=== PATIENT | female | born 1955 | race Caucasian/White ===

== ENCOUNTER → 2019-09-18 11:27 | Outpatient (BNVA) | payer OTHER, SELFPAY | PROVIDERS: Visit Provider Nurse Practitioner | DX: S66.911A Strain of unspecified muscle, fascia and tendon at wrist and hand level, right hand, initial encounter (principal); X58.XXXA Exposure to other specified factors, initial encounter | CPT/HCPCS: 73110 ==

== ENCOUNTER 2019-09-23 19:44 | Emergency (ER) | payer OTHER, SELFPAY ==
--- NOTE | 2019-09-23 19:47 | XRR_ITS ---
PROCEDURE INFORMATION: Exam: XR Right Elbow Exam date and time: 09/23/2019 8:17 PM Age: 64 years old Clinical indication: Injury or trauma; Fall; Initial encounter; Swelling (edema); Elbow; Right TECHNIQUE: Imaging protocol: XR Right elbow. Views: 3 or more views. COMPARISON: No relevant prior studies available. FINDINGS: Bones/joints: Normal. Soft tissues: Normal. XR/XR elbow RT min 3V* [id number] IMPRESSION: No acute findings.
[2019-09-23 20:19] VITALS: BP 159/84; PULSE 91; RESP 18; TEMP 36.4; O2SAT 95; BMI 39.5
--- NOTE | 2019-09-23 21:52 | ED_ITS ---
HPI - Extremity Problem General: Chief complaint: Extremity Injury, Upper Stated complaint: right elbow injury Time Seen by Provider: 09/23/19 21:46 Source: patient Mode of arrival: ambulatory Limitations: no limitations History of Present Illness: HPI Narrative: Old female who struck her right elbow 2 weeks ago. She states she has a continuous hematoma to the right proximal forearm right by her elbow. She states that it is is half a golf ball size. She has had slight pain. She denies any fever or pus coming from it. Denies any worsening or improving factors. Associated symptoms: Deny chest pain, fever(s) or rash Review of Systems Const: Denies: fever(s), chills, body aches or change in appetite Eyes: Denies: blurry vision or eye discomfort ENMT: Denies: throat pain or dental pain Card: Denies: chest pain Resp: Denies: dyspnea GI: Denies: abdominal pain, nausea, vomiting or diarrhea : Denies: dysuria Musc: Denies: neck pain or back pain Skin/Breast: Denies: rash Neuro: Denies: headache(s) Psych: Denies: depression Chaitanya/Lymph: Denies: easy bruising All/Imm: Denies: urticaria Physical Exam Const: COMMON NORMALS: no acute distress, patient oriented x3 and healthy appearing HENMT: COMMON NORMALS: normocephalic and atraumatic HEAD & SCALP: normocephalic and atraumatic Eye: COMMON NORMALS: Equal, round and reactive pupils present and EOMs intact bilaterally PUPIL: Yes Equal, round and reactive pupils present Neck/C-Spine: COMMON NORMALS: full ROM and supple Chest: COMMONS NORMALS: normal inspection of the chest and normal palpation of entire chest wall Resp: COMMON NORMALS: normal respiratory effort, No retractions, No use of accessory muscles and clear to auscultation bilaterally AUSCULTATION: clear to auscultation bilaterally Cardio: COMMON NORMALS: regular rate, regular rhythm and No murmurs present (Cardio) RATE: regular rate RHYTHM: regular rhythm GI: COMMON NORMALS: Normal to inspection, nondistended, normoactive bowel sounds present, Soft to palpation, non-tender and no masses PALPATION: Yes Soft to palpation Extremity: COMMON NORMALS: normal to inspection and full ROM Neuro: COMMON NORMALS: patient oriented x3, moves all extremities and no focal motor deficits Psych: COMMON NORMALS: mental status grossly normal, Normal thought process present and cooperative THOUGHT PROCESS: Normal thought process present Skin: COMMON NORMALS: no wounds NARRATIVE SKIN EXAM: Half a golf ball size mass to right proximal forearm Course ED course: Patient had a half golf ball size hematoma to her forearm. I did apply alcohol swab to clean her skin and inserted an 18-gauge needle and withdrew 4 cc of blood from it and it did flattened the area. No pus noted. Vital Signs: Vital signs: Vital Signs Temperature 97.5 F L 09/23/19 20:19 Pulse Rate 91 09/23/19 20:19 Respiratory Rate 18 09/23/19 20:19 Blood Pressure 159/84 09/23/19 20:19 Pulse Oximetry 95 09/23/19 20:19 MDM - Extremity (Nontraumatic) MDM Narrative: Medical decision making narrative: Patient presents with a hematoma drained with a needle. Patient has no signs of infection x-ray is normal. She is stable for discharge and is to follow-up with primary care doctor in 2 to 4 days. Imaging Data^: X-ray right elbow: Attestation: I personally reviewed and interpreted this imaging study as follows: Discharge Plan Discharge Patient Disposition: Home, Self-Care Clinical Impression: Hematoma Condition: Stable Prescriptions: No Action tramadol 50 mg tablet 50 mg PO BID PRNRF: 0 Januvia 25 mg tablet 25 mg PO DAILY RF: 0 lisinopril 5 mg tablet 5 mg PO DAILY RF: 0 simvastatin 20 mg tablet 20 mg PO DAILY RF: 0 montelukast [Singulair] 10 mg tablet 10 mg PO DAILY RF: 0 Discharge Orders: Discharge Order (Routine); Ordered 09/23/19 Ordered By: Bhupendra oMrrow Discharge Diet: Advance as tolerated Discharge Activity: Resume usual activity Patient Instructions: Contusion in Adults (ED) Coding Level of Care Code ED Multifold Operator for Sj Cantu
[2019-09-23 21:57] VITALS: BP 142/78; PULSE 76; RESP 14; O2SAT 98
== END 2019-09-23 22:00 | disposition home or self-care (01) ==
LOC: ER 21:59
PROVIDERS: Emergency Provider Emergency Medicine
DX: S50.01XA Contusion of right elbow, initial encounter (principal); X58.XXXA Exposure to other specified factors, initial encounter
CPT/HCPCS: 10160; 12345; 73080; 99281; 99283

== ENCOUNTER 2020-08-29 09:11 | Outpatient (CLI) | payer MEDICARE, SELFPAY ==
--- NOTE | 2020-08-29 09:22 | MM_ITS ---
WS: [id number] SCREENING DIGITAL MAMMOGRAM WITH CAD HISTORY: SCREENING COMPARISON: None available. Unable to retrieve prior imaging studies from [place]. Bilateral CC and MLO views submitted. Computer aided detection analyzed. Breast composition: There are scattered areas of fibroglandular density. There are numerous asymmetri es within each breast. There are also 2 biopsy clips in the anterior lateral RIGHT breast. Asymmetry measuring 12 mm in the medial RIGHT breast is probably just posterior to the nipple on the lateral pr ojection. There are additional asymmetries in the lateral RIGHT breast near the biopsy clips. Asymmet ry measuring 13 mm in the central breast seen on the LEFT MLO projection. Without prior examinations for comparison these areas need to be further evaluated. Benign calcifications are also noted in eac h breast. MM/[place] [id number] IMPRESSION: BI-RADS: 0-Incomplete: Need additional imaging evaluation FOLLOW UP: Need Additional Imaging RIGHT breast: Spot compression views (CC and MLO). True ML. Ultrasound to follo w if abnormality persists. LEFT breast: Spot compression views (MLO). True ML. Ultrasound to follow if abn ormality persists.
--- NOTE | 2020-08-29 09:54 | USCV_ITS ---
PandoraRosie santamaria Age: 65 Gender: F : 1955 Exam Date: 08/29/2020 10:14 Ordering Phys: Ginger Sarabia MD ([email or web address]) Technologist: Anastasia Thorne Exam Location: [facility] [place] Indication: Presence of prosthetic heart valve BP: 135 / 70 HR: 68 Rhythm: Sinus Technical Quality: Fair MEASUREMENTS (Male / Female) Normal Values 2D ECHO LV Diastolic Diameter PLAX 4.0 cm 4.2 - 5.9 / 3.9 - 5.3 cm LV Systolic Diameter PLAX 2.1 cm LV Chamber Size 3.5 cm IVS Diastolic Thickness 2.1 cm 0.6 - 1.0 / 0.6 - 0.9 cm IVS Systolic Thickness 2.4 cm LVPW Diastolic Thickness 1.5 cm 0.6 - 1.0 / 0.6 - 0.9 cm LVPW Systolic Thickness 2.2 cm RV Chamber Size 2.3 cm LVOT Diameter 2.0 cm LV Ejection Fraction 2D Teich 77.5 % LV Ejection Fraction MOD 2C 70.2 % LV Ejection Fraction 2C AL 70.6 % LA Diameter 3.4 cm LA Width 2.4 cm LA Height 4.7 cm RA Width 2.4 cm RA Height 4.0 cm Aorta at Sinotubular Diameter 2.4 cm M-MODE LV Diastolic Diameter MM 5.6 cm 4.2 - 5.9 / 3.9 - 5.3 cm LV Systolic Diameter MM 3.4 cm LV Ejection Fraction MM Teich 68.5 % IVS Diastolic Thickness MM 1.4 cm 0.6 - 1.0 / 0.6 - 0.9 cm IVS Systolic Thickness MM 2.0 cm LVPW Diastolic Thickness MM 1.3 cm 0.6 - 1.0 / 0.6 - 0.9 cm LVPW Systolic Thickness MM 1.6 cm RV Diastolic Diameter MM 0.2 cm Aortic Annulus Diameter 3.3 cm LA Ao Ratio MM 1.1 MV E Point Septal Separation 0.3 cm DOPPLER AV Peak Velocity 351.0 cm/s LVOT Peak Velocity 81.0 cm/s AV Area Cont Eq vti 0.8 cm squared AV Area Cont Eq pk 0.8 cm squared MV Area PHT 3.5 cm squared Mitral E to A Ratio 0.8 MV E' Velocity 37.0 cm/s Mitral E to MV E' Ratio 9.0 Mitral E to LV E' Lateral Ratio 8.9 Mitral E to LV E' Septal Ratio 9.2 TV Peak E Velocity 37.0 cm/s Right Atrial Pressure 3.0 mmHg PV Peak Velocity 56.0 cm/s RV Acceleration Time 0.1 s RV Ejection Time 0.3 s RV AcT/ET 0.2 FINDINGS Left Ventricle Normal left ventricular size, systolic function and increased wall thickness, with no diagnostic regional wall motion abnormalities. Left ventricular ejection fraction is estimated at 60 -65 %. Normal diastolic function. Right Ventricle Normal right ventricular size and systolic function. Right Atrium Normal right atrial size. Right atrial pressure estimated at 3 mm Hg. Left Atrium Normal left atrial size. Mitral Valve Structurally normal mitral valve. No mitral valve stenosis. No mitral valve regurgitation. Aortic Valve Bioprosthetic aortic valve in situ. Moderate prosthetic aortic valve stenosis, peak velocity 3.5 m/s, peak gradient 48 mm Hg, mean gradient 30.6 mmHg, ESTEPHANIA 0.81 cm squared. Dimensionless valve index of 0.23. Acceleration time of 102 ms. Mild to moderate perivalvular aortic valve regurgitation. Tricuspid Valve Structurally normal tricuspid valve. Trace tricuspid valve regurgitation. Pulmonic Valve Pulmonic valve not well visualized. No pulmonary valve stenosis. Trace pulmonary valve regurgitation. Pericardium No pericardial effusion. Aorta Normal sized aortic root. Normal sized inferior vena cava with normal respiratory variations. CONCLUSIONS 1. Normal left ventricular size, systolic function and increased wall thickness, with no diagnostic regional wall motion abnormalities. Left ventricular ejection fraction is estimated at 60 -65 %. Normal diastolic function. 2. Bioprosthetic aortic valve in situ. Moderate prosthetic aortic valve stenosis, peak velocity 3.5 m/s, peak gradient 48 mm Hg, mean gradient 30.6 mmHg, ESTEPHANIA 0.81 cm squared. Dimensionless valve index of 0.23. Acceleration time of 102 ms. Mild to moderate perivalvular aortic valve regurgitation. 3. No prior similar studies to compare. Ginger Sarabia MD (Electronically Signed) Final Date: 05 September 2020 09:35 S
[2020-08-29] MEDS: perflutren protein-a microsphr 0.22 mg/mL SDV 3 mL IV (11:31)
== END 2020-08-29 09:12 | disposition home or self-care (01) ==
LOC: RADSHAW 09:17
PROVIDERS: PCP Family Medicine; Visit Provider Family Medicine
DX: Z95.2 Presence of prosthetic heart valve (principal); Z12.31 Encounter for screening mammogram for malignant neoplasm of breast
CPT/HCPCS: 77067; C8929; Q9956

== ENCOUNTER 2020-09-30 10:46 | Outpatient (CLI) | payer MEDICARE, SELFPAY ==
--- NOTE | 2020-09-30 10:56 | US_ITS ---
WS: [id number] ADDITIONAL VIEWS BILATERAL MAMMOGRAM AND RIGHT BREAST ULTRASOUND ADDITIONAL VIEWS BILATERAL MAMMOGRAM HISTORY: BREAST ASYMMETRY COMPARISON: 08/29/2020 Right breast: Numerous asymmetries in the anterior breast. Biopsy clips are also present. The asymmet ry just medial to the nipple persists measuring 8 mm. This is adjacent to a biopsy clip and may have been previously biopsied. This biopsy was not performed at this institution. Unfortunately there are no prior studies for comparison. Left breast: Asymmetry noted in the central LEFT breast seen best on the MLO projection resolves with additional imaging. Benign calcifications are noted throughout the LEFT breast. BREAST ULTRASOUND RIGHT breast ultrasound, limited. Ultrasound directed to the medial breast. At 6:00, 2 cm from the nipple is a hypoechoic mass without shadowing measuring 0.9 x 1.0 x 0.5 cm. This corresponds in size and shape to the mammographic abnorm ality. Suspect this has been previously biopsy as there is an adjacent biopsy clip. US/US breast RT limited* [id number] IMPRESSION: BI-RADS: 3-Probably Benign FOLLOW UP: 6 Month Follow-up Ovoid hypoechoic mass measures maximum 1.0 cm in the RIGHT breast at 6:00. Ther e is an adjacent biopsy clip therefore I favor this has probably been biopsied in the past although we do not have that information or prior studies available . Recommend 6 month follow-up RIGHT mammogram and ultrasound. If prior studies become available for comparison an addendum can be submitted.
--- NOTE | 2020-10-09 11:05 | PC.NURSE ---
This nurse called Rosibel Esqueda's office @ [facility] today. I spoke with nurse Barrera about needing a diag mammo order from mammography screening, as well as PET order needed from LDCT screening on 10/08/20. Nurse said the provider will be OOO this week, but will be back next week to put in orders. Sugey VALENTINE
== END 2020-09-30 10:47 | disposition home or self-care (01) ==
LOC: RADSHAW 10:52
PROVIDERS: PCP Family Medicine; Visit Provider Family Medicine
DX: N64.89 Other specified disorders of breast (principal); N63.15 Unspecified lump in the right breast, overlapping quadrants
CPT/HCPCS: 76642; 77066

== ENCOUNTER 2021-02-05 11:33 | Outpatient (CLI) | payer MEDICARE, SELFPAY ==
[2021-02-05 12:01] VITALS: BP 116/70; PULSE 62; RESP 18; TEMP 36.7; O2SAT 98; BMI 39.5
[2021-02-05 12:14] VITALS: BP 130/93; PULSE 63; RESP 18; TEMP 36.6; O2SAT 95
[2021-02-05 13:12] VITALS: BP 119/70; PULSE 62; RESP 18; TEMP 36.6; O2SAT 97
== END 2021-02-05 11:34 | disposition home or self-care (01) ==
LOC: OPS 11:35
PROVIDERS: PCP Family Medicine; Visit Provider Nurse Practitioner
DX: U07.1 COVID-19 (principal)
CPT/HCPCS: 96365

== ENCOUNTER 2021-03-26 10:28 | Outpatient (CLI) | payer MEDICARE, SELFPAY ==
--- NOTE | 2021-03-26 10:44 | US_ITS ---
WS: [id number] ADDITIONAL VIEWS RIGHT MAMMOGRAM RIGHT BREAST ULTRASOUND HISTORY: BREAST ASYMMETRY COMPARISON: 09/30/2020, 08/29/2020 RIGHT MAMMOGRAM: Spot compression views and true ML. The irregular asymmetry near the 6:00 axis of the RIGHT breast is unchanged. There is an additional a symmetry just lateral to the nipple near 8:00 at a middle depth with an adjacent biopsy clip. Asymmet ele are all stable. There are several biopsy clips and benign calcifications within the RIGHT breast . RIGHT BREAST ULTRASOUND 2-D and color Doppler imaging submitted. Ultrasound at 6:00 demonstrates a hypoechoic mass measuring 9 x 4 x 9 mm with no change. Lobulated hy poechoic mass posterior to the RIGHT nipple at 6:00 may be a dilated duct. No interval changes. This prominent duct was present on the mammogram with an adjacent biopsy clip. No increased vascularity. US/US breast RT limited* [id number] IMPRESSION: BI-RADS: 3-Probably Benign FOLLOW UP: 6 Month Follow-up Recommend continued 6 month follow-up of these nodules and possible duct dilata tion posterior to the RIGHT nipple. 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 With no remote mammograms follow-up is r ecommended. Diagnostic RIGHT mammogram and a RIGHT breast ultrasound with atten tion to the asymmetries and subareolar region.
== END 2021-03-26 10:29 | disposition home or self-care (01) ==
LOC: RADSHAW 10:41
PROVIDERS: PCP Family Medicine; Visit Provider Family Medicine
DX: N64.89 Other specified disorders of breast (principal); N63.15 Unspecified lump in the right breast, overlapping quadrants
CPT/HCPCS: 76642; 77065

== ENCOUNTER → 2021-04-28 14:33 | Outpatient (BNVA) | payer MEDICARE, SELFPAY | PROVIDERS: PCP Family Medicine; Visit Provider Specialist | DX: G31.84 Mild cognitive impairment of uncertain or unknown etiology (principal) | CPT/HCPCS: 99204 ==

== ENCOUNTER 2021-05-01 08:34 | Outpatient (CLI) | payer MEDICARE, SELFPAY ==
--- NOTE | 2021-05-01 08:00 | USCV_ITS ---
Rosie Delgado Age: 65 Gender: F : 1955 Exam Date: 05/01/2021 09:14 Ordering Phys: Ginger Sarabia MD ([email or web address]) Technologist: Exam Location[place] [facility] [place] Indication: BOVINE AO PROS BP: 130 / 73 HR: 74 Rhythm: Sinus Technical Quality: Good MEASUREMENTS (Male / Female) Normal Values 2D ECHO LV Diastolic Diameter PLAX 4.0 cm 4.2 - 5.9 / 3.9 - 5.3 cm LV Systolic Diameter PLAX 2.3 cm IVS Diastolic Thickness 0.9 cm 0.6 - 1.0 / 0.6 - 0.9 cm IVS Systolic Thickness 1.7 cm LVPW Diastolic Thickness 1.0 cm 0.6 - 1.0 / 0.6 - 0.9 cm LVPW Systolic Thickness 1.4 cm LVOT Diameter 2.1 cm LV Ejection Fraction 2D Teich 75.0 % LV Ejection Fraction MOD 2C 63.2 % LV Ejection Fraction 2C AL 62.7 % LA Diameter 3.9 cm Aorta at Sinotubular Diameter 2.6 cm M-MODE MV E Point Septal Separation 1.3 cm DOPPLER AV Peak Velocity 406.0 cm/s LVOT Peak Velocity 85.0 cm/s AV Area Cont Eq vti 0.8 cm squared AV Area Cont Eq pk 0.7 cm squared MV Area PHT 3.1 cm squared Mitral E to A Ratio 0.7 MV E' Velocity 35.5 cm/s Mitral E to MV E' Ratio 9.1 Mitral E to LV E' Lateral Ratio 8.0 Mitral E to LV E' Septal Ratio 10.4 TR Peak Velocity 255.0 cm/s TR Peak Gradient 26.0 mmHg TV Peak E Velocity 118.0 cm/s Right Atrial Pressure 3.0 mmHg Pulmonary Artery Systolic Pressu 29.0 mmHg PV Peak Velocity 92.0 cm/s RV Acceleration Time 0.1 s FINDINGS Left Ventricle Normal left ventricular size, systolic function and increased wall thickness, with no regional wall motion abnormalities. Left ventricular ejection fraction is estimated at 70 %. Grade I diastolic dysfunction (abnormal relaxation filling pattern), normal to mildly elevated filling pressures. Right Ventricle Normal right ventricular size and systolic function. Right ventricular systolic pressure 29 mmHg. Right Atrium Normal right atrial size. Left Atrium Mildly increased left atrial size. Mitral Valve Mild mitral annular calcification. Mildly thickened mitral valve. No mitral valve stenosis. No significant mitral valve regurgitation. Aortic Valve Bioprosthetic aortic valve in situ. Severe bioprosthetic aortic valve stenosis, peak velocity 4.2 m/s, peak gradient 72 mm Hg, mean gradient 43 mmHg, ESTEPHANIA 0.7 cm squared (LVOT=20 mm). Dimensionless valve index 0.20. Acceleration time 120 msec. Mild aortic valve regurgitation. Tricuspid Valve Structurally normal tricuspid valve. Trace to mild tricuspid valve regurgitation. Pulmonic Valve Pulmonic valve not well visualized. No pulmonary valve stenosis. Trace pulmonary valve regurgitation. Pericardium No pericardial effusion. Aorta Normal sized aortic root. CONCLUSIONS 1. This is a technically difficult study. Ultrasound enhancing agent was used per protocol. 2. Normal left ventricular size, systolic function and increased wall thickness, with no regional wall motion abnormalities. Left ventricular ejection fraction is estimated at 70 %. Grade I diastolic dysfunction (abnormal relaxation filling pattern), normal to mildly elevated filling pressures. 3. Severe bioprosthetic aortic valve stenosis, peak velocity 4.2 m/s, peak gradient 72 mm Hg, mean gradient 43 mmHg, ESTEPHANIA 0.7 cm squared (LVOT=20 mm). Dimensionless valve index 0.20. Acceleration time 120 msec. Mild aortic valve regurgitation. 4. When compared to previous study dated 08/29/2020, aortic stenosis seems to have worsened. Ginger Sarabia MD (Electronically Signed) Final Date: 06 May 2021 08:53 S
[2021-05-01] MEDS: perflutren protein-a microsphr 0.22 mg/mL SDV 3 mL IV (09:49)
== END 2021-05-01 08:35 | disposition home or self-care (01) ==
LOC: RAD 08:37
PROVIDERS: PCP Family Medicine; Visit Provider Internal Medicine Cardiovascular Disease
DX: T82.857A Stenosis of other cardiac prosthetic devices, implants and grafts, initial encounter (principal); Z95.2 Presence of prosthetic heart valve
CPT/HCPCS: C8929

== ENCOUNTER → 2021-05-13 11:36 | Outpatient (BNVA) | payer MEDICARE, SELFPAY | PROVIDERS: PCP Family Medicine; Visit Provider Internal Medicine Cardiovascular Disease | DX: T82.857A Stenosis of other cardiac prosthetic devices, implants and grafts, initial encounter (principal); Z95.2 Presence of prosthetic heart valve; R06.02 Shortness of breath | CPT/HCPCS: 99215 ==

== ENCOUNTER → 2021-05-23 10:00 | Outpatient (BNVA) | payer MEDICARE, SELFPAY | PROVIDERS: PCP Family Medicine; Referring Provider Internal Medicine Cardiovascular Disease | DX: Z20.822 Contact with and (suspected) exposure to COVID-19 (principal) ==

== ENCOUNTER 2021-05-27 06:05 | Outpatient (CLI) | payer MEDICARE, SELFPAY ==
[2021-05-23 10:02] LABS: INR 0.89 (0.83-1.21); Prothrombin Time (Patient) 12.3 Seconds (12.0-15.1)
[2021-05-23 10:07] LABS: Basophils # 0.1 10^3/uL (0.0-0.1); Eosinophils # 0.2 10^3/uL (0.0-0.8); Eosinophils % 3.4 %; Hematocrit 42.6 % (37.0-47.0); Hemoglobin 13.7 g/dL (11.5-15.3); Lymphocytes # 2.8 10^3/uL (0.8-4.8); Lymphocytes % 44.8 %; Mean Corpuscular HGB Conc 32.2 g/dL (30.0-36.0); Mean Corpuscular Volume 99.5 fl (81-99); Mean Platelet Volume 11.4 fL (7.4-10.4); Monocytes # 0.4 10^3/uL (0.2-0.9); Monocytes % 6.7 %; Neutrophils # 2.74 10^3/uL (1.8-7.7); Neutrophils % 43.9 %; Nucleated Red Blood Cells % 0 %; Platelet Count 249 10^3/cmm (130-400); Red Blood Count 4.28 10^6/uL (4.1-5.3); Red Cell Distribution Width 13.2 % (12.1-15.1); White Blood Count 6.2 10^3/uL (4.0-10.0)
[2021-05-23 10:13] LABS: Blood Urea Nitrogen 19 mg/dL (8-23); Calcium 9.7 mg/dL (8.5-10.5); Carbon Dioxide 26 mmol/L (22-29); Chloride 103 mmol/L (98-107); Glucose 185 mg/dL (65-115); Osmolality Calculated 295 mOsm/kg (285-295); Sodium 139 mmol/L (136-145)
[2021-05-23 10:17] LABS: Anion Gap 15.2 (5-19); Potassium 5.2 mmol/L (3.5-5.1)
[2021-05-23 13:04] LABS: Adenovirus Not Detected (NOT DETECT); Chlamydia Pneumoniae Not Detected (NOT DETECT); Coronavirus 229E,HKU1,NL63,OC4 Not Detected (NOT DETECT); Human Metapneumovirus Not Detected (NOT DETECT); Human Rhinovirus/Enterovirus Not Detected (NOT DETECT); Influenza A Not Detected (NOT DETECT); Influenza A H1 Not Detected (NOT DETECT); Influenza A H1-2009 Not Detected (NOT DETECT); Influenza A H3 Not Detected (NOT DETECT); Influenza B Not Detected (NOT DETECT); Mycoplasma Pneumoniae Not Detected (NOT DETECT); Parainfluenza Virus Type 1 Not Detected (NOT DETECT); Parainfluenza Virus Type 2 Not Detected (NOT DETECT); Parainfluenza Virus Type 3 Not Detected (NOT DETECT); Parainfluenza Virus Type 4 Not Detected (NOT DETECT); Respiratory Syncytial Virus A Not Detected (NOT DETECT); Respiratory Syncytial Virus B Not Detected (NOT DETECT); SARS-COV-2 Not Detected (NOT DETECT)
[2021-05-27] VITALS (13 sets, daily range): BP systolic 104–153; BP diastolic 69–95; PULSE 60–73; RESP 15–20; TEMP 36.4; O2SAT 91–98; BMI 38.4
--- NOTE | 2021-05-27 06:00 | XACV_ITS ---
Exam Room: 2 Ht: 175 cm Wt: 118 kg BSA: 2.45 m2 Gender: Female : 1955 Exam Priority: Routine Procedure(s): Procedure Description: Diagnostic procedure Procedure Description: Right Heart Catheterization Procedure Description: O2 saturation Procedure Description: Coronary Angiography Diagnostic Cath Status: Elective Diagnostic Findings * 65-year-old woman with past medical history of bioprosthetic aortic valve replacement for aortic stenosis in 2008, hypertension, dyslipidemia and diabetes mellitus. She presented initially for evaluation of chest tightness and exertional shortness of breath. Transthoracic echocardiogram showed severe bioprosthetic aortic valve stenosis. She is here for left and right heart catheterization prior to her valve surgery. * Angiography shows a right coronary dominant system. * The left main, left anterior descending left circumflex and right coronary arteries are free of any significant disease. Conclusions 1. Cardiac Catheterization study revealed normal left main, left anterior descending, left circumflex and right coronary arteries with minor luminal irregularities. 2. Right atrial pressure increased at 17 mmHg. Mild pulmonary hypertension with mean pulmonary artery pressure of 31 mmHg. 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 Pressures Phase:Rest AO : 104 / 76 ( 90 ) @ 9:09:00 AM RV : 49 / 11 / 17 @ 8:47:00 AM PA : 43 / 20 ( 31 ) @ 8:48:00 AM RA : a wave = 20 v wave = 20 mean = 17 @ 8:45:00 AM PCW : a wave = 18 v wave = 18 mean = 16 @ 8:50:00 AM Hemodynamic Findings Right atrial pressure is elevated at 17 mmHg. Right ventricular pressures are elevated at 49/11 (17) mm Hg. Pulmonary artery pressure mildly elevated with mean pressure of 31 mmHg. Pulmonary artery wedge pressures mildly increased at 16 mmHg. Cardiac output by Alonzo method is normal. Elevated pulmonary vascular resistance of 4 Wood Units. Oxygen saturation data reveals no evidence of intra-cardiac or intra-pulmonary shunting. O2 Content Phase:Rest PA : O2 Content O2: 65.0 @ 9:09:00 AM Saturations Phase:Rest AO : 96 @ 8:45:00 AM RA : 68 @ 8:50:00 AM RV : 69 @ 8:48:00 AM PA : 65 @ 9:09:00 AM Cardiac Output Phase:Rest Alonzo : 4 @ 8:30:34 AM Alonzo Cardiac Index: 2 @ 8:30:34 AM Flow Phase:Rest Qp : 4 @ 8:30:34 AM Qs : 4 @ 8:30:34 AM Clinical Evaluation EBL: 5mL-10mL Procedural Details Procedure Consent Obtained. Admit Source: Out Patient. Pre-Procedure Time Out. Identified patient by full name and date of as verbalized by the patient/guarantor. Does the consent match the physician's order: Yes. Accurate & Complete Informed Consent: Yes. Inpatient/Outpatient History & Physical on Chart: Yes. If H&P is completed, is and addenduem needed: N/A; If yes, is the addendum complete: N/A. Visualize and Verify Site with Patient/Guarantor: N/A. Relevant Radiology Images available: N/A. The risks, benefits, and alternatives of sedation and/or procedure were discussed by physician. The patient agrees to continue. Procedure started. [facility] Clinical Fraility Score: 3: Managing Well. Office Associate Indications: Worsening Angina. Chest Pain Symptom Assessment: Atypical Angina. Correct patient, site and procedure confirmed by cath team. Current diagnosis: Chest Pain. PERRLA. Strong, equal hand stage hand bilaterally. Lungs clear x 5 lobes. IV Site on Arrival: 22 gauge in the left anticubital. IV Fluids: 0.9% NaCl at KVO. 0 mL infused prior to general labor. Pre Procedural Pulses: bilateral dorsalis pedis was 2+. Pre Procedural Pulses: bilateral radial was 2+. right groin was prepped with chloroprep then draped in the usual sterile fashion. right radial was prepped with chloroprep then draped in the usual sterile fashion. Physician notified. Baseline sample Acquired. HR: 60 BPM. Physician arrived. Physician scrubbed in. Immediate Pre-Procedure Time Out. Correct Patient: Yes; Correct Procedure: Yes; Correct Site: Yes; Correct Patient Position: Yes; Correct Supplies: Yes; Dried Flammable Prep: Yes; Blood Products Available: N/A;. Lidocaine 1% infiltrated to the right brachial. [place]-Cher MON catheter inserted. Oximetry samples were obtained. Normal venous range: 60-85%. Normal arterial range: 95-100%. Pressure measurements obtained. [place] out. Lidocaine 1% infiltrated to the right radial. Arterial access obtained. Oxygen started at 2liters/min via nasal canula. A 5 mongolian TIG catheter in over wire. Multiple views taken of left coronary artery. Catheter redirected to the RCA. Catheter out. A 5 mongolian JR4 catheter in over wire. Multiple views taken of right coronary artery. Catheter out. A Manual Compression was successful obtaining hemostatsis at the Right Brachial Vein insertion site. A TR Band was successful obtaining hemostatsis at the Right Radial artery insertion site. Physician scrubbed out. Physician review of cine films. Post Procedure: Pulses reassessed and unchanged. PERRLA. Strong, equal hand stage hand bilaterally. No VTE prophylaxis required. Medication's Wasted: Lidocaine 1% = 15 mL. Medication's Wasted: Heparin = 1000 u. Medication's Wasted: Nitro = 49.8 mg. Total IV fluids: 57 mL. Post-op diagnosis: Non obstructive CAD. Complications: none. Estimated blood loss: 5mL-10mL. Responsiveness - Normal response to verbal stimuli; alert and oriented, PERRLA. Airway - Unaffected, no intervention required; spontaneous ventilation. Circulation: W/N/L, pulses unchanged. Nausea/Vomiting: No. Procedure completed. Patient transferred by wheelchair to CPRU. Vital chart was stopped. Access Site Site: Right Brachial Vein Sheath Size: 6 Fr Hemostasis Method: Manual Compression Hemostasis Success: Successful Site: Right Radial artery Sheath Size: 6 Fr Hemostasis Method: TR Band Hemostasis Success: Successful Procedure Medications Start: 7:34 AM Stop: 7:34 AM Medication: Versed Amount: 1 mg Route: I.V. Start: 7:34 AM Stop: 7:34 AM Medication: Fentanyl Amount: 25 mcg Route: I.V. Start: 7:43 AM Stop: 7:43 AM Medication: Versed Amount: 1 mg Route: I.V. Start: 8:03 AM Stop: 8:03 AM Medication: Fentanyl Amount: 50 mcg Route: I.V. Start: 8:08 AM Stop: 8:08 AM Medication: Versed Amount: 1 mg Route: I.V. Start: 8:13 AM Stop: 8:13 AM Medication: Fentanyl Amount: 25 mcg Route: I.V. Start: 8:16 AM Stop: 8:16 AM Medication: Heparin Amount: 5000 units Route: I.V. I, the attending physician, have reviewed and verified all procedure medications. Yes, all medications given per verbal order History/Risk Factors Hypertension: Yes Dyslipidemia: Yes Peripheral Arterial Disease (PAD): No Myocardial Infarction (MO): No Obesity: Yes Renal Disease: No Tobacco Use: Never Prior Interventions PCI: No CABG: No Valve Surgery: No Report Signatures Finalized by Ginger Sarabai MD on 06/04/2021 07:30 PM
--- NOTE | 2021-05-27 07:17 | W.PM.OPSUD ---
Surgery/Procedure H&P Update DATE OF PROCEDURE: May 27, 2021 DATE H&P PERFORMED: 05/13/21 PRIMARY INDICATION FOR PROCEDURE: Severe bioprosthetic PLANNED PROCEDURE: Operation Date: 05/27/21 07:00 Proposed Procedures p Cardiac Catheterization(Bilateral) - Ginger Sarabia MD PATIENT REASSESSED PRIOR TO SEDATION, WITH NO CHANGE NOTED: Yes PHYSICAL EXAM: alert, oriented x 3, clear to auscultation bilaterally and regular rate & rhythm AIRWAY EVAL/ANESTHESIA PLAN: normal airway (airway 2), ASA III, Monitored Anesthesia, Local Anesthesia, Risks, benefits & alternatives of sedation and/or procedure discussed and Patient agrees to continue as planned
--- NOTE | 2021-05-27 08:53 | PC.NURSE ---
recovery received pt from slab off mill tender post diagnostic l and rhc. pt complains of no pain. tr band on right wrist with distal palpable pulse. bandage on right ac post right heart access. pt alert and oriented x3. pt placed on monitor and will be monitored per protocol.
--- NOTE | 2021-05-27 10:27 | PC.NURSE ---
tr band removal complete. no bleeding or hematoma noted. pt re-educated on restrictions of right wrist, pt stated understanding. sister at bedside.
== END 2021-05-27 11:18 | disposition home or self-care (01) ==
PROVIDERS: PCP Family Medicine; Visit Provider Internal Medicine Cardiovascular Disease
DX: T82.857A Stenosis of other cardiac prosthetic devices, implants and grafts, initial encounter (principal); I10 Essential (primary) hypertension; E78.5 Hyperlipidemia, unspecified; E11.69 Type 2 diabetes mellitus with other specified complication; I27.20 Pulmonary hypertension, unspecified; Z79.82 Long term (current) use of aspirin; Z82.49 Family history of ischemic heart disease and other diseases of the circulatory system; Z83.3 Family history of diabetes mellitus; Z86.16 Personal history of COVID-19
CPT/HCPCS: 36415; 80048; 85025; 85610; 87635; 93456; C1751; C1769; C1887; C1894; J1644; J2250; J3010; J3490; J7030; Q9967

== ENCOUNTER 2021-06-24 13:04 | Outpatient (CLI) | payer MEDICARE, SELFPAY ==
--- NOTE | 2021-06-24 13:13 | XR_ITS ---
WS: [id number] DEXA (DUAL ENERGY X-RAY ABSORPTIOMETRY) Bone mineral density was performed using a [employer] machine. HISTORY: POSTMENOPAUSAL COMPARISON: None available. Lumbar spine BMD (L1-L4): 1.320 g/cm2 T score: 1.2 Z score: 1.6 Total hip BMD: Left: 1.100 g/cm2. T score: 0.7 Z score: 1.1 Right: 1.013 g/cm2. T score: 0.0 Z score: 0.4 10 year probability of a major osteoporotic fracture is 11%. XR/XR DEXA axial skeleton* [id number] IMPRESSION: NORMAL BONE MINERAL DENSITY based upon the WHO classification for females.
== END 2021-06-24 13:05 | disposition home or self-care (01) ==
PROVIDERS: PCP Family Medicine; Visit Provider Physician Assistant
DX: Z78.0 Asymptomatic menopausal state (principal)
CPT/HCPCS: 77080

== ENCOUNTER 2021-09-03 00:09 | Emergency (ER) | payer MEDICARE, SELFPAY ==
[2021-09-03 00:25] VITALS: BP 96/76; PULSE 106; RESP 18; TEMP 36.7; O2SAT 95; BMI 36.1
--- NOTE | 2021-09-03 00:37 | ED_ITS ---
HPI - Extremity Problem General: Chief complaint: Extremity Injury, Lower Stated complaint: swollen/numbness & tingling of left ankle Time Seen by Provider: 09/03/21 00:22 History of Present Illness: 66-year-old female comes in today for injury to the left ankle. Patient reports injuring it on Wednesday evening. She went to the urgent care and had a x-ray of her foot that indicated no fractures. Review of the x-ray noted no obvious fracture to the foot. No x-ray of the ankle was noted though in the films. Associated symptoms: Deny chest pain or rash Review of Systems General: Reports: 10 or more systems reviewed and unremarkable except in HPI and below Card: Denies: chest pain Resp: Denies: dyspnea Musc: Reports: joint pain (Left ankle) Skin/Breast: Denies: rash PFSH ED PFSH: Medical History Diabetes Dyslipidemia HTN (hypertension) Surgical History Hx of aortic valve replacement Hx of breast biopsy Hx of cholecystectomy Hx of hysterectomy Family History Father CHF (congestive heart failure) Diabetes Myocardial infarction Mother Diabetes Sister Diabetes Family/Other Diabetes Stroke Social History Smoking and tobacco status: never smoked Alcohol intake: never Physical Exam Const: COMMON NORMALS: alert Neck/C-Spine: COMMON NORMALS: full ROM Resp: COMMON NORMALS: normal respiratory effort and clear to auscultation bilaterally AUSCULTATION: clear to auscultation bilaterally Cardio: COMMON NORMALS: regular rate RATE: regular rate Extremity: LEFT LOWER EXTREMITY: Yes ankle joint (Swelling and tenderness noted to the posterior ankle.) Left ankle: Yes inspection, Yes palpation and Yes ROM Neuro: SENSORIUM/ORIENTATION: Yes alert Skin: COMMON NORMALS: no rashes or lesions noted GENERAL SKIN EXAM: no rashes or lesions noted Course Vital Signs: Vital signs: Vital Signs Temperature 98.1 F 09/03/21 00:25 Pulse Rate 106 H 09/03/21 00:25 Respiratory Rate 18 09/03/21 00:25 Blood Pressure 96/76 09/03/21 00:25 Pulse Oximetry 95 09/03/21 00:25 MDM - Extremity (Nontraumatic) Medical Decision Making 66-year-old female comes in today with complaints of injury to the left ankle. Patient had a x-ray of the foot taken on Wednesday but has had increasing pain and discomfort to the ankle. On exam patient has posterior tenderness of the ankle bilateral. We also note some significant swelling. Distal pulses and se nsation are intact. Differential diagnosis includes fracture, sprain, contusion, dislocation. X-ray did not note any dislocation and patient does have significant degenerative changes. There is an area that is questionable for a probable avulsion fracture of the distal tibial malleolus. We will go ahead and put patient in a boot and have her follow-up with podiatry. Patient reported understanding agreed to plan. Discharge Plan Discharge Patient Disposition: Home Clinical Impression: Avulsion fracture of left ankle Qualifiers: Encounter type: initial encounter Fracture type: closed Qualified Code(s): S82 .892A - Other fracture of left lower leg, initial encounter for closed fracture Condition: Stable Prescriptions: No Action simvastatin 20 mg tablet 20 mg PO DAILY 0RF montelukast [Singulair] 10 mg tablet 10 mg PO DAILY 0RF lisinopril 20 mg tablet 20 mg PO DAILY 0RF escitalopram oxalate 20 mg tablet 20 mg PO DAILY 0RF trazodone 50 mg tablet 50 mg PO DAILY 0RF aspirin 81 mg tablet,chewable 81 mg PO DAILY Qty: 30 3RF glipizide 10 mg tablet 20 mg PO DAILY 0RF multivitamin Tablet 1 tab PO DAILY 0RF cinnamon bark [Cinnamon] 500 mg capsule 500 mg PO DAILY 0RF galantamine 8 mg capsule,ext rel. pellets 24 hr See Rx Instructions .ROUTE .COMPLEX Qty: 30 0RF Dose Instruction: TAKE 1 CAPSULE BY MOUTH IN THE MORNING WITH BREAKFAST Rx Instructions: TAKE 1 CAPSULE BY MOUTH IN THE MORNING WITH BREAKFAST bupropion HCl 150 mg Tablet Extended Release 24 Hr 150 mg PO DAILY 0RF Discharge Orders: Discharge ED (Routine); Ordered 09/03/21 Ordered By: Brian Huber Other Ambulatory Orders: DME: Miscellaneous (Order) Location: None Selected Ordered By: Brian Huber Referrals: Louann Rodriguez MD [Primary Care Provider] - Discharge Diet: Usual diet Discharge Activity: Limit activity as instructed Patient Instructions: Avulsion Fracture (ED) Activity Restrictions/Additional Instructions: Have prescription for walking boot filled at medical supply, Use walker, cane or crutches to help with ambulation. Follow-up with spiritual care coordinator for further treatment. Return to ER for new concerns. Case management will call you with appointment for follow-up with foot and ankle surgeon. Coding Level of Care Code ED Cement Boat And Barge Loader for Sj Fwtiffanie Exam Detailed
--- NOTE | 2021-09-03 00:41 | XRR_ITS ---
PROCEDURE INFORMATION: Exam: XR Left Ankle Exam date and time: 09/03/2021 12:51 AM Age: 66 years old Clinical indication: Pain and injury or trauma; Other: Stepped off curb wrong; Swelling (edema); Ankle; Left TECHNIQUE: Imaging protocol: Radiologic exam of the Left ankle. Views: 3 or more views. COMPARISON: No relevant prior studies available. FINDINGS: Bones/joints: The alignment of the joints is anatomic and the ankle mortise is maintained. There is an osteochondroma of the distal tibia extending anteriorly. There is a small bony opacity along the undersurface of the medial malleolus with adjacent soft tissue swelling that may represent a small avulsion fracture of the medial malleolus versus tendon calcification. Soft tissues: No radiopaque foreign body is seen. There is moderate soft tissue swelling, worse along the medial aspect. There is a plantar calcaneal spur. There is an enthesophyte of the Achilles tendon at its insertion onto the calcaneus bone. XR/XR ankle LT min 3V* [id number] IMPRESSION: 1. Avulsion fracture of the medial malleolus versus tendinous calcification. The presence of moderate adjacent soft tissue swelling of the medial aspect of the ankle suggests fracture. 2. An osteochondroma of the distal anterior tibia. 3. Achilles tendon enthesophyte. 4. A plantar calcaneal spur.
--- NOTE | 2021-09-03 02:26 | PC.NURSE ---
0210- HOME at bedside placing boot to left lower extremity.
[2021-09-03 02:27] VITALS: BP 117/78; PULSE 96; RESP 18; TEMP 36.7; O2SAT 99
--- NOTE | 2021-09-03 09:58 | PC.SOCIAL ---
Addendum entered by Joanie Carrizales 09/26/21 16:23: Patient had a follow up appointment scheduled for 09.05.[address] Kim at ortho - patient did attend appointment. Original Note: Podiatry Follow-Up Message sent to ortho requesting follow up. Clinic will call patient with appointment.
== END 2021-09-03 02:38 | disposition home or self-care (01) ==
PROVIDERS: Emergency Provider Nurse Practitioner Family; PCP Family Medicine
DX: S82.55XA Nondisplaced fracture of medial malleolus of left tibia, initial encounter for closed fracture (principal); Z79.82 Long term (current) use of aspirin; Z79.84 Long term (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 oral hypoglycemic drugs; E11.9 Type 2 diabetes mellitus without complications; E78.5 Hyperlipidemia, unspecified; I10 Essential (primary) hypertension; X58.XXXA Exposure to other specified factors, initial encounter
CPT/HCPCS: 73610; 99283

== ENCOUNTER → 2021-09-05 13:04 | Outpatient (BNVA) | payer MEDICARE, SELFPAY | PROVIDERS: PCP Family Medicine; Visit Provider Podiatrist Foot & Ankle Surgery | DX: S82.892A Other fracture of left lower leg, initial encounter for closed fracture (principal); S93.402A Sprain of unspecified ligament of left ankle, initial encounter; W10.1XXA Fall (on)(from) sidewalk curb, initial encounter | CPT/HCPCS: 99203 ==

== ENCOUNTER 2021-09-23 11:21 | Outpatient (RCR) | payer MEDICARE, SELFPAY | END 2021-10-12 23:59 | disposition home or self-care (01) | LOC: SPT 11:21 | PROVIDERS: PCP Family Medicine; Referring Provider Podiatrist Foot & Ankle Surgery; Visit Provider Podiatrist Foot & Ankle Surgery | DX: M25.372 Other instability, left ankle (principal); M25.572 Pain in left ankle and joints of left foot | CPT/HCPCS: 97110; 97161 ==

== ENCOUNTER → 2021-09-24 09:58 | Outpatient (BNVA) | payer MEDICARE, SELFPAY | PROVIDERS: PCP Family Medicine; Visit Provider Podiatrist Foot & Ankle Surgery | DX: S93.402D Sprain of unspecified ligament of left ankle, subsequent encounter (principal); S82.892D Other fracture of left lower leg, subsequent encounter for closed fracture with routine healing; E11.21 Type 2 diabetes mellitus with diabetic nephropathy; M21.41 Flat foot [pes planus] (acquired), right foot; M20.41 Other hammer toe(s) (acquired), right foot; M20.42 Other hammer toe(s) (acquired), left foot; M21.42 Flat foot [pes planus] (acquired), left foot; W10.1XXD Fall (on)(from) sidewalk curb, subsequent encounter | CPT/HCPCS: 99214 ==

== ENCOUNTER → 2021-10-08 09:31 | Outpatient (BNVA) | payer MEDICARE, SELFPAY | PROVIDERS: PCP Family Medicine; Visit Provider Specialist | DX: G31.84 Mild cognitive impairment of uncertain or unknown etiology (principal) | CPT/HCPCS: 99213 ==

== ENCOUNTER 2021-10-13 06:00 | Outpatient (RCR) | payer MEDICARE, SELFPAY | END 2021-10-24 13:32 | disposition home or self-care (01) | LOC: SPT 06:00 | PROVIDERS: PCP Family Medicine; Visit Provider Podiatrist Foot & Ankle Surgery | DX: M25.372 Other instability, left ankle (principal) | CPT/HCPCS: 97110 ==

== ENCOUNTER → 2021-10-15 13:49 | Outpatient (BNVA) | payer MEDICARE, SELFPAY | PROVIDERS: PCP Family Medicine; Visit Provider Internal Medicine Cardiovascular Disease | DX: T82.857D Stenosis of other cardiac prosthetic devices, implants and grafts, subsequent encounter (principal); Z95.2 Presence of prosthetic heart valve; I10 Essential (primary) hypertension; Z79.01 Long term (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 anticoagulants | CPT/HCPCS: 99214 ==

== ENCOUNTER 2021-10-28 09:27 | Outpatient (CLI) | payer MEDICARE, SELFPAY ==
--- NOTE | 2021-10-28 09:32 | MM_ITS ---
WS: [id number] VIEWS: MLO, CC, and ML views both breasts. 3D digital tomosynthesis is also included in this exam. Comparison made with prior exam of 08/29/2020 and 03/26/2021. Findings: There was no sign of mass, architectural distortion or suspicious calcification in either breast. Sta ble appearing nodular densities in both breasts.CAD or fibroglandular densities MM/[place] [id number] Impression: BI-RADS: 2-Benign FOLLOW-UP: 1 Year Follow-up This mammogram was also analyzed by the Computer Aided Detection System R2 Imag e Supply Chain Generalist.
--- NOTE | 2021-10-28 09:32 | US_ITS ---
WS: [id number] Exam: US breast RT limited* [id number] Date/Time of Exam: 10/28/2021 10:34 AM Reason For Exam: 6 MO F/U RT NODULES Comparison with the latest exam performed 03/26/2021. Hypoechoic subareolar nodule identified measuring 0.75 x 1.04 cm showing no significant change since previous study. There is also a second ovoid hypoechoic solid nodule at the 6:00 position 2 cm from t he nipple measuring approximately 0.5 x 0.9 cm. This nodule is also unchanged. There are no new nodul es in this region. Recommendations: 6 month follow-up ultrasound for continued surveillance. US/US breast RT limited* [id number] IMPRESSION: 1. 2 stable appearing hypoechoic nodular densities in the right breast as akbar led above. No new findings.
== END 2021-10-28 09:28 | disposition home or self-care (01) ==
LOC: RAD 09:28
PROVIDERS: PCP Family Medicine; Visit Provider Family Medicine
DX: N63.41 Unspecified lump in right breast, subareolar (principal); N63.15 Unspecified lump in the right breast, overlapping quadrants
CPT/HCPCS: 76642; 77062

== ENCOUNTER 2021-11-07 15:16 | Outpatient (RCR) | payer MEDICARE, SELFPAY | END 2021-11-12 23:59 | disposition home or self-care (01) | LOC: CR 15:16 | PROVIDERS: PCP Family Medicine; Referring Provider Internal Medicine Cardiovascular Disease; Visit Provider Internal Medicine Cardiovascular Disease | DX: Z95.2 Presence of prosthetic heart valve (principal) | CPT/HCPCS: 93798 ==

== ENCOUNTER 2021-11-13 10:27 | Outpatient (RCR) | payer MEDICARE, SELFPAY | END 2021-12-12 23:59 | disposition home or self-care (01) | LOC: CR 10:27 | PROVIDERS: PCP Family Medicine; Referring Provider Internal Medicine Cardiovascular Disease; Visit Provider Internal Medicine Cardiovascular Disease | DX: Z95.2 Presence of prosthetic heart valve (principal) | CPT/HCPCS: 93798 ==

== ENCOUNTER → 2021-12-05 11:07 | Outpatient (BNVA) | payer MEDICARE, SELFPAY | PROVIDERS: PCP Family Medicine; Visit Provider Internal Medicine Cardiovascular Disease | DX: Z45.010 Encounter for checking and testing of cardiac pacemaker pulse generator [battery] (principal) | CPT/HCPCS: 93280 ==

== ENCOUNTER 2021-12-16 11:18 | Outpatient (RCR) | payer MEDICARE, SELFPAY | END 2022-01-12 23:59 | disposition home or self-care (01) | LOC: CR 11:18 | PROVIDERS: PCP Family Medicine; Referring Provider Internal Medicine Cardiovascular Disease; Visit Provider Internal Medicine Cardiovascular Disease | DX: Z95.2 Presence of prosthetic heart valve (principal) | CPT/HCPCS: 93798 ==

== ENCOUNTER 2021-12-24 10:16 | Emergency (ER) | payer MEDICARE, SELFPAY ==
[2021-12-24 11:07] VITALS: BP 140/64; PULSE 69; RESP 18; TEMP 36.7; O2SAT 94; BMI 34.9
--- NOTE | 2021-12-24 11:24 | CT_ITS ---
WS: [id number] CT HEAD NONCONTRAST HISTORY: closed head injury on anticoagulants TECHNIQUE: Contiguous axial imaging performed through the brain in 2.5 mm imaging. Bone and soft tiss ue windows. Sagittal and coronal reformats reviewed. All CT scans at [facility] use at least one of these dose optimization techniques: automated exposure control; mA and/or kV adjustment per pa tient size (includes targeted exams where dose is matched to clinical indication); or iterative recon struction. DLP: 1104.08 mGy.cm COMPARISON: None available. No acute intracranial hemorrhage, midline shift or mass effect. No atrophy or prior infarcts or herniation. Ventricles: Normal size with no hydrocephalus. Paranasal sinuses: As visualized are clear. Mastoid air cells: Well pneumatized. Calvarium and scalp: Skull is intact with no soft tissue edema or swelling. CT/CT head wo con* [id number] IMPRESSION: Negative head CT.
--- NOTE | 2021-12-24 12:04 | XR_ITS ---
WS: [id number] LUMBAR SPINE: 3 VIEWS TECHNIQUE: AP, lateral and L5-S1 spot. HISTORY: low back pain after fall yesterday COMPARISON: 07/24/2020 Mild increase in the lumbar lordosis. L4 anterolisthesis by 5 mm. On the lateral projection there is very mild loss of height involving T12 and L1. Moderate degenerative spondylitic changes in the lumba r spine. Disc spaces are mildly narrowed at L4-5 and L5-S1. SI joints are symmetric bilaterally. No soft tissue abnormalities. Prior cholecystectomy. XR/XR lumbar spine 2-3V* [id number] IMPRESSION: 1. Advanced degenerative changes throughout the lumbar spine. 2. Seen best on the lateral projection is very mild anterior wedging of T12 an d L1. Indeterminate for fractures. MRI or CT evaluation may be beneficial.
--- NOTE | 2021-12-24 12:05 | W.ED.FALL ---
HPI - Fall General: Chief Complaint: Fall Stated Complaint: Fall Time Seen by Provider: 12/24/21 12:04 History of Present Illness: Patient is a 66-year-old female comes to the ED after fall. Patient says fall occurred yesterday. She tripped while going down her stairs. She hit her head on the wall but denies any loss of consciousness. Patient is on blood thinners. She is complaining of having pain in her lower back and a headache as well. She rates her low back pain currently a 5 out of 10. Denies any numbness or tingling to 1 side of her body or face, weakness to 1 side of her body or face or vision changes. Associated symptoms-after fall: Reports headache(s); Denies abdominal pain, chest pain, hematuria or neck pain Review of Systems Const: Denies: fever(s), chills or fatigue Eyes: Denies: change in vision or eye discomfort ENMT: Denies: throat pain, odynophagia, nasal discharge or nasal congestion Card: Denies: chest pain, palpitations, edema, swelling of feet/ankles, dyspnea on exertion or orthopnea Resp: Denies: dyspnea, productive cough or non-productive cough GI: Denies: abdominal pain, nausea, vomiting, diarrhea, constipation or hematochezia : Denies: flank pain, dysuria or hematuria Musc: Reports: back pain; Denies: neck pain or extremity swelling Skin/Breast: Denies: rash or new lesions Neuro: Reports: headache(s); Denies: numbness in extremities or weakness in extremities PFS ED PFSH: Medical History Diabetes Dyslipidemia HTN (hypertension) Mild cognitive impairment with memory loss Surgical History Hx of aortic valve replacement Hx of breast biopsy Hx of cholecystectomy Hx of hysterectomy Family History Father CHF (congestive heart failure) Diabetes Myocardial infarction Mother Diabetes Sister Diabetes Family/Other Diabetes Stroke Social History Smoking and tobacco status: never smoked Alcohol intake: never Physical Exam Const: COMMON NORMALS: no acute distress, patient oriented x3 and alert GENERAL APPEARANCE: cooperative and comfortable HENMT: COMMON NORMALS: normocephalic HEAD & SCALP: normocephalic MOUTH: Normal oral and palatal mucosa present THROAT: posterior oropharynx normal and uvula midline Eye: COMMON NORMALS: Equal, round and reactive pupils present and EOMs intact bilaterally GENERAL EYE: appearance normal, both eyes and all related structures PUPIL: Yes Equal, round and reactive pupils present Neck/C-Spine: COMMON NORMALS: supple GENERAL: Yes normal visual inspection Lymph: LYMPHATIC: no lymphadenopathy noted Resp: COMMON NORMALS: normal respiratory effort, No retractions, No use of accessory muscles and clear to auscultation bilaterally AUSCULTATION: clear to auscultation bilaterally Cardio: COMMON NORMALS: regular rate, regular rhythm, S1 normal heart sound present, S2 normal heart sound present, No gallops present (Cardio), No clicks present (Cardio), No murmurs present (Cardio) and Peripheral pulses 2+ throughout RATE: regular rate RHYTHM: regular rhythm HEART SOUNDS: S1 normal heart sound present and S2 normal heart sound present PERIPHERAL PULSES: Peripheral pulses 2+ throughout GI: COMMON NORMALS: Normal to inspection, nondistended, normoactive bowel sounds present, Soft to palpation, non-tender and no masses PALPATION: Yes Soft to palpation : COMMON NORMALS: Yes no CVA tenderness BLADDER/KIDNEY EXAM: Yes no CVA tenderness Back/Pelvis: COMMON NORMALS: no CVA tenderness Extremity: GENERAL: Yes normal exam except as noted Neuro: COMMON NORMALS: patient oriented x3, CN's II-XII intact bilaterally, moves all extremities, no focal motor deficits and no sensory deficits noted SENSORIUM/ORIENTATION: Yes alert SENSORY EXAM: Yes extremities (intact) MOTOR EXAM: 5/5 motor strength present throughout Skin: COMMON NORMALS: no rashes or lesions noted GENERAL SKIN EXAM: no rashes or lesions noted and dry skin Course Vital Signs: Vital signs: Vital Signs Temperature 98.1 F 12/24/21 11:07 Pulse Rate 69 12/24/21 11:07 Respiratory Rate 18 12/24/21 11:07 Blood Pressure 140/64 12/24/21 11:07 Pulse Oximetry 94 12/24/21 11:07 Oxygen Delivery Me thod 12/24/21 11:07 MDM - Fall Medical Decision Making Patient is a 66-year-old female comes to the ED after fall. Patient says fall occurred yesterday. She tripped while going down her stairs. She hit her head on the wall but denies any loss of consciousness. Patient is on blood thinners. She is complaining of having pain in her lower back and a headache as well. She rates her low back pain currently a 5 out of 10. Vitals are stable. Exam is benign and neuro exam shows no deficits. Head CT showed no acute findings. X-ray of the lumbar spine showed no acute fractures. Labs were unremarkable. Patient was diagnosed with back pain due to fall injury. Return to ED precautions given. Follow-up with PCP within the next week for reevaluation. Patient understood and agreed with plan. Lab Data I reviewed the patient's lab results. : 12/24/21 12:10 12/24/21 12:[address] 12/24/21 11:24 IMPRESSION: Negative head CT. Lumbar Spine X-Ray 12/24/21 12:04 IMPRESSION: 1. Advanced degenerative changes throughout the lumbar spine. 2. Seen best on the lateral projection is very mild anterior wedging of T12 and L1. Indeterminate for fractures. MRI or CT evaluation may be beneficial. Laboratory Results WBC 7.0 10^3/uL (4.0-10.0) 12/24/21 12:10 RBC 4.30 10^6/uL (4.1-5.3) 12/24/21 12:10 Hgb 13.2 g/dL (11.5-15.3) 12/24/21 12:10 Hct 41.4 % (37.0-47.0) 12/24/21 12:10 MCV 96.3 fl (81-99) 12/24/21 12:10 MCH 30.7 pg (28.0-34.0) 12/24/21 12:10 MCHC 31.9 g/dL (30.0-36.0) 12/24/21 12:10 RDW 17.8 % (12.1-15.1) H 12/24/21 12:10 Plt Count 256 10^3/cmm (130-400) 12/24/21 12:10 MPV 11.0 fL (7.4-10.4) H 12/24/21 12:10 Neut % (Auto) 51.6 % 12/24/21 12:10 Lymph % (Auto) 39.5 % 12/24/21 12:10 [place] % (Auto) 5.3 % 12/24/21 12:10 Eos % (Auto) 2.9 % 12/24/21 12:10 Baso % (Auto) 0.6 % 12/24/21 12:10 Neut # (Auto) 3.62 10^3/uL (1.8-7.7) 12/24/21 12:10 Lymph # (Auto) 2.8 10^3/uL (0.8-4.8) 12/24/21 12:10 [place] # (Auto) 0.4 10^3/uL (0.2-0.9) 12/24/21 12:10 Eos # (Auto) 0.2 10^3/uL (0.0-0.8) 12/24/21 12:10 Baso # (Auto) 0.0 10^3/uL (0.0-0.1) 12/24/21 12:10 Nucleated RBC % (auto) 0 % 12/24/21 12:10 Nucleated RBCs # 0.0 /100WBC 12/24/21 12:10 Sodium 141 mmol/L (136-145) 12/24/21 12:10 Potassium 4.6 mmol/L (3.5-5.1) 12/24/21 12:10 Chloride 105 mmol/L (98-107) 12/24/21 12:10 Carbon Dioxide 27 mmol/L (22-29) 12/24/21 12:10 Anion Gap 13.6 (5-19) 12/24/21 12:10 BUN 22 mg/dL (8-23) 12/24/21 12:10 Creatinine 0.8 mg/dL (0.5-0.9) 12/24/21 12:10 GFR Calculation 71.8 mL/min (90-130) L 12/24/21 12:10 Glucose 137 mg/dL (65-115) H 12/24/21 12:10 Calculated Osmolality 297 mOsm/kg (285-295) H 12/24/21 12:10 Calcium 9.7 mg/dL (8.5-10.5) 12/24/21 12:10 Total Bilirubin 0.4 mg/dL (0.15-1.2) 12/24/21 12:10 AST 17 U/L (0-32) 12/24/21 12:10 ALT 14 U/L (0-33) 12/24/21 12:10 Alkaline Phosphatase 86 U/L (35-105) 12/24/21 12:10 Total Protein 6.8 g/dL (6.6-8.7) 12/24/21 12:10 Albumin 4.0 g/dL (3.5-5.2) 12/24/21 12:10 Globulin 2.8 g/dL (1.3-4.6) 12/24/21 12:10 Urine Color Yellow (Yellow) 12/24/21 12:17 Urine Appearance Clear (CLEAR) 12/24/21 12:17 Urine pH 5 (5-7) 12/24/21 12:17 Ur Specific [place] 1.020 (1.005-1.030) 12/24/21 12:17 Urine Protein Neg (Negative) 12/24/21 12:17 Urine Glucose (UA) Norm (Normal) 12/24/21 12:17 Urine Ketones Negative (Negative) 12/24/21 12:17 Urine Blood Neg (Negative) 12/24/21 12:17 Urine Nitrate Negative (Negative) 12/24/21 12:17 Urine Bilirubin Neg (Negative) 12/24/21 12:17 Urine Urobilinogen Norm mg/dL (Negative) 12/24/21 12:17 Ur Leukocyte Esterase Negative (Negative) 12/24/21 12:17 Discharge Plan Discharge Patient Disposition: Home Clinical Impression: Back pain due to injury, Fall Condition: Stable Prescriptions: No Action simvastatin 20 mg tablet 20 mg PO DAILY montelukast [Singulair] 10 mg tablet 10 mg PO DAILY escitalopram oxalate 20 mg tablet 20 mg PO DAILY trazodone 50 mg tablet 50 mg PO DAILY aspirin 81 mg tablet,chewable 81 mg PO DAILY Qty: 30 3RF glipizide 10 mg tablet 20 mg PO DAILY multivitamin Tablet 1 tab PO DAILY cinnamon bark [Cinnamon] 500 mg capsule 500 mg PO DAILY galantamine 8 mg tablet 8 mg PO BID Qty: 180 0RF Rx Instructions: administer with AM and PM meals; watch for nausea 340B (DME) ASO to left See Rx Instructions .Route .MEDSUPPLY Qty: 1 0RF Rx Instructions: As directed (DME) Diabetic Shoes with 3 inserts See Rx Instructions .ROUTE .MEDSUPPLY Qty: 1 0RF Rx Instructions: As directed by HOME metoprolol succinate 25 mg tablet extended release 24 hr 12.5 mg PO DAILY Qty: 45 3RF Eliquis 5 mg tablet 5 mg PO BID Qty: 180 2RF bupropion HCl 150 mg tablet extended release 24 hr 300 mg PO DAILY Discharge Orders: Discharge ED (Routine); Ordered 12/24/21 Ordered By: Delvis Ashby Referrals: Louann Rodriguez MD [Primary Care Provider] - Discharge Diet: Regular Discharge Activity: Increase activity as tolerated Activity Restrictions/Additional Instructions: Follow-up with medical provider as directed in the next 5 to 7 days reevaluation. Continue taking all home medications as previously prescribed. Return to the ER or your medical provider if condition worsens. Please read and understand discharge instructions. Thank you for choosing [facility] for your healthcare needs today. Please realize this is an emergency room and that we are providing you with a medical screening exam and this may not be complete and all inclusive of all the testing and or work up that you may need to determine your ailment or severity of your illness. It is very important that you follow up as instructed or that you return to the Emergency Department should you have concerns or if your condition changes or worsens in any way. Coding Level of Care Code ED Pool Lifeguard for Sj Cantu Exam Comprehensive
[2021-12-24 12:23] LABS: Basophils % 0.6 %; Eosinophils # 0.2 10^3/uL (0.0-0.8); Eosinophils % 2.9 %; Hematocrit 41.4 % (37.0-47.0); Hemoglobin 13.2 g/dL (11.5-15.3); Lymphocytes # 2.8 10^3/uL (0.8-4.8); Lymphocytes % 39.5 %; Mean Corpuscular HGB Conc 31.9 g/dL (30.0-36.0); Mean Corpuscular Hemoglobin 30.7 pg (28.0-34.0); Mean Corpuscular Volume 96.3 fl (81-99); Monocytes # 0.4 10^3/uL (0.2-0.9); Monocytes % 5.3 %; Neutrophils # 3.62 10^3/uL (1.8-7.7); Neutrophils % 51.6 %; Nucleated Red Blood Cells % 0 %; Platelet Count 256 10^3/cmm (130-400); Red Cell Distribution Width 17.8 % (12.1-15.1)
[2021-12-24 12:49] LABS: Alanine Aminotransferase 14 U/L (0-33); Alkaline Phosphatase 86 U/L (35-105); Anion Gap 13.6 (5-19); Aspartate Amino Transferase 17 U/L (0-32); Blood Urea Nitrogen 22 mg/dL (8-23); Calcium 9.7 mg/dL (8.5-10.5); Carbon Dioxide 27 mmol/L (22-29); Chloride 105 mmol/L (98-107); Globulin 2.8 g/dL (1.3-4.6); Glomerular Filtration Rate 71.8 mL/min (90-130); Glucose 137 mg/dL (65-115); Osmolality Calculated 297 mOsm/kg (285-295); Potassium 4.6 mmol/L (3.5-5.1); Sodium 141 mmol/L (136-145); Total Bilirubin 0.4 mg/dL (0.15-1.2); Total Protein 6.8 g/dL (6.6-8.7)
[2021-12-24 12:51] LABS: Add Urine Microscopic? NO; Charge for UA Resulting for Rev
[2021-12-24 13:00] LABS: Bilirubin Urine Neg (Negative); Blood Urine Neg (Negative); Glucose Urine UA Norm (Normal); Ketones Urine Negative (Negative); Leukocyte Esterase Urine Negative (Negative); Nitrate Urine Negative (Negative); Protein Urine Neg (Negative); Urine Appearance Clear (CLEAR); Urine Color Yellow (Yellow); Urobilinogen Urine Norm (Negative); pH Urine 5 (5-7)
== END 2021-12-24 13:22 | disposition home or self-care (01) ==
PROVIDERS: Family Medicine; Emergency Provider Physician Assistant; PCP Family Medicine
DX: S39.92XA Unspecified injury of lower back, initial encounter (principal); E11.9 Type 2 diabetes mellitus without complications; E78.5 Hyperlipidemia, unspecified; I10 Essential (primary) hypertension; W10.8XXA Fall (on) (from) other stairs and steps, initial encounter; M76.72 Peroneal tendinitis, left leg
CPT/HCPCS: 36415; 70450; 72100; 80053; 81003; 85025; 99213; 99284

== ENCOUNTER → 2022-01-14 13:55 | Outpatient (BNVA) | payer MEDICARE, SELFPAY | PROVIDERS: PCP Family Medicine; Visit Provider Internal Medicine Cardiovascular Disease | DX: T82.857A Stenosis of other cardiac prosthetic devices, implants and grafts, initial encounter (principal); I48.92 Unspecified atrial flutter; I10 Essential (primary) hypertension; E78.5 Hyperlipidemia, unspecified; E11.69 Type 2 diabetes mellitus with other specified complication; Z79.01 Long term (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 anticoagulants; Z79.84 Long term (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 oral hypoglycemic drugs | CPT/HCPCS: 99214 ==

== ENCOUNTER 2022-02-22 12:52 | Emergency (ER) | payer MEDICARE, SELFPAY ==
[2022-02-22 13:14] VITALS: BP 112/70; PULSE 104; RESP 16; TEMP 36.6; O2SAT 95; BMI 35.8
--- NOTE | 2022-02-22 13:30 | XRR_ITS ---
PROCEDURE INFORMATION: Exam: XR Right Knee Exam date and time: 02/22/2022 1:55 PM Age: 66 years old Clinical indication: Injury or trauma; Fall; Blunt trauma; Knee; Right; Additional info: Pain fall TECHNIQUE: Imaging protocol: Radiologic exam of the Right knee. Views: 3 views. COMPARISON: No relevant prior studies available. FINDINGS: Bones/joints: Calcifications are present along the posterior aspect of the distal quadriceps tendon near the superior pole of the patella. No evidence for acute fracture. There are small tricompartmental marginal osteophyte formations. Mild narrowing of the medial joint compartment space. Soft tissues: Mild pretibial soft tissue edema. Other findings: There are benign meniscal calcifications. XR/XR knee RT 3V* [id number] IMPRESSION: 1. There are tricompartmental degenerative changes across the knee. No visualized acute fracture. 2. Benign meniscal calcifications.
--- NOTE | 2022-02-22 13:30 | XRR_ITS ---
PROCEDURE INFORMATION: Exam: XR Right Shoulder Exam date and time: 02/22/2022 1:48 PM Age: 66 years old Clinical indication: Injury or trauma; Fall; Blunt trauma (contusions or hematomas); Shoulder; Right; Additional info: Pain fall TECHNIQUE: Imaging protocol: Radiologic exam of the Right shoulder. Views: 2 or more views. COMPARISON: CT cervical spin wo con* [id number] 02/22/2022 1:39 PM FINDINGS: Bones/joints: There are moderate to severe degenerative changes across the acromioclavicular joint including inferior osteophyte formations. Partially visualized expansile lesion in the mid humeral diaphysis. No evidence for acute fracture. Soft tissues: Normal. XR/XR shoulder RT min 2V* [id number] IMPRESSION: 1. There are moderate to severe degenerative changes across the acromioclavicular joint including inferior osteophyte formations. 2. Partially visualized expansile lesion in the mid humeral diaphysis. No evidence for acute fracture.
--- NOTE | 2022-02-22 13:30 | CTR_ITS ---
PROCEDURE INFORMATION: Exam: CT Cervical Spine Without Contrast Exam date and time: 02/22/2022 1:39 PM Age: 66 years old Clinical indication: Injury or trauma; Fall; Blunt trauma; Additional info: Pain fall TECHNIQUE: Imaging protocol: Computed tomography of the cervical spine without contrast. Radiation optimization: All CT scans at this facility use at least one of these dose optimization techniques: automated exposure control; mA and/or kV adjustment per patient size (includes targeted exams where dose is matched to clinical indication); or iterative reconstruction. COMPARISON: [place] [id number] 09/30/2020 11:21 AM RADIATION DOSE METRICS: Total DLP (mGy-cm): 312.5 FINDINGS: Bones/joints: There are degenerative changes throughout the visualized spine including marginal osteophyte formations, endplate degenerative changes, and facet arthropathy. Multilevel disc space narrowing. There are broad-based disc osteophyte complexes at the C5-C6 and C6-C7 levels indenting the anterior thecal sac. There is mild bilateral neural foraminal narrowing at the C5-C6 level. Lungs: Lung apices are normal. Thyroid: Heterogeneous bilateral thyroid lobes. Soft tissues: Unremarkable. CT/CT cervical spin wo con* [id number] IMPRESSION: There are degenerative changes as described above. No evidence for acute fracture.
--- NOTE | 2022-02-22 13:30 | XRR_ITS ---
PROCEDURE INFORMATION: Exam: XR Right Hand Exam date and time: 02/22/2022 1:50 PM Age: 66 years old Clinical indication: Injury or trauma; Fall; Blunt trauma (contusions or hematomas); Hand; Right; Additional info: Pain fall TECHNIQUE: Imaging protocol: Radiologic exam of the Right hand. Views: 3 or more views. COMPARISON: No relevant prior studies available. FINDINGS: Bones/joints: Multi articular osteoarthritic changes. Soft tissues: There are benign-appearing soft tissue calcifications. XR/XR hand RT min 3V* [id number] IMPRESSION: No evidence for acute fracture.
--- NOTE | 2022-02-22 13:30 | XRR_ITS ---
PROCEDURE INFORMATION: Exam: XR Right Hip Exam date and time: 02/22/2022 1:53 PM Age: 66 years old Clinical indication: Injury or trauma; Fall; Blunt trauma (contusions or hematomas); Right; Hip; Additional info: Pain fall TECHNIQUE: Imaging protocol: Radiologic exam of the Right hip. Views: 1 view hip with pelvis when performed. COMPARISON: CR XR lumbar spine 2-3V* [id number] 12/24/2021 12:12 PM FINDINGS: Bones/joints: Mild narrowing of the hip joint space. There are small marginal osteophytes across the right hip. Large body habitus of the patient makes visualization of the right hip somewhat suboptimal. Soft tissues: See Bones/joints finding. XR/XR hip RT 2-3V wo/w pel* [id number] IMPRESSION: There are degenerative changes across the right hip joint. No acute fracture is visualized. Please note the large body habitus of the patient makes visualization of the right hip somewhat suboptimal.
--- NOTE | 2022-02-22 13:30 | CTR_ITS ---
PROCEDURE INFORMATION: Exam: CT Head Without Contrast Exam date and time: 02/22/2022 1:39 PM Age: 66 years old Clinical indication: Injury or trauma; Fall; Blunt trauma (contusions or hematomas); Consciousness not specified; Additional info: Pain R parietal scalp fall, on eliquis TECHNIQUE: Imaging protocol: Computed tomography of the head without contrast. Radiation optimization: All CT scans at this facility use at least one of these dose optimization techniques: automated exposure control; mA and/or kV adjustment per patient size (includes targeted exams where dose is matched to clinical indication); or iterative reconstruction. COMPARISON: CT head wo con* [id number] 12/24/2021 11:38 AM RADIATION DOSE METRICS: Total DLP (mGy-cm): 1190.36 FINDINGS: Brain: Calcified plaque is present within the intracranial vasculature. There is mild diffuse heterogeneity of the white matter attenuation, consistent with chronic white matter ischemic changes. No evidence for large acute ischemic infarction. Please note acute ischemia can be occult by head CT. No evidence for acute intracranial hemorrhage. Cerebral ventricles: No ventriculomegaly. Paranasal sinuses: There is mucosal thickening of the right sphenoid sinus. Mastoid air cells: Visualized mastoid air cells are well aerated. Bones/joints: Unremarkable. No acute fracture. Soft tissues: Unremarkable. CT/CT head wo con* [id number] IMPRESSION: There are senescent changes of the brain as described above. No evidence for large acute ischemic infarction or acute intracranial injury.
--- NOTE | 2022-02-22 13:30 | XRR_ITS ---
PROCEDURE INFORMATION: Exam: XR Right Wrist Exam date and time: 02/22/2022 1:52 PM Age: 66 years old Clinical indication: Injury or trauma; Fall; Blunt trauma (contusions or hematomas); Wrist; Right; Additional info: Pain fall TECHNIQUE: Imaging protocol: Radiologic exam of the Right wrist. Views: 3 or more views. COMPARISON: CR (UP EXM, ) 02/22/2022 1:50 PM FINDINGS: Bones/joints: There is subtle contour abnormality at the ulnar aspect of the triquetrum raising concern for fracture. Soft tissues: There are benign-appearing soft tissue calcifications in the expected location of the triangular fibrocartilage complex. Edema and/or hematoma is present in the soft tissues along the ulnar aspect of the wrist. XR/XR wrist RT min 3V* [id number] IMPRESSION: 1. There is subtle contour abnormality at the ulnar aspect of the triquetrum raising concern for fracture. CT scan of the wrist is recommended for further evaluation. 2. Edema and/or hematoma is present in the soft tissues along the ulnar aspect of the wrist.
--- NOTE | 2022-02-22 13:34 | W.ED.FALL ---
HPI - Fall General: Chief Complaint: Fall Stated Complaint: fall, head, right shoulder and knee Time Seen by Provider: 02/22/22 13:23 Source: patient Mode of arrival: ambulatory Limitations: no limitations History of Present Illness: See nursing assessment. Patient states that she was walking in her bathroom and tripped over her toilet. She states she struck the right side of her body on the floor. She bumped the top of her head at that time. She also complains of mild posterior right lateral neck pain. She complains of mild pain to the right shoulder right wrist right thumb and index finger, right hip, right knee. She complains of mild swelling and ecchymosis to the anterior right knee. She denies any pain to the chest abdomen or back. Patient has been amatory since the fall. She states she has a mild limp due to the right knee pain. She states she is on Eliquis. She denies any global headache. She does have a mild tenderness to the r parietal scalp. Patient denies any neurological changes. She denies any nausea or vomiting. She denies any change in speech or vision. Associated symptoms-after fall: Reports neck pain; Denies abdominal pain or chest pain Review of Systems Const: Denies: fever(s) or chills Eyes: Denies: change in vision ENMT: Denies: throat pain Card: Denies: chest pain or palpitations Resp: Denies: dyspnea or wheezing GI: Denies: abdominal pain, nausea or vomiting : Denies: flank pain Musc: Reports: neck pain, extremity pain, extremity swelling, joint pain, joint swelling and other; Denies: back pain Skin/Breast: Reports: other (Mild ecchymosis to anterior right knee with mild soft tissue swelling); Denies: rash, pruritus or erythema Neuro: Denies: numbness in extremities Chaitanya/Lymph: Denies: enlarged lymph nodes PFSH ED PFSH: Medical History Diabetes Dyslipidemia HTN (hypertension) Mild cognitive impairment with memory loss Surgical History Hx of aortic valve replacement Hx of breast biopsy Hx of cholecystectomy Hx of hysterectomy Family History Father CHF (congestive heart failure) Diabetes Myocardial infarction Mother Diabetes Sister Diabetes Family/Other Diabetes Stroke Social History Smoking and tobacco status: never smoked Alcohol intake: never Physical Exam Const: COMMON NORMALS: no acute distress, patient oriented x3, no limitations and well nourished GENERAL APPEARANCE: cooperative HENMT: COMMON NORMALS: normocephalic and atraumatic HEAD & SCALP: normocephalic and atraumatic FACE & SINUS: normal facial exam Eye: COMMON NORMALS: EOMs intact bilaterally Neck/C-Spine: COMMON NORMALS: full ROM, no lymphadenopathy, supple and no meningeal signs GENERAL: Yes normal visual inspection OTHER: Mild tenderness to the posterior lateral right neck. No pain in the midline. No step-off or other deformity noted. Patient has normal voluntary range of motion of the neck. Lymph: LYMPHATIC: no lymphadenopathy noted Chest: COMMONS NORMALS: normal inspection of the chest and normal palpation of entire chest wall CHEST: No Ecchymosis present and No rash Resp: COMMON NORMALS: normal respiratory effort, No retractions and clear to auscultation bilaterally EFFORT & INSPECTION: No respiratory distress AUSCULTATION: clear to auscultation bilaterally Cardio: COMMON NORMALS: regular rate, regular rhythm and Peripheral pulses 2+ throughout JUGULAR VENOUS DISTENTION: no JVD RATE: regular rate RHYTHM: regular rhythm PERIPHERAL PULSES: Peripheral pulses 2+ throughout GI: COMMON NORMALS: Normal to inspection, nondistended, normoactive bowel sounds present and non-tender : COMMON NORMALS: Yes no CVA tenderness BLADDER/KIDNEY EXAM: Yes no CVA tenderness Back/Pelvis: COMMON NORMALS: no CVA tenderness Extremity: COMMON NORMALS: full ROM and capillary refill normal OTHER: Patient has mild pain with range of motion of the right shoulder but no crepitus or deformity noted. Mild pain in the right wrist and right first and second fingers of the right hand. No deformity, ecchymosis, soft tissue swelling noted to right upper extremity. Mild pain and right hip with range of motion. No deformity noted. No dislocation. Moderate pain to the anterior right knee with mild soft tissue swelling and mild new ecchymosis to anterior right knee. Normal range of motion. No dislocation. Peripheral pulses are normal. Neuro: COMMON NORMALS: patient oriented x3, CN's II-XII intact bilaterally, no focal motor deficits and no sensory deficits noted MENINGEAL SIGNS: Yes no meningeal signs Psych: COMMON NORMALS: mental status grossly normal and Normal thought process present THOUGHT PROCESS: Normal thought process present Skin: COMMON NORMALS: no rashes or lesions noted and no wounds GENERAL SKIN EXAM: no rashes or lesions noted Course Vital Signs: Vital signs: Vital Signs Temperature 97.8 F 02/22/22 13:14 Pulse Rate 104 H 02/22/22 13:14 Respiratory Rate 16 02/22/22 13:14 Blood Pressure 112/70 02/22/22 13:14 Pulse Oximetry 95 02/22/22 13:14 Oxygen Delivery Me thod 02/22/22 13:14 MDM - Fall Medical Decision Making Fall, on blood thinners, contusions to scalp right shoulder right wrist right hand right hip and right knee. Because patient is on blood thinners will obtain CT scan of the head and neck. Lab Data Radiology Impressions Cervical Spine CT 02/22/22 13:30 IMPRESSION: There are degenerative changes as described above. No evidence for acute fracture. Hand X-Ray 02/22/22 13:30 IMPRESSION: No evidence for acute fracture. Head CT 02/22/22 13:30 IMPRESSION: There are senescent changes of the brain as described above. No evidence for large acute ischemic infarction or acute intracranial injury. Hip/Pelvis X-Ray 02/22/22 13:30 IMPRESSION: There are degenerative changes across the right hip joint. No acute fracture is visualized. Please note the large body habitus of the patient makes visualization of the right hip somewhat suboptimal. Knee X-Ray 02/22/22 13:30 IMPRESSION: 1. There are tricompartmental degenerative changes across the knee. No visualized acute fracture. 2. Benign meniscal calcifications. Shoulder X-Ray 02/22/22 13:30 IMPRESSION: 1. There are moderate to severe degenerative changes across the acromioclavicular joint including inferior osteophyte formations. 2. Partially visualized expansile lesion in the mid humeral diaphysis. No evidence for acute fracture. Wrist X-Ray 02/22/22 13:30 IMPRESSION: 1. There is subtle contour abnormality at the ulnar aspect of the triquetrum raising concern for fracture. CT scan of the wrist is recommended for further evaluation. 2. Edema and/or hematoma is present in the soft tissues along the ulnar aspect of the wrist. Wrist CT 02/22/22 14:44 IMPRESSION: There is mild edema in the subcutaneous soft tissues at the ulnar aspect of the distal forearm and wrist. Imaging Data CT Head: Radiologist's impression: PROCEDURE INFORMATION: Exam: CT Head Without Contrast Exam date and time: 02/22/2022 1:39 PM Age: 66 years old Clinical indication: Injury or trauma; Fall; Blunt trauma (contusions or hematomas); Consciousness not specified; Additional info: Pain R parietal scalp fall, on eliquis TECHNIQUE: Imaging protocol: Computed tomography of the head without contrast. Radiation optimization: All CT scans at this facility use at least one of these dose optimization techniques: automated exposure control; mA and/or kV adjustment per patient size (includes targeted exams where dose is matched to clinical indication); or iterative reconstruction. COMPARISON: CT head wo con* [id number] 12/24/2021 11:38 AM RADIATION DOSE METRICS: Total DLP (mGy-cm): 1190.36 FINDINGS: Brain: Calcified plaque is present within the intracranial vasculature. There is mild diffuse heterogeneity of the white matter attenuation, consistent with chronic white matter ischemic changes. No evidence for large acute ischemic infarction. Please note acute ischemia can be occult by head CT. No evidence for acute intracranial hemorrhage. Cerebral ventricles: No ventriculomegaly. Paranasal sinuses: There is mucosal thickening of the right sphenoid sinus. Mastoid air cells: Visualized mastoid air cells are well aerated. Bones/joints: Unremarkable. No acute fracture. Soft tissues: Unremarkable. CT/CT head wo con* [id number] IMPRESSION: There are senescent changes of the brain as described above. No evidence for large acute ischemic infarction or acute intracranial injury. ? Dictated By: Marcela Dietz MD Signed By: Marcela Dietz MD Signed Date/Time: 02/22/[address]: Radiologist's impression: PROCEDURE INFORMATION: Exam: CT Cervical Spine Without Contrast Exam date and time: 02/22/2022 1:39 PM Age: 66 years old Clinical indication: Injury or trauma; Fall; Blunt trauma; Additional info: Pain fall TECHNIQUE: Imaging protocol: Computed tomography of the cervical spine without contrast. Radiation optimization: All CT scans at this facility use at least one of these dose optimization techniques: automated exposure control; mA and/or kV adjustment per patient size (includes targeted exams where dose is matched to clinical indication); or iterative reconstruction. COMPARISON: [place] [id number] 09/30/2020 11:21 AM RADIATION DOSE METRICS: Total DLP (mGy-cm): 312.5 FINDINGS: Bones/joints: There are degenerative changes throughout the visualized spine including marginal osteophyte formations, endplate degenerative changes, and facet arthropathy. Multilevel disc space narrowing. There are broad-based disc osteophyte complexes at the C5-C6 and C6-C7 levels indenting the anterior thecal sac. There is mild bilateral neural foraminal narrowing at the C5-C6 level. Lungs: Lung apices are normal. Thyroid: Heterogeneous bilateral thyroid lobes. Soft tissues: Unremarkable. CT/CT cervical spin wo con* [id number] IMPRESSION: There are degenerative changes as described above. No evidence for acute fracture. ? Dictated By: Marcela Dietz MD Signed By: Marcela Dietz MD Signed Date/Time: 02/22/22 1425 PROCEDURE INFORMATION: Exam: CT Right Upper Extremity Without Contrast, Wrist Exam date and time: 02/22/2022 3:28 PM Age: 66 years old Clinical indication: Pain; Wrist; Right; Additional info: Fall; Pain; Abnormal xray; Possible fracture triquetrum TECHNIQUE: Imaging protocol: Computed tomography of the Right upper extremity without contrast. Exam focused on the wrist. Radiation optimization: All CT scans at this facility use at least one of these dose optimization techniques: automated exposure control; mA and/or kV adjustment per patient size (includes targeted exams where dose is matched to clinical indication); or iterative reconstruction. COMPARISON: CR (UP EXM, ) 02/22/2022 1:52 PM RADIATION DOSE METRICS: Total DLP (mGy-cm): 90.93 FINDINGS: Bones/joints: Multi articular [id number] joint space narrowing. Minimal contour abnormality at the ulnar aspect of the triquetrum has a chronic appearance. No acute fracture is visualized. Minimal contour abnormality at the ulnar aspect of the triquetrum has a chronic appearance. No acute fracture is visualized. Soft tissues: There are benign-appearing soft tissue calcifications. There is mild edema in the subcutaneous soft tissues at the ulnar aspect of the distal forearm and wrist. CT/CT wrist RT wo con* [id number] IMPRESSION: There is mild edema in the subcutaneous soft tissues at the ulnar aspect of the distal forearm and wrist. ? Dictated By: Marcela Dietz MD Signed By: Marcela Dietz MD Signed Date/Time: 02/22/22 1612 Xray Ortho: My impression: X-ray right shoulder shows nothing acute. No fracture or dislocation seen. X-ray of right wrist shows nothing acute. No fracture or dislocation seen. X-ray of right hand shows nothing acute. No fracture or dislocation seen. X-ray of right hip and right hemipelvis shows nothing acute. No fracture or dislocation seen. X-ray of right knee shows nothing acute. No fracture or dislocation seen. PROCEDURE INFORMATION: Exam: XR Right Wrist Exam date and time: 02/22/2022 1:52 PM Age: 66 years old Clinical indication: Injury or trauma; Fall; Blunt trauma (contusions or hematomas); Wrist; Right; Additional info: Pain fall TECHNIQUE: Imaging protocol: Radiologic exam of the Right wrist. Views: 3 or more views. COMPARISON: CR (UP EX, ) 02/22/2022 1:50 PM FINDINGS: Bones/joints: There is subtle contour abnormality at the ulnar aspect of the triquetrum raising concern for fracture. Soft tissues: There are benign-appearing soft tissue calcifications in the expected location of the triangular fibrocartilage complex. Edema and/or hematoma is present in the soft tissues along the ulnar aspect of the wrist. XR/XR wrist RT min 3V* [id number] IMPRESSION: 1. There is subtle contour abnormality at the ulnar aspect of the triquetrum raising concern for fracture. CT scan of the wrist is recommended for further evaluation. 2. Edema and/or hematoma is present in the soft tissues along the ulnar aspect of the wrist. ? Dictated By: Marcela Dietz MD Signed By: Marcela Dietz MD Signed Date/Time: 02/22/22 1438 PROCEDURE INFORMATION: Exam: XR Right Hip Exam date and time: 02/22/2022 1:53 PM Age: 66 years old Clinical indication: Injury or trauma; Fall; Blunt trauma (contusions or hematomas); Right; Hip; Additional info: Pain fall TECHNIQUE: Imaging protocol: Radiologic exam of the Right hip. Views: 1 view hip with pelvis when performed. COMPARISON: CR XR lumbar spine 2-3V* [id number] 12/24/2021 12:12 PM FINDINGS: Bones/joints: Mild narrowing of the hip joint space. There are small marginal osteophytes across the right hip. Large body habitus of the patient makes visualization of the right hip somewhat suboptimal. Soft tissues: See Bones/joints finding. XR/XR hip RT 2-3V wo/w pel* [id number] IMPRESSION: There are degenerative changes across the right hip joint. No acute fracture is visualized. Please note the large body habitus of the patient makes visualization of the right hip somewhat suboptimal. ? Dictated By: Marcela Dietz MD Signed By: Marcela Dietz MD Signed Date/Time: 02/22/22 1441 PROCEDURE INFORMATION: Exam: XR Right Knee Exam date and time: 02/22/2022 1:55 PM Age: 66 years old Clinical indication: Injury or trauma; Fall; Blunt trauma; Knee; Right; Additional info: Pain fall TECHNIQUE: Imaging protocol: Radiologic exam of the Right knee. Views: 3 views. COMPARISON: No relevant prior studies available. FINDINGS: Bones/joints: Calcifications are present along the posterior aspect of the distal quadriceps tendon near the superior pole of the patella. No evidence for acute fracture. There are small tricompartmental marginal osteophyte formations. Mild narrowing of the medial joint compartment space. Soft tissues: Mild pretibial soft tissue edema. Other findings: There are benign meniscal calcifications. XR/XR knee RT 3V* [id number] IMPRESSION: 1. There are tricompartmental degenerative changes across the knee. No visualized acute fracture. 2. Benign meniscal calcifications. ? Dictated By: Marcela Dietz MD Signed By: Marcela Dietz MD Signed Date/Time: 02/22/22 144 PROCEDURE INFORMATION: Exam: XR Right Hand Exam date and time: 02/22/2022 1:50 PM Age: 66 years old Clinical indication: Injury or trauma; Fall; Blunt trauma (contusions or hematomas); Hand; Right; Additional info: Pain fall TECHNIQUE: Imaging protocol: Radiologic exam of the Right hand. Views: 3 or more views. COMPARISON: No relevant prior studies available. FINDINGS: Bones/joints: Multi articular osteoarthritic changes. Soft tissues: There are benign-appearing soft tissue calcifications. XR/XR hand RT min 3V* [id number] IMPRESSION: No evidence for acute fracture. ? Dictated By: Marcela Dietz MD Signed By: Marcela Dietz MD Signed Date/Time: 02/22/22 1434 Radiologist's impression: PROCEDURE INFORMATION: Exam: XR Right Shoulder Exam date and time: 02/22/2022 1:48 PM Age: 66 years old Clinical indication: Injury or trauma; Fall; Blunt trauma (contusions or hematomas); Shoulder; Right; Additional info: Pain fall TECHNIQUE: Imaging protocol: Radiologic exam of the Right shoulder. Views: 2 or more views. COMPARISON: CT cervical spin wo con* [id number] 02/22/2022 1:39 PM FINDINGS: Bones/joints: There are moderate to severe degenerative changes across the acromioclavicular joint including inferior osteophyte formations. Partially visualized expansile lesion in the mid humeral diaphysis. No evidence for acute fracture. Soft tissues: Normal. XR/XR shoulder RT min 2V* [id number] IMPRESSION: 1. There are moderate to severe degenerative changes across the acromioclavicular joint including inferior osteophyte formations. 2. Partially visualized expansile lesion in the mid humeral diaphysis. No evidence for acute fracture. ? Dictated By: Marcela Dietz MD Signed By: Marcela Dietz MD Signed Date/Time: 02/22/22 1432 Discharge Plan Discharge Patient Disposition: Home Clinical Impression: Contusion of right shoulder, initial encounter, Sprain and strain of right hand, Contusion of scalp, initial encounter Contusion of knee, right Qualifiers: Encounter type: initial encounter Qualified Code(s): S80.01XA - Contusion of right knee, initial encounter Contusion of hip, right Qualifiers: Encounter type: initial encounter Qualified Code(s): S70.01XA - Contusion of right hip, initial encounter Sprain of right wrist Qualifiers: Encounter type: initial encounter Qualified Code(s): S63.501A - Unspecified sprain of right wrist, initial encounter Condition: Stable Prescriptions: No Action simvastatin 20 mg tablet 20 mg PO DAILY montelukast [Singulair] 10 mg tablet 10 mg PO DAILY escitalopram oxalate 20 mg tablet 20 mg PO DAILY trazodone 50 mg tablet 50 mg PO DAILY aspirin 81 mg tablet,chewable 81 mg PO DAILY Qty: 30 3RF glipizide 10 mg tablet 20 mg PO DAILY multivitamin Tablet 1 tab PO DAILY galantamine 8 mg tablet 8 mg PO BID Qty: 180 0RF Rx Instructions: administer with AM and PM meals; watch for nausea 340B (DME) ASO to left See Rx Instructions .Route .MEDSUPPLY Qty: 1 0RF Rx Instructions: As directed (DME) Diabetic Shoes with 3 inserts See Rx Instructions .ROUTE .MEDSUPPLY Qty: 1 0RF Rx Instructions: As directed by HOME magnesium oxide 400 mg magnesium capsule 400 mg PO DAILY potassium gluconate 600 mg (99 mg) tablet 600 mg PO DAILY metoprolol succinate 25 mg tablet extended release 24 hr 12.5 mg PO DAILY Qty: 45 3RF Eliquis 5 mg tablet 5 mg PO BID Qty: 180 2RF bupropion HCl 150 mg tablet extended release 24 hr 150 mg PO BID Discharge Orders: Discharge ED (Routine); Ordered 02/22/22 Ordered By: Brock Ndiaye Referrals: Louann Rodriguez MD [Primary Care Provider] - 4-7 days (As needed) Discharge Activity: Increase activity as tolerated Patient Instructions: Contusion in Adults (ED), Splint Care (ED), Knee Pain (ED), Scalp Contusion in Adults (ED), Wrist Sprain (ED), Hip Contusion (ED), Opioid Safety, Pain Management Activity Restrictions/Additional Instructions: No fracture seen in your right wrist by CT scan. You have arthritic changes in other joints but no other fractures or dislocations seen. CT scans of your head and neck showed nothing acute. May continue Tylenol for pain. May use Amari wrap to the right knee as needed for discomfort. Wear right wrist splint as needed for discomfort. Follow-up with your family doctor as needed. Coding Level of Care Code ED [employer] for [employer] Fwd Exam Comprehensive Medical Decision Making Moderate Complexity
--- NOTE | 2022-02-22 14:44 | CTR_ITS ---
PROCEDURE INFORMATION: Exam: CT Right Upper Extremity Without Contrast, Wrist Exam date and time: 02/22/2022 3:28 PM Age: 66 years old Clinical indication: Pain; Wrist; Right; Additional info: Fall; Pain; Abnormal xray; Possible fracture triquetrum TECHNIQUE: Imaging protocol: Computed tomography of the Right upper extremity without contrast. Exam focused on the wrist. Radiation optimization: All CT scans at this facility use at least one of these dose optimization techniques: automated exposure control; mA and/or kV adjustment per patient size (includes targeted exams where dose is matched to clinical indication); or iterative reconstruction. COMPARISON: CR (UP EXM, ) 02/22/2022 1:52 PM RADIATION DOSE METRICS: Total DLP (mGy-cm): 90.93 FINDINGS: Bones/joints: Multi articular [id number]-cb-xswodibg joint space narrowing. Minimal contour abnormality at the ulnar aspect of the triquetrum has a chronic appearance. No acute fracture is visualized. Minimal contour abnormality at the ulnar aspect of the triquetrum has a chronic appearance. No acute fracture is visualized. Soft tissues: There are benign-appearing soft tissue calcifications. There is mild edema in the subcutaneous soft tissues at the ulnar aspect of the distal forearm and wrist. CT/CT wrist RT wo con* [id number] IMPRESSION: There is mild edema in the subcutaneous soft tissues at the ulnar aspect of the distal forearm and wrist.
[2022-02-22 16:47] VITALS: BP 138/82; PULSE 85; RESP 16; O2SAT 94
== END 2022-02-22 16:48 | disposition home or self-care (01) ==
PROVIDERS: Emergency Provider Family Medicine; PCP Family Medicine
DX: S00.03XA Contusion of scalp, initial encounter (principal); S40.011A Contusion of right shoulder, initial encounter; S80.01XA Contusion of right knee, initial encounter; S70.01XA Contusion of right hip, initial encounter; S60.211A Contusion of right wrist, initial encounter; S63.91XA Sprain of unspecified part of right wrist and hand, initial encounter; S66.911A Strain of unspecified muscle, fascia and tendon at wrist and hand level, right hand, initial encounter; E11.9 Type 2 diabetes mellitus without complications; E78.5 Hyperlipidemia, unspecified; I10 Essential (primary) hypertension; W01.0XXA Fall on same level from slipping, tripping and stumbling without subsequent striking against object, initial encounter
CPT/HCPCS: 70450; 72125; 73030; 73110; 73130; 73200; 73502; 73562; 99284

== ENCOUNTER → 2022-02-25 10:44 | Outpatient (BNVA) | payer MEDICARE, SELFPAY | PROVIDERS: PCP Family Medicine; Visit Provider Podiatrist Foot & Ankle Surgery | DX: M76.72 Peroneal tendinitis, left leg (principal) | CPT/HCPCS: 99213 ==

== ENCOUNTER → 2022-04-24 14:52 | Outpatient (BNVA) | payer MEDICARE, SELFPAY | PROVIDERS: PCP Family Medicine; Visit Provider Specialist | DX: G30.9 Alzheimer's disease, unspecified (principal); F02.80 Dementia in other diseases classified elsewhere, unspecified severity, without behavioral disturbance, psychotic disturbance, mood disturbance, and anxiety | CPT/HCPCS: 96116; 99214 ==

== ENCOUNTER 2022-05-21 08:05 | Outpatient (CLI) | payer MEDICARE, SELFPAY ==
--- NOTE | 2022-05-21 08:22 | US_ITS ---
WS: [id number] ULTRASOUND RIGHT BREAST HISTORY: 6MFU COMPARISON: 10/28/2021, 03/26/2021 and 09/30/2020 TECHNIQUE: 2-D and Doppler. Hypoechoic tubular masses in the anterior RIGHT breast near 6:00 has minimally changed in appearance. These are hypoechoic with no increased vascularity. On prior mammograms there are biopsy clips assoc iated with these hypoechoic masses. I suspect this is duct ectasia and debris. US/US breast RT limited* [id number] IMPRESSION: BI-RADS: 3-Probably Benign FOLLOW-UP: 6 Month Follow-up Patient to return in 6 months for annual diagnostic mammogram. These previously biopsied tubular masses will be reevaluated at that time. Ultrasound may be ne cessary. At this time these asymmetries appears stable since 08/29/2020.
== END 2022-05-21 08:06 | disposition home or self-care (01) ==
PROVIDERS: PCP Family Medicine; Visit Provider Family Medicine
DX: R91.8 Other nonspecific abnormal finding of lung field (principal); N64.89 Other specified disorders of breast
CPT/HCPCS: 76642

== ENCOUNTER 2022-06-14 18:23 | Emergency (ER) | payer MEDICARE, SELFPAY ==
[2022-06-14 18:28] VITALS: BP 137/87; PULSE 84; RESP 16; TEMP 36.3; O2SAT 95; BMI 37.6
--- NOTE | 2022-06-14 18:41 | XRR_ITS ---
PROCEDURE INFORMATION: Exam: XR Chest Exam date and time: 06/14/2022 6:53 PM Age: 67 years old Clinical indication: Pain; Chest pressure; Prior surgery; Surgery date: 6+ months; Surgery type: Pacemaker; Additional info: Cp TECHNIQUE: Imaging protocol: Radiologic exam of the chest. Views: 1 view. COMPARISON: CR XR chest 2V* [id number] 01/21/2017 9:32 AM FINDINGS: Tubes, catheters and devices: Dual lead permanent pacemaker in place. Lungs: Unremarkable. No consolidation. Pleural spaces: Unremarkable. No pleural effusion. No pneumothorax. Heart/Mediastinum: Heart borderline prominent with mild interval increase. Bones/joints: No acute findings. XR/XR chest 1V portable [id number] IMPRESSION: No acute findings.
[2022-06-14 19:23] LABS: Basophils # 0.1 10^3/uL (0.0-0.1); Basophils % 0.7 %; Eosinophils # 0.2 10^3/uL (0.0-0.8); Eosinophils % 2.9 %; Hematocrit 40.8 % (37.0-47.0); Hemoglobin 13.1 g/dL (11.5-15.3); Lymphocytes # 3.2 10^3/uL (0.8-4.8); Lymphocytes % 42.3 %; Mean Corpuscular HGB Conc 32.1 g/dL (30.0-36.0); Mean Corpuscular Hemoglobin 32.3 pg (28.0-34.0); Mean Corpuscular Volume 100.5 fl (81-99); Mean Platelet Volume 11.2 fL (7.4-10.4); Monocytes # 0.5 10^3/uL (0.2-0.9); Monocytes % 6.4 %; Neutrophils # 3.57 10^3/uL (1.8-7.7); Neutrophils % 47.6 %; Nucleated Red Blood Cells % 0 %; Platelet Count 209 10^3/cmm (130-400); Red Blood Count 4.06 10^6/uL (4.1-5.3); Red Cell Distribution Width 13.3 % (12.1-15.1); White Blood Count 7.5 10^3/uL (4.0-10.0)
[2022-06-14 19:37] LABS: INR 0.91 (0.8-1.2)
[2022-06-14 19:47] LABS: Troponin(5th) Baseline 14 ng/L (0-10)
[2022-06-14 19:55] LABS: Alanine Aminotransferase 12 U/L (0-33); Albumin Level 4.1 g/dL (3.5-5.2); Alkaline Phosphatase 96 U/L (35-105); Anion Gap 14.1 (5-19); Aspartate Amino Transferase 15 U/L (0-32); Blood Urea Nitrogen 34 mg/dL (8-23); Calcium 8.7 mg/dL (8.5-10.5); Carbon Dioxide 26 mmol/L (22-29); Chloride 102 mmol/L (98-107); Globulin 2.5 g/dL (1.3-4.6); Glomerular Filtration Rate 55.3 mL/min (90-130); Glucose 166 mg/dL (65-115); NT Pro B Type Natriuretic Pept 129 pg/mL (0-125); Osmolality Calculated 297 mOsm/kg (285-295); Potassium 4.1 mmol/L (3.5-5.1); Sodium 138 mmol/L (136-145); Total Bilirubin 0.2 mg/dL (0.15-1.2); Total Protein 6.6 g/dL (6.6-8.7)
--- NOTE | 2022-06-14 20:42 | ECG_ITS ---
[facility] Test Date: 2022-06-14 Pat Name: Rosie Dunne Department: Room: Gender: Female [employer] Report Developer: : 1955 Requested By: Austin Edmondson Order Number: [id number] Dread MD: Ayan Lai M.D. Measurements Intervals [place] Rate: 69 P: 42 RI: 270 QRS: -77 QRSD: 163 T: 83 QT: 440 QTc: 472 Interpretive Statements ELECTRONIC VENTRICULAR PACEMAKER No previous ECG available for comparison Electronically Signed On 06-15-2022 13:08:48 CDT by Ayan Lai M.D. [id number]
--- NOTE | 2022-06-14 21:35 | W.ED.CHESTPA ---
HPI - Chest Pain General: Chief Complaint: Chest Pain Stated Complaint: Chest Pain above Left Breast Time Seen by Provider: 06/14/22 18:41 Source: patient History of Present Illness: 67-year-old female with a history of heart valve surgery last July. She notes that her chest began to hurt this afternoon at a [employer] study group. Pain is to the left chest. It hurts somewhat to move or take a deep breath. She has not been coughing. No fever. No nausea or vomiting. No diaphoresis. She does not have a history of coronary disease. MD complaint: chest pain Pertinent past history: other Onset (ago): hour(s) Timing of current episode: constant Onset: during rest Pain location: left chest Pain radiation: none Severity: moderate Quality: sharp Relieving factors: nothing Exacerbating factors: inspiration and movement Associated symptoms: Deny abdominal pain, diaphoresis, dyspnea, fever(s), nausea, palpitations or vomiting Treatment prior to arrival: none Review of Systems Const: Denies: fever(s) or diaphoresis ENMT: Denies: throat pain Card: Reports: chest pain; Denies: palpitations Resp: Denies: dyspnea GI: Denies: abdominal pain, nausea or vomiting Musc: Denies: back pain PFSH ED PFSH: Medical History Diabetes Dyslipidemia HTN (hypertension) Mild cognitive impairment with memory loss Surgical History Hx of aortic valve replacement Hx of breast biopsy Hx of cholecystectomy Hx of hysterectomy Family History Father CHF (congestive heart failure) Diabetes Myocardial infarction Mother Diabetes Sister Diabetes Family/Other Diabetes Stroke Social History Smoking and tobacco status: never smoked Alcohol intake: never Physical Exam Const: COMMON NORMALS: no acute distress GENERAL APPEARANCE: cooperative; not ill appearing and not frail appearing HENMT: COMMON NORMALS: normocephalic, atraumatic and Normal external nose present HEAD & SCALP: normocephalic and atraumatic FACE & SINUS: normal facial exam and face symmetric NOSE: Normal external nose present Eye: COMMON NORMALS: Equal, round and reactive pupils present and EOMs intact bilaterally PUPIL: Yes Equal, round and reactive pupils present Neck/C-Spine: GENERAL: Yes trachea midline Chest: CHEST: Yes Symmetrical chest wall rise and Yes tenderness (Left anterior posterior chest wall) Resp: COMMON NORMALS: normal respiratory effort, No retractions, No use of accessory muscles and clear to auscultation bilaterally AUSCULTATION: clear to auscultation bilaterally Cardio: COMMON NORMALS: regular rate and regular rhythm RATE: regular rate RHYTHM: regular rhythm GI: COMMON NORMALS: Normal to inspection, nondistended, normoactive bowel sounds present Extremity: COMMON NORMALS: no pedal edema Neuro: [place]LAY COMA SCALE: document GCS findings [place] coma scale eye opening: Spontaneous [place] coma scale verbal response: Orientated [place] coma scale motor response: Obey commands [place] coma scale total score: 15 SENSORY EXAM: Yes extremities (intact) Psych: COMMON NORMALS: speech normal SPEECH: Yes normal speech Skin: COMMON NORMALS: no rashes or lesions noted GENERAL SKIN EXAM: no rashes or lesions noted Course Vital Signs: Vital signs: Vital Signs Temperature 97.3 F L 06/14/22 18:28 Pulse Rate 64 06/14/22 23:32 Respiratory Rate 16 06/14/22 23:32 Blood Pressure 137/86 06/14/22 23:32 Pulse Oximetry 95 06/14/22 18:28 Oxygen Delivery Me thod 06/14/22 18:28 MDM - Chest Pain Medical Decision Making Vitals are stable. EKG shows a paced rhythm. Troponin delta is -0.3 at 2 hours. BNP is 129. Chest x-ray is nonacute. Pain is reproducible. BUN and creatinine are slightly elevated. With mild, reproducible pain, and normal findings above, suggests chest wall inflammation. The patient is not tachycardic obviously given her paced rhythm. She is anticoagulated making pulmonary embolus much less likely. She will be allowed discharge with a small tapering dose of steroid for chest wall inflammation Lab Data 06/14/22 19:11 06/14/22 19:11 Radiology Impressions Chest X-Ray 06/14/22 18:41 IMPRESSION: No acute findings. Laboratory Results WBC 7.5 10^3/uL (4.0-10.0) 06/14/22 19:11 RBC 4.06 10^6/uL (4.1-5.3) L 06/14/22 19:11 Hgb 13.1 g/dL (11.5-15.3) 06/14/22 19:11 Hct 40.8 % (37.0-47.0) 06/14/22 19:11 MCV 100.5 fl (81-99) H 06/14/22 19:11 MCH 32.3 pg (28.0-34.0) 06/14/22 19:11 MCHC 32.1 g/dL (30.0-36.0) 06/14/22 19:11 RDW 13.3 % (12.1-15.1) 06/14/22 19:11 Plt Count 209 10^3/cmm (130-400) 06/14/22 19:11 MPV 11.2 fL (7.4-10.4) H 06/14/22 19:11 Neut % (Auto) 47.6 % 06/14/22 19:11 Lymph % (Auto) 42.3 % 06/14/22 19:11 [place] % (Auto) 6.4 % 06/14/22 19:11 Eos % (Auto) 2.9 % 06/14/22 19:11 Baso % (Auto) 0.7 % 06/14/22 19:11 Neut # (Auto) 3.57 10^3/uL (1.8-7.7) 06/14/22 19:11 Lymph # (Auto) 3.2 10^3/uL (0.8-4.8) 06/14/22 19:11 [place] # (Auto) 0.5 10^3/uL (0.2-0.9) 06/14/22 19:11 Eos # (Auto) 0.2 10^3/uL (0.0-0.8) 06/14/22 19:11 Baso # (Auto) 0.1 10^3/uL (0.0-0.1) 06/14/22 19:11 Nucleated RBC % (auto) 0 % 06/14/22 19:11 Nucleated RBCs # 0.0 /100WBC 06/14/22 19:11 PT 12.50 SECONDS (12.1-14.9) 06/14/22 19:11 INR 0.91 (0.8-1.2) 06/14/22 19:11 APTT 26.0 SECONDS (23.9-36.7) 06/14/22 19:11 Sodium 138 mmol/L (136-145) 06/14/22 19:11 Potassium 4.1 mmol/L (3.5-5.1) 06/14/22 19:11 Chloride 102 mmol/L (98-107) 06/14/22 19:11 Carbon Dioxide 26 mmol/L (22-29) 06/14/22 19:11 Anion Gap 14.1 (5-19) 06/14/22 19:11 BUN 34 mg/dL (8-23) H 06/14/22 19:11 Creatinine 1.0 mg/dL (0.5-0.9) H 06/14/22 19:11 GFR Calculation 55.3 mL/min (90-130) L 06/14/22 19:11 Glucose 166 mg/dL (65-115) H 06/14/22 19:11 Calculated Osmolality 297 mOsm/kg (285-295) H 06/14/22 19:11 Calcium 8.7 mg/dL (8.5-10.5) 06/14/22 19:11 Total Bilirubin 0.2 mg/dL (0.15-1.2) 06/14/22 19:11 AST 15 U/L (0-32) 06/14/22 19:11 ALT 12 U/L (0-33) 06/14/22 19:11 Alkaline Phosphatase 96 U/L (35-105) 06/14/22 19:11 Troponin T Baseline 14 ng/L (0-10) H 06/14/22 19:11 Troponin T 120 Minute 13.66 ng/L (0-10) H 06/14/22 21:26 Delta Troponin T -0.34 ABS# (0-10) L 06/14/22 21:26 NT-Pro-B Natriuret Pep 129 pg/mL (0-125) H 06/14/22 19:11 Total Protein 6.6 g/dL (6.6-8.7) 06/14/22 19:11 Albumin 4.1 g/dL (3.5-5.2) 06/14/22 19:11 Globulin 2.5 g/dL (1.3-4.6) 06/14/22 19:11 Discharge Plan Discharge Patient Disposition: Home Clinical Impression: Atypical chest pain Condition: Stable Prescriptions: New Medrol (Randall) 4 mg tablets,dose pack See Rx Instructions .ROUTE .COMPLEX Qty: 21 0RF Rx Instructions: orally per package directions No Action simvastatin 20 mg tablet 20 mg PO DAILY montelukast [Singulair] 10 mg tablet 10 mg PO DAILY escitalopram oxalate 20 mg tablet 20 mg PO DAILY trazodone 50 mg tablet 50 mg PO DAILY aspirin 81 mg tablet,chewable 81 mg PO DAILY Qty: 30 3RF glipizide 10 mg tablet 20 mg PO DAILY multivitamin Tablet 1 tab PO DAILY (DME) ASO to left See Rx Instructions .Route .MEDSUPPLY Qty: 1 0RF Rx Instructions: As directed ([facility] [place]) Diabetic Shoes with 3 inserts See Rx Instructions .ROUTE .MEDSUPPLY Qty: 1 0RF Rx Instructions: As directed by HOME magnesium oxide 400 mg magnesium capsule 400 mg PO DAILY potassium gluconate 600 mg (99 mg) tablet 600 mg PO DAILY (DME) Diabetic Shoes with 3 pairs of Inserts See Rx Instructions .Route .MEDSUPPLY Qty: 1 0RF Rx Instructions: As directed by HOME memantine 5 mg tablet 5 mg PO BID Qty: 60 5RF metoprolol succinate 25 mg tablet extended release 24 hr 12.5 mg PO DAILY Qty: 45 3RF Eliquis 5 mg tablet 5 mg PO BID Qty: 180 2RF galantamine 8 mg tablet See Rx Instructions .ROUTE .COMPLEX Qty: 180 0RF Dose Instruction: TAKE ONE TABLET BY MOUTH TWICE DAILY WITH MORNING AND EVENING MEALS, WATCH FOR NAUSEA Rx Instructions: TAKE ONE TABLET BY MOUTH TWICE DAILY WITH MORNING AND EVENING MEALS, WATCH FOR NAUSEA bupropion HCl 150 mg tablet extended release 24 hr 150 mg PO BID Discharge Orders: Discharge ED (Routine); Ordered 06/14/22 Ordered By: Austin Aleman Referrals: Louann Rodriguez MD [Primary Care Provider] - Patient Instructions: Chest Pain (ED) Activity Restrictions/Additional Instructions: Medication as directed. Return for worsening pain despite treatment, shortness of breath, vomiting, any other concerning symptoms. Medication can raise your blood sugar. This is usually transient. Coding Level of Care Code ED Rehabilitation Medicine Physician for Sj Cantu
[2022-06-14 21:53] LABS: Troponin 5 2HR 13.66 ng/L (0-10)
[2022-06-14 22:10] LABS: Troponin 5 2HR Delta -0.34 ABS# (0-10)
[2022-06-14] MEDS: ketorolac 30 mg/mL INJ 15 MG IVP (23:14)
[2022-06-14 23:32] VITALS: BP 137/86; PULSE 64; RESP 16
== END 2022-06-14 23:18 | disposition home or self-care (01) ==
PROVIDERS: Emergency Provider Emergency Medicine; PCP Family Medicine
DX: R07.89 Other chest pain (principal); Z79.82 Long term (current) use of aspirin; Z79.84 Long term (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 oral hypoglycemic drugs; Z79.01 Long term (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 anticoagulants; E11.9 Type 2 diabetes mellitus without complications; E78.5 Hyperlipidemia, unspecified; I10 Essential (primary) hypertension
CPT/HCPCS: 71045; 80053; 83880; 84484; 85025; 85610; 85730; 93005; 96374; 99285; J1885

== ENCOUNTER → 2022-06-24 11:04 | Outpatient (BNVA) | payer MEDICARE, SELFPAY | PROVIDERS: PCP Family Medicine; Visit Provider Podiatrist Foot & Ankle Surgery | DX: E11.69 Type 2 diabetes mellitus with other specified complication (principal); L60.3 Nail dystrophy; Q66.222 Congenital metatarsus adductus, left foot; M19.072 Primary osteoarthritis, left ankle and foot | CPT/HCPCS: 11721; 73630 ==

== ENCOUNTER 2022-06-28 13:20 | Emergency (ER) | payer MEDICARE, SELFPAY ==
[2022-06-28 13:38] VITALS: BP 129/77; PULSE 85; RESP 18; TEMP 36.4; O2SAT 95; BMI 37.6
--- NOTE | 2022-06-28 13:40 | XRR_ITS ---
PROCEDURE INFORMATION: Exam: XR Left Knee Exam date and time: 06/28/2022 1:51 PM Age: 67 years old Clinical indication: Injury or trauma; Fall; Blunt trauma; Knee; Left; Additional info: L knee pain TECHNIQUE: Imaging protocol: Radiologic exam of the left knee. Views: 3 views. COMPARISON: CR (LOW EXM, ) 06/28/2022 1:49 PM FINDINGS: Bones/joints: No fracture or dislocation is seen. Mild degenerative change, along with mild chondrocalcinosis that is more prominent lateral femoral compartment. No bone destruction or lesion. Small suprapatellar fullness or effusion. Soft tissues: No focal abnormality. Vasculature: Arterial vascular calcification within the soft tissues. XR/XR knee LT 3V* [id number] IMPRESSION: 1. No fracture or acute osseous abnormality. 2. Mild degenerative change with mild chondrocalcinosis.
--- NOTE | 2022-06-28 13:40 | XRR_ITS ---
PROCEDURE INFORMATION: Exam: XR Left Ankle Exam date and time: 06/28/2022 1:49 PM Age: 67 years old Clinical indication: Injury or trauma; Fall; Blunt trauma; Ankle; Left; Additional info: L ankle pain TECHNIQUE: Imaging protocol: Radiologic exam of the left ankle. Views: 3 or more views. COMPARISON: No relevant prior studies available. FINDINGS: Bones/joints: No fracture seen at the left ankle. Ankle joint appears intact, with mild degenerative change. Note is made of plantar calcaneal spur/enthesophyte and enthesophyte formation posterior calcaneus at the Achilles tendon insertion. Soft tissues: Soft tissues demonstrate small-vessel arterial calcification. XR/XR ankle LT min 3V* [id number] IMPRESSION: No fracture or acute osseous abnormality.
--- NOTE | 2022-06-28 13:54 | ED_ITS ---
HPI - Fall General: Chief Complaint: Fall Stated Complaint: Left ankle and knee pain Time Seen by Provider: 06/28/22 13:44 Source: patient Mode of arrival: ambulatory Limitations: no limitations History of Present Illness: 67-year-old female presents to the the ER today for left knee and ankle pain after a fall yesterday. Patient reports she was at [facility] and it was raining and she slipped. Patient reports she folded up Russian style with her left leg under her. Patient reports about a year ago she broke the left ankle and was concerned she might have reinjured it. She reports she has never had a left knee injury that she is aware of. She does report some bruising to the left foot and left knee. She has only taken Tylenol for it at home and rested. She reports mild swelling but no deformities. Review of Systems General: Reports: 10 or more systems reviewed and unremarkable except in HPI a nd below PFSH ED PFSH: Medical History Diabetes Dyslipidemia HTN (hypertension) Mild cognitive impairment with memory loss Surgical History Hx of aortic valve replacement Hx of breast biopsy Hx of cholecystectomy Hx of hysterectomy Family History Father CHF (congestive heart failure) Diabetes Myocardial infarction Mother Diabetes Sister Diabetes Family/Other Diabetes Stroke Social History Smoking and tobacco status: never smoked Alcohol intake: never Physical Exam Const: COMMON NORMALS: no acute distress, patient oriented x3, no limitations, healthy appearing, alert and well nourished; negative for average body habitus (obese) Neck/C-Spine: COMMON NORMALS: full ROM Resp: COMMON NORMALS: normal respiratory effort, No retractions and clear to auscultation bilaterally AUSCULTATION: clear to auscultation bilaterally Cardio: COMMON NORMALS: regular rate, regular rhythm and No murmurs present (Cardio) RATE: regular rate RHYTHM: regular rhythm Extremity: NARRATIVE EXTREMITY EXAM: Patient has tenderness to palpation along the left revealed joint line along with some bruising in that area. Mild swelling noted. Patient also has mild swelling and tenderness across the dorsum of the left foot. No deformities are noted. No major swelling noted. Neuro: COMMON NORMALS: patient oriented x3 SENSORIUM/ORIENTATION: Yes alert Psych: COMMON NORMALS: mental status grossly normal, Normal thought process present and cooperative THOUGHT PROCESS: Normal thought process present Skin: NARRATIVE SKIN EXAM: See musculoskeletal exam, some mild bruising noted to the left foot and left knee. No skin tears or lacerations. Course ED course: Patient presents for left knee and ankle pain after fall yesterday. We will get imaging at this time. No obvious deformities noted on exam. Vital Signs: Vital signs: Vital Signs Temperature 97.6 F 06/28/22 13:38 Pulse Rate 85 06/28/22 13:38 Respiratory Rate 18 06/28/22 13:38 Blood Pressure 129/77 06/28/22 13:38 Pulse Oximetry 95 06/28/22 13:38 Oxygen Delivery Me thod Room Air 06/28/22 13:38 MDM - Fall Medical Decision Making X-rays indicate no acute fractures. Patient does have arthritic changes of both the ankle and knee. Discussed with patient likely this is more of a flareup of the arthritis after the fall. She is unable to take NSAIDs so I would recommend Tylenol for pain. Rest, ice, and elevation is recommended. If pain persist beyond 10 to 14 days I would recommend she follow-up with her PCP to discuss further imaging. Return to the ER with any new or worsening symptoms. Patient verbalized understanding and was in agreement with the treatment plan. Lab Data Radiology Impressions Ankle X-Ray 06/28/22 13:40 IMPRESSION: No fracture or acute osseous abnormality. Knee X-Ray 06/28/22 13:40 IMPRESSION: 1. No fracture or acute osseous abnormality. 2. Mild degenerative change with mild chondrocalcinosis. Critical Care Time Critical Care Time: Critical Care Time: No Discharge Plan Discharge Patient Disposition: Home Clinical Impression: Acute pain of left knee, Acute left ankle pain Condition: Stable Prescriptions: No Action simvastatin 20 mg tablet 20 mg PO DAILY montelukast [Singulair] 10 mg tablet 10 mg PO DAILY escitalopram oxalate 20 mg tablet 20 mg PO DAILY trazodone 50 mg tablet 50 mg PO DAILY aspirin 81 mg tablet,chewable 81 mg PO DAILY Qty: 30 3RF glipizide 10 mg tablet 20 mg PO DAILY multivitamin Tablet 1 tab PO DAILY magnesium oxide 400 mg magnesium capsule 400 mg PO DAILY potassium gluconate 600 mg (99 mg) tablet 600 mg PO DAILY doxycycline hyclate 100 mg tablet 100 mg PO BID 10 Days Qty: 14 0RF memantine 5 mg tablet 5 mg PO BID Qty: 60 5RF metoprolol succinate 25 mg tablet extended release 24 hr 12.5 mg PO DAILY Qty: 45 3RF Eliquis 5 mg tablet 5 mg PO BID Qty: 180 2RF galantamine 8 mg tablet See Rx Instructions .ROUTE .COMPLEX Qty: 180 0RF Dose Instruction: TAKE ONE TABLET BY MOUTH TWICE DAILY WITH MORNING AND EVENING MEALS, WATCH FOR NAUSEA Rx Instructions: TAKE ONE TABLET BY MOUTH TWICE DAILY WITH MORNING AND EVENING MEALS, WATCH FOR NAUSEA bupropion HCl 150 mg tablet extended release 24 hr 150 mg PO BID Medrol (Randall) 4 mg tablets,dose pack See Rx Instructions .ROUTE .COMPLEX Qty: 21 0RF Rx Instructions: orally per package directions Discharge Orders: Discharge ED (Routine); Ordered 06/28/22 Ordered By: Melita Haynes Referrals: Louann Rodriguez MD [Primary Care Provider] - Discharge Diet: Usual diet Discharge Activity: Increase activity as tolerated Patient Instructions: Opioid Safety, Pain Management Activity Restrictions/Additional Instructions: Continue home medications. Rest, ice, elevation recommended. Take Tylenol for pain. Follow-up in 2 to 4 weeks if no improvement with PCP to discuss further imaging. Coding Level of Care Code ED Continuous Vulcanizing Machine Operator for Sj Cantu
== END 2022-06-28 15:01 | disposition home or self-care (01) ==
PROVIDERS: Emergency Provider Physician Assistant; PCP Family Medicine
DX: M25.572 Pain in left ankle and joints of left foot (principal); M25.562 Pain in left knee; Z79.01 Long term (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 anticoagulants; Z79.82 Long term (current) use of aspirin; Z79.84 Long term (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 oral hypoglycemic drugs; E11.9 Type 2 diabetes mellitus without complications; E78.5 Hyperlipidemia, unspecified; I10 Essential (primary) hypertension
CPT/HCPCS: 73562; 73610; 99283

== ENCOUNTER → 2022-09-29 09:06 | Outpatient (BNVA) | payer MEDICARE, SELFPAY | PROVIDERS: PCP Family Medicine; Visit Provider Podiatrist Foot & Ankle Surgery | DX: E11.69 Type 2 diabetes mellitus with other specified complication (principal); L60.3 Nail dystrophy; M76.72 Peroneal tendinitis, left leg; Q66.222 Congenital metatarsus adductus, left foot; M19.072 Primary osteoarthritis, left ankle and foot | CPT/HCPCS: 11721; 99213 ==

== ENCOUNTER → 2022-10-13 13:05 | Outpatient (BNVA) | payer MEDICARE, SELFPAY | PROVIDERS: PCP Family Medicine; Visit Provider Specialist | DX: R41.3 Other amnesia | CPT/HCPCS: 0346U; 82542; 96116; 99214 ==

== ENCOUNTER → 2022-10-14 14:06 | Outpatient (BNVA) | payer MEDICARE, SELFPAY | PROVIDERS: PCP Family Medicine; Visit Provider Internal Medicine Cardiovascular Disease | DX: T82.857A Stenosis of other cardiac prosthetic devices, implants and grafts, initial encounter (principal); Y71.2 Prosthetic and other implants, materials and accessory cardiovascular devices associated with adverse incidents; I48.92 Unspecified atrial flutter; Z79.01 Long term (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 anticoagulants; I10 Essential (primary) hypertension; E78.5 Hyperlipidemia, unspecified; E11.69 Type 2 diabetes mellitus with other specified complication; Z79.84 Long term (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 oral hypoglycemic drugs | CPT/HCPCS: 99214 ==

== ENCOUNTER → 2022-10-15 10:15 | Outpatient (BNVA) | payer MEDICARE, SELFPAY | PROVIDERS: PCP Family Medicine; Referring Provider Family Medicine; Visit Provider Student in an Organized Health Care Education/Training Program | DX: M17.12 Unilateral primary osteoarthritis, left knee | CPT/HCPCS: 73560; 73565; 99204 ==

== ENCOUNTER 2022-10-30 15:07 | Outpatient (CLI) | payer MEDICARE, SELFPAY ==
--- NOTE | 2022-10-30 15:30 | CT_ITS ---
WS: [id number] CT HEAD TECHNIQUE: Noncontrast CT of the head obtained from the skullbase to the vertex. CLINICAL INFORMATION: G30.9 - Alzheimer's disease, unspecified COMPARISON: CT head 2021 DLP: 1187.[address] scans at [facility] use at least one of these dose optimization techniques: automated e xposure control; mA and/or kV adjustment per patient size (includes targeted exams where dose is matc hed to clinical indication); or iterative reconstruction. FINDINGS: No evidence of intracranial hemorrhage or mass effect. Ventricular system and basal cisterns are moyer nt. Mild small vessel changes with mild parenchymal volume loss. Intracranial vascular calcification. No extra-axial fluid collections. No evidence of mass or mass effect. A few secretions within the ethmoid air cells. Secretions within the sphenoid sinus with trace mucosa l thickening. Paranasal sinuses otherwise well aerated. Normal posterior nasopharynx. Mastoid air howard ls are well aerated. IMPRESSION: 1. No evidence of intracranial hemorrhage or mass effect. 2. Mild small vessel changes. Mild parenchymal volume loss. 3. Intracranial vascular calcification. 4. Mild inflammatory changes in the paranasal sinuses. 5. No significant temporal lobe atrophy. 6. No acute intracranial findings.
== END 2022-10-30 15:08 | disposition home or self-care (01) ==
PROVIDERS: PCP Family Medicine; Visit Provider Specialist
DX: G30.9 Alzheimer's disease, unspecified (principal); F02.80 Dementia in other diseases classified elsewhere, unspecified severity, without behavioral disturbance, psychotic disturbance, mood disturbance, and anxiety; I67.2 Cerebral atherosclerosis
CPT/HCPCS: 70450

== ENCOUNTER → 2022-11-13 07:14 | Outpatient (BNVA) | payer MEDICARE, SELFPAY | PROVIDERS: PCP Family Medicine; Visit Provider Student in an Organized Health Care Education/Training Program | DX: M17.12 Unilateral primary osteoarthritis, left knee | CPT/HCPCS: 20610; 99213; J7318 ==

== ENCOUNTER 2022-11-23 08:56 | Outpatient (CLI) | payer MEDICARE, SELFPAY ==
--- NOTE | 2022-11-23 09:25 | MM_ITS ---
WS: [id number] DIAGNOSTIC BILATERAL DIGITAL BREAST TOMOSYNTHESIS MAMMOGRAPHY WITH CAD RIGHT breast ultrasound, limited HISTORY: 6MFU RT BR COMPARISON: 03/26/2021, 10/28/2021, 08/29/2020 and RIGHT breast ultrasound 05/21/2022 TECHNIQUE: Bilateral craniocaudad, mediolateral oblique, and mediolateral views are submitted with to mosynthesis and SM. Spot compression RIGHT CC. Computer aided detection utilized. Breast composition: There are scattered areas of fibroglandular density. Scattered asymmetries and ca lcifications within each breast. Tubular density in the RIGHT breast at 6:00 has an associated biopsy clip. There are additional biopsy clips present in the anterior RIGHT breast. There is been no sharma e of the tubular asymmetry since 08/29/2020. RIGHT breast ultrasound, limited. Hypoechoic nodule posterior to the areola at 6:00, 2 cm the nipple is reidentified measuring 10 x 5 x 7 mm. Additional hypoechoic nodule at the areola measures 8 x 8 x 9 mm. Neither of these nodules has increased in size. There is no increased vascularity. No new mass IMPRESSION: MM/[place] [id number] BI-RADS: 3-Probably Benign FOLLOW UP: 1 Year Follow-up Recommend diagnostic mammogram follow-up in 1 year. If the RIGHT breast nodules become larger in size additional ultrasound can be performed at that time.
== END 2022-11-23 08:57 | disposition home or self-care (01) ==
PROVIDERS: PCP Family Medicine; Visit Provider Family Medicine
DX: N63.41 Unspecified lump in right breast, subareolar (principal)
CPT/HCPCS: 76642; 77062; G0279

== ENCOUNTER → 2022-12-03 14:24 | Outpatient (BNVA) | payer MEDICARE, SELFPAY | PROVIDERS: PCP Family Medicine; Visit Provider Physician Assistant | DX: M17.12 Unilateral primary osteoarthritis, left knee | CPT/HCPCS: 73560; 73565; 99213 ==

== ENCOUNTER → 2022-12-15 11:35 | Outpatient (BNVA) | payer MEDICARE, SELFPAY | PROVIDERS: PCP Family Medicine; Visit Provider Specialist | DX: G30.9 Alzheimer's disease, unspecified (principal); F02.80 Dementia in other diseases classified elsewhere, unspecified severity, without behavioral disturbance, psychotic disturbance, mood disturbance, and anxiety | CPT/HCPCS: 99214; 99215 ==

== ENCOUNTER → 2022-12-22 09:26 | Outpatient (BNVA) | payer MEDICARE, SELFPAY | PROVIDERS: PCP Family Medicine; Visit Provider Podiatrist Foot & Ankle Surgery | DX: M19.079 Primary osteoarthritis, unspecified ankle and foot; L60.3 Nail dystrophy; E11.69 Type 2 diabetes mellitus with other specified complication; M76.72 Peroneal tendinitis, left leg; L84 Corns and callosities; Q66.222 Congenital metatarsus adductus, left foot; Q66.221 Congenital metatarsus adductus, right foot | CPT/HCPCS: 11055; 11721 ==

== ENCOUNTER → 2022-12-24 16:33 | Outpatient (BNVA) | payer MEDICARE, SELFPAY | PROVIDERS: PCP Family Medicine; Visit Provider Internal Medicine Cardiovascular Disease | DX: Z45.010 Encounter for checking and testing of cardiac pacemaker pulse generator [battery] (principal) | CPT/HCPCS: 93296 ==

== ENCOUNTER → 2023-03-25 08:19 | Outpatient (BNVA) | payer MEDICARE, SELFPAY | PROVIDERS: PCP Family Medicine; Visit Provider Internal Medicine | DX: Z45.010 Encounter for checking and testing of cardiac pacemaker pulse generator [battery] (principal) | CPT/HCPCS: 93296 ==

== ENCOUNTER → 2023-04-06 07:21 | Outpatient (BNVA) | payer MEDICARE, SELFPAY | PROVIDERS: PCP Family Medicine; Visit Provider Podiatrist Foot & Ankle Surgery | DX: E11.69 Type 2 diabetes mellitus with other specified complication; L60.3 Nail dystrophy; L84 Corns and callosities; Q66.221 Congenital metatarsus adductus, right foot; Q66.222 Congenital metatarsus adductus, left foot | CPT/HCPCS: 11056; 11721 ==

== ENCOUNTER 2023-04-27 07:10 | Emergency (ER) | payer MEDICARE, SELFPAY ==
--- NOTE | 2023-04-27 | XRR_ITS ---
PROCEDURE INFORMATION: Exam: XR Right Knee Exam date and time: 04/27/2023 8:28 AM Age: 67 years old Clinical indication: Injury or trauma; Fall; Blunt trauma; Knee; Bilateral TECHNIQUE: Imaging protocol: Radiologic exam of the right knee. Views: 3 views. COMPARISON: CR XR knee RT 3V* [id number] 02/22/2022 1:55 PM FINDINGS: Bones/joints: Mild tricompartment narrowing and spurring. Moderate chondrocalcinosis. No erosive changes. Soft tissues: Normal. XR/XR knee RT 3V* [id number] IMPRESSION: No acute findings. Degenerative changes.
[2023-04-27 07:21] VITALS: BP 142/79; PULSE 89; RESP 18; TEMP 36.8; O2SAT 95; BMI 38.4
--- NOTE | 2023-04-27 08:04 | CT_ITS ---
WS: [id number] CT HEAD NONCONTRAST HISTORY: FALL TECHNIQUE: Contiguous axial imaging performed through the brain in 2.5 mm imaging. Bone and soft tiss ue windows. Sagittal and coronal reformats reviewed. All CT scans at [facility] use at least one of these dose optimization techniques: automated exposure control; mA and/or kV adjustment per pa tient size (includes targeted exams where dose is matched to clinical indication); or iterative recon struction. DLP: 1606.15 mGy.cm COMPARISON: 10/30/2022 No acute intracranial hemorrhage, midline shift or mass effect. Very mild volume loss and small vessel ischemic disease. Similar to 10/30/2022. No new area of edema o r sulcal effacement. No new infarct. Ventricles: Normal size with no hydrocephalus. No inferior displacement of the cerebellar tonsils. Paranasal sinuses: Mild mucoperiosteal thickening in the RIGHT sphenoid sinus. Mastoid air cells: Well pneumatized. Calvarium and scalp: Skull is intact with no soft tissue edema or swelling. IMPRESSION: 1. No acute intracranial hemorrhage or edema. 2. Mild volume loss and small vessel ischemic disease. Similar to 10/30/2022.
[2023-04-27 08:05] LABS: Glucose Point of Care 218 mg/dL (70-110)
--- NOTE | 2023-04-27 08:07 | ED_ITS ---
HPI - Head Injury 2 General: Chief complaint: Head Injury Stated complaint: fall Time Seen by Provider: 04/27/23 08:07 Source: patient Mode of arrival: ambulatory History of Present Illness: 67-year-old female. Stood from seated p osition and fell. She does not remember what happened she got lightheaded and dizzy and suddenly fell. She is on Xarelto she has some right shoulder pain left knee pain jaw pain she is able to move all her extremities without crepitus no obvious deformities. Complaint: head injury Mechanism of Injury: fall Place: home Loss of Consciousness: yes and second(s) Severity: mild Associated symptoms: Deny amnesia, confusion, nausea, neck pain, numbness, syncope, tingling, vertigo, visual changes, vomiting or weakness Review of Systems 2 Const: Denies: fever(s) or chills Card: Denies: chest pain or syncope Resp: Denies: dyspnea GI: Denies: abdominal pain, nausea or vomiting : Denies: dysuria, urinary frequency or urinary urgency Musc: Denies: neck pain or back pain Skin/Breast: Denies: rash Neuro: Denies: vertigo or confusion PFSH ED 2 PFSH: Medical History Mild cognitive impairment with memory loss Dyslipidemia Diabetes HTN (hypertension) Surgical History Hx of hysterectomy Hx of cholecystectomy Hx of breast biopsy Hx of aortic valve replacement Family History Father Congestive heart failure (CHF) Diabetes Myocardial infarction Mother Diabetes Sister Diabetes Family/Other Diabetes Stroke Social History Smoking and tobacco/nicotine status: never used tobacco/nicotine Alcohol intake: never Substance/Drug Use: never Physical Exam 2 Const: GENERAL APPEARANCE: cooperative and comfortable O RIENTATION/CONSCIOUSNESS: Yes awake, Yes oriented to person, Yes oriented to place and Yes oriented to time HENMT: COMMON NORMALS: normocephalic and hearing grossly normal bilaterally HEAD & SCALP: normocephalic Resp: COMMON NORMALS: normal respiratory effort, No retractions, No use of accessory muscles and clear to auscultation bilaterally AUSCULTATION: clear to auscultation bilaterally Cardio: COMMON NORMALS: regular rate, regular rhythm and No murmurs present (Cardio) RATE: regular rate RHYTHM: regular rhythm GI: COMMON NORMALS: Soft to palpation and No hepatosplenomegaly present A USCULTATION: Yes normoactive bowel sounds PALPATION: Yes Soft to palpation, No Tenderness to palpation present (GI), No Guarding due to palpation present (GI) and Yes No hepatosplenomegaly present Extremity: COMMON NORMALS: normal to inspection, capillary refill normal, no clubbing, cyanosis or edema, no calf tenderness and no pedal edema Neuro: SENSORIUM/ORIENTATION: Yes oriented to person, Yes oriented to place and Yes oriented to time Skin: COMMON NORMALS: no rashes or lesions noted GENERAL SKIN EXAM: no rashes or lesions noted Course 2 Vital Signs: Vital signs: Vital Signs Temperature 98.3 F 04/27/23 09:47 Pulse Rate 81 04/27/23 09:47 Respiratory Rate 16 04/27/23 09:47 Blood Pressure 120/71 04/27/23 09:47 Pulse Oximetry 93 04/27/23 09:47 Oxygen Delivery Me thod Room Air 04/27/23 08:13 MDM - Head Injury Medcial Decision Making Imaging reviewed no acute fractures. CT head negative. Patient's syncope based on her history was related to orthostasis. Will discharge home follow-up with her primary care doctor. Return if has further problems. Differential Diagnosis Likely closed head injury Medical Records I reviewed the patient's medical records. Lab Data I reviewed the patient's lab results. 04/27/23 08:00 04/27/23 08:00 Radiology Impressions Knee X-Ray 04/27/23 08:17 IMPRESSION: Mild degenerative changes. Laboratory Results WBC 10.35 10^3/uL (3.29-11.43) 04/27/23 08:00 RBC 4.01 10^6/uL (3.85-5.65) 04/27/23 08:00 Hgb 13.10 g/dL (11.27-16.99) 04/27/23 08:00 Hct 39.9 % (36-47) 04/27/23 08:00 MCV 99.5 fl (85-98) H 04/27/23 08:00 MCH 32.7 pg (27-33) 04/27/23 08:00 MCHC 32.8 g/dL (30-55) 04/27/23 08:00 RDW 13.0 % (12.1-15.1) 04/27/23 08:00 Plt Count 224 10^3/cmm (157-399) 04/27/23 08:00 MPV 10.9 fL (7.4-10.4) H 04/27/23 08:00 Neut % (Auto) 71.4 % 04/27/23 08:00 Lymph % (Auto) 21.3 % 04/27/23 08:00 [place] % (Auto) 4.5 % 04/27/23 08:00 Eos % (Auto) 1.8 % 04/27/23 08:00 Baso % (Auto) 0.5 % 04/27/23 08:00 Neut # (Auto) 7.39 10^3/uL (1.8-7.7) 04/27/23 08:00 Lymph # (Auto) 2.2 10^3/uL (0.8-4.8) 04/27/23 08:00 [place] # (Auto) 0.5 10^3/uL (0.2-0.9) 04/27/23 08:00 Eos # (Auto) 0.2 10^3/uL (0.0-0.8) 04/27/23 08:00 Baso # (Auto) 0.1 10^3/uL (0.0-0.1) 04/27/23 08:00 Nucleated RBC % (auto) 0 % 04/27/23 08:00 Nucleated RBCs # 0.0 /100WBC 04/27/23 08:00 Sodium 136 mmol/L (136-145) 04/27/23 08:00 Potassium 4.6 mmol/L (3.5-5.1) 04/27/23 08:00 Chloride 100 mmol/L (98-107) 04/27/23 08:00 Carbon Dioxide 25 mmol/L (22-29) 04/27/23 08:00 Anion Gap 15.6 (5-19) 04/27/23 08:00 BUN 23 mg/dL (8-23) 04/27/23 08:00 Creatinine 0.9 mg/dL (0.5-0.9) 04/27/23 08:00 GFR Calculation 62.5 mL/min (90-130) L 04/27/23 08:00 Glucose 234 mg/dL (65-115) H 04/27/23 08:00 POC Glucose 218 mg/dL (70-110) H 04/27/23 07:45 Calculated Osmolality 293 mOsm/kg (285-295) 04/27/23 08:00 Calcium 9.0 mg/dL (8.5-10.5) 04/27/23 08:00 Total Bilirubin 0.5 mg/dL (0.15-1.2) 04/27/23 08:00 AST 14 U/L (0-32) 04/27/23 08:00 ALT 11 U/L (0-33) 04/27/23 08:00 Alkaline Phosphatase 92 U/L (35-105) 04/27/23 08:00 Total Protein 6.7 g/dL (6.6-8.7) 04/27/23 08:00 Albumin 4.0 g/dL (3.5-5.2) 04/27/23 08:00 Globulin 2.7 g/dL (1.3-4.6) 04/27/23 08:00 Urine Color Yellow (Yellow) 04/27/23 08:26 Urine Appearance Clear (CLEAR) 04/27/23 08:26 Urine pH 5 (5-7) 04/27/23 08:26 Ur Specific [place] 1.030 (1.005-1.030) 04/27/23 08:26 Urine Protein Neg (Negative) 04/27/23 08:26 Urine Glucose (UA) Norm (Normal) 04/27/23 08:26 Urine Ketones Negative (Negative) 04/27/23 08:26 Urine Blood Neg (Negative) 04/27/23 08:26 Urine Nitrate Negative (Negative) 04/27/23 08:26 Urine Bilirubin Neg (Negative) 04/27/23 08:26 Urine Urobilinogen Norm mg/dL (Negative) 04/27/23 08:26 Ur Leukocyte Esterase Negative (Negative) 04/27/23 08:26 All radiology interpretation(s) finalized by discharge Discharge Plan Discharge Patient Disposition: Home Clinical Impression: Syncope due to orthostatic hypotension, Contusion of face Condition: Stable Prescriptions: No Action simvastatin 20 mg tablet 20 mg PO DAILY montelukast [Singulair] 10 mg tablet 10 mg PO DAILY escitalopram oxalate 20 mg tablet 20 mg PO DAILY trazodone 50 mg tablet 50 mg PO DAILY aspirin 81 mg tablet,chewable 81 mg PO DAILY Qty: 30 3RF glipizide 10 mg tablet 20 mg PO DAILY multivitamin Tablet 1 tab PO DAILY magnesium oxide 400 mg magnesium capsule 400 mg PO DAILY potassium gluconate 600 mg (99 mg) tablet 600 mg PO DAILY (DME) Diabetic shoes with insoles See Rx Instructions .Route .MEDSUPPLY Qty: 1 0RF Rx Instructions: As directed by [facility] galantamine 8 mg tablet See Rx Instructions .ROUTE .COMPLEX Qty: 180 3RF Dose Instruction: TAKE ONE TABLET BY MOUTH TWICE DAILY WITH MORNING AND EVENING MEALS, WATCH FOR NAUSEA Rx Instructions: TAKE ONE TABLET BY MOUTH TWICE DAILY WITH MORNING AND EVENING MEALS, WATCH FOR NAUSEA Xarelto 20 mg tablet 20 mg PO DAILY Qty: 90 1RF Rx Instructions: must administer with evening meal ibuprofen 200 mg capsule 200 mg PO Q6H PRN meloxicam 15 mg tablet 15 mg PO DAILY Qty: 30 1RF Eliquis 5 mg tablet 5 mg PO BID Qty: 180 3RF metoprolol succinate 25 mg tablet extended release 24 hr 12.5 mg PO DAILY Qty: 45 3RF memantine 5 mg tablet See Rx Instructions .ROUTE .COMPLEX Qty: 60 10RF Dose Instruction: TAKE 1 TABLET BY MOUTH TWICE DAILY Rx Instructions: TAKE 1 TABLET BY MOUTH TWICE DAILY bupropion HCl 150 mg tablet extended release 24 hr 150 mg PO BID Discharge Orders: Discharge ED (Routine); Ordered 04/27/23 Ordered By: Esa Gilbert Referrals: Louann Rodriguez MD [Primary Care Provider] - Patient Instructions: Opioid Safety, Pain Management Activity Restrictions/Additional Instructions: Thank you for choosing [facility] for your healthcare needs today. Please realize this is an emergency room and that we are providing you with a medical screening exam and this may not be complete and all inclusive of all the testing and or work up that you may need to determine your ailment or severity of your illness. It is very important that you follow up as instructed or that you return to the Emergency Department should you have concerns or if your condition changes or worsens in any way. Follow-up with your primary care doctor as needed. Coding Level of Care Code ED Rehabilitation Aide for Sj Cantu
[2023-04-27 08:13] VITALS: BP 120/71; PULSE 81; RESP 16; O2SAT 93
[2023-04-27 08:14] LABS: Basophils # 0.1 10^3/uL (0.0-0.1); Basophils % 0.5 %; Eosinophils # 0.2 10^3/uL (0.0-0.8); Eosinophils % 1.8 %; Hematocrit 39.9 % (36-47); Lymphocytes # 2.2 10^3/uL (0.8-4.8); Lymphocytes % 21.3 %; Mean Corpuscular HGB Conc 32.8 g/dL (30-55); Mean Corpuscular Hemoglobin 32.7 pg (27-33); Mean Corpuscular Volume 99.5 fl (85-98); Mean Platelet Volume 10.9 fL (7.4-10.4); Monocytes # 0.5 10^3/uL (0.2-0.9); Monocytes % 4.5 %; Neutrophils # 7.39 10^3/uL (1.8-7.7); Neutrophils % 71.4 %; Nucleated Red Blood Cells % 0 %; Platelet Count 224 10^3/cmm (157-399); Red Blood Count 4.01 10^6/uL (3.85-5.65); White Blood Count 10.35 10^3/uL (3.29-11.43)
--- NOTE | 2023-04-27 08:16 | CT_ITS ---
WS: [id number] CT CERVICAL SPINE HISTORY: trauma TECHNIQUE: Contiguous 2.0 mm axial imaging performed through the entire cervical spine. Sagittal and coronal reformats also performed. All CT scans at [facility] use at least one of these dose o ptimization techniques: automated exposure control; mA and/or kV adjustment per patient size (include s targeted exams where dose is matched to clinical indication); or iterative reconstruction. DLP: 1606.15 mGy.cm COMPARISON: 02/22/2022 Straightening of the normal cervical lordosis. Less than 2 mm anterolisthesis of C2. Alignment is sim ilar to 02/22/2022. Mild narrowing of the C5-6 and C6-7 disc spaces. Facet joints are normally aligne d. Craniocervical junction is normal. Lateral masses of C1 and C2 are aligned. C2-C3: Normal. C3-C4: Normal. C4-C5: Minimal osteophytic ridging. No stenosis. C5-C6: Mild osteophytic ridging encroaching upon the ventral thecal sac. Mild central and bilateral f oraminal stenosis and facet arthritis. C6-C7: Mild osteophytic ridging with minimal encroachment upon the ventral thecal sac. Mild central a nd bilateral foraminal stenosis. C7-T1: Normal. Bilateral thyroid nodules. Largest nodule is 11 mm on the LEFT. IMPRESSION: 1. No cervical spine fracture. 2. Similar alignment of the facet joints and vertebral bodies as compared to 02/22/2022. 3. Osteophytic ridging and facet arthropathy causing mild central and foraminal stenosis at C5-6 and C6-7.
--- NOTE | 2023-04-27 08:17 | XRR_ITS ---
PROCEDURE INFORMATION: Exam: XR Left Knee Exam date and time: 04/27/2023 8:21 AM Age: 67 years old Clinical indication: Injury or trauma; Fall; Blunt trauma; Knee; Bilateral; Additional info: Pain TECHNIQUE: Imaging protocol: Radiologic exam of the left knee. Views: 3 views. COMPARISON: CR XR knees AP WB w LT lmt ORTH 12/03/2022 2:36 PM FINDINGS: Bones/joints: No fracture or dislocation. No acute osseous or joint abnormality. Mild chondrocalcinosis. Soft tissues: Normal. XR/XR knee LT 3V* [id number] IMPRESSION: Mild degenerative changes.
[2023-04-27 08:29] LABS: Add Urine Microscopic? NO; Charge for UA Resulting for Rev
[2023-04-27 08:29] LABS: Alanine Aminotransferase 11 U/L (0-33); Alkaline Phosphatase 92 U/L (35-105); Anion Gap 15.6 (5-19); Aspartate Amino Transferase 14 U/L (0-32); Blood Urea Nitrogen 23 mg/dL (8-23); Carbon Dioxide 25 mmol/L (22-29); Chloride 100 mmol/L (98-107); Globulin 2.7 g/dL (1.3-4.6); Glomerular Filtration Rate 62.5 mL/min (90-130); Glucose 234 mg/dL (65-115); Osmolality Calculated 293 mOsm/kg (285-295); Potassium 4.6 mmol/L (3.5-5.1); Sodium 136 mmol/L (136-145); Total Bilirubin 0.5 mg/dL (0.15-1.2); Total Protein 6.7 g/dL (6.6-8.7)
[2023-04-27 08:35] LABS: Bilirubin Urine Neg (Negative); Blood Urine Neg (Negative); Glucose Urine UA Norm (Normal); Ketones Urine Negative (Negative); Leukocyte Esterase Urine Negative (Negative); Nitrate Urine Negative (Negative); Protein Urine Neg (Negative); Urine Appearance Clear (CLEAR); Urine Color Yellow (Yellow); Urobilinogen Urine Norm (Negative); pH Urine 5 (5-7)
[2023-04-27 09:36] VITALS: BP 110/71; BP 113/59; BP 117/64; PULSE 82; PULSE 86; PULSE 98
[2023-04-27 09:47] VITALS: BP 120/71; PULSE 81; RESP 16; TEMP 36.8; O2SAT 93
== END 2023-04-27 09:49 | disposition home or self-care (01) ==
PROVIDERS: Emergency Provider Family Medicine; PCP Family Medicine
DX: I95.1 Orthostatic hypotension (principal); S00.83XA Contusion of other part of head, initial encounter; W18.39XA Other fall on same level, initial encounter; E78.5 Hyperlipidemia, unspecified; E11.9 Type 2 diabetes mellitus without complications; I10 Essential (primary) hypertension
CPT/HCPCS: 36416; 70450; 72125; 73562; 80053; 81003; 82962; 85025; 99284

== ENCOUNTER 2023-05-17 10:31 | Emergency (ER) | payer MEDICARE, SELFPAY ==
[2023-05-17 10:54] VITALS: BP 177/84; PULSE 95; RESP 16; TEMP 36.5; O2SAT 93; BMI 38.7
[2023-05-17 11:38] LABS: Basophils % 0.3 %; Eosinophils # 0.1 10^3/uL (0.0-0.8); Eosinophils % 2.1 %; Hematocrit 39.9 % (36-47); Lymphocytes # 2.4 10^3/uL (0.8-4.8); Lymphocytes % 34.9 %; Mean Corpuscular HGB Conc 33.1 g/dL (30-55); Mean Corpuscular Hemoglobin 32.7 pg (27-33); Mean Corpuscular Volume 98.8 fl (85-98); Mean Platelet Volume 10.8 fL (7.4-10.4); Monocytes # 0.4 10^3/uL (0.2-0.9); Monocytes % 5.6 %; Neutrophils # 3.85 10^3/uL (1.8-7.7); Nucleated Red Blood Cells % 0 %; Platelet Count 219 10^3/cmm (157-399); Red Blood Count 4.04 10^6/uL (3.85-5.65); Red Cell Distribution Width 12.8 % (12.1-15.1); White Blood Count 6.76 10^3/uL (3.29-11.43)
[2023-05-17 11:48] LABS: INR 0.91 (0.8-1.2)
[2023-05-17 11:49] LABS: Partial Thromboplastin Time 23.8 SECONDS (23.9-36.7)
[2023-05-17 11:50] LABS: Alanine Aminotransferase 15 U/L (0-33); Albumin Level 3.9 g/dL (3.5-5.2); Alkaline Phosphatase 154 U/L (35-105); Anion Gap 16.3 (5-19); Aspartate Amino Transferase 20 U/L (0-32); Blood Urea Nitrogen 20 mg/dL (8-23); Calcium 8.5 mg/dL (8.5-10.5); Carbon Dioxide 24 mmol/L (22-29); Chloride 102 mmol/L (98-107); Creatinine Clr Calc Pharmacy 75.1981; Globulin 2.8 g/dL (1.3-4.6); Glomerular Filtration Rate 55.3 mL/min (90-130); Glucose 222 mg/dL (65-115); Osmolality Calculated 295 mOsm/kg (285-295); Potassium 4.3 mmol/L (3.5-5.1); Sodium 138 mmol/L (136-145); Total Bilirubin 0.2 mg/dL (0.15-1.2); Total Protein 6.7 g/dL (6.6-8.7)
--- NOTE | 2023-05-17 12:04 | ED_ITS ---
HPI - GI Bleed 2 General: Chief complaint: GI Bleed Stated complaint: Black bowel movements Time Seen by Provider: 05/17/23 12:04 Source: patient Mode of arrival: ambulatory History of Present Illness: 67-year-old female presents emergency ro om with complaint of discolored stool. She noted black stool on a couple episodes over the weekend no bright red stools. She is not hematochezia or melena. No hematemesis. Denies chest pain or abdominal pain at this time mostly concerned because she is chronically on Xarelto. Onset (ago): hour(s) Severity: mild Relieving factors: none Exacerbating factors: none Associated symptoms: Denies abdominal pain, chills, easy bruising, epistaxis, fever(s), headache(s), malaise, nausea, other bleeding, poor appetite, rash, syncope, vomiting or weakness Review of Systems 2 Const: Denies: fever(s), chills or malaise ENMT: Denies: epistaxis Card: Denies: chest pain or syncope Resp: Denies: dyspnea GI: Denies: abdominal pain, nausea or vomiting : Denies: dysuria, urinary frequency or urinary urgency Musc: Denies: neck pain or back pain Skin/Breast: Denies: rash Neuro: Denies: headache(s) [place]/Lymph: Denies: easy bruising PFSH ED 2 PFSH: Medical History Mild cognitive impairment with memory loss Dyslipidemia Diabetes HTN (hypertension) Surgical History Hx of hysterectomy Hx of cholecystectomy Hx of breast biopsy Hx of aortic valve replacement Family History Father Congestive heart failure (CHF) Diabetes Myocardial infarction Mother Diabetes Sister Diabetes Family/Other Diabetes Stroke Social History Smoking and tobacco/nicotine status: never used tobacco/nicotine Alcohol intake: never Substance/Drug Use: never Physical Exam 2 Const: COMMON NORMALS: no acute distress GENERAL APPEARANCE: cooperative and comfortable ORIENTATION/CONSCIOUSNESS: Yes awake, Yes oriented to person, Yes oriented to place and Yes oriented to time HENMT: COMMON NORMALS: normocephalic, atraumatic and hearing grossly normal bilaterally HEAD & SCALP: normocephalic and atraumatic Resp: COMMON NORMALS: normal respiratory effort, No retractions, No use of accessory muscles and clear to auscultation bilaterally AUSCULTATION: clear to auscultation bilaterally Cardio: COMMON NORMALS: regular rate, regular rhythm and No murmurs present (Cardio) RATE: regular rate RHYTHM: regular rhythm GI: COMMON NORMALS: Soft to palpation and No hepatosplenomegaly present A USCULTATION: Yes normoactive bowel sounds PALPATION: Yes Soft to palpation, No Tenderness to palpation present (GI), No Guarding due to palpation present (GI) and Yes No hepatosplenomegaly present Extremity: COMMON NORMALS: normal to inspection, capillary refill normal, no clubbing, cyanosis or edema, no calf tenderness and no pedal edema Neuro: SENSORIUM/ORIENTATION: Yes oriented to person, Yes oriented to place and Yes oriented to time Skin: COMMON NORMALS: no rashes or lesions noted GENERAL SKIN EXAM: no rashes or lesions noted Course 2 Vital Signs: Vital signs: Vital Signs Temperature 97.7 F 05/17/23 10:54 Pulse Rate 95 05/17/23 10:54 Respiratory Rate 16 05/17/23 10:54 Blood Pressure 177/84 05/17/23 10:54 Pulse Oximetry 93 05/17/23 10:54 Oxygen Delivery Me thod Room Air 05/17/23 10:54 MDM - GI Bleed Medical Decision Making Rectal exam negative for gross hematochezia. Hemoccult of the stool is negative. Discharge patient home follow-up with primary care return if is further problems Medical Records I reviewed the patient's medical records. Lab Data I reviewed the patient's lab results. 05/17/23 11:24 05/17/23 11:24 Laboratory Results WBC 6.76 10^3/uL (3.29-11.43) 05/17/23 11:24 RBC 4.04 10^6/uL (3.85-5.65) 05/17/23 11:24 Hgb 13.20 g/dL (11.27-16.99) 05/17/23 11:24 Hct 39.9 % (36-47) 05/17/23 11:24 MCV 98.8 fl (85-98) H 05/17/23 11:24 MCH 32.7 pg (27-33) 05/17/23 11:24 MCHC 33.1 g/dL (30-55) 05/17/23 11:24 RDW 12.8 % (12.1-15.1) 05/17/23 11:24 Plt Count 219 10^3/cmm (157-399) 05/17/23 11:24 MPV 10.8 fL (7.4-10.4) H 05/17/23 11:24 Neut % (Auto) 57.0 % 05/17/23 11:24 Lymph % (Auto) 34.9 % 05/17/23 11:24 [place] % (Auto) 5.6 % 05/17/23 11:24 Eos % (Auto) 2.1 % 05/17/23 11:24 Baso % (Auto) 0.3 % 05/17/23 11:24 Neut # (Auto) 3.85 10^3/uL (1.8-7.7) 05/17/23 11:24 Lymph # (Auto) 2.4 10^3/uL (0.8-4.8) 05/17/23 11:24 [place] # (Auto) 0.4 10^3/uL (0.2-0.9) 05/17/23 11:24 Eos # (Auto) 0.1 10^3/uL (0.0-0.8) 05/17/23 11:24 Baso # (Auto) 0.0 10^3/uL (0.0-0.1) 05/17/23 11:24 Nucleated RBC % (auto) 0 % 05/17/23 11:24 Nucleated RBCs # 0.0 /100WBC 05/17/23 11:24 PT 12.50 SECONDS (12.1-14.9) 05/17/23 11:24 INR 0.91 (0.8-1.2) 05/17/23 11:24 APTT 23.8 SECONDS (23.9-36.7) L 05/17/23 11:24 Sodium 138 mmol/L (136-145) 05/17/23 11:24 Potassium 4.3 mmol/L (3.5-5.1) 05/17/23 11:24 Chloride 102 mmol/L (98-107) 05/17/23 11:24 Carbon Dioxide 24 mmol/L (22-29) 05/17/23 11:24 Anion Gap 16.3 (5-19) 05/17/23 11:24 BUN 20 mg/dL (8-23) 05/17/23 11:24 Creatinine 1.0 mg/dL (0.5-0.9) H 05/17/23 11:24 GFR Calculation 55.3 mL/min (90-130) L 05/17/23 11:24 Glucose 222 mg/dL (65-115) H 05/17/23 11:24 Calculated Osmolality 295 mOsm/kg (285-295) 05/17/23 11:24 Calcium 8.5 mg/dL (8.5-10.5) 05/17/23 11:24 Total Bilirubin 0.2 mg/dL (0.15-1.2) 05/17/23 11:24 AST 20 U/L (0-32) 05/17/23 11:24 ALT 15 U/L (0-33) 05/17/23 11:24 Alkaline Phosphatase 154 U/L (35-105) H 05/17/23 11:24 Total Protein 6.7 g/dL (6.6-8.7) 05/17/23 11:24 Albumin 3.9 g/dL (3.5-5.2) 05/17/23 11:24 Globulin 2.8 g/dL (1.3-4.6) 05/17/23 11:24 All radiology interpretation(s) finalized by discharge Discharge Plan Discharge Patient Disposition: Home Clinical Impression: Abnormal stool color, Chronic anticoagulation Condition: Stable Prescriptions: No Action simvastatin 20 mg tablet 20 mg PO BEDTIME escitalopram oxalate 20 mg tablet 20 mg PO BEDTIME (DME) Diabetic shoes with insoles See Rx Instructions .Route .MEDSUPPLY Qty: 1 0RF Rx Instructions: As directed by [facility] bupropion HCl 200 mg tablet sustained-release 12 hr 400 mg PO BEDTIME aspirin 81 mg tablet,chewable 81 mg PO BEDTIME galantamine 8 mg tablet 8 mg PO BID glipizide 10 mg tablet extended release 24hr 20 mg PO BEDTIME lisinopril 20 mg tablet 20 mg PO BEDTIME trazodone 100 mg tablet 100 mg PO BEDTIME metoprolol succinate 25 mg tablet extended release 24 hr 12.5 mg PO BEDTIME memantine 5 mg tablet 5 mg PO BID Xarelto 20 mg tablet 20 mg PO QPM Rx Instructions: must administer with evening meal Discharge Orders: Discharge ED (Routine); Ordered 05/17/23 Ordered By: Esa Gilbert Referrals: Louann Rodriguez MD [Primary Care Provider] - Patient Instructions: Opioid Safety, Pain Management Activity Restrictions/Additional Instructions: Thank you for choosing [facility] for your healthcare needs today. Please realize this is an emergency room and that we are providing you with a medical screening exam and this may not be complete and all inclusive of all the testing and or work up that you may need to determine your ailment or severity of your illness. It is very important that you follow up as instructed or that you return to the Emergency Department should you have concerns or if your condition changes or worsens in any way. Coding Level of Care Code ED Electronics Assembler for Sj Cantu
== END 2023-05-17 14:23 | disposition home or self-care (01) ==
PROVIDERS: Physician Assistant; Emergency Provider Family Medicine; PCP Family Medicine
DX: R19.5 Other fecal abnormalities (principal); D68.32 Hemorrhagic disorder due to extrinsic circulating anticoagulants; Z79.82 Long term (current) use of aspirin; Z79.84 Long term (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 oral hypoglycemic drugs; E78.5 Hyperlipidemia, unspecified; E11.9 Type 2 diabetes mellitus without complications; I10 Essential (primary) hypertension; Z79.01 Long term (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 anticoagulants
CPT/HCPCS: 36415; 80053; 85025; 85610; 85730; 99283

== ENCOUNTER 2023-06-07 11:37 | Outpatient (RCR) | payer MEDICARE, SELFPAY | END 2023-06-13 23:59 | disposition home or self-care (01) | LOC: SPT 11:37 | PROVIDERS: PCP Family Medicine; Visit Provider Family Medicine | DX: R26.89 Other abnormalities of gait and mobility (principal) | CPT/HCPCS: 95992; 97161 ==

== ENCOUNTER → 2023-06-11 09:44 | Outpatient (BNVA) | payer MEDICARE, SELFPAY | PROVIDERS: PCP Family Medicine; Visit Provider Physician Assistant | DX: M25.562 Pain in left knee (principal); Z01.818 Encounter for other preprocedural examination; E11.69 Type 2 diabetes mellitus with other specified complication; M17.12 Unilateral primary osteoarthritis, left knee | CPT/HCPCS: 36415; 73560; 73565; 80053; 81003; 83036; 85025; 99214 ==

== ENCOUNTER 2023-06-14 06:00 | Outpatient (RCR) | payer MEDICARE, SELFPAY | END 2023-07-13 23:59 | disposition home or self-care (01) | LOC: SPT 06:00 | PROVIDERS: PCP Family Medicine; Visit Provider Family Medicine | DX: R26.89 Other abnormalities of gait and mobility (principal) | CPT/HCPCS: 95992 ==

== ENCOUNTER → 2023-06-16 09:47 | Outpatient (BNVA) | payer MEDICARE, SELFPAY | PROVIDERS: PCP Family Medicine; Visit Provider Nurse Practitioner Family | DX: I10 Essential (primary) hypertension (principal); Z95.0 Presence of cardiac pacemaker; T82.857A Stenosis of other cardiac prosthetic devices, implants and grafts, initial encounter; Y99.9 Unspecified external cause status | CPT/HCPCS: 99214 ==

== ENCOUNTER 2023-06-23 17:13 | Outpatient (CLI) | payer MEDICARE, SELFPAY ==
--- NOTE | 2023-06-23 17:30 | CT_ITS ---
WS: [id number] CT LEFT knee, noncontrast HISTORY: M17.12 - Unilateral primary osteoarthritis, left knee TECHNIQUE: Protocol for JERMAN total knee replacement has been obtained. This includes axial imaging th rough the LEFT hip, LEFT knee and LEFT ankle. DLP: 1002.77 mGy.cm COMPARISON: Radiographs 06/11/2023 Pelvis: Mild motion artifact. No fracture. Mild narrowing of the hip joint. No destructive bone lesio n. LEFT knee: Mild to moderate tricompartment arthritis. Joint spaces are narrowed and there are small o steophytes. More advanced lateral patellofemoral joint space narrowing. Moderate popliteal artery hernán cifications. Moderate suprapatellar joint effusion. Small amount of edema anterior to the patella. LEFT ankle: No fracture. Vascular calcifications. IMPRESSION: CT imaging provided for [facility] robotic total knee replacement.
== END 2023-06-23 17:14 | disposition home or self-care (01) ==
LOC: RAD 17:14
PROVIDERS: PCP Family Medicine; Visit Provider Physician Assistant
DX: M17.12 Unilateral primary osteoarthritis, left knee (principal)
CPT/HCPCS: 73700

== ENCOUNTER 2023-06-25 15:48 | Emergency (ER) | payer MEDICARE, SELFPAY ==
[2023-06-25 15:54] VITALS: BP 149/84; PULSE 91; RESP 16; TEMP 36.6; O2SAT 95
--- NOTE | 2023-06-25 17:33 | USR_ITS ---
PROCEDURE INFORMATION: Exam: US Duplex Left Upper Extremity Veins, Limited Exam date and time: 06/25/2023 6:32 PM Age: 68 years old Clinical indication: Pain; Arm, lower; Left; Additional info: Peripheral numbness/parasthesia - HX of clots in lue TECHNIQUE: Imaging protocol: Real-time duplex ultrasound of the left extremity with 2-D hurd scale, color Doppler flow and spectral waveform analysis including responses to compression and other maneuvers (when performed) with image documentation. Limited exam focused on the left upper extremity veins. COMPARISON: CT cervical spin wo con* [id number] 04/27/2023 8:46 AM FINDINGS: Left deep veins: The left axillary and brachial veins are patent without evidence of thrombus.Doppler waveforms are unremarkable. The visualized left internal jugular and subclavian veins are patent. Superficial veins: The visualized left cephalic and basilic veins are patent without thrombus. Soft tissues: No gross sonographic abnormality. 15 x 8 x 5 mm echogenic focus in the superficial soft tissues of the left wrist most suggestive of lipoma. US/[place] [id number] IMPRESSION: 1. No sonographic evidence of deep venous thrombosis in the left upper extremity.
--- NOTE | 2023-06-25 17:40 | ED_ITS ---
Documented by User: LUIS ANTONIO Lares 06/25/23 19:29 HPI - Extremity Problem General: Chief complaint: Extremity Problem,Nontraumatic Stated complaint: left hand numbness Time Seen by Provider: 06/25/23 17:24 Source: patient Mode of arrival: ambulatory Limitations: no limitations History of Present Illness: Patient is a 68-year-old female present to the emergency department complaining of distal left hand numbness onset 3-4 days. Patient notes prior history of blood clots to the left upper extremity, stating that she is on Xarelto and has history of open heart surgery. She denies any pain, though states that she is having some paresthesias and pinprick feeling to the left palmar region. She notes that she is right-hand dominant, and denies possibility of overuse injury. She also denies any inciting traumatic incident to the left hand. She did state that she noticed an area of circumferential bruising and induration to the medial distal left wrist, and states that she did not think anything of it as she is always getting bruised from my blood thinner. She denies any shortness of breath, chest pain, dizziness, lightheadedness, syncope, leg pain, or any other symptoms at this time. MD Complaint: other (Distal left arm numbness) Onset (ago): day(s) (3-4) Location: left Relieving factors: nothing Exacerbating factors: nothing Associated symptoms: Reports no associated symptoms; Deny chest pain, fever(s) or rash Review of Systems General: Reports: 10 or more systems reviewed and unremarkable except in HPI and below Const: Denies: fever(s), chills or fatigue Eyes: Denies: change in vision ENMT: Denies: throat pain, ear or mastoid pain or nasal discharge Card: Denies: chest pain, palpitations, swelling of feet/ankles or lightheadedness Resp: Denies: dyspnea, productive cough or wheezing GI: Denies: abdominal pain, nausea, vomiting, diarrhea or constipation : Denies: flank pain, difficulty voiding, dysuria or urinary frequency Musc: Denies: neck pain, back pain or joint pain Skin/Breast: Denies: rash Neuro: Reports: numbness in extremities and sensory changes; Denies: headache(s) or weakness in extremities PFS ED PFSH: Medical History Pacemaker [employer] [place] [employer] dual-chamber 08/08/2021 Mild cognitive impairment with memory loss Dyslipidemia Diabetes HTN (hypertension) Surgical History Hx of hysterectomy Hx of cholecystectomy Hx of breast biopsy Hx of aortic valve replacement Family History Father Congestive heart failure (CHF) Diabetes Myocardial infarction Mother Diabetes Sister Diabetes Family/Other Diabetes Stroke Social History Smoking and tobacco/nicotine status: never used tobacco/nicotine Alcohol intake: never Substance/Drug Use: never Physical Exam Const: COMMON NORMALS: no acute distress, patient oriented x3 and no limitations GENERAL APPEARANCE: cooperative, comfortable and well developed ORIENTATION/CONSCIOUSNESS: Yes awake, Yes oriented to person, Yes oriented to place and Yes oriented to time HENMT: COMMON NORMALS: normocephalic, atraumatic and hearing grossly normal bilaterally HEAD & SCALP: normocephalic and atraumatic Eye: COMMON NORMALS: Equal, round and reactive pupils present, EOMs intact bilaterally and conjunctivae normal CONJUNCTIVA: Yes conjunctivae normal PUPIL: Yes Equal, round and reactive pupils present Neck/C-Spine: COMMON NORMALS: full ROM, supple and no JVD Resp: COMMON NORMALS: normal respiratory effort, No retractions, No use of accessory muscles and clear to auscultation bilaterally AUSCULTATION: clear to auscultation bilaterally Cardio: COMMON NORMALS: no JVD, regular rate, regular rhythm, No clicks present (Cardio), No murmurs present (Cardio) and No rub (Cardio) RATE: regular rate RHYTHM: regular rhythm Extremity: COMMON NORMALS: full ROM and capillary refill normal NARRATIVE EXTREMITY EXAM: No diminished sensation is noted to the distal left upper extremity. There is a small area of bruising noted to the medial aspect of the distal left wrist, with area of induration noted. Radial pulse palpable and symmetrical to right upper extremity. Brachial pulse difficult to palpate bilaterally due to patient's body habitus. Equal strength bilaterally. Neuro: COMMON NORMALS: patient oriented x3, moves all extremities, no focal motor deficits and no sensory deficits noted SENSORIUM/ORIENTATION: Yes oriented to person, Yes oriented to place and Yes oriented to time Psych: COMMON NORMALS: mental status grossly normal and Normal thought process present THOUGHT PROCESS: Normal thought process present Skin: COMMON NORMALS: no rashes or lesions noted GENERAL SKIN EXAM: no rashes or lesions noted Course Vital Signs: Vital signs: Vital Signs Temperature 97.8 F 06/25/23 15:54 Pulse Rate 91 06/25/23 15:54 Respiratory Rate 16 06/25/23 15:54 Blood Pressure 149/84 06/25/23 15:54 Pulse Oximetry 95 06/25/23 15:54 Oxygen Delivery Me thod Room Air 06/25/23 15:54 MDM - Extremity (Nontraumatic) Medical Decision Making This patient was seen and evaluated in the emergency department today due to left hand paresthesias for the past few days. Patient reports a history of upper extremity thrombosis, states she wanted this ruled out. On arrival p evanient's vitals normal have remained stable throughout ED course. Exam essentially unremarkable, as she had palpable pulses radially, no color change, no coolness to extremity, and no other alarming signs for an occlusion. Venous duplex of the left upper extremity did not demonstrate any signs of DVT. She is on Xarelto currently. I do believe patient's etiology of the peripheral numbness possibly due to a carpal tunnel, however I informed her that this will need to be followed up with primary care for further imaging. I offered her a course of steroids, however she denies as she states she simply wanted a DVT ruled out. She has a follow-up appointment with primary care next week, which she will keep and be reassessed if her symptoms persist. I did have a thorough conversation with her in terms of strict return precautions, such as alarming signs of a DVT. Patient agrees with plan and will be discharged home. Lab Data Radiology Impressions Venous Duplex 06/25/23 17:33 IMPRESSION: 1. No sonographic evidence of deep venous thrombosis in the left upper extremity. All radiology interpretation(s) finalized by discharge Discharge Plan Discharge Patient Disposition: Home Clinical Impression: Left hand paresthesia Condition: Stable Prescriptions: No Action simvastatin 20 mg tablet 20 mg PO BEDTIME escitalopram oxalate 20 mg tablet 20 mg PO BEDTIME (DME) Diabetic shoes with insoles See Rx Instructions .Route .MEDSUPPLY Qty: 1 0RF Rx Instructions: As directed by [facility] bupropion HCl 200 mg tablet sustained-release 12 hr 400 mg PO BEDTIME aspirin 81 mg tablet,chewable 81 mg PO BEDTIME galantamine 8 mg tablet 8 mg PO BID glipizide 10 mg tablet extended release 24hr 20 mg PO BEDTIME lisinopril 20 mg tablet 20 mg PO BEDTIME trazodone 100 mg tablet 100 mg PO BEDTIME metoprolol succinate 25 mg tablet extended release 24 hr 12.5 mg PO BEDTIME memantine 5 mg tablet 5 mg PO BID Xarelto 20 mg tablet 20 mg PO QPM Rx Instructions: must administer with evening meal Discharge Orders: Discharge ED (Routine); Ordered 06/25/23 Ordered By: Charly Rizvi Referrals: Louann Rodriguez MD [Primary Care Provider] - Discharge Diet: Usual diet Discharge Activity: Increase activity as tolerated Patient Instructions: Paresthesia (ED) Activity Restrictions/Additional Instructions: Keep follow-up with primary care as planned. Return if you develop any worsening of symptoms or pain. Continue taking your Xarelto. Coding Level of Care Code ED Area Cleaner for Chg Fwd Documented by User: Esa Gilbert DO 06/26/23 06:00 HPI - Extremity Problem General: Chief complaint: Extremity Problem,Nontraumatic Stated complaint: left hand numbness Time Seen by Provider: 06/25/23 17:24 [facility] ED PFSH: Medical History Pacemaker [employer] [place] [employer] dual-chamber 08/08/2021 Mild cognitive impairment with memory loss Dyslipidemia Diabetes HTN (hypertension) Surgical History Hx of hysterectomy Hx of cholecystectomy Hx of breast biopsy Hx of aortic valve replacement Family History Father Congestive heart failure (CHF) Diabetes Myocardial infarction Mother Diabetes Sister Diabetes Family/Other Diabetes Stroke Social History Smoking and tobacco/nicotine status: never used tobacco/nicotine Alcohol intake: never Substance/Drug Use: never Course Vital Signs: Vital signs: Vital Signs Temperature 97.8 F 06/25/23 15:54 Pulse Rate 91 06/25/23 15:54 Respiratory Rate 16 06/25/23 15:54 Blood Pressure 149/84 06/25/23 15:54 Pulse Oximetry 95 06/25/23 15:54 Oxygen Delivery Me thod Room Air 06/25/23 15:54 MDM - Extremity (Nontraumatic) Medical Decision Making This patient was seen and evaluated in the emergency department today due to left hand paresthesias for the past few days. Patient reports a history of upper extremity thrombosis, states she wanted this ruled out. On arrival patient's vitals normal have remained stable throughout ED course. Exam essentially unremarkable, as she had palpable pulses radially, no color change, no coolness to extremity, and no other alarming signs for an occlusion. Venous duplex of the left upper extremity did not demonstrate any signs of DVT. She is on Xarelto currently. I do believe patient's etiology of the peripheral numbness possibly due to a carpal tunnel, however I informed her that this will need to be followed up with primary care for further imaging. I offered her a course of steroids, however she denies as she states she simply wanted a DVT ruled out. She has a follow-up appointment with primary care next week, which she will keep and be reassessed if her symptoms persist. I did have a thorough conversation with her in terms of strict return precautions, such as alarming signs of a DVT. Patient agrees with plan and will be discharged home. Chart reviewed Lab Data Radiology Impressions Venous Duplex 06/25/23 17:33 IMPRESSION: 1. No sonographic evidence of deep venous thrombosis in the left upper extremity. Discharge Plan Discharge Patient Disposition: Home Clinical Impression: Left hand paresthesia Condition: Stable Prescriptions: No Action simvastatin 20 mg tablet 20 mg PO BEDTIME escitalopram oxalate 20 mg tablet 20 mg PO BEDTIME (DME) Diabetic shoes with insoles See Rx Instructions .Route .MEDSUPPLY Qty: 1 0RF Rx Instructions: As directed by [facility] bupropion HCl 200 mg tablet sustained-release 12 hr 400 mg PO BEDTIME aspirin 81 mg tablet,chewable 81 mg PO BEDTIME galantamine 8 mg tablet 8 mg PO BID glipizide 10 mg tablet extended release 24hr 20 mg PO BEDTIME lisinopril 20 mg tablet 20 mg PO BEDTIME trazodone 100 mg tablet 100 mg PO BEDTIME metoprolol succinate 25 mg tablet extended release 24 hr 12.5 mg PO BEDTIME memantine 5 mg tablet 5 mg PO BID Xarelto 20 mg tablet 20 mg PO QPM Rx Instructions: must administer with evening meal Discharge Orders: Discharge ED (Routine); Ordered 06/25/23 Ordered By: Charly Rizvi Referrals: Louann Rodriguez MD [Primary Care Provider] - Discharge Diet: Usual diet Discharge Activity: Increase activity as tolerated Patient Instructions: Paresthesia (ED) Activity Restrictions/Additional Instructions: Keep follow-up with primary care as planned. Return if you develop any worsening of symptoms or pain. Continue taking your Xarelto. Coding Level of Care Code ED Area Cleaner for Sj Cantu
== END 2023-06-25 19:38 | disposition home or self-care (01) ==
PROVIDERS: Emergency Provider Physician Assistant; PCP Family Medicine
DX: R20.2 Paresthesia of skin (principal); Z79.82 Long term (current) use of aspirin; Z79.84 Long term (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 oral hypoglycemic drugs; Z95.0 Presence of cardiac pacemaker; E78.5 Hyperlipidemia, unspecified; E11.9 Type 2 diabetes mellitus without complications; I10 Essential (primary) hypertension
CPT/HCPCS: 93971; 99284

== ENCOUNTER → 2023-06-29 08:28 | Outpatient (BNVA) | payer MEDICARE, SELFPAY | PROVIDERS: PCP Family Medicine; Visit Provider Family Medicine | DX: Z01.818 Encounter for other preprocedural examination (principal) | CPT/HCPCS: 81003; 93005 ==

== ENCOUNTER → 2023-07-05 11:53 | Outpatient (BNVA) | payer MEDICARE, SELFPAY | PROVIDERS: PCP Family Medicine; Visit Provider Specialist | DX: G30.9 Alzheimer's disease, unspecified (principal); F02.80 Dementia in other diseases classified elsewhere, unspecified severity, without behavioral disturbance, psychotic disturbance, mood disturbance, and anxiety | CPT/HCPCS: 99214 ==

== ENCOUNTER → 2023-07-06 07:28 | Outpatient (BNVA) | payer MEDICARE, SELFPAY | PROVIDERS: PCP Family Medicine; Visit Provider Podiatrist Foot & Ankle Surgery | DX: L84 Corns and callosities (principal); L60.3 Nail dystrophy; E11.69 Type 2 diabetes mellitus with other specified complication | CPT/HCPCS: 11056; 11721 ==

== ENCOUNTER → 2023-07-12 15:04 | Outpatient (BNVA) | payer MEDICARE, SELFPAY | PROVIDERS: PCP Family Medicine; Visit Provider Podiatrist Foot & Ankle Surgery | DX: S92.911A Unspecified fracture of right toe(s), initial encounter for closed fracture; X58.XXXA Exposure to other specified factors, initial encounter | CPT/HCPCS: 73630; 99213 ==

== ENCOUNTER → 2023-08-23 15:38 | Outpatient (BNVA) | payer MEDICARE, SELFPAY | PROVIDERS: PCP Family Medicine; Visit Provider Podiatrist Foot & Ankle Surgery | DX: S92.911D Unspecified fracture of right toe(s), subsequent encounter for fracture with routine healing; X58.XXXD Exposure to other specified factors, subsequent encounter | CPT/HCPCS: 73630; 99213 ==

== ENCOUNTER → 2023-09-20 09:54 | Outpatient (BNVA) | payer MEDICARE, SELFPAY | PROVIDERS: PCP Family Medicine; Visit Provider Physician Assistant | DX: M17.12 Unilateral primary osteoarthritis, left knee | CPT/HCPCS: 99214 ==

== ENCOUNTER → 2023-10-19 07:31 | Outpatient (BNVA) | payer MEDICARE, SELFPAY | PROVIDERS: PCP Family Medicine; Visit Provider Podiatrist Foot & Ankle Surgery | DX: L84 Corns and callosities (principal); L60.3 Nail dystrophy; E11.42 Type 2 diabetes mellitus with diabetic polyneuropathy | CPT/HCPCS: 11056; 11721 ==

== ENCOUNTER → 2023-11-01 07:48 | Outpatient (BNVA) | payer MEDICARE, SELFPAY | PROVIDERS: PCP Family Medicine; Referring Provider Family Medicine; Visit Provider Internal Medicine | DX: E11.42 Type 2 diabetes mellitus with diabetic polyneuropathy; E78.5 Hyperlipidemia, unspecified; I10 Essential (primary) hypertension; E16.0 Drug-induced hypoglycemia without coma; E11.649 Type 2 diabetes mellitus with hypoglycemia without coma; Z79.4 Long term (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 insulin; Z79.84 Long term (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 oral hypoglycemic drugs | CPT/HCPCS: 99204 ==

== ENCOUNTER → 2023-11-08 11:39 | Outpatient (BNVA) | payer MEDICARE, SELFPAY | PROVIDERS: PCP Family Medicine; Visit Provider Family Medicine | DX: Z01.818 Encounter for other preprocedural examination (principal) | CPT/HCPCS: 80053; 81003; 83036; 85025; 87086 ==

== ENCOUNTER 2023-11-17 08:19 | Outpatient (CLI) | payer MEDICARE, SELFPAY ==
--- NOTE | 2023-11-17 08:25 | CT_ITS ---
WS: [id number] CT LEFT knee, noncontrast HISTORY: OSTEOARTHRITIS OF L KNEE TECHNIQUE: Protocol for [facility] total knee replacement has been obtained. This includes axial imaging th rough the LEFT hip, LEFT knee and LEFT ankle. DLP: 978.66 mGy.cm COMPARISON: 06/23/2023 Pelvis: As visualized mild narrowing of the SI joints. No destructive bone lesions. Extensive calcifi cation within the femoral arteries. LEFT knee: Mild valgus. Moderate tricompartment joint space narrowing. No fractures. Moderate suprapa tellar joint effusion. No Medrano's cyst. Extensive arterial vascular calcifications. LEFT ankle: Negative. CT/CT knee LT [facility] [address] IMPRESSION: CT imaging provided for [facility] robotic total knee replacement.
== END 2023-11-17 08:20 | disposition home or self-care (01) ==
LOC: RAD 08:20
PROVIDERS: PCP Family Medicine; Visit Provider Physician Assistant
DX: M17.12 Unilateral primary osteoarthritis, left knee (principal)
CPT/HCPCS: 73700

== ENCOUNTER → 2023-11-24 14:01 | Outpatient (BNVA) | payer MEDICARE, SELFPAY | PROVIDERS: PCP Family Medicine; Visit Provider Podiatrist Foot & Ankle Surgery | DX: L84 Corns and callosities (principal); L60.3 Nail dystrophy; E11.42 Type 2 diabetes mellitus with diabetic polyneuropathy | CPT/HCPCS: 11056; 11721 ==

== ENCOUNTER 2023-11-29 15:01 | Observation (INO) | payer MEDICARE, SELFPAY ==
[2023-11-29] VITALS (20 sets, daily range): BP systolic 110–143; BP diastolic 58–89; PULSE 60–77; RESP 15–18; TEMP 36.1–36.6; O2SAT 93–95; BMI 36.1
[2023-11-29 09:23] LABS: Urine Color Yellow (Yellow)
[2023-11-29 09:24] LABS: Bilirubin Urine Neg (Negative); Blood Urine Neg (Negative); Glucose Urine UA Norm (Normal); Ketones Urine Negative (Negative); Leukocyte Esterase Urine Negative (Negative); Nitrate Urine Negative (Negative); Protein Urine Neg (Negative); Urine Appearance Clear (CLEAR); Urobilinogen Urine Norm (Negative); pH Urine 5 (5-7)
[2023-11-29 09:25] LABS: Bacteria Urine 2+ /hpf; WBC Urine RARE /hpf (0-5)
[2023-11-29 09:26] LABS: Add Urine Culture? No
--- NOTE | 2023-11-29 09:43 | ANES.PREANE2 ---
Pre-Anesthetic Assessment Height/Weight: Height 5 ft 9 in Weight 245 lb Temp Pulse Resp BP Pulse Ox O2 Del Method 97.4 F L 67 18 143/77 94 Room Air 11/29/23 09:18 11/29/23 09:18 11/29/23 09:18 11/29/23 09:18 11/29/23 09:18 11/29/23 09:20 Preop Diagnosis: Arthritis Operation Date: 11/29/23 10:15 Proposed Procedures p [facility] Total Knee Arthroplasty(Left) - Alvino Ashby, DO Was Beta Luis F taken within 24 hours: Yes Was Clonidine taken within 24 hours: N/A Last intake: Intake Last Liquid Date 11/28/23 Last Liquid Time 21:30 Last Solid Date 11/28/23 Last Solid Time 20:00 Social No alcohol and No tobacco Exam alert, oriented x 3, clear to auscultation bilaterally and regular rate & rhythm Airway Submandibular: within normal limits Cervical ROM: within normal limits Mallampati: Class I Dentition: full Anesthetic Plan ASA status: 3 Anesthesia: MAC and Regional (specify below) Other: Patient states that during prior anesthetic she had a reaction to a medicine causing a rash that lasted a few hours NPO since midnight Significant cardiac history, s/p aortic valve replacement in 2021 Beta-luis f taken this a.m. S/p pacemaker placement secondary to atrial flutter. Patient follows with cardiology, last visit 08/06/2023 On chronic Xarelto, taken 5 days ago Diabetes, on chronic insulin. Blood sugar 149 Patient reports high sensitivity to medications, has received fentanyl in the past without issues Labs 11/07 reviewed and acceptable for surgery Plan for spinal anesthetic with peripheral nerve block and MAC anesthesia Medications/Allergies Home Medications Medication Instructions Recorded Confirmed Last Taken Type escitalopram oxalate 20 mg tablet 20 mg PO BEDTIME 07/29/20 11/26/23 11/25/23 History Diabetic shoes with insoles #1 ea 04/06/23 11/24/23 Unknown Rx aspirin 81 mg chewable tablet 81 mg PO BEDTIME 05/17/23 11/26/23 11/24/23 History bupropion HCl 200 mg tablet,12 hr 400 mg PO BEDTIME 05/17/23 11/26/23 11/29/23 History sustained-release metoprolol succinate 25 mg 12.5 mg PO BEDTIME 0311/26/23 11/28/23 History tablet,extended release 24 hr trazodone 100 mg tablet 100 mg PO BEDTIME 05/17/23 11/26/23 11/28/23 History atorvastatin 40 mg tablet 40 mg PO DAILY 06/29/23 11/26/23 11/25/23 History memantine 10 mg tablet 10 mg PO BID #180 tabs 07/05/23 11/29/23 11/28/23 Rx acarbose 25 mg tablet 25 mg PO TID #90 tabs 11/01/23 11/26/23 Unknown Rx cetirizine 10 mg tablet 10 mg PO DAILY PRN allergies 11/01/23 11/26/23 11/28/23 History insulin glargine 100 unit/mL (3 20 unit SUBCUT DAILY 11/08/23 11/26/23 11/28/23 08:00 History mL) subcutaneous pen (Lantus Solostar U-100 Insulin) galantamine 8 mg tablet 8 mg PO BID 11/26/23 11/26/23 11/26/23 History rivaroxaban 20 mg tablet (Xarelto) 20 mg PO DAILY 11/26/23 11/26/23 11/25/23 History Allergies Allergy/AdvReac Type Severity Reaction Status Date / Time azithromycin Allergy rash Verified 11/24/23 14:17 benzonatate Allergy Unknown Verified 11/24/23 14:17 [From Tessalon Perles] codeine Allergy rash Verified 11/24/23 14:17 collagenase Clostridium Allergy rash Verified 11/24/23 14:17 histolyticu donepezil Allergy ADR-Nightma Verified 11/24/23 14:17 re erythromycin base Allergy Unknown Verified 11/24/23 14:17 hydrocodone [From Vicodin] Allergy rash Verified 11/24/23 14:17 morphine Allergy rash Verified 11/24/23 14:17 oxycodone [From Percocet] Allergy rash Verified 11/24/23 14:17 tramadol Allergy Unknown Verified 11/24/23 14:17 [facility] Anesthesia Medical History Pacemaker [place] [employer] dual-chamber 08/08/2021 Mild cognitive impairment with memory loss Dyslipidemia Diabetes HTN (hypertension) Surgical History Hx of hysterectomy Hx of cholecystectomy Hx of breast biopsy Hx of aortic valve replacement Family History Father Congestive heart failure (CHF) Diabetes Myocardial infarction Mother Diabetes Sister Diabetes Family/Other Diabetes Stroke Social History Smoking and tobacco/nicotine status: never used tobacco/nicotine Alcohol intake: never Substance/Drug Use: never Data Anesthesia Urine 11/29/23 Range/Units 08:55 Urine Color Yellow (Yellow) Urine Appearance Clear (CLEAR) Urine pH 5 (5-7) Ur Specific [place] 1.020 (1.005-1.030) Urine Protein Neg (Negative) Urine Glucose (UA) Norm (Normal) Urine Ketones Negative (Negative) Urine Nitrate Negative (Negative) Urine Bilirubin Neg (Negative) Ur Leukocyte Esterase Negative (Negative) Urine WBC Rare (0-5) /hpf Cardiac Studies: Echocardiogram 05/01/21
[2023-11-29 10:05] LABS: Basophils # 0.1 10^3/uL (0.0-0.1); Basophils % 0.8 %; Eosinophils # 0.3 10^3/uL (0.0-0.8); Eosinophils % 4.4 %; Hematocrit 40.5 % (36-47); Lymphocytes # 2.2 10^3/uL (0.8-4.8); Lymphocytes % 36.9 %; Mean Corpuscular HGB Conc 33.1 g/dL (30-55); Mean Corpuscular Hemoglobin 32.9 pg (27-33); Mean Corpuscular Volume 99.5 fl (85-98); Mean Platelet Volume 10.8 fL (7.4-10.4); Monocytes # 0.4 10^3/uL (0.2-0.9); Monocytes % 6.4 %; Neutrophils # 3.03 10^3/uL (1.8-7.7); Neutrophils % 51.2 %; Nucleated Red Blood Cells % 0 %; Platelet Count 207 10^3/cmm (157-399); Red Blood Count 4.07 10^6/uL (3.85-5.65); White Blood Count 5.93 10^3/uL (3.29-11.43)
[2023-11-29] MEDS: acetaminophen 1,000 MG/100 ML PIGGYBACK 400 MG IV ×2 (10:15→17:29)
[2023-11-29 10:17] LABS: Add Urine Microscopic? NO
[2023-11-29] MEDS: lactated ringers 500 ML IV (10:19)
[2023-11-29 10:20] LABS: Anion Gap 13.5 (5-19); Blood Urea Nitrogen 20 mg/dL (8-23); Calcium 8.8 mg/dL (8.5-10.5); Carbon Dioxide 25 mmol/L (22-29); Chloride 106 mmol/L (98-107); Glomerular Filtration Rate 49.4 mL/min (90-130); Glucose 149 mg/dL (65-115); Osmolality Calculated 295 mOsm/kg (285-295); Potassium 4.5 mmol/L (3.5-5.1); Sodium 140 mmol/L (136-145)
[2023-11-29] MEDS: ketorolac 30 mg/mL INJ IVP (10:24)
--- NOTE | 2023-11-29 10:25 | W.PM.OPSFHP ---
Same Day Surgery H&P Indication for Procedure/HPI DATE OF PROCEDURE: November 29, 2023 CHIEF COMPLAINT/INDICATIONFOR SURGICAL PROCEDURE: Left knee degenerative joint disease PREOP DIAGNOSIS: Left knee degenerative joint disease PLANNED PROCEDURE: Operation Date: 11/29/23 10:15 Proposed Procedures p [facility] Total Knee Arthroplasty(Left) - Alvino Ashby DO Medications/Allergies* Home Medications Medication Instructions Recorded Confirmed Type escitalopram oxalate 20 mg tablet 20 mg PO BEDTIME 07/29/20 11/26/23 History aspirin 81 mg chewable tablet 81 mg PO BEDTIME 05/17/23 11/26/23 History bupropion HCl 200 mg tablet,12 hr 400 mg PO BEDTIME 05/17/23 11/26/23 History sustained-release metoprolol succinate 25 mg 12.5 mg PO BEDTIME 05/17/23 11/26/23 History tablet,extended release 24 hr trazodone 100 mg tablet 100 mg PO BEDTIME 05/17/23 11/26/23 History atorvastatin 40 mg tablet 40 mg PO DAILY 06/29/23 11/26/23 History cetirizine 10 mg tablet 10 mg PO DAILY PRN allergies 11/01/23 11/26/23 History insulin glargine 100 unit/mL (3 20 unit SUBCUT DAILY 11/08/23 11/26/23 History mL) subcutaneous pen (Lantus Solostar U-100 Insulin) galantamine 8 mg tablet 8 mg PO BID 11/26/23 11/26/23 History rivaroxaban 20 mg tablet (Xarelto) 20 mg PO DAILY 11/26/23 11/26/23 History Allergies/Adverse Reactions Allergy/AdvReac Type Severity Reaction Status Date / Time azithromycin Allergy rash Verified 11/24/23 14:17 benzonatate Allergy Unknown Verified 11/24/23 14:17 [From Tessalon Perles] codeine Allergy rash Verified 11/24/23 14:17 collagenase Clostridium Allergy rash Verified 11/24/23 14:17 histolyticu donepezil Allergy ADR-Nightma Verified 11/24/23 14:17 re erythromycin base Allergy Unknown Verified 11/24/23 14:17 hydrocodone [From Vicodin] Allergy rash Verified 11/24/23 14:17 morphine Allergy rash Verified 11/24/23 14:17 oxycodone [From Percocet] Allergy rash Verified 11/24/23 14:17 tramadol Allergy Unknown Verified 11/24/23 14:17 Pertinent History/Comorbid Conditions* Medical History (Updated 11/01/23 @ 15:58 by Shin Sandoval MD) Pacemaker [place] [employer] dual-chamber 08/08/2021 Mild cognitive impairment with memory loss Dyslipidemia Diabetes HTN (hypertension) Surgical History (Updated 10/02/20 @ 09:58 by Ginger Sarabia MD) Hx of hysterectomy Hx of cholecystectomy Hx of breast biopsy Hx of aortic valve replacement Family History (Updated 07/29/20 @ 13:22 by Ebony Calloway RN) Diabetes Father Mother Sister Family/Other Congestive heart failure (CHF) Father Myocardial infarction Father Stroke Family/Other Social History Smoking and tobacco/nicotine status: never used tobacco/nicotine Alcohol intake: never Substance/Drug Use: never Pertinent Exam Findings alert, oriented x 3, operative site marked and procedure specific exam findings Please refer to detailed orthopedic examination on 09/20/2023: Left Knee Exam: -Patient has swelling and ecchymosis over anterior aspect of knee. ROM 0 to greater than 120 degrees Patellar crepitus with ROM Medial joint line tenderness to palpation Lateral joint line tenderness to palpation Mild joint effusion Negative Lucie's Negative Sangeetha's 10 degrees of Varus malalignment, correctable on exam Stable Varus and Valgus instability Gross motor sensory intact Recommendations Surgery/Procedure today Other Plans: Plan to proceed to the OR today for a left total knee arthroplasty?[facility] robotic assisted. Patient is clear the preoperative clearance process and is ready proceed with surgical intervention her A1c is 6.6. Her previous urine has been checked and cultures were negative as result no indications for preoperative antibiotics per the preoperative clinic team. Pending her urine checking clearing today we will proceed with surgical intervention today. Patient understands the ins and outs procedure the risk benefits complication alternatives surgery and through shared decision-making elects proceed with surgical intervention. All questions answered at this time. Coding Level of Care Code Acute Code for Sj Fwtiffanie
[2023-11-29 10:26] LABS: Specific Gravity, Urine 1.025 (1.005-1.030); Urine Appearance Clear (CLEAR); Urine Color Yellow (Yellow); pH Urine 5 (5-7)
[2023-11-29 10:27] LABS: Bilirubin Urine Neg (Negative); Blood Urine Neg (Negative); Charge for UA Resulting for Rev; Glucose Urine UA Norm (Normal); Ketones Urine Negative (Negative); Leukocyte Esterase Urine Negative (Negative); Nitrate Urine Negative (Negative); Protein Urine Neg (Negative); Urobilinogen Urine Norm (Negative)
[2023-11-29] MEDS: scopolamine 1.5 Patch 1 PATCH TRANSDERMA (10:27)
[2023-11-29] MEDS: sodium chloride 0.9% 1,000 ML 30 ML IV (10:38)
[2023-11-29] MEDS: ceFAZolin 2,000 MG in sodium chloride 0.9% (plus) 50 ML 100 MG IV ×2 (10:42→18:17)
[2023-11-29] MEDS: ROPivacaine 0.2% Premix 100 mL 200 MG INTRA-ARTI (11:28)
[2023-11-29] MEDS: EPINEPHrine 1 mg/mL INJ XX (11:28)
[2023-11-29] MEDS: ketorolac 30 mg/mL INJ XX (11:28)
[2023-11-29] MEDS: vancomycin 1,000 MG SDV 1000 MG INTRA-ARTI (12:26)
--- NOTE | 2023-11-29 12:47 | W.PM.BPON ---
Date of Procedure: 11/29/2023 Surgeon: Alvino Ashby DO [employer] Instructor(s): Delvis Ashby PA-C Procedure(s) performed: Left total knee arthroplasty?[facility] robotic assisted Findings of the procedure(s): Patient found to have left knee severe degenerative joint disease underwent procedure as planned without issues or complications Estimated blood loss: 25 mL Specimen(s) removed: Tibia femur and patellar bone cuts removed Post-operative diagnosis: Left knee degenerative joint disease
--- NOTE | 2023-11-29 12:48 | P.OP_ITS ---
Operative Report Date of procedure: November 29, 2023 Surgeon: Alvino Ashby DO Mobile Application Engineer: Delvis Ashby PA-C: PA was necessary for assistance in this case with leg positioning retraction and protection of neurovascular structures as well as assistance in implantation wound closure and dressing application. Procedure: Preoperative diagnosis: Left knee degenerative joint disease Post-op diagnosis: Same Procedure done: Left total knee arthroplasty, cemented?robotic assisted Destin Implants: Cesar triathlon size 4 femur CR cemented?left [place] triathlon size? 4 tibia universal baseplate cemented Cesar triathlon symmetric patella size 31 mm Cesar triathlon polyethylene 9mm Surgeon: Alvino Ashby DO Estimated blood?loss: 25 mL Tourniquet 72mins IV fluids: 1000 mL Urine output: 300 mL Complications: None Condition: stable Disposition: floor Brief History: Patient is a 68-year-old female with with chronic?left knee degenerative joint disease.? Patient has been worked up in the outpatient setting in the orthopedic office at this point time through shared decision making given? cakz-lo-yobp arthritis as well as failed conservative treatment, and pt would?like to proceed with a?left total knee arthroplasty.? Through shared decision making elected to proceed with surgical intervention for?left total knee arthroplasty.? We talked about continued conservative treatment and surgical intervention as far as the risk benefits complications alternatives surgical and nonsurgical treatment options.? At this point time understanding patient risks with surgery he agrees to proceed with surgical intervention.? Once again? risk with surgery include but are not?limited to make it better make it worse blood clot, heart attack, stroke, on the table, infection, injury to nerves or vessels, persistent pain, arthrofibrosis, implant failure.? Understanding these risks patient agrees to proceed with surgical intervention consent was obtained in the office.? All questions answered. Procedure: Patient was seen and evaluated in the preoperative holding area.? Consent was reviewed and signed with patient with plan for?left total knee arthroplasty.? All questions answered.? Correct extremity marked.? Patient seen and evaluated by the anesthesia department and once cleared for surgery was taken back to the operative suite.? Patient was placed into a supine position on the OR table.? All bony prominences were well-padded.? Patient was appropriately secured to the bed.? Patient underwent anesthesia per the anesthesia department.? Patient received spinal anesthesia and? Cruz catheter was placed.? A nonsterile tourniquet was applied to the?left thigh.? At this point in time a final timeout performed.? Patient received appropriate preoperative antibiotics and TXA. Next the?left?lower extremity was then prepped and draped in standard orthopedic fashion. Esmarch tourniquet was used exsanguinate the?left?lower extremity.? Tourniquet was insufflated to 250 mmHg. A standard anterior incision was made over midline of the knee.? Sharp scalpel excision through skin and subcutaneous tissue full-thickness skin flaps were ma de.? Fascia was elevated off of the extensor retinaculum was stable with medial parapatellar arthrotomy was then made.? The performed standard sequential releases..? Immediately on entry into the joint patient was found to have severe eburnated bone and tricompartmental arthritic changes noted.? With significant osteophyte formation.? Next the the patella was then stuffed and the knee was then flexed.?? Josafat was placed superiorly around the anterior aspect of the femur this was freed of synovium and I subsequently then placed by 2 femur pins to establish my femur arrays for the Destin robot.? These were then placed bicortically and? femur array was then appropriately secured with appropriate visualization.? Next attention was turned towards the tibial rays.? These were then drilled arlene millard bicortically in parallel fashion and intraincisional.? I then placed my guide as well as my tibial array on in place.? This was appropriately secured and had excellent visualization with the Destin robot.? Next the tibial checkpoint as well as femur checkpoint were then placed.? At this point time I then subsequently established my head center as well as my medial?lateral malleoli as well as my checkpoints.? Next utilizing standard Destin technology I then mapped out the appropriate points and confirmation points around the femur as well as the tibia in standard fashion.? Once this was then done I then removed all osteophytes in preparation for dynamic testing.? All osteophytes were removed as well as I removed the ACL and the PCL was excised due to its significant tearing and degeneration noted.? At this point time the knee was brought into full extension and we performed our standard evaluation of our gap balancing stressing his?ligaments and extension as well as flexion appropriate adjustments were made to have appropriate gap balancing in both flexion and extension.? This plan for final counts.? We get a preoperative plan evaluating our implants which was a size 4 femur and a size 4 tibia.? Next we brought in the Destin robot and sequentially made our femur cuts.? All excess bony cuts were then removed.? Finally we made our tibial cut.? Once this was done a standard PCL retractor was then placed into this position I excised the medial and?lateral meniscus.? The tibial cut was then subsequently removed all excess bony debris was removed.? I then utilized a?lamina tooth grinder and remove the posterior osteophytes.? At this point time sized the tibia and confirmed this was a size 4.? I utilized our blunt probe to establish rotation of tibial implant.? Once this was done I then placed my tibia size 4 trial in appropriate position and then subsequently placed tibial pins to hold this into place placed a size 9 mm poly as well as a size 4 femur which was appropriately impacted in place knee was then subsequently brought into extension. Trials were then assessed,? this was stable with varus valgus stress in extension as well as had symmetrical translation when brought into flexion demonstrating symmetrical gaps. I had excellent balance gaps in flexion and extension with varus and valgus stresses.? At this point I was satisfied with these implants these were then verified and opened on the back table size 4 tibia, size 4 femur,? size 9 mm polythickness.? We did confirm appropriate gap balancing and stresses as well as alignment utilizing? Destin and were satisfied with this plan.? ?At this point time with my trials in place I then towel clip the patella everted this made appropriate measurements subsequently utilizing freehand technique performed by patellar resurfacing this was confirmed to be appropriate resection and subsequently sized to be a 31 mm symmetric.? My drill peg guides were then clamped and appropriate position and appropriate position in the patella for appropriate tracking and parallel with the joint.? Pegs were drilled trial implant was placed and the knee was then subsequently ranged and found to have excellent patellar tracking.? Femur pegs were then drilled.? All checkpoints as well as guidepins and arrays were removed and appropriate counts made.?Satisfied with our tibial placement rotation I then utilized the keel punc h and prepped the tibia.? At this point time all of our trial implants were removed.? The wound bed? was thoroughly irrigated and dried and prepped for cementation.? Cement was mixed on the back table.? Once cement was ready this was then covered onto the tibia and the tibial baseplate was then impacted and all excess cement was removed.? Next the polyethylene was then impacted into place on the tibial baseplate.? Next cement was placed onto the femur as well as under the femur implants and impacted in to place and all excess cement was extruded and removed.? Knee was taken into full extension? to clear all excess cement was removed.? Warm saline was placed over the joint.? I then towel clip patella and dried for cementation. cemented the patella into place.? This was all clamped and the cement was allowed to cure.? Thorough irrigation performed with pulse?lavage.? I then placed my periarticular injection while the cement was curing.? Once cured the knee was taken through range of motion and had excellent stability and gaps were balanced in flexion and extension.? Tourniquet was then deflated. hemostasis satisfactory with electrocautery.? Vancomycin powder was placed inside the wound bed for antibiotic prophylaxis. Next I then subsequently closed the capsule with Ethibond suture as well as a running strata fix suture.? Knee was then taken through range of motion 30 times.? Next the skin was then closed in?layered fashion of running stratifix sutures of deep and subcutenous tissue and skin.? ?closed in flexion and Prineo glue was then placed over the incision this allowed to cure.? Incision was covered with kady dressing incisional VAC, with ABDs soft roll and Amari wrap.? Patient was then awakened from anesthesia and taken to PACU in stable condition. Disposition: Patient taken to PACU in stable condition will be admitted to the floor for pain control PT/OT weight-bear as tolerated?left?lower extremity dressing changes as needed, DVT prophylaxis. Pain control. Patient will receive appropriate postoperative antibiotics. patient will be seen today by the internal medicine team for medical management.? Patient will follow up with the office in 2 weeks.? Patient understands agrees with current plan.? All questions answered.
--- NOTE | 2023-11-29 12:56 | XRR_ITS ---
PROCEDURE INFORMATION: Exam: XR Left Knee Exam date and time: 11/29/2023 1:24 PM Age: 68 years old Clinical indication: Device placement; Joint replacement hardware; Prior surgery; Surgery date: Post-operative (0-2 days); Surgery type: Post L tka, ; additional info: Post L tka, do in pacu TECHNIQUE: Imaging protocol: Radiologic exam of the left knee. Views: 1 or 2 views. COMPARISON: CT knee LT [facility] [id number] 11/17/2023 8:38 AM FINDINGS: Bones/joints: Total-knee replacement. Anatomic alignment. Intact hardware. Soft tissues: Normal. XR/XR knee LT 1-2V [id number] IMPRESSION: Postoperative findings.
--- NOTE | 2023-11-29 13:14 | P.PCN_ITS ---
PACU note Narrative: Patient is a 68-year-old female that just underwent a left total knee arthroplasty. Pt transferred to PACU in stable condition. Dressing is dry. pt is awake and alert. Distal pulses are palpable toes are warm and well- perfused. Cap refill is normal and under 2 seconds. Sensation to foot is i ntact. Pain is controlled. Unable to form any further motor assessment due to residual block. Exam: awake Disposition: discharged
--- NOTE | 2023-11-29 13:27 | P.CONIM_ITS ---
Providers/Reason For Consult 2 Consulting Physician/Specialty*: Frase/Hospitalist Reason for Consult*: diabetes, atrial flutter on chronic anticoagulation, history aortic valve replacement, hypertension Requesting Physician: Dr Ashby Attending Physician: Alvino Ashby DO Primary Care Provider: Louann Rodriguez MD History of Present Illness History of Present Illness Rosie Delgado is a 68 year old female who presented to [facility] on the day of admission for planned left total knee replacement by Dr. Ashby. She has degenerative joint disease in both knees. She has been a candidate for surgery from an orthopedic standpoint for some time but her hemoglobin A1c was high earlier this year delaying surgery until it improved. Most recent hemoglobin A1c was 6.6 down from 8.3. She underwent Destin assisted left total knee replacement with cement without any complications. Estimated blood loss 25 mL. She had spinal anesthesia with a peripheral nerve block. She has started to feel some pain postoperatively but controlled with medications. Has tolerated a diet without nausea or vomiting. No reports of chest pain or difficulty breathing. Mrs. Delgado lives with her daughter. There are a lot of steps at the house and she has some concerns about being able to safely navigate them. Family is also not with her 05/10. She is usually independent in her ADLs. Vital signs have been stable today. Review of Systems 2 General: Reports: Other (ROS as per HPI or as noted here) Medications/Allergies Home Medications Medication Instructions Recorded Confirmed Last Taken Type escitalopram oxalate 20 mg tablet 20 mg PO BEDTIME 07/29/20 11/26/23 11/25/23 History Diabetic shoes with insoles #1 ea 04/06/23 11/24/23 Unknown Rx aspirin 81 mg chewable tablet 81 mg PO BEDTIME 05/17/23 11/26/23 11/24/23 History bupropion HCl 200 mg tablet,12 hr 400 mg PO BEDTIME 05/17/23 11/26/23 11/29/23 History sustained-release metoprolol succinate 25 mg 12.5 mg PO BEDTIME 05/17/23 11/26/23 11/28/23 History tablet,extended release 24 hr trazodone 100 mg tablet 100 mg PO BEDTIME 05/17/23 11/26/23 11/28/23 History atorvastatin 40 mg tablet 40 mg PO DAILY 06/29/23 11/26/23 11/25/23 History memantine 10 mg tablet 10 mg PO BID #180 tabs 07/05/23 11/29/23 11/28/23 Rx acarbose 25 mg tablet 25 mg PO TID #90 tabs 11/01/23 11/26/23 Unknown Rx cetirizine 10 mg tablet 10 mg PO DAILY PRN allergies 11/01/23 11/26/23 11/28/23 History insulin glargine 100 unit/mL (3 20 unit SUBCUT DAILY 11/08/23 11/26/23 11/28/23 08:00 History mL) subcutaneous pen (Lantus Solostar U-100 Insulin) galantamine 8 mg tablet 8 mg PO BID 11/26/23 11/26/23 11/26/23 History rivaroxaban 20 mg tablet (Xarelto) 20 mg PO DAILY 11/26/23 11/26/23 11/25/23 History Allergies Allergy/AdvReac Type Severity Reaction Status Date / Time azithromycin Allergy rash Verified 11/24/23 14:17 benzonatate Allergy Unknown Verified 11/24/23 14:17 [From Tessalon Perles] codeine Allergy rash Verified 11/24/23 14:17 collagenase Clostridium Allergy rash Verified 11/24/23 14:17 histolyticu donepezil Allergy ADR-Nightma Verified 11/24/23 14:17 re erythromycin base Allergy Unknown Verified 11/24/23 14:17 hydrocodone [From Vicodin] Allergy rash Verified 11/24/23 14:17 morphine Allergy rash Verified 11/24/23 14:17 oxycodone [From Percocet] Allergy rash Verified 11/24/23 14:17 tramadol Allergy Unknown Verified 11/24/23 14:17 Current Medications Generic Name Dose Route Start Last Admin Trade Name Freq PRN Reason Stop Dose Admin Sodium Chloride 1,000 mls @ 30 mls/hr 11/29/23 08:45 11/29/23 10:38 Sodium Chloride 0.9% IV 11/30/23 08:44 30 mls/hr .Q24H PIERCE Administration PFSH Acute 2 PFSH: Medical History (Updated 11/29/23 @ 20:18 by Krystle Montes De Oca MD) Chronic kidney disease Stage 3A 11/2023 with GFR 49 Depression Alzheimer disease (~04/2022) 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 07/31/2021 at [facility] Atrial flutter Pacemaker [employer] dual-chamber 08/08/2021 Mild cognitive impairment with memory loss Dyslipidemia Diabetes HTN (hypertension) Surgical History (Updated 11/29/23 @ 19:58 by Krystle Montes De Oca MD) Hx of hysterectomy Hx of cholecystectomy Hx of breast biopsy Hx of aortic valve replacement Family History Father Congestive heart failure (CHF) Diabetes Myocardial infarction Mother Diabetes Sister Diabetes Family/Other Diabetes Stroke Social History Smoking and tobacco/nicotine status: never used tobacco/nicotine Alcohol intake: never Substance/Drug Use: never Vitals/I&O/Wt Last Vital Signs Temp 97.4 F L 11/29/23 09:18 Pulse 67 11/29/23 09:18 Resp 18 11/29/23 09:18 BP 143/77 11/29/23 09:18 Pulse Ox 94 11/29/23 09:18 O2 Del Method Room Air 11/29/23 09:20 11/28/23 11/29/23 11/29/23 22:59 06:59 14:59 Intake Total 650 / 650 Balance 650 / 650 Weight last 48 hrs Weight 111.13 kg Physical Exam 2 Narrative: Patient is awake and alert, able to provide history. She is oriented to person, place and situation. Extraocular movements are intact, face is symmetric, speech clear. Lungs are clear to auscultation bilaterally. Cardiovascular exam reveals a regular rhythm. Abdomen is soft, nontender. Cruz catheter is in place. Left lower extremity dressing intact and clean. Able to wiggle toes. Handgrip equal. Data 11/29/23 09:45 11/29/23 09:45 Other Labs: Laboratory Results WBC 5.93 10^3/uL (3.29-11.43) 11/29/23 09:45 RBC 4.07 10^6/uL (3.85-5.65) 11/29/23 09:45 Hgb 13.40 g/dL (11.27-16.99) 11/29/23 09:45 Hct 40.5 % (36-47) 11/29/23 09:45 MCV 99.5 fl (85-98) H 11/29/23 09:45 MCH 32.9 pg (27-33) 11/29/23 09:45 MCHC 33.1 g/dL (30-55) 11/29/23 09:45 RDW 13.0 % (12.1-15.1) 11/29/23 09:45 Plt Count 207 10^3/cmm (157-399) 11/29/23 09:45 MPV 10.8 fL (7.4-10.4) H 11/29/23 09:45 Neut % (Auto) 51.2 % 11/29/23 09:45 Lymph % (Auto) 36.9 % 11/29/23 09:45 [place] % (Auto) 6.4 % 11/29/23 09:45 Eos % (Auto) 4.4 % 11/29/23 09:45 Baso % (Auto) 0.8 % 11/29/23 09:45 Neut # (Auto) 3.03 10^3/uL (1.8-7.7) 11/29/23 09:45 Lymph # (Auto) 2.2 10^3/uL (0.8-4.8) 11/29/23 09:45 [place] # (Auto) 0.4 10^3/uL (0.2-0.9) 11/29/23 09:45 Eos # (Auto) 0.3 10^3/uL (0.0-0.8) 11/29/23 09:45 Baso # (Auto) 0.1 10^3/uL (0.0-0.1) 11/29/23 09:45 Nucleated RBC % (auto) 0 % 11/29/23 09:45 Nucleated RBCs # 0.0 /100WBC 11/29/23 09:45 Sodium 140 mmol/L (136-145) 11/29/23 09:45 Potassium 4.5 mmol/L (3.5-5.1) 11/29/23 09:45 Chloride 106 mmol/L (98-107) 11/29/23 09:45 Carbon Dioxide 25 mmol/L (22-29) 11/29/23 09:45 Anion Gap 13.5 (5-19) 11/29/23 09:45 BUN 20 mg/dL (8-23) 11/29/23 09:45 Creatinine 1.1 mg/dL (0.5-0.9) H 11/29/23 09:45 GFR Calculation 49.4 mL/min (90-130) L 11/29/23 09:45 Glucose 149 mg/dL (65-115) H 11/29/23 09:45 Calculated Osmolality 295 mOsm/kg (285-295) 11/29/23 09:45 Calcium 8.8 mg/dL (8.5-10.5) 11/29/23 09:45 Urine Color Yellow (Yellow) 11/29/23 10:12 Urine Appearance Clear (CLEAR) 11/29/23 10:12 Urine pH 5 (5-7) 11/29/23 10:12 Ur Specific [place] 1.025 (1.005-1.030) 11/29/23 10:12 Urine Protein Neg (Negative) 11/29/23 10:12 Urine Glucose (UA) Norm (Normal) 11/29/23 10:12 Urine Ketones Negative (Negative) 11/29/23 10:12 Urine Blood Neg (Negative) 11/29/23 10:12 Urine Nitrate Negative (Negative) 11/29/23 10:12 Urine Bilirubin Neg (Negative) 11/29/23 10:12 Urine Urobilinogen Norm mg/dL (Negative) 11/29/23 10:12 Ur Leukocyte Esterase Negative (Negative) 11/29/23 10:12 Urine WBC Rare /hpf (0-5) 11/29/23 08:55 Ur Squamous Epith Cells 5-10 /hpf (0-5) H 11/29/23 08:55 Amorphous Sediment Not Reportable 11/29/23 10:12 Urine Bacteria 2+ /hpf (NONE) H 11/29/23 08:55 Blood Type O Positive 11/29/23 09:45 Rho(D) Type Rh positive 11/29/23 09:45 Antibody Screen Negative 11/29/23 09:45 EKG 06/2023 with sinus rhythm A&P Assessment and plan (1) Status post total left knee replacement using cement: POD 0 Doing well On perioperative prophylactic antibiotics with cefazolin Cruz out in am Plan resumption of home Xarelto for dvt prophylaxis coverage Reviewed pain control plan with patient Has bowel regimen Discussed disposition plans with patient, she has some concerns about how she will perform in the home setting after surgery Therapy evaluation in the morning (2) HTN (hypertension): Chronically on low-dose metoprolol succinate at bedtime Continue home betablockade Monitor blood pressures Qualifiers: Hypertension type: essential hypertension Qualified Code(s): I10 - Essential (primary) hypertension (3) Atrial flutter: History of atrial a flutter/fibrillation post valve replacement requiring cardioversion and subsequent pacemaker placement. Sinus rhythm on most recent EKG. She is chronically on anticoagulation. Continuing betablockade Anticoagulation to resume in am (4) Hx of aortic valve replacement: History of bioprosthetic aortic valve replacement x 2, with most recent in 2021 at [place] Aware (5) Pacemaker: Placed in 2021, last pacemaker check in July of this year. Aware (6) Dyslipidemia: Chronically on statin therapy Continue home atorvastatin (7) Diabetes: Type II, insulin requiring, with hyperglycemia. A1c had been elevated earlier this year to the point that surgery was delayed. 8.3 in May, down to 6.6 in October. She was recently given a prescription for acarbose but has not yet started the medicine. She experienced hypoglycemia with glipizide and it has since been discontinued. Insulin was held today in part contributing to elevation in blood sugars. Will halve Lantus dosing while here Sliding scale as needed Reviewed with patient that she can start acarbose as per primary care providers instructions Qualifiers: Diabetes mellitus type: type 2 Diabetes mellitus alf insulin use: with superintendent terminal use Diabetes mellitus complication status: with hyperglycemia Qualified Code(s): E11.65 - Type 2 diabetes mellitus with hyperglycemia; Z79.4 - terminologist (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 insulin (8) Mild cognitive impairment with memory loss: On chronic galantamine and Namenda, still able to make own decisions Continue home meds, galanatamine if available from home supply (9) Chronic anticoagulation: On chronic Xarelto due to history of atrial flutter Due to resume in morning (10) Chronic kidney disease: Stage IIIa with GFR 49 Aware Had Toradol 30 mg with subsequent dosing now ordered at 15 mg every 6 hours Monitor creatinine (11) Depression: Chronically on bupropion and escitalopram Continue home medications Plan Continuing home aspirin therapy to start tomorrow Continuing home cetirizine if needed For now we will continue trazodone if needed secondary to pain medications Therapy evaluations in the morning S/P tranexamnic acid Rechecking Hgb in am along with renal function Continue IV fluids tonight Case management for discharge planning Supportive care otherwise Will follow along with you while here Thank you for consultation Plans discussed with patient and she was given an opportunity to ask questions Full code Consult Attestations 2 Medical Necessity Statement: as per attending and Moderate Time for a total of 70 minutes, includes reviewing past or interval history, examining/interviewing patient, placing orders, counseling patient/family/other support, discussing plan of care with staff, communicating with other healthcare providers (Sotero Ashby) and documenting encounter Diagnoses Status post total left knee replacement using cement Z96.652 Essential hypertension I10 Hypertension type: essential hypertension Atrial flutter I48.92 Hx of aortic valve replacement Z95.2 Pacemaker Z95.0 Dyslipidemia E78.5 Type 2 diabetes mellitus with hyperglycemia, with long-term current use of insulin E11.65; Z79.4 Diabetes mellitus type: type 2 Diabetes mellitus superintendent terminal insulin use: with superintendent terminal use Diabetes mellitus complication status: with hyperglycemia Mild cognitive impairment with memory loss G31.84 Chronic anticoagulation Z79.01 Chronic kidney disease N18.9 Depression F32.A
[2023-11-29 13:39] LABS: Glucose Point of Care 148 mg/dL (70-110)
--- NOTE | 2023-11-29 13:40 | ANE.PACU2 ---
Inpatient post-anesthesia follow up: Airway intact: Yes Vital signs: Temperature 97.0 F Pulse Rate 62 Respiratory Rate 16 Blood Pressure 122/78 Pulse Oximetry 94 Oxygen Delivery Me thod Room Air Oxygen Flow Rate Fraction of Inspir ed Oxygen Hydration adequate: Yes Nausea and vomiting: No Pain level: 1 Mental status: Baseline
--- NOTE | 2023-11-29 13:45 | ANES.PROC ---
Anesthesia Procedures Procedure/Date: 11/29/23 Nerve Block ^: Nerve Block 1: Main Anesthesia: other Time Out Performed: Yes Consent: requested by attending/covering physician and from patient Nerve block location: adductor canal Anesthesia monitors applied: pulse oximetry, EKG, BP cuff and oxygen Nerve block position: supine Anesthetic Used: ropivicaine 0.5% Amount of anesthesia used (mL): 15 Ultrasound used to: recognize landmarks Nerve Stimulator Used?: Yes Interscalene/Femoral BLK: other needle (pjunk) and visualize local anesthetic spread Injection: neg aspiration of heme Patient Tolerated Procedure: well Complications: none
--- NOTE | 2023-11-29 14:32 | SUR.EXTENDED ---
14:00 ROM AND GOOD CAP REFILL TO RIGHT TOES.
[2023-11-29] MEDS: lactated ringers 1,000 ML 100 ML IV (15:51)
[2023-11-29 16:04] LABS: Glucose Point of Care 138 mg/dL (70-110)
--- NOTE | 2023-11-29 16:13 | PC.NURSE ---
This nurse attempted to call Dr. Ashby to get orders for insulin due to patients blood sugar being 293. No answer, voicemail was left at this time.
[2023-11-29] MEDS: docusate sodium 100 mg Capsule PO (17:26)
[2023-11-29] MEDS: calcium carb-vit d 600mg/400unit 1 Tablet 1 EACH PO (17:26)
[2023-11-29] MEDS: mupirocin oint 22 gm 1 APPLIC NASAL (17:27)
[2023-11-29] MEDS: chlorhexidine gluconate 0.12% Btl 473 mL 30 ML MUCOUS MEM ×2 (17:29→20:42)
--- NOTE | 2023-11-29 17:52 | PC.NURSE ---
This nurse walked into pt room to pt's sister who is an Occupational therapist, getting pt out of bed with her walker. The pt's sister stated that PT told her she could get her sister up since she is an OT.
--- NOTE | 2023-11-29 17:56 | PC.NURSE ---
This nurse called Dr. Ashby @[phone] to ask him for orders on when to check Blood sugars and insulin orders he said to consult with Dr. Sneed. This nurse called Dr. Sneed and she said she would put orders in.
[2023-11-29] MEDS: sennosides-docusate Tablet 2 TAB PO (18:04)
[2023-11-29] MEDS: iron polysaccharide complex 150 mg Capsule PO (18:04)
[2023-11-29 18:12] LABS: Glucose Point of Care 244 mg/dL (70-110)
[2023-11-29] MEDS: insulin lispro 100 unit/1 mL SUBCUT ×2 (18:13→20:57)
[2023-11-29] MEDS: ketorolac 30 mg/mL INJ 15 MG IVP (20:41)
[2023-11-29] MEDS: escitalopram 10 mg Tablet 20 MG PO (20:42)
[2023-11-29] MEDS: aspirin 81 mg Chew Tablet PO (20:42)
[2023-11-29 20:56] LABS: Glucose Point of Care 313 mg/dL (70-110)
[2023-11-29] MEDS: buPROPion XL (24 HR) 300 mg Tablet PO (20:56)
[2023-11-29] MEDS: memantine 5 mg tablet 10 MG PO (20:57)
[2023-11-29] MEDS: oxyCODONE 5 mg IR Tab/Cap PO (20:57)
[2023-11-29] MEDS: metoprolol succinate ER (24 HR) 25 mg Tablet 12.5 MG PO (20:57)
[2023-11-29] MEDS: TRAMadol 50 mg Tablet PO (23:14)
[2023-11-30] VITALS (10 sets, daily range): BP systolic 114–134; BP diastolic 65–71; PULSE 59–80; RESP 16–20; TEMP 36.6–36.7; O2SAT 91–95
[2023-11-30] MEDS: acetaminophen 1,000 MG/100 ML PIGGYBACK 400 MG IV ×2 (01:28→10:00)
[2023-11-30] MEDS: ceFAZolin 2,000 MG in sodium chloride 0.9% (plus) 50 ML 100 MG IV ×2 (02:20→09:59)
[2023-11-30] MEDS: oxyCODONE 5 mg IR Tab/Cap PO ×4 (02:24→22:18)
[2023-11-30] MEDS: ondansetron 2 mg/ML SDV 2 mL 4 MG IVP ×2 (02:24→16:34)
[2023-11-30] MEDS: ketorolac 30 mg/mL INJ 15 MG IVP (02:25)
[2023-11-30] MEDS: lactated ringers 1,000 ML 100 ML IV (04:20)
[2023-11-30 07:05] LABS: Basophils % 0.2 %; Eosinophils % 0.2 %; Hematocrit 34.4 % (36-47); Lymphocytes # 2.4 10^3/uL (0.8-4.8); Lymphocytes % 19.5 %; Mean Corpuscular HGB Conc 33.1 g/dL (30-55); Mean Corpuscular Hemoglobin 33.4 pg (27-33); Mean Corpuscular Volume 100.9 fl (85-98); Mean Platelet Volume 11.7 fL (7.4-10.4); Monocytes # 0.7 10^3/uL (0.2-0.9); Monocytes % 5.8 %; Neutrophils # 9.01 10^3/uL (1.8-7.7); Nucleated Red Blood Cells % 0 %; Platelet Count 188 10^3/cmm (157-399); Red Blood Count 3.41 10^6/uL (3.85-5.65); Red Cell Distribution Width 13.1 % (12.1-15.1); White Blood Count 12.18 10^3/uL (3.29-11.43)
[2023-11-30 07:21] LABS: Blood Urea Nitrogen 24 mg/dL (8-23); Calcium 8.2 mg/dL (8.5-10.5); Carbon Dioxide 23 mmol/L (22-29); Chloride 107 mmol/L (98-107); Creatinine Clr Calc Pharmacy 79.4958; Glomerular Filtration Rate 62.3 mL/min (90-130); Glucose 148 mg/dL (65-115); Osmolality Calculated 295 mOsm/kg (285-295); Sodium 139 mmol/L (136-145)
[2023-11-30 07:29] LABS: Anion Gap 13.7 (5-19); Potassium 4.7 mmol/L (3.5-5.1)
[2023-11-30 07:49] LABS: Glucose Point of Care 149 mg/dL (70-110)
[2023-11-30] MEDS: docusate sodium 100 mg Capsule PO ×2 (08:21→17:17)
[2023-11-30] MEDS: rivaroxaban 10 mg Tablet 20 MG PO (08:22)
[2023-11-30] MEDS: atorvastatin 40 mg Tablet PO (08:22)
[2023-11-30] MEDS: multivitamin therapeutic Tablet 1 TAB PO (08:22)
[2023-11-30] MEDS: sennosides-docusate Tablet 2 TAB PO ×2 (08:22→17:17)
[2023-11-30] MEDS: TRAMadol 50 mg Tablet PO ×2 (08:22→21:07)
[2023-11-30] MEDS: memantine 5 mg tablet 10 MG PO ×2 (08:22→17:17)
[2023-11-30] MEDS: iron polysaccharide complex 150 mg Capsule PO ×2 (08:22→17:17)
[2023-11-30] MEDS: insulin lispro 100 unit/1 mL SUBCUT ×3 (08:23→21:08)
[2023-11-30] MEDS: chlorhexidine gluconate 0.12% Btl 473 mL 30 ML MUCOUS MEM ×4 (08:23→21:10)
[2023-11-30] MEDS: calcium carb-vit d 600mg/400unit 1 Tablet 1 EACH PO ×2 (08:23→17:17)
[2023-11-30] MEDS: insulin glargine 100 units/1 mL 10 UNIT SUBCUT (08:23)
[2023-11-30] MEDS: mupirocin oint 22 gm 1 APPLIC NASAL ×2 (08:24→17:15)
[2023-11-30 11:27] LABS: Glucose Point of Care 163 mg/dL (70-110)
--- NOTE | 2023-11-30 11:59 | P.PN_ITS ---
Subjective 2 Subjective: Did not sleep well last night primarily due to being uncomfortable and pain. Medications do help but reports seeing some yellow spots with it. She has had side effects like this with other medications and says she can tolerate it. No nausea or vomiting. Cruz is out and she has to get up to urinate right now. No trouble breathing or chest pain. 1 recorded heart rate at 59 otherwise vital signs stable. Blood sugars stable. She has worked with PT this morning and is currently worn out from that. Vitals/I&O/Wt Last Vital Signs Temp 97.9 F 11/30/23 10:00 Pulse 59 L 11/30/23 10:00 Resp 16 11/30/23 10:00 BP 120/65 11/30/23 10:00 Pulse Ox 95 11/30/23 10:00 O2 Del Method Room Air 11/30/23 10:00 11/29/23 11/30/23 11/30/23 22:59 06:59 14:59 Intake Total 1150 / 1800 1150 / 2950 150 / 150 Output Total 450 / 875 180 / 1055 150 / 150 Balance 700 / 925 970 / 1895 0 / 0 Weight last 48 hrs Weight 111.13 kg Weight 111.13 kg Physical Exam 2 Narrative: Patient seen sitting up on side of bed. Alert and oriented. Face symmetric, speech clear. Lungs clear. Regular rhythm. Dressing intact to left leg. Can move toes. Urinary Catheter Management: Cruz: Cath Placed During This Visit: yes, but has since been removed by the nurse Reason for Continuing Indwelling Catheter: Decision to DC Catheter Date Urinary Catheter Removed: 11/30/23 Time Urinary Catheter Discontinued: 08:54 Data 11/30/23 06:00 11/30/23 06:00 Other Labs: Laboratory Last Values WBC 12.18 10^3/uL (3.29-11.43) H 11/30/23 06:00 RBC 3.41 10^6/uL (3.85-5.65) L 11/30/23 06:00 Hgb 11.40 g/dL (11.27-16.99) 11/30/23 06:00 Hct 34.4 % (36-47) L 11/30/23 06:00 MCV 100.9 fl (85-98) H 11/30/23 06:00 MCH 33.4 pg (27-33) H 11/30/23 06:00 MCHC 33.1 g/dL (30-55) 11/30/23 06:00 RDW 13.1 % (12.1-15.1) 11/30/23 06:00 Plt Count 188 10^3/cmm (157-399) 11/30/23 06:00 MPV 11.7 fL (7.4-10.4) H 11/30/23 06:00 Neut % (Auto) 74.0 % 11/30/23 06:00 Lymph % (Auto) 19.5 % 11/30/23 06:00 [place] % (Auto) 5.8 % 11/30/23 06:00 Eos % (Auto) 0.2 % 11/30/23 06:00 Baso % (Auto) 0.2 % 11/30/23 06:00 Neut # (Auto) 9.01 10^3/uL (1.8-7.7) H 11/30/23 06:00 Lymph # (Auto) 2.4 10^3/uL (0.8-4.8) 11/30/23 06:00 [place] # (Auto) 0.7 10^3/uL (0.2-0.9) 11/30/23 06:00 Eos # (Auto) 0.0 10^3/uL (0.0-0.8) 11/30/23 06:00 Baso # (Auto) 0.0 10^3/uL (0.0-0.1) 11/30/23 06:00 Nucleated RBC % (auto) 0 % 11/30/23 06:00 Nucleated RBCs # 0.0 /100WBC 11/30/23 06:00 Sodium 139 mmol/L (136-145) 11/30/23 06:00 Potassium 4.7 mmol/L (3.5-5.1) 11/30/23 06:00 Chloride 107 mmol/L (98-107) 11/30/23 06:00 Carbon Dioxide 23 mmol/L (22-29) 11/30/23 06:00 Anion Gap 13.7 (5-19) 11/30/23 06:00 BUN 24 mg/dL (8-23) H 11/30/23 06:00 Creatinine 0.9 mg/dL (0.5-0.9) 11/30/23 06:00 GFR Calculation 62.3 mL/min (90-130) L 11/30/23 06:00 Glucose 148 mg/dL (65-115) H 11/30/23 06:00 POC Glucose 163 mg/dL (70-110) H 11/30/23 11:24 Calculated Osmolality 295 mOsm/kg (285-295) 11/30/23 06:00 Calcium 8.2 mg/dL (8.5-10.5) L 11/30/23 06:00 A&P Assessment and plan (1) Status post total left knee replacement using cement: POD 1 Doing okay Pain management not optimal but tolerating S/P cefazolin empirically Hgb slight drop WBC up but not unexpected Cruz out Xarelto resumed from home meds and will provide more than dvt prophylaxis coverage Bowel regimen ordered Discussed disposition plans with patient, she is concerned about dafety at home with steps, how warn out she feels after therapy today. Case management evaluating options (2) HTN (hypertension): Chronically on low-dose metoprolol succinate at bedtime Keep on home betablockade, given at night, okay as long as HR not less than 55 Monitor blood pressures and heart rate Qualifiers: Hypertension type: essential hypertension Qualified Code(s): I10 - Essential (primary) hypertension (3) Atrial flutter: History of atrial a flutter/fibrillation post valve replacement requiring cardioversion and subsequent pacemaker placement. Sinus rhythm on most recent EKG. She is chronically on anticoagulation. Continue betablockade Anticoagulation resumed Watch for signs of bleeding if remains in hospital (4) Hx of aortic valve replacement: History of bioprosthetic aortic valve replacement x 2, with most recent in 2021 at [place] Aware (5) Pacemaker: Placed in 2021, last pacemaker check in July of this year. Aware (6) Dyslipidemia: Chronically on statin therapy Contining home atorvastatin (7) Diabetes: Type II, insulin requiring, with hyperglycemia. A1c had been elevated earlier this year to the point that surgery was delayed. 8.3 in May, down to 6.6 in October. She was recently given a prescription for acarbose but has not yet started the medicine. She experienced hypoglycemia with glipizide and it has since been discontinued. Insulin was held today in part contributing to elevation in blood sugars. Will increase Lantus to 12 units for tomorrow, usually on 20 daily Sliding scale as needed Patient has not started acarbose on her home med list, can initiate as per primary care providers instructions Qualifiers: Diabetes mellitus complication status: with hyperglycemia Diabetes mellitus jail insulin use: with tank terminal gauger use Diabetes mellitus type: type 2 Qualified Code(s): E11.65 - Type 2 diabetes mellitus with hyperglycemia; Z79.4 - long-term (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 insulin (8) Mild cognitive impairment with memory loss: On chronic galantamine and Namenda, still able to make own decisions Continue namenda Galantamine not yet available from home supply and remains pending (9) Chronic anticoagulation: On chronic Xarelto due to history of atrial flutter Restarted Monitor for excess bleeding (10) Chronic kidney disease: Stage IIIa with GFR 49 Aware Had Toradol 30 mg x 2 on 11/28 with subsequent dosing ordered at 15 mg every 6 hours Mild bump in BUN today, creatinine stable Will need to watch creatinine witth NSAIDS (11) Depression: Chronically on bupropion and escitalopram Contining home medications Plan Has home aspirin, cetirizine, as needed trazodone Decreasing IVFs to KVO Case management evaluating options for disposition Supportive care otherwise Will continue to follow Discharge medications apart from those added post-operatively and problem reconciliation have been addressed in DC plan Plans discussed with patient and she was given an opportunity to ask questions Full code Attestations 2 Medical Necessity Statement*: as per attending Diagnoses Status post total left knee replacement using cement Z96.652 Essential hypertension I10 Hypertension type: essential hypertension Atrial flutter I48.92 Hx of aortic valve replacement Z95.2 Pacemaker Z95.0 Dyslipidemia E78.5 Type 2 diabetes mellitus with hyperglycemia, with long-term current use of insulin E11.65; Z79.4 Diabetes mellitus complication status: with hyperglycemia Diabetes mellitus tank terminal gauger insulin use: with tank terminal gauger use Diabetes mellitus type: type 2 Mild cognitive impairment with memory loss G31.84 Chronic anticoagulation Z79.01 Chronic kidney disease N18.9 Depression F32.A
--- NOTE | 2023-11-30 12:21 | PM.PN ---
Subjective Subjective: Patient was seen and examined postoperative day 1. Patient getting up and working with therapy today. At this point in time there is concerned about safety at home as there are steps to get in and out of the house as well as patient will not have any assistance at home. At this point in time continue to work on pain control as well as therapy. Case management working on discharge options. Vitals/I&O/Wt Last Vital Signs Temp 97.9 F 11/30/23 10:00 Pulse 59 L 11/30/23 10:00 Resp 16 11/30/23 10:00 BP 120/65 11/30/23 10:00 Pulse Ox 95 11/30/23 10:00 O2 Del Method Room Air 11/30/23 10:00 11/29/23 11/30/23 11/30/23 22:59 06:59 14:59 Intake Total 1150 / 1800 1150 / 2950 150 / 150 Output Total 450 / 875 180 / 1055 150 / 150 Balance 700 / 925 970 / 1895 0 / 0 Weight last 48 hrs Weight 245 lb Weight 245 lb Physical Exam Narrative: Examination of the left knee dressings noted in place with kady dressing on in place with good seal. Amari bandage not taken down. Normal postoperative swelling and tenderness palpation diffusely about the left knee compartments are soft compressible calf soft nontender patient able to wiggle toes plantarflex and dorsiflex ankle sensations intact light touch distally. Distal pulses are palpable. Urinary Catheter Management: Cruz: Cath Placed During This Visit: yes, but has since been removed by the nurse Reason for Continuing Indwelling Catheter: Decision to DC Catheter Date Urinary Catheter Removed: 11/30/23 Time Urinary Catheter Discontinued: 08:54 Data 12/02/23 05:04 12/02/23 05:04 Other Labs: Labs 11/30/2023?WBC 12.18, hemoglobin 11.4 creatinine 0.9 Xray Ortho: Radiologist's impression: Ordering Provider/Ordering MD: Alvino Ashby Date of Service: 11/29/23 Procedure(s): XR knee LT 1-2V 65106 Accession Number(s): [id number] Report Number: [id number] PROCEDURE INFORMATION: Exam: XR Left Knee Exam date and time: 11/29/2023 1:24 PM Age: 68 years old Clinical indication: Device placement; Joint replacement hardware; Prior surgery; Surgery date: Post-operative (0-2 days); Surgery type: Post L tka, ; additional info: Post L tka, do in pacu TECHNIQUE: Imaging protocol: Radiologic exam of the left knee. Views: 1 or 2 views. COMPARISON: CT knee LT [facility] [id number] 11/17/2023 8:38 AM FINDINGS: Bones/joints: Total-knee replacement. Anatomic alignment. Intact hardware. Soft tissues: Normal. XR/XR knee LT 1-2V 04087 IMPRESSION: Postoperative findings. A&P Assessment and plan (1) Status post total left knee replacement using cement: Plan POD #1 TKA Weight-bear as tolerated to operative lower extremity Ice as needed for pain and swelling pain control PT/OT Resume Diet Postop TXA and postoperative antibiotics given Dressing changes as needed AM labs reviewed Postoperative x-rays reviewed Internal medicine consulted for medical management appreciate their assistance DVT prophylaxis resume home Xarelto Case management on board patient unfortunately does not have much in the way of assistance at home as well as having persistent pain and would benefit from further therapy and hospitalization. Will have case management working on a discharge plan with patient. May need intermediate facility. Attestations Medical Necessity Statement*: Ongoing care status post left total knee arthroplasty requiring further therapy and pain medication and discharge plan Coding Level of Care Code Acute Code for Chg Fwd Diagnoses Status post total left knee replacement using cement Z96.652 Time Spent (min) 15
--- NOTE | 2023-11-30 15:08 | PC.NURSE ---
Pt transferred to [place] [id number] via wheelchair at this time. Report previously called to CLAUDIO Bailey. Leo and this nurse assisted pt from wheelchair to bed. All patient belongings left with patient at bedside.
[2023-11-30 16:12] LABS: Glucose Point of Care 120 mg/dL (70-110)
[2023-11-30 20:46] LABS: Glucose Point of Care 275 mg/dL (70-110)
[2023-11-30] MEDS: metoprolol succinate ER (24 HR) 25 mg Tablet 12.5 MG PO (21:07)
[2023-11-30] MEDS: escitalopram 10 mg Tablet 20 MG PO (21:07)
[2023-11-30] MEDS: trazodone 100 mg Tablet PO (21:07)
[2023-11-30] MEDS: aspirin 81 mg Chew Tablet PO (21:07)
[2023-11-30] MEDS: buPROPion XL (24 HR) 300 mg Tablet PO (21:07)
[2023-11-30] MEDS: HYDROmorphone 1 mg/mL INJ 1 mL 0.5 MG IVP (23:03)
[2023-12-01] VITALS (7 sets, daily range): BP systolic 125–150; BP diastolic 66–79; PULSE 75–98; RESP 16–20; TEMP 36.8–36.9; O2SAT 89–96
[2023-12-01] MEDS: oxyCODONE 5 mg IR Tab/Cap PO ×2 (05:36→18:53)
[2023-12-01 05:50] LABS: Basophils % 0.4 %; Eosinophils # 0.3 10^3/uL (0.0-0.8); Eosinophils % 2.6 %; Hematocrit 33.7 % (36-47); Lymphocytes # 2.7 10^3/uL (0.8-4.8); Lymphocytes % 25.2 %; Mean Corpuscular HGB Conc 31.8 g/dL (30-55); Mean Corpuscular Hemoglobin 32.6 pg (27-33); Mean Corpuscular Volume 102.7 fl (85-98); Mean Platelet Volume 11.3 fL (7.4-10.4); Monocytes # 0.8 10^3/uL (0.2-0.9); Neutrophils # 6.96 10^3/uL (1.8-7.7); Neutrophils % 64.5 %; Nucleated Red Blood Cells % 0 %; Platelet Count 178 10^3/cmm (157-399); Red Blood Count 3.28 10^6/uL (3.85-5.65); Red Cell Distribution Width 13.2 % (12.1-15.1); White Blood Count 10.77 10^3/uL (3.29-11.43)
[2023-12-01 06:07] LABS: Blood Urea Nitrogen 24 mg/dL (8-23); Calcium 8.2 mg/dL (8.5-10.5); Carbon Dioxide 28 mmol/L (22-29); Chloride 100 mmol/L (98-107); Creatinine Clr Calc Pharmacy 82.7945; Glomerular Filtration Rate 62.3 mL/min (90-130); Glucose 218 mg/dL (65-115); Osmolality Calculated 293 mOsm/kg (285-295); Sodium 136 mmol/L (136-145)
[2023-12-01 06:22] LABS: Glucose Point of Care 247 mg/dL (70-110)
[2023-12-01] MEDS: insulin lispro 100 unit/1 mL SUBCUT ×4 (07:35→20:54)
[2023-12-01] MEDS: TRAMadol 50 mg Tablet PO (07:35)
[2023-12-01] MEDS: iron polysaccharide complex 150 mg Capsule PO ×2 (07:36→18:38)
[2023-12-01] MEDS: sennosides-docusate Tablet 2 TAB PO ×2 (09:34→18:37)
[2023-12-01] MEDS: rivaroxaban 10 mg Tablet 20 MG PO (09:34)
[2023-12-01] MEDS: docusate sodium 100 mg Capsule PO ×2 (09:34→18:38)
[2023-12-01] MEDS: calcium carb-vit d 600mg/400unit 1 Tablet 1 EACH PO ×2 (09:34→18:37)
[2023-12-01] MEDS: atorvastatin 40 mg Tablet PO (09:35)
[2023-12-01] MEDS: insulin glargine 100 units/1 mL 12 UNIT SUBCUT (09:35)
[2023-12-01] MEDS: mupirocin oint 22 gm 1 APPLIC NASAL (09:35)
[2023-12-01] MEDS: multivitamin therapeutic Tablet 1 TAB PO (09:35)
[2023-12-01] MEDS: chlorhexidine gluconate 0.12% Btl 473 mL 30 ML MUCOUS MEM ×2 (09:35→20:38)
[2023-12-01] MEDS: memantine 5 mg tablet 10 MG PO ×2 (09:35→18:37)
--- NOTE | 2023-12-01 10:00 | P.PN_ITS ---
Subjective 2 Subjective: Slept a little better. Pain ongoing and more currently after working with PT but tolerable with management. Had one episode of nausea treated with antiemetic. No BM yet. Urinating okay. Oxygen saturations this morning low while patient asleep 89-90. Improved with awakening. Denies shortness of breath, cough. Able to lay flat in bed. No chest pain. Medications: Reviewed: Yes Vitals/I&O/Wt Last Vital Signs Temp 98.2 F 12/01/23 20:00 Pulse 88 12/01/23 20:00 Resp 17 12/01/23 20:00 BP 150/70 12/01/23 20:00 Pulse Ox 95 12/01/23 20:00 O2 Del Method Room Air 12/01/23 20:00 12/01/23 12/01/23 12/01/23 06:59 14:59 22:59 Intake Total 600 / 600 480 / 1080 Output Total 150 / 150 Balance 450 / 450 480 / 930 Weight last 48 hrs Weight 119.862 kg Physical Exam 2 Narrative: Patient laying in bed. Alert and oriented. Face symmetric, speech clear. Lungs clear to auscultation bilaterally. Regular rhythm. Dressing intact to left leg. Can move toes. Required assistance to reposition in bed. Urinary Catheter Management: Cruz: Cath Placed During This Visit: yes, but has since been removed by the nurse Reason for Continuing Indwelling Catheter: Decision to DC Catheter Date Urinary Catheter Removed: 11/30/23 Time Urinary Catheter Discontinued: 08:54 Data 12/01/23 05:24 12/01/23 05:24 A&P Assessment and plan (1) Status post total left knee replacement using cement: POD 2 Doing okay Pain tolerable with current regimen S/P cefazolin empirically Hgb dropped a bit more today but no gross bleeding noted, consistent with expected post-operative anemia at this point WBC normalized Cruz out 11/29 Xarelto, home med, on board and will provide more than dvt prophylaxis coverage Bowel regimen ordered and taking medicaitons Discharge planning ongoing (2) HTN (hypertension): Chronically on low-dose metoprolol succinate at bedtime, BP high at times, most likely related to pain Keep on home betablockade, given at night, okay as long as HR not less than 55 Monitor blood pressures and heart rate Qualifiers: Hypertension type: essential hypertension Qualified Code(s): I10 - Essential (primary) hypertension (3) Atrial flutter: History of atrial a flutter/fibrillation post valve replacement requiring cardioversion and subsequent pacemaker placement. Sinus rhythm on most recent EKG. She is chronically on anticoagulation. Continue betablockade Anticoagulation resumed Watch for signs of bleeding (4) Hx of aortic valve replacement: History of bioprosthetic aortic valve replacement x 2, with most recent in 2021 at [place] Aware (5) Pacemaker: Placed in 2021, last pacemaker check in July of this year. Aware (6) Dyslipidemia: Chronically on statin therapy Contining home atorvastatin (7) Diabetes: Type II, insulin requiring, with hyperglycemia. A1c had been elevated earlier this year to the point that surgery was delayed. 8.3 in May, down to 6.6 in October. She was recently given a prescription for acarbose but has not yet started the medicine. She experienced hypoglycemia with glipizide and it has since been discontinued. Will increase Lantus to 20 units home dosing for tomorrow Sliding scale as needed Patient has not started acarbose on her home med list, can initiate as per primary care providers instructions after discharge Qualifiers: Diabetes mellitus complication status: with hyperglycemia Diabetes mellitus correction insulin use: with correction use Diabetes mellitus type: type 2 Qualified Code(s): E11.65 - Type 2 diabetes mellitus with hyperglycemia; Z79.4 - alf (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 insulin (8) Mild cognitive impairment with memory loss: On chronic galantamine and Namenda, still able to make own decisions Continue namenda Galantamine not available from home supply, discontinuing from inpatient medication list, can resume at discharge (9) Chronic anticoagulation: On chronic Xarelto due to history of atrial flutter Restarted 11/29 Monitor for excess bleeding (10) Chronic kidney disease: Stage IIIa with GFR 49 Aware Had Toradol 30 mg x 2 on 11/28 with subsequent dosing ordered at 15 mg every 6 hours BUN remains slightly up dfrom presurgery values, no change from yesterday, creatinine stabel Watch renal function if remains on NSAIDS (11) Depression: Chronically on bupropion and escitalopram Contining home medications Plan Has home aspirin, cetirizine, as needed trazodone Stop IVFs Case management evaluating options for disposition Supportive care otherwise Will continue to follow Discharge medications apart from those added post-operatively for surgical needs and problem reconciliation have been addressed in DC plan Adding follow up BMP and CBC to discharge plan a Plans discussed with patient and she was given an opportunity to ask questions Full code Attestations 2 Medical Necessity Statement*: as per attending Diagnoses Status post total left knee replacement using cement Z96.652 Essential hypertension I10 Hypertension type: essential hypertension Atrial flutter I48.92 Hx of aortic valve replacement Z95.2 Pacemaker Z95.0 Dyslipidemia E78.5 Type 2 diabetes mellitus with hyperglycemia, with long-term current use of insulin E11.65; Z79.4 Diabetes mellitus complication status: with hyperglycemia Diabetes mellitus assistant terminal manager insulin use: with correction use Diabetes mellitus type: type 2 Mild cognitive impairment with memory loss G31.84 Chronic anticoagulation Z79.01 Chronic kidney disease N18.9 Depression F32.A
[2023-12-01 11:40] LABS: Glucose Point of Care 162 mg/dL (70-110)
[2023-12-01 14:06] LABS: SARS Covid-2 Antigen Negative (Negative)
--- NOTE | 2023-12-01 16:56 | P.PN_ITS ---
Subjective 2 Subjective: Patient seen and examined postoperative day 2. Patient continue to progress with therapy. Patient had bout of nausea. No other complaints at this time. Pain appears to be controlled with medications. Vitals/I&O/Wt Last Vital Signs Temp 98.2 F 12/01/23 16:00 Pulse 98 12/01/23 16:00 Resp 17 12/01/23 16:00 BP 130/71 12/01/23 16:00 Pulse Ox 96 12/01/23 16:00 O2 Del Method Room Air 12/01/23 16:00 Weight last 48 hrs Weight 264 lb 4 oz Physical Exam 2 Narrative: Examination of the left knee dressings noted in place with kady dressing on in place with good seal. Amari bandage not taken down. Normal postoperative swelling and tenderness palpation diffusely about the left knee compartments are soft compressible calf soft nontender patient able to wiggle toes plantarflex and dorsiflex ankle sensations intact light touch distally. Distal pulses are palpable. Urinary Catheter Management: Cruz: Cath Placed During This Visit: yes, but has since been removed by the nurse Reason for Continuing Indwelling Catheter: Decision to DC Catheter Date Urinary Catheter Removed: 11/30/23 Time Urinary Catheter Discontinued: 08:54 Data 12/02/23 05:04 12/02/23 05:04 Other Labs: Labs from 12/01/2023: hemoglobin 10.7, WBC 10.77, creatinine 0.9 A&P Assessment and plan (1) Status post total left knee replacement using cement: Plan POD #2 TKA Weight-bear as tolerated to operative lower extremity Ice as needed for pain and swelling pain control PT/OT Resume Diet Completed postoperative antibiotic Dressing changes as needed, kady dressing is good seal, plan for dressing takedown tomorrow AM labs reviewed hemoglobin downtrending but stable and asymptomatic at this time Postoperative x-rays reviewed Internal medicine consulted for medical management appreciate their assistance DVT prophylaxis resume home Xarelto Case management on board patient unfortunately does not have much in the way of assistance at home as result concern for safety of patient possibly falling at home without any help, as well as having persistent pain and would benefit from further therapy and hospitalization. Will have case management working on a discharge plan with patient. residential facility patient will require Attestations 2 Medical Necessity Statement*: Ongoing care status post left total knee arthroplasty requiring further therapy and pain medication and discharge plan Coding Level of Care Code Acute Code for Chg Fwd Diagnoses Status post total left knee replacement using cement Z96.652 Time Spent (min) 15
[2023-12-01 17:47] LABS: Glucose Point of Care 223 mg/dL (70-110)
[2023-12-01] MEDS: metoprolol succinate ER (24 HR) 25 mg Tablet 12.5 MG PO (20:37)
[2023-12-01] MEDS: aspirin 81 mg Chew Tablet PO (20:37)
[2023-12-01] MEDS: escitalopram 10 mg Tablet 20 MG PO (20:37)
[2023-12-01] MEDS: buPROPion XL (24 HR) 300 mg Tablet PO (20:38)
[2023-12-01 20:59] LABS: Glucose Point of Care 274 mg/dL (70-110)
[2023-12-02] VITALS (10 sets, daily range): BP systolic 95–131; BP diastolic 56–73; PULSE 67–88; RESP 16–18; TEMP 36.4–37.1; O2SAT 95–98
[2023-12-02] MEDS: oxyCODONE 5 mg IR Tab/Cap PO ×4 (01:07→21:26)
[2023-12-02 05:31] LABS: Basophils % 0.4 %; Eosinophils # 0.2 10^3/uL (0.0-0.8); Eosinophils % 1.6 %; Hematocrit 26.3 % (36-47); Lymphocytes # 3.3 10^3/uL (0.8-4.8); Lymphocytes % 31.9 %; Mean Corpuscular HGB Conc 32.3 g/dL (30-55); Mean Corpuscular Hemoglobin 32.8 pg (27-33); Mean Corpuscular Volume 101.5 fl (85-98); Mean Platelet Volume 11.7 fL (7.4-10.4); Monocytes # 0.7 10^3/uL (0.2-0.9); Neutrophils # 6.08 10^3/uL (1.8-7.7); Neutrophils % 58.9 %; Nucleated Red Blood Cells % 0 %; Platelet Count 187 10^3/cmm (157-399); Red Blood Count 2.59 10^6/uL (3.85-5.65); Red Cell Distribution Width 13.2 % (12.1-15.1); White Blood Count 10.31 10^3/uL (3.29-11.43)
[2023-12-02 05:51] LABS: Glucose Point of Care 269 mg/dL (70-110)
[2023-12-02 05:54] LABS: Anion Gap 13.7 (5-19); Blood Urea Nitrogen 48 mg/dL (8-23); Calcium 8.8 mg/dL (8.5-10.5); Carbon Dioxide 29 mmol/L (22-29); Chloride 102 mmol/L (98-107); Creatinine Clr Calc Pharmacy 93.1439; Glomerular Filtration Rate 71.3 mL/min (90-130); Glucose 264 mg/dL (65-115); Osmolality Calculated 312 mOsm/kg (285-295); Potassium 4.7 mmol/L (3.5-5.1); Sodium 140 mmol/L (136-145)
[2023-12-02 07:23] LABS: Glucose Point of Care 320 mg/dL (70-110)
[2023-12-02] MEDS: ketorolac 30 mg/mL INJ 15 MG IVP ×2 (08:28→15:04)
--- NOTE | 2023-12-02 08:28 | P.DS_ITS ---
Discharge Providers Date of Admission: 11/29/23 15:01 Date of Discharge: December 02, 2023 Attending Provider at Admission: Alvino Ashby DO Attending Provider at Discharge: Alvino Ashby DO Primary Care Provider: Louann Rodriguez MD Diagnoses at Discharge Discharge Diagnosis (1) Status post total left knee replacement using cement: Status: Acute (2) HTN (hypertension): Status: Chronic Qualifiers: Hypertension type: essential hypertension Qualified Code(s): I10 - Essential (primary) hypertension (3) Atrial flutter: Status: Chronic (4) Hx of aortic valve replacement: Status: Chronic (5) Pacemaker: Status: Chronic Permanent problem details: [employer] dual-chamber 08/08/2021 (6) Dyslipidemia: Status: Chronic (7) Diabetes: Status: Chronic Qualifiers: Diabetes mellitus type: type 2 Diabetes mellitus 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 insulin use: with 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 yard use Diabetes mellitus complication status: with hyperglycemia Qualified Code(s): E11.65 - Type 2 diabetes mellitus with hyperglycemia; Z79.4 - 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 technician (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 insulin (8) Mild cognitive impairment with memory loss: Status: Chronic (9) Chronic anticoagulation: Status: Chronic Permanent problem details: xarelto for atrial fibrillation (10) Chronic kidney disease: Status: Chronic Permanent problem details: Stage 3A 11/2023 with GFR 49 (11) Depression: Status: Chronic Reason for Visit Reason for Visit: M17.12 Physical Exam Urinary Catheter Management: Cruz: Cath Placed During This Visit: yes, but has since been removed by the nurse Reason for Continuing Indwelling Catheter: Decision to DC Catheter Date Urinary Catheter Removed: 11/30/23 Time Urinary Catheter Discontinued: 08:54 Discharge Data Studies Completed and Pending Completed Studies During Hospitalization Category Date Time Status XR knee LT 1-2V 15178 Routine Exams 11/29/23 12:56 Completed Radiology Impressions Knee X-Ray 11/29/23 12:56 IMPRESSION: Postoperative findings. Laboratory Results WBC 10.31 10^3/uL (3.29-11.43) 12/02/23 05:04 RBC 2.59 10^6/uL (3.85-5.65) L 12/02/23 05:04 Hgb 8.50 g/dL (11.27-16.99) L 12/02/23 05:04 Hct 26.3 % (36-47) L 12/02/23 05:04 MCV 101.5 fl (85-98) H 12/02/23 05:04 MCH 32.8 pg (27-33) 12/02/23 05:04 MCHC 32.3 g/dL (30-55) 12/02/23 05:04 RDW 13.2 % (12.1-15.1) 12/02/23 05:04 Plt Count 187 10^3/cmm (157-399) 12/02/23 05:04 MPV 11.7 fL (7.4-10.4) H 12/02/23 05:04 Neut % (Auto) 58.9 % 12/02/23 05:04 Lymph % (Auto) 31.9 % 12/02/23 05:04 [place] % (Auto) 7.0 % 12/02/23 05:04 Eos % (Auto) 1.6 % 12/02/23 05:04 Baso % (Auto) 0.4 % 12/02/23 05:04 Neut # (Auto) 6.08 10^3/uL (1.8-7.7) 12/02/23 05:04 Lymph # (Auto) 3.3 10^3/uL (0.8-4.8) 12/02/23 05:04 [place] # (Auto) 0.7 10^3/uL (0.2-0.9) 12/02/23 05:04 Eos # (Auto) 0.2 10^3/uL (0.0-0.8) 12/02/23 05:04 Baso # (Auto) 0.0 10^3/uL (0.0-0.1) 12/02/23 05:04 Nucleated RBC % (auto) 0 % 12/02/23 05:04 Nucleated RBCs # 0.0 /100WBC 12/02/23 05:04 Sodium 140 mmol/L (136-145) 12/02/23 05:04 Potassium 4.7 mmol/L (3.5-5.1) 12/02/23 05:04 Chloride 102 mmol/L (98-107) 12/02/23 05:04 Carbon Dioxide 29 mmol/L (22-29) 12/02/23 05:04 Anion Gap 13.7 (5-19) 12/02/23 05:04 BUN 48 mg/dL (8-23) H 12/02/23 05:04 Creatinine 0.8 mg/dL (0.5-0.9) 12/02/23 05:04 GFR Calculation 71.3 mL/min (90-130) L 12/02/23 05:04 Glucose 264 mg/dL (65-115) H 12/02/23 05:04 POC Glucose 320 mg/dL (70-110) H 12/02/23 06:38 Calculated Osmolality 312 mOsm/kg (285-295) H 12/02/23 05:04 Calcium 8.8 mg/dL (8.5-10.5) 12/02/23 05:04 Urine Color Yellow (Yellow) 11/29/23 10:12 Urine Appearance Clear (CLEAR) 11/29/23 10:12 Urine pH 5 (5-7) 11/29/23 10:12 Ur Specific [place] 1.025 (1.005-1.030) 11/29/23 10:12 Urine Protein Neg (Negative) 11/29/23 10:12 Urine Glucose (UA) Norm (Normal) 11/29/23 10:12 Urine Ketones Negative (Negative) 11/29/23 10:12 Urine Blood Neg (Negative) 11/29/23 10:12 Urine Nitrate Negative (Negative) 11/29/23 10:12 Urine Bilirubin Neg (Negative) 11/29/23 10:12 Urine Urobilinogen Norm mg/dL (Negative) 11/29/23 10:12 Ur Leukocyte Esterase Negative (Negative) 11/29/23 10:12 Urine WBC Rare /hpf (0-5) 11/29/23 08:55 Ur Squamous Epith Cells 5-10 /hpf (0-5) H 11/29/23 08:55 Amorphous Sediment Not Reportable 11/29/23 10:12 Urine Bacteria 2+ /hpf (NONE) H 11/29/23 08:55 SARS-CoV-2 Ag (Rapid) Negative (Negative) 12/01/23 13:15 Blood Type O Positive 11/29/23 09:45 Rho(D) Type Rh positive 11/29/23 09:45 Antibody Screen Negative 11/29/23 09:45 Vitals Last Vital Signs Temp 98.7 F 12/02/23 07:48 Pulse 67 12/02/23 07:48 Resp 17 12/02/23 07:48 BP 126/70 12/02/23 07:48 Pulse Ox 98 12/02/23 07:48 O2 Del Method Room Air 12/02/23 07:48 Discharge Plan Discharge Patient Disposition: Xfer SNF Condition: Stable Prescriptions: New oxycodone 5 mg tablet 10 mg PO Q6H PRN (Reason: pain) 7 Days Qty: 56 0RF Rx Instructions: 1 tab moderate 2 tabs severe ondansetron 4 mg tablet,disintegrating 4 mg PO Q8H PRN (Reason: nausea and vomiting) 3 Days Qty: 9 0RF Continued escitalopram oxalate 20 mg tablet 20 mg PO BEDTIME memantine 10 mg tablet 10 mg PO BID Qty: 180 3RF (DME) Diabetic shoes with insoles See Rx Instructions .Route .MEDSUPPLY Qty: 1 0RF Rx Instructions: As directed by [facility] cetirizine 10 mg tablet 10 mg PO DAILY PRN (Reason: allergies) acarbose 25 mg tablet 25 mg PO TID Qty: 90 1RF Rx Instructions: take 3x/day before meals insulin glargine [Lantus Solostar U-100 Insulin] 100 unit/mL (3 mL) insulin pen 20 unit SUBCUT DAILY atorvastatin 40 mg tablet 40 mg PO DAILY bupropion HCl 200 mg tablet sustained-release 12 hr 400 mg PO BEDTIME aspirin 81 mg tablet,chewable 81 mg PO BEDTIME trazodone 100 mg tablet 100 mg PO BEDTIME metoprolol succinate 25 mg tablet extended release 24 hr 12.5 mg PO BEDTIME galantamine 8 mg tablet 8 mg PO BID Rx Instructions: TAKE ONE TABLET BY MOUTH TWICE DAILY WITH MORNING AND EVENING MEALS, WATCH FOR NAUSEA Xarelto 20 mg tablet 20 mg PO DAILY Rx Instructions: TAKE ONE TABLET (20mg) BY MOUTH DAILY must administer WITH EVENING MEAL Discharge Orders: Discharge Order (Routine); Ordered 12/02/23 Ordered By: Alvino Ashby Other Ambulatory Orders: DME: Walker (Order) Location: None Selected Ordered By: Alvino Ashby Basic Metabolic Panel (Routine) Timeframe: 2 Weeks Location: Determined by Patient Ordered By: Krystle Montes De Oca Complete Blood Count w/Auto (Routine) Timeframe: 2 Weeks Location: Determined by Patient Ordered By: Krystle Montes De Oca Referrals: Delvis Ashby PA [Physician Application Integrator] - 12/14/23 10:00 am Discharge Diet: Diabetic Discharge Activity: Limit activity as instructed and Use walker/crutches as instructed Patient Instructions: Acute Wound Care (DC), Post Anesthesia Care Activity Restrictions/Additional Instructions: Orthopedic discharge instructions: Iraj Dressing--Keep dressing on and dry. After 3 days you can remove some of the dressing and shower. disconnect battery pack when showering. Iraj dressing will stay on until follow up appt in 2 weeks. The battery pack for the dressing will at 5-7 days. Battery pack can be removed and discarded once batteries . Patient may weight-bear as tolerate to the operative extremity Utilize crutches as needed Encourage knee range of motion Ice and elevate as needed for pain and swelling Take pain medication as prescribed Take antinausea medication as needed Pain medication can cause constipation. take [id number] stool softeners and or MiraLAX. Take your previously prescribed Xarelto for blood clot prevention May supplement for pain with ibuprofen [id number] as needed No baths or soaks Follow-up in the orthopedic office in 2 weeks Contact the office for any questions or concerns Hospitalist discharge instructions: You indicated you had not yet started acarbose; you can start upon discharge (as prescribed by PCP) Recommend BMP and CBC in 1-2 weeks to re-evaluate renal function and hemoglobin, orders placed if need performed at our facility Low oxygen levels noted sleep overnight first night after surgery, improved with awakening, monitor and PCP can consider sleep study if indicted Usual home medications have not changed from list available at admission Keep any already scheduled appointments with your primary care doctor. Your next scheduled appointments with [facility] providers include: cardiology (March 16, 2024), podiatry (February 23, 2024), endocrinology (February 16, 2024) and Neurology (July 04, 2024) Coding Level of Care Code Acute Code for Chg Fwd Diagnoses Status post total left knee replacement using cement Z96.652 Essential hypertension I10 Hypertension type: essential hypertension Atrial flutter I48.92 Hx of aortic valve replacement Z95.2 Pacemaker Z95.0 Dyslipidemia E78.5 Type 2 diabetes mellitus with hyperglycemia, with long-term current use of insulin E11.65; Z79.4 Diabetes mellitus type: type 2 Diabetes mellitus 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
--- NOTE | 2023-12-02 08:28 | P.PN_ITS ---
Subjective 2 Subjective: Postoperative day 3?patient seen and examined this morning she is progressing appropriately with therapy she is ready for discharge today she is worked with case management planning for care home facility. Vitals/I&O/Wt Last Vital Signs Temp 97.3 F L 12/03/23 14:52 Pulse 96 12/03/23 14:52 Resp 18 12/03/23 07:56 BP 110/55 12/03/23 14:52 Pulse Ox 99 12/03/23 14:52 O2 Del Method Room Air 12/03/23 11:50 Physical Exam 2 Narrative: Examination of the left knee dressings noted in place with kady dressing on in place with good seal. Amari bandage taken down normal postoperative swelling and ecchymosis about the knee. Kady dressing on in place with good seal, normal postoperative swelling and tenderness palpation diffusely about the left knee, compartments are soft compressible calf soft nontender patient able to wiggle toes plantarflex and dorsiflex ankle sensations intact light touch distally. Distal pulses are palpable. Urinary Catheter Management: Cruz: Cath Placed During This Visit: yes, but has since been removed by the nurse Reason for Continuing Indwelling Catheter: Decision to DC Catheter Date Urinary Catheter Removed: 11/30/23 Time Urinary Catheter Discontinued: 08:54 Data 12/02/23 05:04 12/02/23 05:04 A&P Assessment and plan (1) Status post total left knee replacement using cement: Plan POD #3 TKA Weight-bear as tolerated to operative lower extremity Ice as needed for pain and swelling pain control PT/OT Resume Diet Completed postoperative antibiotic Dressing changes as needed, dressing taken down today kady dressing on in place good seal with no evidence saturation. AM labs reviewed hemoglobin downtrending but stable and asymptomatic at this time Internal medicine consulted for medical management appreciate their assistance DVT prophylaxis resume home Bette Case management on board and working on discharge planning for care home facility once patient has facility set up at discharge Attestations 2 Medical Necessity Statement*: Ongoing care status post left total knee arthroplasty requiring care home facility placement Coding Level of Care Code Acute Code for Chg Fwd Diagnoses Status post total left knee replacement using cement Z96.652 Time Spent (min) 15
[2023-12-02] MEDS: multivitamin therapeutic Tablet 1 TAB PO (08:29)
[2023-12-02] MEDS: rivaroxaban 10 mg Tablet 20 MG PO (08:29)
[2023-12-02] MEDS: calcium carb-vit d 600mg/400unit 1 Tablet 1 EACH PO ×2 (08:30→17:40)
[2023-12-02] MEDS: atorvastatin 40 mg Tablet PO (08:30)
[2023-12-02] MEDS: iron polysaccharide complex 150 mg Capsule PO ×2 (08:30→17:40)
[2023-12-02] MEDS: sennosides-docusate Tablet 2 TAB PO ×2 (08:30→17:40)
[2023-12-02] MEDS: docusate sodium 100 mg Capsule PO ×2 (08:30→17:40)
[2023-12-02] MEDS: memantine 5 mg tablet 10 MG PO ×2 (08:30→17:40)
[2023-12-02] MEDS: mupirocin oint 22 gm 1 APPLIC NASAL ×2 (08:31→17:41)
[2023-12-02] MEDS: chlorhexidine gluconate 0.12% Btl 473 mL 30 ML MUCOUS MEM ×4 (08:31→20:09)
[2023-12-02] MEDS: insulin lispro 100 unit/1 mL SUBCUT ×4 (08:32→21:26)
[2023-12-02] MEDS: insulin glargine 100 units/1 mL 12 UNIT SUBCUT (08:34)
[2023-12-02 11:10] LABS: Glucose Point of Care 294 mg/dL (70-110)
--- NOTE | 2023-12-02 15:15 | P.PN_ITS ---
Subjective 2 Subjective: Doing a bit more with PT. Reports some SOB with exertion after walking distance from bed to bathroom. Saturations okay overnight and today. Using IS. No cough, not short of breath in supine position or with rest. No chest pain. No dizziness. Hgb is down to 8.5 today. Mild nausea x 1 without requiring treatment. Still no BM. Passing gas. Wrap has been removed from LLE. Medications: Reviewed: Yes Vitals/I&O/Wt Last Vital Signs Temp 98.0 F 12/02/23 15:40 Pulse 85 12/02/23 15:40 Resp 18 12/02/23 15:40 BP 95/58 12/02/23 15:40 Pulse Ox 97 12/02/23 15:40 O2 Del Method Room Air 12/02/23 15:40 12/02/23 12/02/23 12/02/23 06:59 14:59 22:59 Intake Total 480 / 480 240 / 720 Balance 480 / 480 240 / 720 Weight last 48 hrs Weight 113.908 kg Weight 119.862 kg Physical Exam 2 Narrative: Patient laying in bed. Alert and oriented. Lungs clear to auscultation bilaterally without any rales, rhonchi or wheezes. Regular rhythm. Abdomen soft, postiive bowel sounds. Wrap removed LLE. Small bruises notable, has post op swelling. Dressing intact with dried blood noted on internal bandage that is now visible. Can move toes both feet Calf not tender out of proportion to touch applied. Urinary Catheter Management: Cruz: Cath Placed During This Visit: yes, but has since been removed by the nurse Reason for Continuing Indwelling Catheter: Decision to DC Catheter Date Urinary Catheter Removed: 11/30/23 Time Urinary Catheter Discontinued: 08:54 Data 12/02/23 05:04 12/02/23 05:04 A&P Assessment and plan (1) Status post total left knee replacement using cement: POD 3 Doing okay Pain tolerable with current regimen S/P cefazolin empirically Hgb with further drop within range of post op expectations, no large areas of bruising or swelling that is unexpected Cruz out 11/29 Xarelto, home med, on board and will provide more than dvt prophylaxis coverage Bowel regimen ordered and taking medications, will add a bisacody and prn miralax which she indicates has helped in the past Discharge planning ongoing (2) HTN (hypertension): Chronically on low-dose metoprolol succinate at bedtime, BP stable, some drop this afternoon but no associated tachycardia Keep on home betablockade, given at night, okay as long as HR not less than 55 and SBP not less than 90/MAP 65 Monitor blood pressures and heart rate Qualifiers: Hypertension type: essential hypertension Qualified Code(s): I10 - Essential (primary) hypertension (3) Atrial flutter: History of atrial a flutter/fibrillation post valve replacement requiring cardioversion and subsequent pacemaker placement. Sinus rhythm on most recent EKG. She is chronically on anticoagulation. Continue betablockade Home anticoagulation resumed Watch for signs of abnormal bleeding (4) Hx of aortic valve replacement: History of bioprosthetic aortic valve replacement x 2, with most recent in 2021 at [place] [facility] Aware (5) Pacemaker: Placed in 2021, last pacemaker check in July of this year. Aware (6) Dyslipidemia: Chronically on statin therapy Contining home atorvastatin (7) Diabetes: Type II, insulin requiring, with hyperglycemia. A1c had been elevated earlier this year to the point that surgery was delayed. 8.3 in May, down to 6.6 in October. She was recently given a prescription for acarbose but has not yet started the medicine. She experienced hypoglycemia with glipizide and it has since been discontinued. Currently woith hyperglycemia. 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 (8) Mild cognitive impairment with memory loss: On chronic galantamine and Namenda, still able to make own decisions Continue namenda Galantamine not available from home supply, discontinuing from inpatient medication list, can resume at discharge (9) Chronic anticoagulation: On chronic Xarelto due to history of atrial flutter Restarted 11/29 Monitor for excess bleeding (10) Chronic kidney disease: Stage IIIa with GFR 49 Aware Had Toradol 30 mg x 2 on 11/28 with 4 doses to date of 15mg Toradol BUN up more today, maybe in relation to anemia, creatinine stable Follow up BMP ordered for after discharge (11) Depression: Chronically on bupropion and escitalopram Contining home medications (12) Postoperative anemia: Hgb trended down further but within expected range for performed surgery 14>8.5 Follow up CBC ordered for after discharge given anemia and full anticoagulation Plan Has home aspirin, cetirizine, as needed trazodone Off IVFs Added laxatives Case management continues evaluating options for disposition Supportive care otherwise Will continue to follow Discharge medications and problem reconciliation have been addressed in DC plan previously Plans discussed with patient and she was given an opportunity to ask questions Full code Attestations 2 Medical Necessity Statement*: as per attending Diagnoses Status post total left knee replacement using cement Z96.652 Essential hypertension I10 Hypertension type: essential hypertension Atrial flutter I48.92 Hx of aortic valve replacement Z95.2 Pacemaker Z95.0 Dyslipidemia E78.5 Type 2 diabetes mellitus with hyperglycemia, with long-term current use of insulin E11.65; Z79.4 Diabetes mellitus type: type 2 Diabetes mellitus custodial insulin use: with assistant terminal manager use Diabetes mellitus complication status: with hyperglycemia Mild cognitive impairment with memory loss G31.84 Chronic anticoagulation Z79.01 Chronic kidney disease N18.9 Depression F32.A Postoperative anemia D64.9
[2023-12-02] MEDS: bisacodyl 5 mg Tablet 10 MG PO ×2 (16:02→20:20)
[2023-12-02 16:27] LABS: Glucose Point of Care 237 mg/dL (70-110)
[2023-12-02] MEDS: buPROPion XL (24 HR) 300 mg Tablet PO (20:08)
[2023-12-02] MEDS: aspirin 81 mg Chew Tablet PO (20:08)
[2023-12-02] MEDS: escitalopram 10 mg Tablet 20 MG PO (20:08)
[2023-12-02] MEDS: metoprolol succinate ER (24 HR) 25 mg Tablet 12.5 MG PO (20:09)
[2023-12-02 21:11] LABS: Glucose Point of Care 302 mg/dL (70-110)
[2023-12-02] MEDS: cetirizine 10 mg Tablet PO (23:41)
[2023-12-03] VITALS: BP 109/63; PULSE 86; RESP 18; TEMP 36.8; O2SAT 93
[2023-12-03 04:00] VITALS: BP 101/66; PULSE 80; RESP 17; TEMP 36.7; O2SAT 93
[2023-12-03 04:59] VITALS: RESP 20
[2023-12-03] MEDS: oxyCODONE 5 mg IR Tab/Cap PO (04:59)
[2023-12-03 06:36] LABS: Glucose Point of Care 270 mg/dL (70-110)
[2023-12-03 07:56] VITALS: BP 95/60; PULSE 86; RESP 18; TEMP 36.6; O2SAT 97
[2023-12-03] MEDS: rivaroxaban 10 mg Tablet 20 MG PO (09:49)
[2023-12-03] MEDS: atorvastatin 40 mg Tablet PO (09:49)
[2023-12-03] MEDS: memantine 5 mg tablet 10 MG PO (09:50)
[2023-12-03] MEDS: multivitamin therapeutic Tablet 1 TAB PO (09:50)
[2023-12-03] MEDS: docusate sodium 100 mg Capsule PO (09:50)
[2023-12-03] MEDS: iron polysaccharide complex 150 mg Capsule PO (09:51)
[2023-12-03] MEDS: sennosides-docusate Tablet 2 TAB PO (09:51)
[2023-12-03] MEDS: calcium carb-vit d 600mg/400unit 1 Tablet 1 EACH PO (09:51)
[2023-12-03] MEDS: polyethylene glycol 3350 Pkt 17 gm PO (09:52)
[2023-12-03] MEDS: mupirocin oint 22 gm 1 APPLIC NASAL (09:52)
[2023-12-03] MEDS: insulin lispro 100 unit/1 mL SUBCUT ×2 (09:52→12:39)
[2023-12-03] MEDS: chlorhexidine gluconate 0.12% Btl 473 mL 30 ML MUCOUS MEM ×2 (09:53→12:40)
[2023-12-03] MEDS: ketorolac 30 mg/mL INJ 15 MG IVP (10:46)
[2023-12-03] MEDS: insulin glargine 100 units/1 mL 20 UNIT SUBCUT (10:46)
[2023-12-03 11:38] LABS: Glucose Point of Care 322 mg/dL (70-110)
[2023-12-03 11:50] VITALS: BP 110/55; PULSE 96; TEMP 36.3; O2SAT 99
[2023-12-03] MEDS: TRAMadol 50 mg Tablet PO (12:38)
--- NOTE | 2023-12-03 12:54 | P.DS_ITS ---
Discharge Providers Date of Admission: 11/29/23 Date of Discharge: December 03, 2023 Attending Provider at Admission: Alvino Ashby DO Attending Provider at Discharge: Alvino Ashby DO Consults: Hospitalist?Dr. Montes De Oca Primary Care Provider: Louann Rodriguez MD Diagnoses at Discharge Discharge Diagnosis (1) Status post total left knee replacement using cement: Status: Inactive (2) HTN (hypertension): Status: Chronic Qualifiers: Hypertension type: essential hypertension Qualified Code(s): I10 - Essential (primary) hypertension (3) Atrial flutter: Status: Chronic (4) Hx of aortic valve replacement: Status: Chronic (5) Pacemaker: Status: Chronic Permanent problem details: [employer] dual-chamber 08/08/2021 (6) Dyslipidemia: Status: Chronic (7) Diabetes: Status: Chronic Qualifiers: Diabetes mellitus complication status: with hyperglycemia Diabetes mellitus terminal supervisor insulin use: with terminal supervisor use Diabetes mellitus type: type 2 Qualified Code(s): E11.65 - Type 2 diabetes mellitus with hyperglycemia; Z79.4 - technician terminal and repeater (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 insulin (8) Mild cognitive impairment with memory loss: Status: Chronic (9) Chronic anticoagulation: Status: Chronic Permanent problem details: xarelto for atrial fibrillation (10) Chronic kidney disease: Status: Chronic Permanent problem details: Stage 3A 11/2023 with GFR 49 (11) Depression: Status: Chronic (12) Postoperative anemia: Status: Acute Reason for Visit Reason for Visit: M17.12 Brief History: Status post left TKA Hospital Course Hospital Course Patient presented to the preoperative holding area with plan for left total knee arthroplasty after patient has been worked up in the outpatient setting for failed conservative treatment of left knee degenerative joint disease. Once cleared by anesthesia for surgery patient subsequently was taken back to the operative suite underwent anesthesia per anesthesia department and then subsequently underwent a left total knee arthroplasty. Procedure was performed without any complications patient was taken to PACU in stable condition patient recovered well in PACU and then was admitted to the floor postoperatively internal medicine was consulted and on board for medical management and assistance with care. Patient received appropriate PT/OT, postoperative antibiotics, postoperative TXA, pain control, postoperative DVT prophylaxis. Elevation and ice. Patient encouraged for knee range of motion allowed weightbearing as tolerated to the operative lower extremity. Dressing was changed as needed, labs were monitored daily. Patient recovered well postoperatively and worked well and progressed well with therapy. Patient worked with therapy and required pain control as well as discharge planning as patient did not have help at home as result was set up for a residential facility upon discharge. It was determined on postoperative day 4 the patient was stable for discharge from an orthopedic standpoint and medicine. Patient was comfortable with discharge and plan was discharged to residential facility. Patient received appropriate discharge instructions as well as pain medication and DVT prophylaxis postoperatively. Given appropriate instructions for dressing management. Patient will follow-up with Dr. Ashby/orthopedics in the office in 2 weeks. All questions answered. Understand if there is any issues questions or concerns and contact the office. Physical Exam Narrative: Examination of the left knee dressings noted in place with kady dressing on in place with good seal. Amari bandage taken down normal postoperative swelling and ecchymosis about the knee. Kady dressing on in place with good seal, normal postoperative swelling and tenderness palpation diffusely about the left knee, compartments are soft compressible calf soft nontender patient able to wiggle toes plantarflex and dorsiflex ankle sensations intact light touch distally. Distal pulses are palpable. Urinary Catheter Management: Cruz: Cath Placed During This Visit: yes, but has since been removed by the nurse Reason for Continuing Indwelling Catheter: Decision to DC Catheter Date Urinary Catheter Removed: 11/30/23 Time Urinary Catheter Discontinued: 08:54 Discharge Data Studies Completed and Pending Completed Studies During Hospitalization Category Date Time Status XR knee LT 1-2V 81471 Routine Exams 11/29/23 12:56 Completed Radiology Impressions Knee X-Ray 11/29/23 12:56 IMPRESSION: Postoperative findings. Laboratory Results WBC 10.31 10^3/uL (3.29-11.43) 12/02/23 05:04 RBC 2.59 10^6/uL (3.85-5.65) L 12/02/23 05:04 Hgb 8.50 g/dL (11.27-16.99) L 12/02/23 05:04 Hct 26.3 % (36-47) L 12/02/23 05:04 MCV 101.5 fl (85-98) H 12/02/23 05:04 MCH 32.8 pg (27-33) 12/02/23 05:04 MCHC 32.3 g/dL (30-55) 12/02/23 05:04 RDW 13.2 % (12.1-15.1) 12/02/23 05:04 Plt Count 187 10^3/cmm (157-399) 12/02/23 05:04 MPV 11.7 fL (7.4-10.4) H 12/02/23 05:04 Neut % (Auto) 58.9 % 12/02/23 05:04 Lymph % (Auto) 31.9 % 12/02/23 05:04 [place] % (Auto) 7.0 % 12/02/23 05:04 Eos % (Auto) 1.6 % 12/02/23 05:04 Baso % (Auto) 0.4 % 12/02/23 05:04 Neut # (Auto) 6.08 10^3/uL (1.8-7.7) 12/02/23 05:04 Lymph # (Auto) 3.3 10^3/uL (0.8-4.8) 12/02/23 05:04 [place] # (Auto) 0.7 10^3/uL (0.2-0.9) 12/02/23 05:04 Eos # (Auto) 0.2 10^3/uL (0.0-0.8) 12/02/23 05:04 Baso # (Auto) 0.0 10^3/uL (0.0-0.1) 12/02/23 05:04 Nucleated RBC % (auto) 0 % 12/02/23 05:04 Nucleated RBCs # 0.0 /100WBC 12/02/23 05:04 Sodium 140 mmol/L (136-145) 12/02/23 05:04 Potassium 4.7 mmol/L (3.5-5.1) 12/02/23 05:04 Chloride 102 mmol/L (98-107) 12/02/23 05:04 Carbon Dioxide 29 mmol/L (22-29) 12/02/23 05:04 Anion Gap 13.7 (5-19) 12/02/23 05:04 BUN 48 mg/dL (8-23) H 12/02/23 05:04 Creatinine 0.8 mg/dL (0.5-0.9) 12/02/23 05:04 GFR Calculation 71.3 mL/min (90-130) L 12/02/23 05:04 Glucose 264 mg/dL (65-115) H 12/02/23 05:04 POC Glucose 322 mg/dL (70-110) H 12/03/23 11:34 Calculated Osmolality 312 mOsm/kg (285-295) H 12/02/23 05:04 Calcium 8.8 mg/dL (8.5-10.5) 12/02/23 05:04 Urine Color Yellow (Yellow) 11/29/23 10:12 Urine Appearance Clear (CLEAR) 11/29/23 10:12 Urine pH 5 (5-7) 11/29/23 10:12 Ur Specific [place] 1.025 (1.005-1.030) 11/29/23 10:12 Urine Protein Neg (Negative) 11/29/23 10:12 Urine Glucose (UA) Norm (Normal) 11/29/23 10:12 Urine Ketones Negative (Negative) 11/29/23 10:12 Urine Blood Neg (Negative) 11/29/23 10:12 Urine Nitrate Negative (Negative) 11/29/23 10:12 Urine Bilirubin Neg (Negative) 11/29/23 10:12 Urine Urobilinogen Norm mg/dL (Negative) 11/29/23 10:12 Ur Leukocyte Esterase Negative (Negative) 11/29/23 10:12 Urine WBC Rare /hpf (0-5) 11/29/23 08:55 Ur Squamous Epith Cells 5-10 /hpf (0-5) H 11/29/23 08:55 Amorphous Sediment Not Reportable 11/29/23 10:12 Urine Bacteria 2+ /hpf (NONE) H 11/29/23 08:55 SARS-CoV-2 Ag (Rapid) Negative (Negative) 12/01/23 13:15 Blood Type O Positive 11/29/23 09:45 Rho(D) Type Rh positive 11/29/23 09:45 Antibody Screen Negative 11/29/23 09:45 Vitals Last Vital Signs Temp 97.3 F L 12/03/23 11:50 Pulse 96 12/03/23 11:50 Resp 18 12/03/23 07:56 BP 110/55 12/03/23 11:50 Pulse Ox 99 12/03/23 11:50 O2 Del Method Room Air 12/03/23 11:50 Discharge Plan Discharge Patient Disposition: Xfer SNF Condition: Stable Prescriptions: New oxycodone 5 mg tablet 10 mg PO Q6H PRN (Reason: pain) 7 Days Qty: 56 0RF Rx Instructions: 1 tab moderate pain 2 tabs severe pain Continued escitalopram oxalate 20 mg tablet 20 mg PO BEDTIME memantine 10 mg tablet 10 mg PO BID Qty: 180 3RF (DME) Diabetic shoes with insoles See Rx Instructions .Route .MEDSUPPLY Qty: 1 0RF Rx Instructions: As directed by [facility] cetirizine 10 mg tablet 10 mg PO DAILY PRN (Reason: allergies) acarbose 25 mg tablet 25 mg PO TID Qty: 90 1RF Rx Instructions: take 3x/day before meals insulin glargine [Lantus Solostar U-100 Insulin] 100 unit/mL (3 mL) insulin pen 20 unit SUBCUT DAILY atorvastatin 40 mg tablet 40 mg PO DAILY bupropion HCl 200 mg tablet sustained-release 12 hr 400 mg PO BEDTIME aspirin 81 mg tablet,chewable 81 mg PO BEDTIME trazodone 100 mg tablet 100 mg PO BEDTIME metoprolol succinate 25 mg tablet extended release 24 hr 12.5 mg PO BEDTIME galantamine 8 mg tablet 8 mg PO BID Rx Instructions: TAKE ONE TABLET BY MOUTH TWICE DAILY WITH MORNING AND EVENING MEALS, WATCH FOR NAUSEA Xarelto 20 mg tablet 20 mg PO DAILY Rx Instructions: TAKE ONE TABLET (20mg) BY MOUTH DAILY must administer WITH EVENING MEAL Discharge Orders: Discharge Order (Routine); Ordered 12/03/23 Ordered By: Alvino Ashby Other Ambulatory Orders: DME: Walker (Order) Location: None Selected Ordered By: Alvino Ashby Basic Metabolic Panel (Routine) Timeframe: 2 Weeks Location: Determined by Patient Ordered By: Krystle Montes De Oca Complete Blood Count w/Auto (Routine) Timeframe: 2 Weeks Location: Determined by Patient Ordered By: Krystle Montes De Oca Referrals: Delvis Ashby PA [Physician Cryogenics Engineer] - 12/14/23 10:00 am Discharge Diet: Diabetic Discharge Activity: Limit activity as instructed and Use walker/crutches as instructed Patient Instructions: Acute Wound Care (DC), Post Anesthesia Care Activity Restrictions/Additional Instructions: Orthopedic discharge instructions: Kady Dressing--Keep dressing on and dry. After 3 days you can remove some of the dressing and shower. disconnect battery pack when showering. Kady dressing will stay on until follow up appt in 2 weeks. The battery pack for the dressing will at 5-7 days. Battery pack can be removed and discarded once batteries . Patient may weight-bear as tolerate to the operative extremity Utilize crutches as needed Encourage knee range of motion Ice and elevate as needed for pain and swelling Take pain medication as prescribed Take antinausea medication as needed Pain medication can cause constipation. take [id number] stool softeners and or MiraLAX. Take your previously prescribed Xarelto for blood clot prevention May supplement for pain with ibuprofen [id number] as needed No baths or soaks Follow-up in the orthopedic office in 2 weeks Contact the office for any questions or concerns Hospitalist discharge instructions: You indicated you had not yet started acarbose; you can start upon discharge (as prescribed by PCP) Recommend BMP and CBC in Wednesday, to re-evaluate renal function and hemoglobin, orders placed if need performed at our facility Low oxygen levels noted sleep overnight first night after surgery, improved with awakening, monitor and PCP can consider sleep study if indicted Usual home medications have not changed from list available at admission Keep any already scheduled appointments with your primary care doctor. Your next scheduled appointments with [facility] providers include: cardiology (March 16, 2024), podiatry (February 23, 2024), endocrinology (February 16, 2024) and Neurology (July 04, 2024) Please do CBC Wednesday, and BMP Wednesday at residential facility. Discharge Attestations Time Spent in Discharge Care*: greater than 30 min Quality Metrics Clinical Quality Measures [ No reported AMI, CVA or VTE this stay] Coding Level of Care Code Acute Code for Chg Fwd Diagnoses Status post total left knee replacement using cement Z96.652 Essential hypertension I10 Hypertension type: essential hypertension Atrial flutter I48.92 Hx of aortic valve replacement Z95.2 Pacemaker Z95.0 Dyslipidemia E78.5 Type 2 diabetes mellitus with hyperglycemia, with long-term current use of insulin E11.65; Z79.4 Diabetes mellitus complication status: with hyperglycemia Diabetes mellitus residential insulin use: with terminal supervisor use Diabetes mellitus type: type 2 Mild cognitive impairment with memory loss G31.84 Chronic anticoagulation Z79.01 Chronic kidney disease N18.9 Depression F32.A Postoperative anemia D64.9 Time Spent (min) 35
--- NOTE | 2023-12-03 13:25 | P.PN_ITS ---
Subjective 2 Subjective: Doing well. Wants to go to skilled care. No dizziness or shortness of breath noted. Medications: Reviewed: Yes Vitals/I&O/Wt Last Vital Signs Temp 97.3 F L 12/03/23 11:50 Pulse 96 12/03/23 11:50 Resp 18 12/03/23 07:56 BP 110/55 12/03/23 11:50 Pulse Ox 99 12/03/23 11:50 O2 Del Method Room Air 12/03/23 11:50 12/02/23 12/03/23 12/03/23 22:59 06:59 14:59 Intake Total 240 / 720 Output Total 400 / 400 Balance 240 / 720 -400 / 320 Weight last 48 hrs Weight 114.532 kg Weight 113.908 kg Physical Exam 2 Narrative: General Exam no distress Neck is supple Cardiovascular regular rate and rhythm Lungs clear Abdomen soft Left knee with dressing, clean and dry Urinary Catheter Management: Cruz: Cath Placed During This Visit: yes, but has since been removed by the nurse Reason for Continuing Indwelling Catheter: Decision to DC Catheter Date Urinary Catheter Removed: 11/30/23 Time Urinary Catheter Discontinued: 08:54 Data 12/02/23 05:04 12/02/23 05:04 A&P Assessment and plan (1) Status post total left knee replacement using cement: Postoperative day #4, doing well Hgb with further drop within range of post op expectations, no large areas of bruising or swelling that is unexpected Would repeat hemoglobin again, Wednesday which is ordered Cruz out 11/29 Xarelto, home med, on board and will provide more than dvt prophylaxis coverage Bowel regimen ordered and taking medications, will add a bisacody and prn miralax which she indicates has helped in the past Stable for discharge to nursing facility today (2) HTN (hypertension): Stable, continue current medications Qualifiers: Hypertension type: essential hypertension Qualified Code(s): I10 - Essential (primary) hypertension (3) Atrial flutter: History of atrial a flutter/fibrillation post valve replacement requiring cardioversion and subsequent pacemaker placement. Sinus rhythm on most recent EKG. She is chronically on anticoagulation. Continue betablockade Home anticoagulation resumed Watch for signs of abnormal bleeding (4) Hx of aortic valve replacement: History of bioprosthetic aortic valve replacement x 2, with most recent in 2021 at [facility] Aware (5) Pacemaker: Placed in 2021, last pacemaker check in July of this year. Aware (6) Dyslipidemia: Chronically on statin therapy Contining home atorvastatin (7) Diabetes: Type II, insulin requiring, with hyperglycemia. A1c had been elevated earlier this year to the point that surgery was delayed. 8.3 in May, down to 6.6 in October. She was recently given a prescription for acarbose but has not yet started the medicine. She experienced hypoglycemia with glipizide and it has since been discontinued. Currently stable. Lantus changed to 20 units home dosing Sliding scale as needed Patient has not started acarbose on her home med list, can initiate as per primary care providers instructions after discharge Qualifiers: Diabetes mellitus type: type 2 Diabetes mellitus intermediate insulin use: with adjunct faculty for medical terminology use Diabetes mellitus complication status: with hyperglycemia Qualified Code(s): E11.65 - Type 2 diabetes mellitus with hyperglycemia; Z79.4 - snf (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 insulin (8) Mild cognitive impairment with memory loss: On chronic galantamine and Namenda, still able to make own decisions Continue namenda Galantamine not available from home supply, discontinuing from inpatient medication list, can resume at discharge (9) Chronic anticoagulation: On chronic Xarelto due to history of atrial flutter Restarted 11/29 Monitor for excess bleeding (10) Chronic kidney disease: Stage IIIa with GFR 49 Aware Had Toradol 30 mg x 2 on 11/28 with 4 doses to date of 15mg Toradol BUN up more today, maybe in relation to anemia, creatinine stable Follow up BMP ordered for after discharge (11) Depression: Chronically on bupropion and escitalopram Contining home medications (12) Postoperative anemia: Hgb trended down further but within expected range for performed surgery 14>8.5 CBC recommended on Wednesday can be done at nursing facility Plan Stable for discharge today Full code Attestations 2 Medical Necessity Statement*: As per primary Diagnoses Status post total left knee replacement using cement Z96.652 Essential hypertension I10 Hypertension type: essential hypertension Atrial flutter I48.92 Hx of aortic valve replacement Z95.2 Pacemaker Z95.0 Dyslipidemia E78.5 Type 2 diabetes mellitus with hyperglycemia, with long-term current use of insulin E11.65; Z79.4 Diabetes mellitus type: type 2 Diabetes mellitus adjunct faculty for medical terminology insulin use: with adjunct faculty for medical terminology use Diabetes mellitus complication status: with hyperglycemia Mild cognitive impairment with memory loss G31.84 Chronic anticoagulation Z79.01 Chronic kidney disease N18.9 Depression F32.A Postoperative anemia D64.9 Time Spent (min) 21
[2023-12-03 14:52] VITALS: BP 110/55; PULSE 96; TEMP 36.3; O2SAT 99
== END 2023-12-03 14:53 | disposition skilled nursing facility (03) ==
LOC: OBGYN 15:01 → MEDSURG 11-30 15:05
PROVIDERS: Physician Assistant; Admitting Provider Student in an Organized Health Care Education/Training Program; PCP Family Medicine; Visit Provider Student in an Organized Health Care Education/Training Program
PROC: 8E0Y0CZ Robotic Assisted Procedure of Lower Extremity, Open Approach (ICD-10-PCS; CPT 27447; principal; 2023-11-29 09:45)
DX: M17.12 Unilateral primary osteoarthritis, left knee (principal); Z95.5 Presence of coronary angioplasty implant and graft; Z95.0 Presence of cardiac pacemaker; Z79.01 Long term (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 anticoagulants; Z79.4 Long term (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 insulin; E78.5 Hyperlipidemia, unspecified; E11.65 Type 2 diabetes mellitus with hyperglycemia; F32.A Depression, unspecified; E11.22 Type 2 diabetes mellitus with diabetic chronic kidney disease; N18.9 Chronic kidney disease, unspecified; I12.9 Hypertensive chronic kidney disease with stage 1 through stage 4 chronic kidney disease, or unspecified chronic kidney disease; N18.31 Chronic kidney disease, stage 3a; G31.84 Mild cognitive impairment of uncertain or unknown etiology
CPT/HCPCS: 20985; 27447; 36415; 36416; 51702; 73560; 80048; 81001; 81003; 82962; 85025; 86850; 86900; 87426; 96372; 97110; 97116; 97161; 97166; 97530; 97535; C1776; G0378; J0131; J0171; J0690; J1100; J1170; J1200; J1815; J1885; J2250; J2371; J2405; J2704; J2795; J3010; J3370; J7030; J7120

== ENCOUNTER 2023-12-05 19:03 | Inpatient (IN) | payer MEDICARE, SELFPAY ==
[2023-12-05] VITALS (18 sets, daily range): BP systolic 98–144; BP diastolic 36–75; PULSE 81–122; RESP 16–91; TEMP 36.4–36.9; O2SAT 90–98; BMI 36.0; BMI 37.4
--- NOTE | 2023-12-05 19:16 | ED_ITS ---
HPI - Nausea/Vomiting/Diarrhea 2 General: Chief complaint: Nausea/Vomiting/Diarrhea Stated complaint: HIGH BLOOD SUGAR Time Seen by Provider: 12/05/23 19:06 Source: patient Mode of arrival: ambulatory Limitations: no limitations History of Present Illness: 68-year-old female who is here from [facility] home states that she is felt nauseous today does not drink much states she feels like she has been dehydrated she had some generalized weakness as well and her blood sugars been running higher than typical. I did give her NovoLog it longterm blood sugar there was in the 400s. She denies any fever she did have a recent left knee surgery a week ago she denies any pain anywhere. Patient is also had some fatigue Associated nausea: Yes Associated symtoms: Reports fatigue, malaise and nausea; Denies chest pain, dysuria or headache(s) Related Data Home Medications Medication Instructions Recorded Confirmed escitalopram oxalate 20 mg tablet 20 mg PO BEDTIME 07/29/20 11/29/23 aspirin 81 mg chewable tablet 81 mg PO BEDTIME 05/17/23 11/29/23 bupropion HCl 200 mg tablet,12 hr 400 mg PO BEDTIME 05/17/23 11/29/23 sustained-release metoprolol succinate 25 mg 12.5 mg PO BEDTIME 05/17/23 11/29/23 tablet,extended release 24 hr trazodone 100 mg tablet 100 mg PO BEDTIME 05/17/23 11/29/23 atorvastatin 40 mg tablet 40 mg PO DAILY 06/29/23 11/29/23 cetirizine 10 mg tablet 10 mg PO DAILY PRN allergies 11/01/23 11/29/23 insulin glargine 100 unit/mL (3 20 unit SUBCUT DAILY 11/08/23 11/29/23 mL) subcutaneous pen (Lantus Solostar U-100 Insulin) galantamine 8 mg tablet 8 mg PO BID 11/26/23 11/29/23 rivaroxaban 20 mg tablet (Xarelto) 20 mg PO DAILY 11/26/23 11/29/23 Previous Rx's Medication Instructions Recorded Diabetic shoes with insoles #1 ea 04/06/23 memantine 10 mg tablet 10 mg PO BID #180 tabs 07/05/23 acarbose 25 mg tablet 25 mg PO TID #90 tabs 11/01/23 oxycodone 5 mg tablet 10 mg (2 x 5 mg) PO Q6H PRN pain 7 12/03/23 days #56 tabs Allergies Allergy/AdvReac Type Severity Reaction Status Date / Time azithromycin Allergy rash Verified 11/24/23 14:17 benzonatate Allergy Unknown Verified 11/24/23 14:17 [From Tessalon Perles] codeine Allergy rash Verified 11/24/23 14:17 collagenase Clostridium Allergy rash Verified 11/24/23 14:17 histolyticu donepezil Allergy ADR-Nightma Verified 11/24/23 14:17 re erythromycin base Allergy Unknown Verified 11/24/23 14:17 hydrocodone [From Vicodin] Allergy rash Verified 11/24/23 14:17 morphine Allergy rash Verified 11/24/23 14:17 oxycodone [From Percocet] Allergy rash Verified 11/24/23 14:17 tramadol Allergy Unknown Verified 11/24/23 14:17 Review of Systems 2 Const: Reports: fatigue and malaise; Denies: fever(s), chills, body aches or change in appetite ENMT: Denies: throat pain or dental pain Card: Denies: chest pain Resp: Denies: dyspnea GI: Reports: nausea and vomiting; Denies: abdominal pain or diarrhea : Denies: dysuria Musc: Denies: neck pain or back pain Skin/Breast: Denies: rash Neuro: Denies: headache(s) PFSH ED 2 PFSH: Medical History Chronic kidney disease Stage 3A 11/2023 with GFR 49 Depression Alzheimer disease (~04/2022) 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 07/31/2021 at [facility] Atrial flutter Pacemaker [place] [employer] dual-chamber 08/08/2021 Mild cognitive impairment with memory loss Dyslipidemia Diabetes HTN (hypertension) Surgical History Status post total left knee replacement using cement Hx of hysterectomy Hx of cholecystectomy Hx of breast biopsy Hx of aortic valve replacement Family History Father Congestive heart failure (CHF) Diabetes Myocardial infarction Mother Diabetes Sister Diabetes Family/Other Diabetes Stroke Social History Smoking and tobacco/nicotine status: never used tobacco/nicotine Alcohol intake: never Substance/Drug Use: never Physical Exam 2 Const: COMMON NORMALS: no acute distress, patient oriented x3 and healthy appearing HENMT: COMMON NORMALS: normocephalic and atraumatic HEAD & SCALP: n ormocephalic and atraumatic Neck/C-Spine: COMMON NORMALS: full ROM and supple Chest: COMMONS NORMALS: normal inspection of the chest Resp: COMMON NORMALS: normal respiratory effort, No retractions, No use of accessory muscles and clear to auscultation bilaterally AUSCULTATION: clear to auscultation bilaterally Cardio: COMMON NORMALS: regular rate, regular rhythm and No murmurs present (Cardio) RATE: regular rate RHYTHM: regular rhythm GI: COMMON NORMALS: Normal to inspection, nondistended, normoactive bowel sounds present, Soft to palpation, non-tender and no masses PALPATION: Yes Soft to palpation OTHER: Rectal exam shows black stool was Hemoccult positive Extremity: COMMON NORMALS: normal to inspection and full ROM NARRATIVE EXTREMITY EXAM: No signs of infection. Left knee no erythema no warmth to touch Neuro: COMMON NORMALS: patient oriented x3, moves all extremities and no focal motor deficits Psych: COMMON NORMALS: mental status grossly normal, Normal thought process present and cooperative THOUGHT PROCESS: Normal thought process present Skin: COMMON NORMALS: no rashes or lesions noted and no wounds GENERAL SKIN EXAM: no rashes or lesions noted Course 2 Vital Signs: Vital signs: Vital Signs Temperature 97.5 F L 12/05/23 19:05 Pulse Rate 97 12/05/23 19:46 Respiratory Rate 16 12/05/23 19:46 Blood Pressure 104/51 12/05/23 19:46 Pulse Oximetry 92 12/05/23 19:46 Oxygen Delivery Me thod Room Air 12/05/23 19:46 MDM - Nausea/Vomiting/Diarrhea Medical Decision Making Patient presents here with anemia likely from upper GI bleed we will transfuse give Protonix I spoke to hospitalist along with surgeon will admit at this time. Medical Records I reviewed the patient's medical records. Lab Data I reviewed the patient's lab results. 12/05/23 19:29 12/05/23 18:53 Laboratory Results WBC 15.41 10^3/uL (3.29-11.43) H 12/05/23 18:53 RBC 1.40 10^6/uL (3.85-5.65) L 12/05/23 18:53 Hgb 4.30 g/dL (11.27-16.99) L* 12/05/23 19:29 Hct 13.6 % (36-47) L* 12/05/23 19:29 MCV 110.0 fl (85-98) H 12/05/23 18:53 MCH 34.3 pg (27-33) H 12/05/23 18:53 MCHC 31.2 g/dL (30-55) 12/05/23 18:53 RDW 16.5 % (12.1-15.1) H 12/05/23 18:53 Plt Count 269 10^3/cmm (157-399) 12/05/23 18:53 MPV 10.8 fL (7.4-10.4) H 12/05/23 18:53 Neut % (Auto) 61.3 % 12/05/23 18:53 Lymph % (Auto) 29.2 % 12/05/23 18:53 Wood % (Auto) 6.8 % 12/05/23 18:53 Eos % (Auto) 1.4 % 12/05/23 18:53 Baso % (Auto) 0.3 % 12/05/23 18:53 Neut # (Auto) 9.45 10^3/uL (1.8-7.7) H 12/05/23 18:53 Lymph # (Auto) 4.5 10^3/uL (0.8-4.8) 12/05/23 18:53 Wood # (Auto) 1.1 10^3/uL (0.2-0.9) H 12/05/23 18:53 Eos # (Auto) 0.2 10^3/uL (0.0-0.8) 12/05/23 18:53 Baso # (Auto) 0.0 10^3/uL (0.0-0.1) 12/05/23 18:53 Nucleated RBC % (auto) 3.3 % 12/05/23 18:53 Nucleated RBCs # 0.5 /100WBC 12/05/23 18:53 PT 25.60 SECONDS (12.1-14.9) H 12/05/23 18:53 INR 2.24 (0.8-1.2) H 12/05/23 18:53 Sodium 139 mmol/L (136-145) 12/05/23 18:53 Potassium 3.6 mmol/L (3.5-5.1) 12/05/23 18:53 Chloride 102 mmol/L (98-107) 12/05/23 18:53 Carbon Dioxide 25 mmol/L (22-29) 12/05/23 18:53 Anion Gap 15.6 (5-19) 12/05/23 18:53 BUN 36 mg/dL (8-23) H 12/05/23 18:53 Creatinine 1.0 mg/dL (0.5-0.9) H 12/05/23 18:53 GFR Calculation 55.1 mL/min (90-130) L 12/05/23 18:53 Glucose 273 mg/dL (65-115) H 12/05/23 18:53 Calculated Osmolality 306 mOsm/kg (285-295) H 12/05/23 18:53 Calcium 8.0 mg/dL (8.5-10.5) L 12/05/23 18:53 Total Bilirubin 0.6 mg/dL (0.15-1.2) 12/05/23 18:53 AST 13 U/L (0-32) 12/05/23 18:53 ALT 10 U/L (0-33) 12/05/23 18:53 Alkaline Phosphatase 70 U/L (35-105) 12/05/23 18:53 Total Protein 5.1 g/dL (6.6-8.7) L 12/05/23 18:53 Albumin 3.1 g/dL (3.5-5.2) L 12/05/23 18:53 Globulin 2.0 g/dL (1.3-4.6) 12/05/23 18:53 Lipase 19 U/L (13-60) 12/05/23 18:53 Crossmatch See Detail 12/05/23 19:40 No radiology studies performed this visit Critical Care Time 2 Critical Care Time: Critical Care Time: Yes Total Critical Care Time: 35 Attestation: The high probability of a clinically significant, sudden or life threatening deterioration of the patient's gi system(s) required my full and direct attention, intervention and personal management. The critical care time is as shown. This time is in addition to time spent performing any reported procedures but includes the following: [x] Data and vital sign review and interpretation [x] Patient assessment, examination and intervention [x] Documentation [x] Medication orders and management Discharge Plan Discharge Patient Disposition: Admitted As Inpatient Clinical Impression: Acute upper GI bleed, Anemia Condition: Stable Prescriptions: No Action escitalopram oxalate 20 mg tablet 20 mg PO BEDTIME memantine 10 mg tablet 10 mg PO BID Qty: 180 3RF (DME) Diabetic shoes with insoles See Rx Instructions .Route .MEDSUPPLY Qty: 1 0RF Rx Instructions: As directed by [facility] cetirizine 10 mg tablet 10 mg PO DAILY PRN (Reason: allergies) acarbose 25 mg tablet 25 mg PO TID Qty: 90 1RF Rx Instructions: take 3x/day before meals insulin glargine [Lantus Solostar U-100 Insulin] 100 unit/mL (3 mL) insulin pen 20 unit SUBCUT DAILY atorvastatin 40 mg tablet 40 mg PO DAILY bupropion HCl 200 mg tablet sustained-release 12 hr 400 mg PO BEDTIME aspirin 81 mg tablet,chewable 81 mg PO BEDTIME trazodone 100 mg tablet 100 mg PO BEDTIME metoprolol succinate 25 mg tablet extended release 24 hr 12.5 mg PO BEDTIME galantamine 8 mg tablet 8 mg PO BID Rx Instructions: TAKE ONE TABLET BY MOUTH TWICE DAILY WITH MORNING AND EVENING MEALS, WATCH FOR NAUSEA Xarelto 20 mg tablet 20 mg PO DAILY Rx Instructions: TAKE ONE TABLET (20mg) BY MOUTH DAILY must administer WITH EVENING MEAL oxycodone 5 mg tablet 10 mg PO Q6H PRN (Reason: pain) 7 Days Qty: 56 0RF Rx Instructions: 1 tab moderate pain 2 tabs severe pain Referrals: Louann Rodriguez MD [Primary Care Provider] - Coding Level of Care Code 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
[2023-12-05 19:22] LABS: Basophils % 0.3 %; Eosinophils # 0.2 10^3/uL (0.0-0.8); Eosinophils % 1.4 %; Lymphocytes # 4.5 10^3/uL (0.8-4.8); Lymphocytes % 29.2 %; Mean Corpuscular HGB Conc 31.2 g/dL (30-55); Mean Corpuscular Hemoglobin 34.3 pg (27-33); Mean Platelet Volume 10.8 fL (7.4-10.4); Monocytes # 1.1 10^3/uL (0.2-0.9); Monocytes % 6.8 %; Neutrophils # 9.45 10^3/uL (1.8-7.7); Neutrophils % 61.3 %; Nucleated Red Blood Cells # 0.5 /100WBC; Nucleated Red Blood Cells % 3.3 %; Platelet Count 269 10^3/cmm (157-399); Red Cell Distribution Width 16.5 % (12.1-15.1); White Blood Count 15.41 10^3/uL (3.29-11.43)
[2023-12-05] MEDS: ondansetron 2 mg/ML SDV 2 mL 4 MG IVP (19:22)
[2023-12-05] MEDS: sodium chloride 0.9% 1,000 ML 999 ML IV (19:23)
[2023-12-05 19:24] LABS: Hematocrit 15.4 % (36-47)
[2023-12-05 19:36] LABS: Hematocrit 13.6 % (36-47)
[2023-12-05 19:44] LABS: Alanine Aminotransferase 10 U/L (0-33); Albumin Level 3.1 g/dL (3.5-5.2); Alkaline Phosphatase 70 U/L (35-105); Anion Gap 15.6 (5-19); Aspartate Amino Transferase 13 U/L (0-32); Blood Urea Nitrogen 36 mg/dL (8-23); Carbon Dioxide 25 mmol/L (22-29); Chloride 102 mmol/L (98-107); Glomerular Filtration Rate 55.1 mL/min (90-130); Glucose 273 mg/dL (65-115); Lipase 19 U/L (13-60); Osmolality Calculated 306 mOsm/kg (285-295); Potassium 3.6 mmol/L (3.5-5.1); Sodium 139 mmol/L (136-145); Total Bilirubin 0.6 mg/dL (0.15-1.2); Total Protein 5.1 g/dL (6.6-8.7)
[2023-12-05] MEDS: pantoprazole 40 mg SDV 80 MG IVP (19:54)
[2023-12-05 20:01] LABS: Creatinine Clr Calc Pharmacy 71.3922
[2023-12-05 20:02] LABS: INR 2.24 (0.8-1.2)
--- NOTE | 2023-12-05 21:29 | PM.HP ---
Providers/Chief Complaint Admitting Physician: Samir Delgado Primary Care Provider: Louann Rodriguez MD Chief Complaint: HIGH BLOOD SUGAR History of Present Illness Very pleasant 68-year-old lady [facility], was in the hospital discharged 12/02 after left TKA. Returns reporting generalized weakness, some nausea, feeling thirsty. On presentation with elevated blood glucose, but also with acute anemia hemoglobin 4.8, 4.3 in ER. She denies noticing outward bleeding. In ER on rectal exam stool was found to be dark/black and positive for Hemoccult. Has some bruising over the left lower extremity proximal distal to the knee, left thigh. Has been some pain in the knee, denies loss of sensation, difficulty with movement in the left leg. Was seen by the orthopedic surgeon with LLE reassessed, and mini wound VAC is turned on. Appears she takes Xarelto, aspirin, history of atrial flutter, history of aortic valve replacement. She states that she avoids NSAIDs generally. She does take escitalopram, trazodone. Review of Systems Const: Denies: fever(s), chills, body aches or malaise ENMT: Denies: throat pain Card: Denies: chest pain, edema, pre-syncope or dyspnea on exertion Resp: Denies: dyspnea, productive cough, change in phlegm color or hemoptysis GI: Denies: abdominal pain, nausea, vomiting, diarrhea, constipation, hematochezia or melena : Denies: flank pain, urinary frequency or hematuria Musc: Reports: other (L knee still with pain); Denies: back pain, joint swelling or joint redness Skin/Breast: Denies: rash or new lesions Neuro: Denies: confusion Medications/Allergies Home Medications Medication Instructions Recorded Confirmed Last Taken Type escitalopram oxalate 20 mg tablet 20 mg PO BEDTIME 07/29/20 11/29/23 11/25/23 History Diabetic shoes with insoles #1 ea 04/06/23 11/29/23 Unknown Rx aspirin 81 mg chewable tablet 81 mg PO BEDTIME 05/17/23 11/29/23 11/24/23 History bupropion HCl 200 mg tablet,12 hr 400 mg PO BEDTIME 05/17/23 11/29/23 11/29/23 History sustained-release metoprolol succinate 25 mg 12.5 mg PO BEDTIME 05/17/23 11/29/23 11/28/23 History tablet,extended release 24 hr trazodone 100 mg tablet 100 mg PO BEDTIME 05/17/23 11/29/23 11/28/23 History atorvastatin 40 mg tablet 40 mg PO DAILY 06/29/23 11/29/23 11/25/23 History memantine 10 mg tablet 10 mg PO BID #180 tabs 07/05/23 11/29/23 11/28/23 Rx acarbose 25 mg tablet 25 mg PO TID #90 tabs 11/01/23 11/29/23 Unknown Rx cetirizine 10 mg tablet 10 mg PO DAILY PRN allergies 11/01/23 11/29/23 11/28/23 History insulin glargine 100 unit/mL (3 20 unit SUBCUT DAILY 11/08/23 11/29/23 11/28/23 08:00 History mL) subcutaneous pen (Lantus Solostar U-100 Insulin) galantamine 8 mg tablet 8 mg PO BID 11/26/23 11/29/23 11/26/23 History rivaroxaban 20 mg tablet (Xarelto) 20 mg PO DAILY 11/26/23 11/29/23 11/25/23 History oxycodone 5 mg tablet 10 mg (2 x 5 mg) PO Q6H PRN pain 7 12/03/23 Unknown Rx days #56 tabs Allergies Allergy/AdvReac Type Severity Reaction Status Date / Time azithromycin Allergy rash Verified 11/24/23 14:17 benzonatate Allergy Unknown Verified 11/24/23 14:17 [From Tessalon Perles] codeine Allergy rash Verified 11/24/23 14:17 collagenase Clostridium Allergy rash Verified 11/24/23 14:17 histolyticu donepezil Allergy ADR-Nightma Verified 11/24/23 14:17 re erythromycin base Allergy Unknown Verified 11/24/23 14:17 hydrocodone [From Vicodin] Allergy rash Verified 11/24/23 14:17 morphine Allergy rash Verified 11/24/23 14:17 oxycodone [From Percocet] Allergy rash Verified 11/24/23 14:17 tramadol Allergy Unknown Verified 11/24/23 14:17 PFSH Acute PFSH: Medical History Chronic kidney disease Stage 3A 11/2023 with GFR 49 Depression Alzheimer disease (~04/2022) 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 07/31/2021 at [facility] Atrial flutter Pacemaker [place] [employer] dual-chamber 08/08/2021 Mild cognitive impairment with memory loss Dyslipidemia Diabetes HTN (hypertension) Surgical History Status post total left knee replacement using cement Hx of hysterectomy Hx of cholecystectomy Hx of breast biopsy Hx of aortic valve replacement Family History Father Congestive heart failure (CHF) Diabetes Myocardial infarction Mother Diabetes Sister Diabetes Family/Other Diabetes Stroke Social History Smoking and tobacco/nicotine status: never used tobacco/nicotine Alcohol intake: never Substance/Drug Use: never Vitals/I&O/Wt Last Vital Signs Temp 98.5 F 12/05/23 20:50 Pulse 90 12/05/23 21:15 Resp 16 12/05/23 21:15 BP 114/69 12/05/23 21:15 Pulse Ox 93 12/05/23 21:15 O2 Del Method Room Air 12/05/23 21:15 12/05/23 12/05/23 12/05/23 06:59 14:59 22:59 Intake Total 0 / 0 Balance 0 / 0 Weight last 48 hrs Weight 110.677 kg Physical Exam Narrative: Reclined in bed. Const: COMMON NORMALS: patient oriented x3 and alert GENERAL APPEARANCE: cooperative NUTRITIONAL APPEARANCE: obese ORIENTATION/CONSCIOUSNESS: Yes awake HENMT: COMMON NORMALS: oropharynx normal Neck/C-Spine: COMMON NORMALS: no JVD Resp: COMMON NORMALS: normal respiratory effort and clear to auscultation bilaterally AUSCULTATION: clear to auscultation bilaterally Cardio: COMMON NORMALS: no JVD, regular rhythm, S1 normal heart sound present, S2 normal heart sound present and No murmurs present (Cardio) RHYTHM: regular rhythm HEART SOUNDS: S1 normal heart sound present and S2 normal heart sound present GI: COMMON NORMALS: Normal to inspection, nondistended, normoactive bowel sounds present, Soft to palpation and non-tender PALPATION: Yes Soft to palpation Extremity: COMMON NORMALS: no joint enlargement and no pedal edema OTHER: LLE: Small nonbleeding strikethrough at the incision. Wound VAC dressing with many pump attached. No surrounding erythema. Bruising proximal and distal to the left knee. Neuro: COMMON NORMALS: patient oriented x3 and moves all extremities SENSORIUM/ORIENTATION: Yes alert Skin: COMMON NORMALS: no rashes or lesions noted GENERAL SKIN EXAM: no rashes or lesions noted Data 12/05/23 19:29 12/05/23 18:53 A&P Assessment and plan (1) Acute blood loss anemia: In ER she is found to have severe acute blood loss anemia. Reviewed vitals, CBC, INR, CMP, ER note, discussed with ER provider. Hemoglobin is down to 4.8-4.3 in the ER. MCV macrocytic, 110. Platelets normal. Last hemoglobin 8.5 on 12/01, prior to that hemoglobins ranging around 13-14. On anticoagulation with Xarelto also on aspirin, escitalopram, trazodone. Normally not on NSAIDs, received Toradol for pain last admission. Suspect multifactorial acute blood loss anemia, possible upper GI bleed, with melanotic appearing stool found in ER, positive occult, although has rather constipated, denies melena, hematochezia, has not had loose stools or diarrhea; perioperative blood loss. Bruising over left thigh. Receiving 2 units RBC transfusion currently as per discussion with her. Monitor for any transfusion related reaction, risk of TACO, TR AL I, febrile, hemolytic reaction, etc. We will request repeat blood counts tonight after transfusion and in the morning. Hold Xarelto, aspirin, escitalopram, trazodone. She understands he is at risk of blood clots following TKA, but currently unable to continue her medications due to active blood loss. Check CT of the left thigh. General surgery is also consulted, pending assessment. Received 80 mg IV PPI. Continue 40 mg IV twice daily for possible upper GI bleeding. Avoid NSAIDs. (2) Chronic anticoagulation: Chronic anticoagulation with Xarelto also on aspirin, with history of atrial fibrillation, history of aortic valve replacement. (3) Hx of aortic valve replacement: (4) Stenosis of prosthetic aortic valve: Qualifiers: Encounter type: initial encounter Qualified Code(s): T82.857A - Stenosis of other cardiac prosthetic devices, implants and grafts, initial encounter Plan Left TKA on 11/28: Has been undergoing rehabilitation. Still dealing with some pain. Acetaminophen as needed. IV morphine as needed for severe breakthrough pain. HTN: Monitor blood pressures. Monitor for hypotension currently with acute blood loss anemia. Atrial flutter: Hold Xarelto. Pacemaker HLD: Continue statin DM 2: Insulin sliding scale. Currently NPO. Decrease Lantus dose to 10 units for now. CKD Mild cognitive impairment Other medical problems Requested to confirm home medications, please review and resume as appropriate once available. Attestations Medical Necessity Statement*: Admission of over 2 midnights anticipated for assessment and management of severe acute blood loss anemia. Diagnoses Acute blood loss anemia D62 Chronic anticoagulation Z79.01 Hx of aortic valve replacement Z95.2 Stenosis of prosthetic aortic valve, initial encounter T82.857A Encounter type: initial encounter
--- NOTE | 2023-12-05 21:32 | P.MISC_ITS ---
Miscellaneous Note Purpose of Documentation: Orthopedic note update: Currently seeing the consultations to the orthopedic department emergency department when I saw this patient. At this point in time I went ahead and went and checked on the patient and she is my postoperative total joint replacement patient's. But not been consulted for this patient however given she was in emergency department I checked on her to make sure nothing was going okay. She currently is actively getting blood as her hemoglobin was down to 4.3 when checked in the emergency department with an elevated WBC count. This point time she is worked up for a GI bleed. she recently just had a total knee replacement done by me on Wednesday she just discharged today prison in stable condition on Wednesday. She had a downtrending hemoglobin but was stable and clinical examination left knee was unremarkable and had normal postoperative swelling. She was seen eval by the hospitalist at that time confirmed stable for discharge from medical standpoint with close follow-up of her hemoglobin. Unfortunately she states she progressively has worsened while she was at the rehab facility and weak and has not gotten much in the way of therapy and subsequently she presented to the emergency department with her current situation. Currently she is set up to being getting admitted by the hospitalist team. I did check her dressing. She does have a small 15% area of mid substance with some bloody saturation from the dressing appears to be having issues with the seal as it does appear to be a part of this that is torn off with the dressing subsequently have been taken down the room and he said tore through some of this losing some the seal plan will be to have this addressed and a new kady dressing applied during her hospitalization here. She is currently actively getting blood. Examination: Examination of the left knee patient does have ecchymosis and bruising about the left knee more swollen than the right this does appear to be within normal confines of status post left total knee replacement no active bleeding or drain age appreciated just spotting on the kady dressing. Compartments are soft and compressible. She is able to plantarflex and dorsiflex ankle distal pulses are palpable. Patient does have generalized pale appearance. Plan: Change kady dressing tomorrow Defer to primary team for workup and management Will continue to follow as she is one of my postoperative total joint patients while she is in the hospital. Patient understands and agrees with current plan. All questions answered. Patient is appreciative of theme stopping by to check on her.
--- NOTE | 2023-12-05 21:53 | CTR_ITS ---
PROCEDURE INFORMATION: Exam: CT Left Lower Extremity, Thigh Exam date and time: 12/06/2023 5:57 AM Age: 68 years old Clinical indication: Other: Anemia/ecchymosis; Prior surgery; Surgery date: 3-7 days post-operative; Surgery type: Left tka one week ago; Patient HX: Patient acutely anemic with ecchymosis to middle inner thight. Patient had tka one week ago. Wound vac in place with ice bag laying over knee. ; Additional info: Acute blood loss anemia TECHNIQUE: Imaging protocol: CT of the left lower extremity without contrast was performed. Exam focused on the thigh. Radiation optimization: All CT scans at this facility use at least one of these dose optimization techniques: automated exposure control; mA and/or kV adjustment per patient size (includes targeted exams where dose is matched to clinical indication); or iterative reconstruction. COMPARISON: CT knee LT [facility] [id number] 11/17/2023 8:38 AM RADIATION DOSE METRICS: Total DLP (mGy-cm): 2507.46 FINDINGS: Bones/joints: Right knee demonstrates TKA changes and a small poorly visualized moderate effusion. No obvious bone destruction or periosteal reaction to suggest osteomyelitis within limits of CT evaluation. Left TKA changes. Moderate left knee joint effusion. No acute fracture or dislocation. Symphysis pubis demonstrates [id number] DJD with chondrocalcinosis. Evidence of old left conjoined hamstring avulsion fracture at the left ischial tuberosity. [id number] left hip DJD Soft tissues: Vastus inter medialis muscle belly is enlarged and edematous secondary to the presence of prominent intramuscular hematoma extending from the level of the left femoral mid diaphysis down the level of the femoral metaphysis. Entire vastus medialis muscle belly is edematous, with indistinctness of its margins and mild surrounding fatty induration/edema. Numerous small pockets of gas within both of these muscle bellies extending from the level of the mid thigh down to just above the knee; this is suspicious for the presence of gas producing organisms with infection. Cannot exclude phlegmon/infected hematoma in these regions. Mild diffuse deep soft tissue fatty induration/edema surrounding the visualized left thigh and left upper calf muscle bellies; cannot exclude diffuse myositis. Mild diffuse subcutaneous soft tissue swelling and edema. Vasculature: Atheromatous calcifications CT/CT femur LT wo con* [id number] IMPRESSION: 1. Status post left TKA.Vastus intermedialis muscle belly is enlarged and edematous secondary to the presence of prominent hyperdense intramuscular hematoma extending from the level of the left femoral mid diaphysis down the level of the femoral metaphysis. Entire vastus medialis muscle belly is edematous, with indistinctness of its margins and mild surrounding fatty induration/edema. Numerous tiny gas bubbles within both of these muscle bellies extending from the level of the mid thigh down to just above the knee; this is suspicious for the presence of gas producing organisms with infection. Cannot exclude phlegmon/infected hematoma in these regions. 2. Moderate left knee joint effusion. cannot exclude infectious complication 3. Mild diffuse deep soft tissue fatty induration/edema surrounding the visualized left thigh and left upper calf muscle bellies; cannot exclude diffuse myositis 4. Mild diffuse subcutaneous soft tissue swelling and edema. 5. Chronic findings as above .
[2023-12-05 22:49] LABS: Glucose Point of Care 244 mg/dL (70-110)
[2023-12-05] MEDS: acetaminophen 325 mg Tablet 650 MG PO (22:56)
[2023-12-05] MEDS: insulin lispro 100 unit/1 mL SUBCUT (22:57)
[2023-12-06] VITALS (41 sets, daily range): BP systolic 91–152; BP diastolic 49–115; PULSE 62–88; RESP 14–35; TEMP 36.1–37.1; O2SAT 90–98
[2023-12-06] MEDS: sodium chloride 0.9% 100 mL Bag 50 ML IV (01:01)
[2023-12-06 04:46] LABS: Glucose Point of Care 181 mg/dL (70-110)
[2023-12-06 05:12] LABS: Basophils # 0.1 10^3/uL (0.0-0.1); Basophils % 0.4 %; Eosinophils # 0.3 10^3/uL (0.0-0.8); Eosinophils % 2.8 %; Hematocrit 22.1 % (36-47); Lymphocytes # 3.2 10^3/uL (0.8-4.8); Lymphocytes % 25.8 %; Mean Corpuscular HGB Conc 31.7 g/dL (30-55); Mean Corpuscular Hemoglobin 31.5 pg (27-33); Mean Corpuscular Volume 99.5 fl (85-98); Mean Platelet Volume 10.4 fL (7.4-10.4); Monocytes # 0.9 10^3/uL (0.2-0.9); Monocytes % 7.1 %; Neutrophils # 7.75 10^3/uL (1.8-7.7); Neutrophils % 63.1 %; Nucleated Red Blood Cells # 0.4 /100WBC; Nucleated Red Blood Cells % 3.2 %; Platelet Count 236 10^3/cmm (157-399); Red Blood Count 2.22 10^6/uL (3.85-5.65); Red Cell Distribution Width 18.2 % (12.1-15.1); White Blood Count 12.27 10^3/uL (3.29-11.43)
[2023-12-06 05:33] LABS: Anion Gap 9.7 (5-19); Blood Urea Nitrogen 32 mg/dL (8-23); Calcium 7.4 mg/dL (8.5-10.5); Carbon Dioxide 30 mmol/L (22-29); Chloride 110 mmol/L (98-107); Creatinine Clr Calc Pharmacy 80.9578; Glomerular Filtration Rate 62.3 mL/min (90-130); Glucose 181 mg/dL (65-115); Osmolality Calculated 311 mOsm/kg (285-295); Potassium 4.7 mmol/L (3.5-5.1); Sodium 145 mmol/L (136-145)
[2023-12-06] MEDS: pantoprazole 40 mg SDV IVP ×2 (05:34→17:08)
[2023-12-06] MEDS: insulin lispro 100 unit/1 mL SUBCUT ×4 (05:34→21:04)
--- NOTE | 2023-12-06 06:30 | P.PN_ITS ---
Subjective 2 Subjective: Patient seen and examined this morning. Kady dressing was changed and new 1 applied as there was some bloody saturation and no longer had a seal as some of the sealant had been ripped. As result Was applied. Patient going for EGD today with general surgery Vitals/I&O/Wt Last Vital Signs Temp 98.2 F 12/07/23 04:00 Pulse 66 12/07/23 04:00 Resp 18 12/07/23 04:00 BP 127/62 12/07/23 04:00 Pulse Ox 100 12/07/23 03:00 O2 Del Method Nasal Cannula 12/07/23 04:00 O2 Flow Rate 2 12/07/23 04:00 12/06/23 12/06/23 12/07/23 14:59 22:59 06:59 Intake Total 830 / 830 444 / 1274 150 / 1424 Output Total 450 / 450 Balance 830 / 830 444 / 1274 -300 / 974 Weight last 48 hrs Weight 261 lb 3.964 oz Weight 253 lb 8.505 oz Weight 244 lb Physical Exam 2 Narrative: Examination of the left knee demonstrates patient has normal postoperative swelling with appreciable ecchymosis and bruising her compartments are soft compressible to the upper thigh as well as left lower extremity. No erythema or any signs of infection , kady dressing has roughly 15 to 20% bloody saturation in the mid substance with loss of seal, dressing completely taken down incision well-approximated with Prineo dressing on in place no signs of infection or any drainage at this time, new kady dressing applied with good seal. Distal pulses are palpable sensations intact to light touch distally she is able to wiggle toes plantarflex and dorsiflex ankle. Data 12/08/23 04:20 12/08/23 04:20 Other Labs: 12/06/2023- AM labs hemoglobin 7.0, WBC 12.[address]: My impression: CT scan of the left femur reviewed and personally interpreted by myself patient has status post left total knee arthroplasty implant appears to be in stable condition. Patient has diffuse deformed swelling throughout the femur with notable edematous changes. Does appear to be normal appreciable hematoma and joint effusion about the knee as well as appreciable soft tissue fatty induration and edema. There was couple small air bubbles in the mid thigh and the vastus region near the adductor canal this appears to be likely secondary to patient receiving an adductor block in this area and location. No fractures or dislocations noted. A&P Assessment and plan (1) History of total knee arthroplasty: (2) Acute blood loss anemia: (3) Acute upper GI bleed: (4) Chronic anticoagulation: (5) Status post total left knee replacement using cement: Plan POD #7 TKA Weight-bear as tolerated to operative lower extremity Ice as needed for pain and swelling pain control PT/OT Diabetic diet Kady dressing changed today incision site is well approximated and no signs of drainage and no signs of infection AM labs reviewed?patient received PRBCs per the primary and hemoglobin 7.0 this morning General Surgery consulted and going for EGD today for upper GI bleed?appreciate their assistance in care Internal medicine on board as primary DVT prophylaxis currently has SCDs/foot pump to the left lower extremity- currently holding and will resume per primary Case management on board and working on discharge planning Patient seen and examined today kady dressing was changed at this did not have a good seal and she had some saturation. Her color appears to be improving her hemoglobin is up to 7.0 today she is going for an EGD with general surgery. Currently holding anticoagulation due to her anemia. CT scan was reviewed at this point given the clinical picture there is no apparent signs of infection and her compartments are soft compressible and has a stable appearing neurovascular examination clinically. CT scan demonstrates likely remanent of patient's block as well as diffuse swelling and hematoma formation to be expected status post a left total knee arthroplasty. Orthopedics at this point in time we will continue to follow patient while she is in the hospital. Appreciate medical team's assistance in care as well as general surgery. Attestations 2 Medical Necessity Statement*: Ongoing care status post left total knee arthroplasty with acute postoperative anemia requiring EGD today. Coding Level of Care Code Acute Code for Chg Fwd Diagnoses History of total knee arthroplasty Z96.659 Acute blood loss anemia D62 Acute upper GI bleed K92.2 Chronic anticoagulation Z79.01 Status post total left knee replacement using cement Z96.652 Time Spent (min) 15
--- NOTE | 2023-12-06 06:55 | P.CONIM_ITS ---
Providers/Reason For Consult 2 Consulting Physician/Specialty*: General surgery Reason for Consult*: Upper GI bleeding Attending Physician: Samir Delgado Primary Care Provider: Louann Rodriguez MD History of Present Illness History of Present Illness Rosie Delgado is a 68 year old female with history of recent total knee arthroplasty who presents with a hospital with sensation of nausea and vomiting. Hemoglobin was measure and noted to be less than 5. Hemoccult was positive for blood and digital rectal examination on the emergency department show evidence of black stool. I was consulted for evaluation of upper GI bleeding. Review of Systems 2 General: Reports: 10 or more systems reviewed and unremarkable except in HPI and below Medications/Allergies Home Medications Medication Instructions Recorded Confirmed Last Taken Type escitalopram oxalate 20 mg tablet 20 mg PO BEDTIME 07/29/20 11/29/23 11/25/23 History Diabetic shoes with insoles #1 ea 04/06/23 11/29/23 Unknown Rx aspirin 81 mg chewable tablet 81 mg PO BEDTIME 05/17/23 11/29/23 11/24/23 History bupropion HCl 200 mg tablet,12 hr 400 mg PO BEDTIME 05/17/23 11/29/23 11/29/23 History sustained-release metoprolol succinate 25 mg 12.5 mg PO BEDTIME 05/17/23 11/29/23 11/28/23 History tablet,extended release 24 hr trazodone 100 mg tablet 100 mg PO BEDTIME 05/17/23 11/29/23 11/28/23 History atorvastatin 40 mg tablet 40 mg PO DAILY 06/29/23 11/29/23 11/25/23 History memantine 10 mg tablet 10 mg PO BID #180 tabs 07/05/23 11/29/23 11/28/23 Rx acarbose 25 mg tablet 25 mg PO TID #90 tabs 11/01/23 11/29/23 Unknown Rx cetirizine 10 mg tablet 10 mg PO DAILY PRN allergies 11/01/23 11/29/23 11/28/23 History insulin glargine 100 unit/mL (3 20 unit SUBCUT DAILY 11/08/23 11/29/23 11/28/23 08:00 History mL) subcutaneous pen (Lantus Solostar U-100 Insulin) galantamine 8 mg tablet 8 mg PO BID 11/26/23 11/29/23 11/26/23 History rivaroxaban 20 mg tablet (Xarelto) 20 mg PO DAILY 11/26/23 11/29/23 11/25/23 History oxycodone 5 mg tablet 10 mg (2 x 5 mg) PO Q6H PRN pain 7 12/03/23 Unknown Rx days #56 tabs Allergies Allergy/AdvReac Type Severity Reaction Status Date / Time azithromycin Allergy rash Verified 11/24/23 14:17 benzonatate Allergy Unknown Verified 11/24/23 14:17 [From Tessalon Perles] codeine Allergy rash Verified 11/24/23 14:17 collagenase Clostridium Allergy rash Verified 11/24/23 14:17 histolyticu donepezil Allergy ADR-Nightma Verified 11/24/23 14:17 re erythromycin base Allergy Unknown Verified 11/24/23 14:17 hydrocodone [From Vicodin] Allergy rash Verified 11/24/23 14:17 morphine Allergy rash Verified 11/24/23 14:17 oxycodone [From Percocet] Allergy rash Verified 11/24/23 14:17 tramadol Allergy Unknown Verified 11/24/23 14:17 Current Medications Generic Name Dose Route Start Last Admin Trade Name Freq PRN Reason Stop Dose Admin Acetaminophen 650 mg 12/05/23 21:39 12/05/23 22:56 Acetaminophen 325 Mg Tablet PO 650 mg Q6H PRN Administration Mild/Mod Pain Or Temp >/= 101 Insulin Human Lispro 0 unit 12/05/23 22:00 12/06/23 05:34 Insulin Lispro 100 Unit/1 Ml SUBCUT 4 unit Q6H PIERCE Administration Protocol Pantoprazole Sodium 40 mg 12/06/23 06:00 12/06/23 05:34 Pantoprazole 40 Mg Sdv IVP 40 mg Q12H PIERCE Administration Sodium Chloride 50 ml 12/05/23 19:37 12/06/23 01:01 Sodium Chloride 0.9% 100 Ml Bag IV 12/06/23 19:38 50 ml PRN PRN Administration Blood transfusion prime and flush PFSH Acute 2 PFSH: Medical History Chronic kidney disease Stage 3A 11/2023 with GFR 49 Depression Alzheimer disease (~04/2022) 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 07/31/2021 at [facility] Atrial flutter Pacemaker [employer] dual-chamber 08/08/2021 Mild cognitive impairment with memory loss Dyslipidemia Diabetes HTN (hypertension) Surgical History Status post total left knee replacement using cement Hx of hysterectomy Hx of cholecystectomy Hx of breast biopsy Hx of aortic valve replacement Family History Father Congestive heart failure (CHF) Diabetes Myocardial infarction Mother Diabetes Sister Diabetes Family/Other Diabetes Stroke Social History Smoking and tobacco/nicotine status: never used tobacco/nicotine Alcohol intake: never Substance/Drug Use: never Vitals/I&O/Wt Last Vital Signs Temp 97.8 F 12/06/23 00:45 Pulse 72 12/06/23 05:00 Resp 15 12/06/23 05:00 BP 116/56 12/06/23 05:00 Pulse Ox 93 12/06/23 05:00 O2 Del Method Room Air 12/06/23 05:00 12/05/23 12/05/23 12/06/23 14:59 22:59 06:59 Intake Total 0 / 0 700 / 700 Balance 0 / 0 700 / 700 Weight last 48 hrs Weight 261 lb 3.964 oz Weight 253 lb 8.505 oz Weight 244 lb Physical Exam 2 Narrative: General : Patient is well developed , no acute distress, oriented x3 Head : Normal cephalic, a-traumatic. Nose : Mucous membranes are without erythema. Lungs : Equal chest rise bilaterally, no use of accessory muscles, trachea is midline. CV : Rate and rhythm are normal. Abdomen : Soft, ND, NT, no g/r/m Back : non-tender to palpation, no CVA tenderness. Data 12/06/23 05:02 12/06/23 05:02 A&P Assessment and plan (1) Acute upper GI bleed: Plan 68-year-old female with possible upper GI bleeding in the setting of use of anticoagulation and NSAIDs after recent total knee arthroplasty. Patient has been admitted to the hospitalist team resuscitated overnight and received blood transfusion currently stable, no abdominal pain no nausea or vomiting. I have offered the patient an upper endoscopy relation for possible upper GI bleed, I have discussed with the patient recent benefits of the procedure including the risk of perforation of the esophagus stomach or duodenum requiring surgical intervention, need for additional surgical interventions, injury to soft tissue of the mouth and pharynx. Lack of source control. Rebleeding. Lack of pathological diagnosis. I have informed the patient that I will not be taking any biopsies as she is still under anticoagulation affect. Patient shows understanding agrees with the plan. Coding Level of Care Code 53456 Diagnoses Acute upper GI bleed K92.2
--- NOTE | 2023-12-06 07:52 | ANES.PREANE2 ---
Pre-Anesthetic Assessment Height/Weight: Height 1.75 m Weight 118.5 kg Temp Pulse Resp BP Pulse Ox O2 Del Method 97.8 F 72 15 116/56 93 Room Air 12/06/23 00:45 12/06/23 05:00 12/06/23 05:00 12/06/23 05:00 12/06/23 05:00 12/06/23 05:00 Operation Date: 12/06/23 11:45 Proposed Procedures p EGD(Not Applicable) - Charly Schmitt MD Familial anesthetic complications: None Was Beta Luis F taken within 24 hours: N/A Was Clonidine taken within 24 hours: N/A Last intake: > 8hrs Social No alcohol and No tobacco Exam alert, oriented x 3, clear to auscultation bilaterally and regular rate & rhythm Airway Mallampati: Class II Dentition: full and other (1 broken/cap) CV/HEM Atrial Fibrillation (pacemaker) and Hypertension Aortic valve replaced, but severe stenosis of bioprosthesis noted on echo, patient denies any baseline CP or JURADO before the last few days Chronic Renal Insufficiency Metabolic Morbid Obesity Anesthetic Plan ASA status: 4 Anesthesia: MAC Risk of > 500 ml blood loss (7ml/kg in children): No Medications/Allergies Home Medications Medication Instructions Recorded Confirmed Last Taken Type escitalopram oxalate 20 mg tablet 20 mg PO BEDTIME 07/29/20 11/29/23 11/25/23 History Diabetic shoes with insoles #1 ea 04/06/23 11/29/23 Unknown Rx aspirin 81 mg chewable tablet 81 mg PO BEDTIME 05/17/23 11/29/23 11/24/23 History bupropion HCl 200 mg tablet,12 hr 400 mg PO BEDTIME 05/17/23 11/29/23 11/29/23 History sustained-release metoprolol succinate 25 mg 12.5 mg PO BEDTIME 05/17/23 11/29/23 11/28/23 History tablet,extended release 24 hr trazodone 100 mg tablet 100 mg PO BEDTIME 05/17/23 11/29/23 11/28/23 History atorvastatin 40 mg tablet 40 mg PO DAILY 06/29/23 11/29/23 11/25/23 History memantine 10 mg tablet 10 mg PO BID #180 tabs 07/05/23 11/29/23 11/28/23 Rx acarbose 25 mg tablet 25 mg PO TID #90 tabs 11/01/23 11/29/23 Unknown Rx cetirizine 10 mg tablet 10 mg PO DAILY PRN allergies 11/01/23 11/29/23 11/28/23 History insulin glargine 100 unit/mL (3 20 unit SUBCUT DAILY 11/08/23 11/29/23 11/28/23 08:00 History mL) subcutaneous pen (Lantus Solostar U-100 Insulin) galantamine 8 mg tablet 8 mg PO BID 11/26/23 11/29/23 11/26/23 History rivaroxaban 20 mg tablet (Xarelto) 20 mg PO DAILY 11/26/23 11/29/23 11/25/23 History oxycodone 5 mg tablet 10 mg (2 x 5 mg) PO Q6H PRN pain 7 12/03/23 Unknown Rx days #56 tabs Allergies Allergy/AdvReac Type Severity Reaction Status Date / Time azithromycin Allergy rash Verified 11/24/23 14:17 benzonatate Allergy Unknown Verified 11/24/23 14:17 [From Tessalon Perlsheila] codeine Allergy rash Verified 11/24/23 14:17 collagenase Clostridium Allergy rash Verified 11/24/23 14:17 histolyticu donepezil Allergy ADR-Nightma Verified 11/24/23 14:17 re erythromycin base Allergy Unknown Verified 11/24/23 14:17 hydrocodone [From Vicodin] Allergy rash Verified 11/24/23 14:17 morphine Allergy rash Verified 11/24/23 14:17 oxycodone [From Percocet] Allergy rash Verified 11/24/23 14:17 tramadol Allergy Unknown Verified 11/24/23 14:17 Current Medications Generic Name Dose Route Start Last Admin Trade Name Freq PRN Reason Stop Dose Admin Acetaminophen 650 mg 12/05/23 21:39 12/05/23 22:56 Acetaminophen 325 Mg Tablet PO 650 mg Q6H PRN Administration Mild/Mod Pain Or Temp >/= 101 Insulin Human Lispro 0 unit 12/05/23 22:00 12/06/23 05:34 Insulin Lispro 100 Unit/1 Ml SUBCUT 4 unit Q6H PIERCE Administration Protocol Pantoprazole Sodium 40 mg 12/06/23 06:00 12/06/23 05:34 Pantoprazole 40 Mg Sdv IVP 40 mg Q12H PIERCE Administration Sodium Chloride 50 ml 12/05/23 19:37 12/06/23 01:01 Sodium Chloride 0.9% 100 Ml Bag IV 12/06/23 19:38 50 ml PRN PRN Administration Blood transfusion prime and flush PFSH Anesthesia Medical History Chronic kidney disease Stage 3A 11/2023 with GFR 49 Depression Alzheimer disease (~04/2022) 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 07/31/2021 at [facility] Atrial flutter Pacemaker [place] [employer] dual-chamber 08/08/2021 Mild cognitive impairment with memory loss Dyslipidemia Diabetes HTN (hypertension) Surgical History Status post total left knee replacement using cement Hx of hysterectomy Hx of cholecystectomy Hx of breast biopsy Hx of aortic valve replacement Family History Father Congestive heart failure (CHF) Diabetes Myocardial infarction Mother Diabetes Sister Diabetes Family/Other Diabetes Stroke Social History Smoking and tobacco/nicotine status: never used tobacco/nicotine Alcohol intake: never Substance/Drug Use: never Data Anesthesia 12/06/23 05:02 12/06/23 05:02 Short CBC 12/05/23 12/05/23 12/06/23 Range/Units 18:53 19:29 05:02 WBC 15.41 H 12.27 H (3.29-11.43) 10^3/uL Hgb 4.80 L* 4.30 L* 7.00 L D (11.27-16.99) g/dL Hct 15.4 L* 13.6 L* 22.1 L D (36-47) % MCV 110.0 H 99.5 H D (85-98) fl Plt Count 269 236 (157-399) 10^3/cmm Neut % (Auto) 61.3 63.1 % Neut # (Auto) 9.45 H 7.75 H (1.8-7.7) 10^3/uL BMP 12/05/23 12/06/23 18:53 05:02 Sodium 139 145 Potassium 3.6 4.7 Chloride 102 110 H Carbon Dioxide 25 30 H BUN 36 H 32 H Creatinine 1.0 H 0.9 Glucose 273 H 181 H Calcium 8.0 L 7.4 L Liver Function 12/05/23 Range/Units 18:53 Total Bilirubin 0.6 (0.15-1.2) mg/dL AST 13 (0-32) U/L ALT 10 (0-33) U/L Alkaline Phosphatase 70 (35-105) U/L Albumin 3.1 L (3.5-5.2) g/dL Blood Bank 12/05/23 19:40 Blood Type O Positive Rho(D) Type Rh positive Antibody Screen Negative Coags 12/05/23 18:53 PT 25.60 H INR 2.24 H Cardiac Studies: Echocardiogram 05/01/21
[2023-12-06 08:02] LABS: Glucose Point of Care 181 mg/dL (70-110)
[2023-12-06] MEDS: insulin glargine 100 units/1 mL 10 UNIT SUBCUT (08:07)
[2023-12-06 09:01] LABS: Procalcitonin 0.25 ng/mL (0-0.5)
--- NOTE | 2023-12-06 09:04 | PC.NURSE ---
pt to gi lab at approx. 0817
--- NOTE | 2023-12-06 09:20 | PM.MISC ---
Miscellaneous Note Purpose of Documentation: Update on patient care Note: Upper endoscopy was done, no evidence of active bleeding, there is gastritis with a small erosions at the level of the antrum, there is mild duodenitis. Patient can continue high-dose PPI and sucralfate twice daily, is cleared to have p.o. diet and can return to anticoagulation as needed and guided by medical team.
--- NOTE | 2023-12-06 09:30 | ANE.PACU2 ---
Inpatient post-anesthesia follow up: Airway intact: Yes Vital signs: Temperature 98.0 F Pulse Rate 69 Respiratory Rate 19 Blood Pressure 113/53 Pulse Oximetry 96 Oxygen Delivery Me thod Room Air Oxygen Flow Rate Fraction of Inspir ed Oxygen Hydration adequate: Yes Nausea and vomiting: No Pain level: 1 Mental status: Baseline
[2023-12-06] MEDS: acetaminophen 325 mg Tablet 650 MG PO ×2 (10:14→16:49)
[2023-12-06 10:36] LABS: Glucose Point of Care 169 mg/dL (70-110)
[2023-12-06 11:21] LABS: Hematocrit 25.3 % (36-47)
--- NOTE | 2023-12-06 11:26 | P.PN_ITS ---
Subjective 2 Subjective: Patient n.p.o. for endoscopy today. She does endorse pain in her left knee. Orthopedic saw her earlier this morning. We discussed her current hemoglobin is 7. She is okay to proceed with transfusion. Her goal will be above 8. She denies other new complaints. Medications: Reviewed: Yes Vitals/I&O/Wt Last Vital Signs Temp 97.9 F 12/06/23 11:15 Pulse 65 12/06/23 11:06 Resp 19 H 12/06/23 11:06 BP 110/69 12/06/23 11:06 Pulse Ox 96 12/06/23 08:59 O2 Del Method Room Air 12/06/23 08:59 12/05/23 12/06/23 12/06/23 22:59 06:59 14:59 Intake Total 0 / 0 700 / 700 0 / 0 Balance 0 / 0 700 / 700 0 / 0 Weight last 48 hrs Weight 118.5 kg Weight 115 kg Weight 110.677 kg Physical Exam 2 Narrative: General: Patient is awake and alert. Head: Normocephalic. Atraumatic. EOM intact. Mucous membranes. Neck: No JVD. Cardiovascular: RRR. No gallops. No murmurs. Lungs: Clear to auscultation, no use of accessory muscles, no crackles or wheezes. Skin: No jaundice. No rashes. Abdomen: Normal bowel sounds, abdomen soft and nontender. Extremities: No cyanosis or clubbing. Musculoskeletal: Left knee with bandage. Knee is swollen. Tender to palpation. Has ice pack on top. Neurological: Moves all 4 extremities. No myoclonus. Data 12/06/23 11:15 12/06/23 05:02 A&P Assessment and plan (1) Acute blood loss anemia: Acute blood loss anemia Suspected GI bleed Hold anticoagulation and antiplatelets General Surgery evaluating, plan for EGD today Trend hemoglobin with a goal of 7 In ER she is found to have severe acute blood loss anemia. Reviewed vitals, CBC, INR, CMP, ER note, discussed with ER provider. Hemoglobin is down to 4.8- 4.3 in the ER. MCV macrocytic, 110. Platelets normal. Last hemoglobin 8.5 on 12/01, prior to that hemoglobins ranging around 13-14. On anticoagulation with Xarelto also on aspirin, escitalopram, trazodone. Normally not on NSAIDs, received Toradol for pain last admission. Suspect multifactorial acute blood loss anemia, possible upper GI bleed, with melanotic appearing stool found in ER, positive occult, although has rather constipated, denies melena, hematochezia, has not had loose stools or diarrhea; perioperative blood loss. Bruising over left thigh. Receiving 2 units RBC transfusion currently as per discussion with her. Monitor for any transfusion related reaction, risk of TACO, TR AL I, febrile, hemolytic reaction, etc. We will request repeat blood counts tonight after transfusion and in the morning. Hold Xarelto, aspirin, escitalopram, trazodone. She understands he is at risk of blood clots following TKA, but currently unable to continue her medications due to active blood loss. Check CT of the left thigh. General surgery is also consulted, pending assessment. Received 80 mg IV PPI. Continue 40 mg IV twice daily for possible upper GI bleeding. Avoid NSAIDs. (2) History of total knee arthroplasty: Recent left TKA on 11/28 Orthopedic surgery is following CT imaging reviewed, most notable for intramuscular hematoma and tiny gas bubbles She is afebrile, very mild leukocytosis Check procalcitonin Continue PT and OT Analgesics as needed (3) Chronic anticoagulation: Patient is on therapeutic anticoagulation for history of atrial fibrillation Holding DOAC due to anemia and suspected bleed (4) Hx of aortic valve replacement: As above (5) Stenosis of prosthetic aortic valve: As above Qualifiers: Encounter type: initial encounter Qualified Code(s): T82.857A - Stenosis of other cardiac prosthetic devices, implants and grafts, initial encounter Plan HTN: Monitor blood pressures. Monitor for hypotension currently with acute blood loss anemia. Atrial flutter: Hold Xarelto. HLD: Continue statin DM 2: Insulin sliding scale. Lantus dose to 10 units for now, may need adjusting after diet starts CKD Mild cognitive impairment Attestations 2 Medical Necessity Statement*: Patient requires ongoing hospitalization for serial labs, transfusion, and ongoing orthopedic evaluation, EGD, and supportive care. Coding Level of Care Code Acute Code for Chg Fwd Diagnoses Acute blood loss anemia D62 History of total knee arthroplasty Z96.659 Chronic anticoagulation Z79.01 Hx of aortic valve replacement Z95.2 Stenosis of prosthetic aortic valve, initial encounter T82.857A Encounter type: initial encounter
[2023-12-06 17:05] LABS: Glucose Point of Care 227 mg/dL (70-110)
[2023-12-06 21:02] LABS: Glucose Point of Care 192 mg/dL (70-110)
[2023-12-07] VITALS (24 sets, daily range): BP systolic 92–156; BP diastolic 50–95; PULSE 60–94; RESP 12–26; TEMP 36.7–37.1; O2SAT 89–100
[2023-12-07 03:15] LABS: Basophils % 0.4 %; Eosinophils # 0.7 10^3/uL (0.0-0.8); Eosinophils % 6.5 %; Hematocrit 26.3 % (36-47); Lymphocytes # 2.1 10^3/uL (0.8-4.8); Lymphocytes % 20.7 %; Mean Corpuscular HGB Conc 31.6 g/dL (30-55); Mean Corpuscular Hemoglobin 31.6 pg (27-33); Mean Platelet Volume 10.6 fL (7.4-10.4); Monocytes # 0.7 10^3/uL (0.2-0.9); Monocytes % 6.5 %; Neutrophils # 6.46 10^3/uL (1.8-7.7); Neutrophils % 64.9 %; Nucleated Red Blood Cells # 0.3 /100WBC; Nucleated Red Blood Cells % 2.6 %; Platelet Count 250 10^3/cmm (157-399); Red Blood Count 2.63 10^6/uL (3.85-5.65); Red Cell Distribution Width 19.3 % (12.1-15.1); White Blood Count 9.96 10^3/uL (3.29-11.43)
[2023-12-07 03:24] LABS: Glucose Point of Care 164 mg/dL (70-110)
[2023-12-07] MEDS: insulin lispro 100 unit/1 mL SUBCUT ×4 (03:25→23:31)
[2023-12-07 03:34] LABS: Anion Gap 9.2 (5-19); Blood Urea Nitrogen 20 mg/dL (8-23); Calcium 7.8 mg/dL (8.5-10.5); Carbon Dioxide 31 mmol/L (22-29); Chloride 106 mmol/L (98-107); Glomerular Filtration Rate 71.3 mL/min (90-130); Glucose 185 mg/dL (65-115); Osmolality Calculated 301 mOsm/kg (285-295); Potassium 4.2 mmol/L (3.5-5.1); Sodium 142 mmol/L (136-145)
[2023-12-07] MEDS: pantoprazole 40 mg SDV IVP ×2 (05:50→18:28)
--- NOTE | 2023-12-07 06:50 | P.PN_ITS ---
Subjective 2 Subjective: Patient seen and examined this morning. She is steadily improving and feeling better. Kady battery dressing had new batteries were applied and dressing has good seal patient had EGD yesterday. Vitals/I&O/Wt Last Vital Signs Temp 98.2 F 12/07/23 04:00 Pulse 60 12/07/23 06:00 Resp 18 12/07/23 04:00 BP 127/62 12/07/23 04:00 Pulse Ox 100 12/07/23 03:00 O2 Del Method Nasal Cannula 12/07/23 04:00 O2 Flow Rate 2 12/07/23 04:00 12/06/23 12/06/23 12/07/23 14:59 22:59 06:59 Intake Total 830 / 830 444 / 1274 150 / 1424 Output Total 450 / 450 Balance 830 / 830 444 / 1274 -300 / 974 Weight last 48 hrs Weight 262 lb 7.238 oz Weight 261 lb 3.964 oz Weight 253 lb 8.505 oz Weight 244 lb Physical Exam 2 Narrative: Examination of the left knee demonstrates patient has expected postoperative swelling with appreciable ecchymosis and bruising, her compartments are soft compressible to the upper thigh as well as left lower extremity. No erythema or any signs of infection, kady dressing in place with good seal and no saturation noted. Distal pulses are palpable sensations intact to light touch distally she is able to wiggle toes plantarflex and dorsiflex ankle. Data 12/08/23 04:20 12/08/23 04:20 Other Labs: Hemoglobin 8.3, creatinine 0.8, WBC count 9.96 4 AM labs on 12/07/2023 A&P Assessment and plan (1) History of total knee arthroplasty: (2) Chronic anticoagulation: (3) Status post total left knee replacement using cement: (4) Acute blood loss anemia: Plan POD #8 TKA Weight-bear as tolerated to operative lower extremity Ice as needed for pain and swelling Likely transferring out of ICU this evening or tomorrow pain control PT/OT Diabetic diet Kady dressing on in place with good seal, dressing changes as needed if saturated AM labs reviewed and patient continues to trend upward on her hemoglobin 8.3 today Internal medicine on board as primary General Surgery on board perform EGD yesterday?patient has gastritis and on PPI DVT prophylaxis currently has SCDs/foot pump to the left lower extremity- currently holding and will resume per primary Case management on board and working on discharge planning Attestations 2 Medical Necessity Statement*: Ongoing care status post left TKA patient had postoperative anemia and being monitored Coding Level of Care Code Acute Code for Chg Fwd Diagnoses History of total knee arthroplasty Z96.659 Chronic anticoagulation Z79.01 Status post total left knee replacement using cement Z96.652 Acute blood loss anemia D62 Time Spent (min) 15
[2023-12-07] MEDS: insulin glargine 100 units/1 mL 10 UNIT SUBCUT (08:44)
[2023-12-07] MEDS: sennosides 8.6 mg Tablet 17.2 MG PO ×2 (08:44→18:28)
[2023-12-07] MEDS: polyethylene glycol 3350 Pkt 17 gm 34 GM PO (08:52)
--- NOTE | 2023-12-07 09:21 | P.PN_ITS ---
Subjective 2 Subjective: Patient reports she feels better today. She continues to have pain in her left knee. Reports good appetite. Hemoglobin stable. Endorses constipation and agreeable to bowel regimen. Discussed plan of care. Medications: Reviewed: Yes Vitals/I&O/Wt Last Vital Signs Temp 98.7 F 12/07/23 08:00 Pulse 75 12/07/23 08:00 Resp 22 H 12/07/23 08:00 BP 155/65 12/07/23 08:00 Pulse Ox 93 12/07/23 08:00 O2 Del Method Room Air 12/07/23 08:00 O2 Flow Rate 2 12/07/23 04:00 12/06/23 12/07/23 12/07/23 22:59 06:59 14:59 Intake Total 444 / 1274 150 / 1424 240 / 240 Output Total 450 / 450 Balance 444 / 1274 -300 / 974 240 / 240 Weight last 48 hrs Weight 119.046 kg Weight 118.5 kg Weight 115 kg Weight 110.677 kg Physical Exam 2 Narrative: General: Patient is awake and alert. Very pleasant. Head: Normocephalic. Atraumatic. EOM intact. Neck: No JVD. Cardiovascular: RRR. No gallops. No murmurs. Lungs: Clear to auscultation, no use of accessory muscles, no crackles or wheezes. Skin: No jaundice. No rashes. Abdomen: Normal bowel sounds, abdomen soft and nontender. Extremities: No cyanosis or clubbing. Musculoskeletal: Left knee with bandage that is C/D/I. Neurological: Moves all 4 extremities. No myoclonus. Data 12/07/23 02:45 12/07/23 02:45 A&P Assessment and plan (1) Acute blood loss anemia: Acute blood loss anemia EGD reviewed, s/f gastritis Will hold DOAC x 14 days to allow recovery Continue PPI therapy (2) History of total knee arthroplasty: Recent left TKA on 11/28 Orthopedic surgery is following CT imaging reviewed, most notable for intramuscular hematoma and tiny gas bubbles She is afebrile, very mild leukocytosis Check procalcitonin Continue PT and OT Analgesics as needed (3) Chronic anticoagulation: Holding DOAC due to anemia/bleed (4) Hx of aortic valve replacement: As above (5) Stenosis of prosthetic aortic valve: As above Qualifiers: Encounter type: initial encounter Qualified Code(s): T82.857A - Stenosis of other cardiac prosthetic devices, implants and grafts, initial encounter Plan Constipation: Start bowel regimen. Start therapy. HTN: Monitor blood pressures. Atrial flutter: Hold Xarelto. HLD: Continue statin DM 2: Insulin sliding scale. Continue with Lantus dose to 10 units; AM sugar acceptable; continue to monitor CKD: Renally dose medications. Mild cognitive impairment Attestations 2 Medical Necessity Statement*: Patient requires ongoing hospitalization for therapy, bowel regimen, serial labs, and supportive care. Coding Level of Care Code Acute Code for Chg Fwd Diagnoses Acute blood loss anemia D62 History of total knee arthroplasty Z96.659 Chronic anticoagulation Z79.01 Hx of aortic valve replacement Z95.2 Stenosis of prosthetic aortic valve, initial encounter T82.857A Encounter type: initial encounter
[2023-12-07 10:38] LABS: Glucose Point of Care 203 mg/dL (70-110)
[2023-12-07 15:38] LABS: Glucose Point of Care 208 mg/dL (70-110)
[2023-12-07 23:30] LABS: Glucose Point of Care 254 mg/dL (70-110)
[2023-12-08] VITALS (21 sets, daily range): BP systolic 103–158; BP diastolic 55–108; PULSE 77–97; RESP 14–22; TEMP 36.8; O2SAT 90–99
[2023-12-08 03:34] LABS: Glucose Point of Care 141 mg/dL (70-110)
[2023-12-08] MEDS: insulin lispro 100 unit/1 mL SUBCUT ×3 (03:36→18:33)
[2023-12-08 05:06] LABS: Basophils % 0.5 %; Eosinophils # 0.4 10^3/uL (0.0-0.8); Hematocrit 27.2 % (36-47); Lymphocytes # 1.8 10^3/uL (0.8-4.8); Lymphocytes % 20.7 %; Mean Corpuscular HGB Conc 31.6 g/dL (30-55); Mean Corpuscular Hemoglobin 31.9 pg (27-33); Mean Corpuscular Volume 100.7 fl (85-98); Mean Platelet Volume 10.3 fL (7.4-10.4); Monocytes # 0.6 10^3/uL (0.2-0.9); Monocytes % 7.4 %; Neutrophils # 5.82 10^3/uL (1.8-7.7); Neutrophils % 66.8 %; Nucleated Red Blood Cells # 0.1 /100WBC; Nucleated Red Blood Cells % 0.8 %; Platelet Count 273 10^3/cmm (157-399); Red Cell Distribution Width 19.6 % (12.1-15.1)
[2023-12-08 05:35] LABS: Anion Gap 11.5 (5-19); Blood Urea Nitrogen 17 mg/dL (8-23); Carbon Dioxide 30 mmol/L (22-29); Chloride 103 mmol/L (98-107); Creatinine Clr Calc Pharmacy 92.7971; Glomerular Filtration Rate 83.2 mL/min (90-130); Glucose 142 mg/dL (65-115); Osmolality Calculated 294 mOsm/kg (285-295); Potassium 4.5 mmol/L (3.5-5.1); Sodium 140 mmol/L (136-145)
[2023-12-08] MEDS: pantoprazole 40 mg SDV IVP ×2 (05:41→18:33)
--- NOTE | 2023-12-08 07:59 | PM.PN ---
Subjective Subjective: Patient doing well, no significant abdominal pain, tolerating food. Only complaint is constipation from the GI standpoint. Vitals/I&O/Wt Last Vital Signs Temp 98.2 F 12/08/23 04:00 Pulse 86 12/08/23 06:00 Resp 14 12/08/23 06:00 BP 126/70 12/08/23 06:00 Pulse Ox 96 12/08/23 06:00 O2 Del Method Nasal Cannula 12/08/23 06:00 O2 Flow Rate 2 12/07/23 04:00 12/07/23 12/08/23 12/08/23 22:59 06:59 14:59 Intake Total 702 / 1182 0 / 1182 Output Total 600 / 700 350 / 1050 Balance 102 / 482 -350 / 132 Weight last 48 hrs Weight 261 lb 3.964 oz Weight 261 lb 3.964 oz Weight 262 lb 7.238 oz Physical Exam GI: OTHER: Abdomen soft nontender nondistended. Data 12/08/23 04:20 12/08/23 04:20 A&P Assessment and plan (1) Acute upper GI bleed: Plan Patient doing well from our standpoint, hemoglobin has remained stable and is steadily trending up. Agree with continuing PPI to allow healing of her gastritis. She can follow-up in my clinic as outpatient in 2 weeks. No additional intervention is planned from the general surgery standpoint. General surgery signed off but will remain available as needed. Attestations Medical Necessity Statement*: Per medical team. Coding Level of Care Code Acute Code for [facility] Fwd Diagnoses Acute upper GI bleed K92.2
[2023-12-08] MEDS: insulin glargine 100 units/1 mL 10 UNIT SUBCUT (08:49)
[2023-12-08] MEDS: polyethylene glycol 3350 Pkt 17 gm 34 GM PO (08:49)
[2023-12-08] MEDS: lactulose oral liq 20 gm/30 mL UDC PO (08:49)
[2023-12-08] MEDS: sennosides 8.6 mg Tablet 17.2 MG PO ×2 (08:49→18:33)
[2023-12-08 10:55] LABS: Glucose Point of Care 190 mg/dL (70-110)
--- NOTE | 2023-12-08 12:00 | PC.SOCIAL ---
IMM Updated IMM dated and initialed and placed in chart and copy given to patient.
--- NOTE | 2023-12-08 12:09 | P.PN_ITS ---
Subjective 2 Subjective: Patient is awake and alert. Very pleasant. Overall improving well. She continues to have constipation without bowel movement despite starting stool softener and fiber. She is agreeable to escalating to trial of bowel stimulant today. Discussed hemoglobin stable. Will allow time for gastritis to heal prior to reinitiation of DOAC. She is working with therapy. Plans to return to postacute rehabilitation when ready. Medications: Reviewed: Yes Vitals/I&O/Wt Last Vital Signs Temp 98.2 F 12/08/23 04:00 Pulse 82 12/08/23 09:30 Resp 15 12/08/23 09:30 BP 133/74 12/08/23 09:30 Pulse Ox 90 12/08/23 09:30 O2 Del Method Room Air 12/08/23 09:30 O2 Flow Rate 2 12/07/23 04:00 12/07/23 12/08/23 12/08/23 22:59 06:59 14:59 Intake Total 702 / 1182 0 / 1182 240 / 240 Output Total 600 / 700 350 / 1050 Balance 102 / 482 -350 / 132 240 / 240 Weight last 48 hrs Weight 118.5 kg Weight 118.5 kg Weight 119.046 kg Physical Exam 2 Narrative: General: Patient is awake and alert. Very pleasant. Conversational. Head: Normocephalic. Atraumatic. EOM intact. Neck: No JVD. Cardiovascular: RRR. No gallops. No murmurs. Lungs: Clear to auscultation, no use of accessory muscles, no crackles or wheezes. Skin: No jaundice. No rashes. Abdomen: Normal bowel sounds, abdomen soft and nontender. Extremities: No cyanosis or clubbing. Musculoskeletal: Left knee with bandage that is C/D/I. Neurological: Moves all 4 extremities. No myoclonus. Data 12/08/23 04:20 12/08/23 04:20 A&P Assessment and plan (1) Acute blood loss anemia: Acute blood loss anemia secondary to GI bleed secondary to gastritis Continue holding anticoagulation and antiplatelets, will hold DOAC for 14 days Continue PPI treatment for gastritis Hemoglobin now stable (2) History of total knee arthroplasty: Recent left TKA on 11/28 Orthopedic surgery is following Continue PT and OT Analgesics as needed Case management arranging postacute rehabilitation (3) Chronic anticoagulation: Will hold DOAC for 14 days to him about healing (4) Hx of aortic valve replacement: As above (5) Stenosis of prosthetic aortic valve: As above Qualifiers: Encounter type: initial encounter Qualified Code(s): T82.857A - Stenosis of other cardiac prosthetic devices, implants and grafts, initial encounter Plan Constipation: Patient remains persistently constipated despite initiation of stool softener and MiraLAX. Will continue dose with additional lactulose dosing today. Encourage out of bed as tolerated with therapy which may help with constipation symptoms. HTN: Monitor blood pressures. Atrial flutter: Hold Xarelto. Management noted above. HLD: Continue statin DM 2: Insulin sliding scale. A.m. glucose 142, will continue with current Lantus dosing. CKD: Renally dose medications as needed Mild cognitive impairment Attestations 2 Medical Necessity Statement*: Patient requires ongoing hospitalization for therapy, bowel regimen, serial labs, and supportive care. Coding Level of Care Code Acute Code for Chg Fwd Diagnoses Acute blood loss anemia D62 History of total knee arthroplasty Z96.659 Chronic anticoagulation Z79.01 Hx of aortic valve replacement Z95.2 Stenosis of prosthetic aortic valve, initial encounter T82.857A Encounter type: initial encounter
--- NOTE | 2023-12-08 16:27 | PC.NURSE ---
Report was given to Leo in [facility]. Patient was transported to [facility] with no complications.
--- NOTE | 2023-12-08 20:23 | P.PN_ITS ---
Subjective 2 Subjective: Patient seen and examined this evening. Patient is recovering well she is moved out of the ICU back up to the floor hemoglobin continues to trend upward her complexion looks good she has gotten up and started working with therapy she does have some edema in the left lower extremity we talked about starting up on some CHICHO hose to help with her swelling. Currently planning on rehab facility at discharge Vitals/I&O/Wt Last Vital Signs Temp 98.3 F 12/08/23 20:00 Pulse 89 12/08/23 20:00 Resp 17 12/08/23 20:00 BP 149/76 12/08/23 20:00 Pulse Ox 99 12/08/23 20:00 O2 Del Method Room Air 12/08/23 16:00 O2 Flow Rate 2 12/07/23 04:00 12/08/23 12/08/23 12/08/23 06:59 14:59 22:59 Intake Total 0 / 1182 240 / 240 Output Total 350 / 1050 Balance -350 / 132 240 / 240 Weight last 48 hrs Weight 261 lb 3.964 oz Weight 261 lb 3.964 oz Weight 262 lb 7.238 oz Physical Exam 2 Narrative: Examination of the left knee demonstrates patient has normal postoperative swelling with appreciable ecchymosis and bruising her compartments are soft compressible to the upper thigh as well as left lower extremity. No erythema or any signs of infection her iraj dressings on in place with good seal no saturation appreciated. Her swelling does appear to be slowly downtrending/improving. Distal pulses are palpable sensations intact to light touch distally she is able to wiggle toes plantarflex and dorsiflex ankle. Data 12/08/23 04:20 12/08/23 04:20 A&P Assessment and plan (1) History of total knee arthroplasty: (2) Chronic anticoagulation: (3) Status post total left knee replacement using cement: (4) Acute blood loss anemia: Plan POD #9 TKA Weight-bear as tolerated to operative lower extremity Ice as needed for pain and swelling CHICHO hose compression socks for swelling pain control PT/OT Diabetic diet Iraj dressing on in place with good seal, dressing changes as needed if saturated AM labs reviewed and patient continues to trend upward on her hemoglobin 8.6 today Internal medicine on board as primary DVT prophylaxis currently has SCDs/foot pump to the left lower extremity- currently holding and will resume per primary Case management on board and working on discharge planning Attestations 2 Medical Necessity Statement*: Ongoing care status post left TKA patient had postoperative anemia and being monitored Coding Level of Care Code Acute Code for Chg Fwd Diagnoses History of total knee arthroplasty Z96.659 Chronic anticoagulation Z79.01 Status post total left knee replacement using cement Z96.652 Acute blood loss anemia D62 Time Spent (min) 15
[2023-12-09] VITALS (11 sets, daily range): BP systolic 153–181; BP diastolic 74–84; PULSE 85–112; RESP 16–20; TEMP 36.5–37; O2SAT 91–97
[2023-12-09 04:58] LABS: Basophils # 0.1 10^3/uL (0.0-0.1); Basophils % 0.5 %; Eosinophils # 0.3 10^3/uL (0.0-0.8); Hematocrit 32.4 % (36-47); Lymphocytes # 3.2 10^3/uL (0.8-4.8); Mean Corpuscular HGB Conc 30.6 g/dL (30-55); Mean Corpuscular Hemoglobin 31.2 pg (27-33); Mean Corpuscular Volume 102.2 fl (85-98); Mean Platelet Volume 10.5 fL (7.4-10.4); Monocytes # 0.6 10^3/uL (0.2-0.9); Monocytes % 6.2 %; Neutrophils # 5.77 10^3/uL (1.8-7.7); Neutrophils % 57.8 %; Nucleated Red Blood Cells % 0.3 %; Platelet Count 341 10^3/cmm (157-399); Red Blood Count 3.17 10^6/uL (3.85-5.65); Red Cell Distribution Width 19.5 % (12.1-15.1); White Blood Count 9.99 10^3/uL (3.29-11.43)
[2023-12-09] MEDS: pantoprazole 40 mg SDV IVP ×2 (07:15→17:32)
[2023-12-09 07:50] LABS: Glucose Point of Care 140 mg/dL (70-110)
[2023-12-09 07:50] LABS: Glucose Point of Care 224 mg/dL (70-110)
[2023-12-09 07:51] LABS: Glucose Point of Care 201 mg/dL (70-110)
--- NOTE | 2023-12-09 07:59 | XR_ITS ---
WS: [id number] KUB, AP view, Clinical Data: Assess colonic stool burden Comparison: None. Findings: No abnormal intraabdominal masses or calcifications are seen. There is no dilatated small bowel or ev idence of obstruction. There is fecal material throughout the colon. There are clips in the right upper quadrant from a chol ecystectomy. There are monitor leads on the abdominal wall. XR/XR abdomen 1V* [id number] Impression: Large amount of fecal material in the colon.
[2023-12-09] MEDS: sennosides 8.6 mg Tablet 17.2 MG PO ×2 (08:17→17:31)
[2023-12-09] MEDS: polyethylene glycol 3350 Pkt 17 gm 34 GM PO (08:17)
[2023-12-09] MEDS: insulin lispro 100 unit/1 mL SUBCUT ×4 (08:18→21:00)
[2023-12-09] MEDS: bisacodyl 5 mg Tablet 10 MG PO (08:34)
[2023-12-09] MEDS: methylnaltrexone 12 /0.6 mL INJ 12 MG SUBCUT (08:34)
[2023-12-09] MEDS: insulin glargine 100 units/1 mL 10 UNIT SUBCUT (08:34)
--- NOTE | 2023-12-09 08:52 | P.PN_ITS ---
Subjective 2 Subjective: Patient reports she is feeling better overall. Knee pain is present but controlled on current pain medications. Still no bowel movement. Reports feelings of constipation at times. Appetite is okay. She is agreeable to KUB and escalation of bowel regiment. Medications: Reviewed: Yes Vitals/I&O/Wt Last Vital Signs Temp 98.2 F 12/09/23 07:55 Pulse 86 12/09/23 07:55 Resp 17 12/09/23 07:55 BP 179/80 12/09/23 07:55 Pulse Ox 95 12/09/23 07:55 O2 Del Method Room Air 12/09/23 07:55 O2 Flow Rate 2 12/07/23 04:00 12/08/23 12/09/23 12/09/23 22:59 06:59 14:59 Intake Total 500 / 740 350 / 1090 240 / 240 Balance 500 / 740 350 / 1090 240 / 240 Weight last 48 hrs Weight 116.573 kg Weight 118.5 kg Weight 118.5 kg Physical Exam 2 Narrative: General: Patient is awake and alert. Very pleasant. Conversational. Head: Normocephalic. Atraumatic. EOM intact. Neck: No JVD. Cardiovascular: RRR. No gallops. No murmurs. Lungs: Clear to auscultation, no use of accessory muscles, no crackles or wheezes. Skin: No jaundice. No rashes. Abdomen: Normal bowel sounds. Abdomen very slightly distended. Not tender. Extremities: No cyanosis or clubbing. Musculoskeletal: Left knee with bandage that is C/D/I. Neurological: Moves all 4 extremities. No myoclonus. Data 12/09/23 04:25 12/08/23 04:20 A&P Assessment and plan (1) Acute blood loss anemia: Acute blood loss anemia secondary to GI bleed secondary to gastritis Continue holding anticoagulation and antiplatelets, will hold DOAC for 14 days Continue PPI treatment for gastritis Hemoglobin continues to improve (2) History of total knee arthroplasty: Recent left TKA on 11/28 Orthopedic surgery is following Continue PT and OT Analgesics as needed Case management arranging postacute rehabilitation (3) Chronic anticoagulation: Will hold DOAC for 14 days to him about healing (4) Hx of aortic valve replacement: As above (5) Stenosis of prosthetic aortic valve: As above Qualifiers: Encounter type: initial encounter Qualified Code(s): T82.857A - Stenosis of other cardiac prosthetic devices, implants and grafts, initial encounter Plan Constipation: Patient persists with constipation despite slow escalation of bowel regiment. Will obtain KUB to look at colonic stool burden. She may benefit from a per rectum medication if there is significant colonic stool. Otherwise we will continue with stool softener, fiber, and add alternative stimulant laxative orally. HTN: Monitor blood pressures. Atrial flutter: Hold Xarelto. Management noted above. HLD: Continue statin DM 2: Insulin sliding scale. Continue Lantus. CKD: Renally dose medications as needed Mild cognitive impairment Attestations 2 Medical Necessity Statement*: Patient requires ongoing hospitalization for therapy, bowel regimen, serial labs, and supportive care. Coding Level of Care Code Acute Code for Chg Fwd Diagnoses Acute blood loss anemia D62 History of total knee arthroplasty Z96.659 Chronic anticoagulation Z79.01 Hx of aortic valve replacement Z95.2 Stenosis of prosthetic aortic valve, initial encounter T82.857A Encounter type: initial encounter
[2023-12-09 10:45] LABS: Glucose Point of Care 237 mg/dL (70-110)
[2023-12-09] MEDS: acetaminophen 325 mg Tablet 650 MG PO ×2 (12:32→20:06)
[2023-12-09] MEDS: bisacodyl 10 mg Supp PR (12:33)
--- NOTE | 2023-12-09 14:56 | PC.OT ---
OT TREATMENT ATTEMPTED IN P.M. PATIENT HAS RECENTLY BEEN ON BSC AFTER BOWEL MOVEMENT AND REQUESTS TO REST AT THIS TIME.
[2023-12-09 16:35] LABS: Glucose Point of Care 158 mg/dL (70-110)
--- NOTE | 2023-12-09 17:15 | PM.PN ---
Vitals/I&O/Wt Last Vital Signs Temp 97.9 F 12/10/23 12:00 Pulse 87 12/10/23 12:00 Resp 17 12/10/23 12:00 BP 153/83 12/10/23 12:00 Pulse Ox 92 12/10/23 12:00 O2 Del Method Room Air 12/10/23 12:00 O2 Flow Rate 2 12/07/23 04:00 12/09/23 12/10/23 12/10/23 22:59 06:59 14:59 Intake Total 120 / 480 240 / 240 Output Total 200 / 200 Balance 120 / 480 40 / 40 Weight last 48 hrs Weight 262 lb 4 oz Weight 257 lb Data 12/09/23 04:25 12/08/23 04:20 Coding Level of Care Code Acute Code for Chg Fwd
[2023-12-09 20:38] LABS: Glucose Point of Care 258 mg/dL (70-110)
[2023-12-10] VITALS (7 sets, daily range): BP systolic 132–153; BP diastolic 68–96; PULSE 87–103; RESP 15–18; TEMP 36.6–36.7; O2SAT 92–96
[2023-12-10] MEDS: pantoprazole 40 mg SDV IVP (05:14)
[2023-12-10 06:27] LABS: Glucose Point of Care 182 mg/dL (70-110)
[2023-12-10] MEDS: insulin lispro 100 unit/1 mL SUBCUT ×2 (08:43→11:51)
[2023-12-10] MEDS: insulin glargine 100 units/1 mL 10 UNIT SUBCUT (08:45)
[2023-12-10] MEDS: sennosides 8.6 mg Tablet 17.2 MG PO (08:50)
[2023-12-10] MEDS: polyethylene glycol 3350 Pkt 17 gm 34 GM PO (08:53)
[2023-12-10 11:11] LABS: Glucose Point of Care 191 mg/dL (70-110)
--- NOTE | 2023-12-10 11:22 | P.DS_ITS ---
Discharge Providers Date of Admission: 12/05/23 20:04 Date of Discharge: December 10, 2023 Attending Provider at Admission: Samir Delgado Attending Provider at Discharge: Delvis Miles MD Consults: Orthopedic surgery General Surgery Primary Care Provider: Louann Rodriguez MD Diagnoses at Discharge Discharge Diagnosis (1) Acute blood loss anemia: Status: Resolved (2) History of total knee arthroplasty: Status: Inactive (3) Chronic anticoagulation: Status: Inactive Permanent problem details: xarelto for atrial fibrillation (4) Hx of aortic valve replacement: Status: Inactive (5) Stenosis of prosthetic aortic valve: Status: Inactive Qualifiers: Encounter type: initial encounter Qualified Code(s): T82.857A - Stenosis of other cardiac prosthetic devices, implants and grafts, initial encounter Permanent problem details: s/p redo AVR 07/31/2021 at [facility] Reason for Visit Reason for Visit: HIGH BLOOD SUGAR Hospital Course Hospital Course Rosie Delgado is a very pleasant 68-year-old female with a past medical history significant for atrial flutter on Xarelto, chronic kidney disease stage IIIa, dyslipidemia, hypertension, and type 2 diabetes mellitus who presented from group home facility with generalized weakness and nausea, found to have acute blood loss anemia secondary to acute upper GI bleed from gastritis. She was treated with pantoprazole drip, multiple blood transfusions, and holding of DOAC and antiplatelet medications. General surgery was consulted and she underwent endoscopy revealing gastritis without active bleed. Hemoglobin stab ilized postprocedure. Risk benefits and alternatives were discussed regarding holding antiplatelet and anticoagulation to promote healing in the setting of recent life-threatening GI bleed. To balance stroke, deep vein thrombosis, and recurrent bleeding risk, patient will hold aspirin and Xarelto for total of 14 days. Recommend repeating labs at the time of reinitiation of both aspirin and Xarelto which will be around December 19. Orthopedic surgery consulted and followed. CT imaging was obtained to evaluate for any postop complications. Postop hematoma was noted. There was some small gas bubbles likely secondary to recent block. There was no subjective or objective evidence of infection. Patient strength ultimately improved and she was ambulating with walker in therapy. Initially plan was to return to group home facility for continued rehabilitation however given patient's outstanding progress with therapy she ultimately chose to return home with initiation of home therapy. Patient discharged to home with family with home health. She will follow-up with her outpatient providers for further care. Physical Exam Narrative: General: Patient is awake and alert. Conversational. Head: Normocephalic. Atraumatic. EOM intact. Neck: No JVD. Cardiovascular: RRR. No gallops. No murmurs. Lungs: Clear to auscultation, no use of accessory muscles, no crackles or wheezes. Skin: No jaundice. No rashes. Abdomen: Normal bowel sounds. Not distended. Not tender. Extremities: No cyanosis or clubbing. Musculoskeletal: Left knee with bandage C/D/I. Neurological: Moves all 4 extremities. No myoclonus. Discharge Data Studies Completed and Pending Completed Studies During Hospitalization Category Date Time Status CT femur LT wo con* [id number] Routine Cat Scan 12/05/23 21:53 Completed XR abdomen 1V* [id number] Routine Exams 12/09/23 07:59 Completed Radiology Impressions Femur CT 12/05/23 21:53 IMPRESSION: 1. Status post left TKA.Vastus intermedialis muscle belly is enlarged and edematous secondary to the presence of prominent hyperdense intramuscular hematoma extending from the level of the left femoral mid diaphysis down the level of the femoral metaphysis. Entire vastus medialis muscle belly is edematous, with indistinctness of its margins and mild surrounding fatty induration/edema. Numerous tiny gas bubbles within both of these muscle bellies extending from the level of the mid thigh down to just above the knee; this is suspicious for the presence of gas producing organisms with infection. Cannot exclude phlegmon/infected hematoma in these regions. 2. Moderate left knee joint effusion. cannot exclude infectious complication 3. Mild diffuse deep soft tissue fatty induration/edema surrounding the visualized left thigh and left upper calf muscle bellies; cannot exclude diffuse myositis 4. Mild diffuse subcutaneous soft tissue swelling and edema. 5. Chronic findings as above . Abdomen X-Ray 12/09/23 07:59 Impression: Large amount of fecal material in the colon. Laboratory Results WBC 9.99 10^3/uL (3.29-11.43) 12/09/23 04:25 RBC 3.17 10^6/uL (3.85-5.65) L 12/09/23 04:25 Hgb 9.90 g/dL (11.27-16.99) L 12/09/23 04:25 Hct 32.4 % (36-47) L 12/09/23 04:25 MCV 102.2 fl (85-98) H 12/09/23 04:25 MCH 31.2 pg (27-33) 12/09/23 04:25 MCHC 30.6 g/dL (30-55) 12/09/23 04:25 RDW 19.5 % (12.1-15.1) H 12/09/23 04:25 Plt Count 341 10^3/cmm (157-399) 12/09/23 04:25 MPV 10.5 fL (7.4-10.4) H 12/09/23 04:25 Neut % (Auto) 57.8 % 12/09/23 04:25 Lymph % (Auto) 32.0 % 12/09/23 04:25 Polk % (Auto) 6.2 % 12/09/23 04:25 Eos % (Auto) 3.0 % 12/09/23 04:25 Baso % (Auto) 0.5 % 12/09/23 04:25 Neut # (Auto) 5.77 10^3/uL (1.8-7.7) 12/09/23 04:25 Lymph # (Auto) 3.2 10^3/uL (0.8-4.8) 12/09/23 04:25 Polk # (Auto) 0.6 10^3/uL (0.2-0.9) 12/09/23 04:25 Eos # (Auto) 0.3 10^3/uL (0.0-0.8) 12/09/23 04:25 Baso # (Auto) 0.1 10^3/uL (0.0-0.1) 12/09/23 04:25 Nucleated RBC % (auto) 0.3 % 12/09/23 04:25 Nucleated RBCs # 0.0 /100WBC 12/09/23 04:25 PT 25.60 SECONDS (12.1-14.9) H 12/05/23 18:53 INR 2.24 (0.8-1.2) H 12/05/23 18:53 Sodium 140 mmol/L (136-145) 12/08/23 04:20 Potassium 4.5 mmol/L (3.5-5.1) 12/08/23 04:20 Chloride 103 mmol/L (98-107) 12/08/23 04:20 Carbon Dioxide 30 mmol/L (22-29) H 12/08/23 04:20 Anion Gap 11.5 (5-19) 12/08/23 04:20 BUN 17 mg/dL (8-23) 12/08/23 04:20 Creatinine 0.7 mg/dL (0.5-0.9) 12/08/23 04:20 GFR Calculation 83.2 mL/min (90-130) L 12/08/23 04:20 Glucose 142 mg/dL (65-115) H 12/08/23 04:20 POC Glucose 191 mg/dL (70-110) H 12/10/23 11:08 Calculated Osmolality 294 mOsm/kg (285-295) 12/08/23 04:20 Calcium 8.0 mg/dL (8.5-10.5) L 12/08/23 04:20 Total Bilirubin 0.6 mg/dL (0.15-1.2) 12/05/23 18:53 AST 13 U/L (0-32) 12/05/23 18:53 ALT 10 U/L (0-33) 12/05/23 18:53 Alkaline Phosphatase 70 U/L (35-105) 12/05/23 18:53 Total Protein 5.1 g/dL (6.6-8.7) L 12/05/23 18:53 Albumin 3.1 g/dL (3.5-5.2) L 12/05/23 18:53 Globulin 2.0 g/dL (1.3-4.6) 12/05/23 18:53 Lipase 19 U/L (13-60) 12/05/23 18:53 Procalcitonin 0.25 ng/mL (0-0.5) 12/06/23 05:02 Blood Type O Positive 12/05/23 19:40 Rho(D) Type Rh positive 12/05/23 19:40 Antibody Screen Negative 12/05/23 19:40 Crossmatch See Detail 12/05/23 19:40 Procedures Performed EGD Vitals Last Vital Signs Temp 97.8 F 12/10/23 08:00 Pulse 95 12/10/23 08:00 Resp 15 12/10/23 08:00 BP 142/96 12/10/23 08:00 Pulse Ox 96 12/10/23 08:00 O2 Del Method Room Air 12/10/23 04:00 O2 Flow Rate 2 12/07/23 04:00 Discharge Plan Discharge Patient Disposition: Home Health Service Condition: Stable Prescriptions: New pantoprazole 40 mg tablet,delayed release (DR/EC) 40 mg PO BID 30 Days Qty: 60 1RF hydromorphone 4 mg Tablet 4 mg PO Q4H PRN (Reason: PAIN 1-10) 7 Days Qty: 20 0RF Continued escitalopram oxalate 20 mg tablet 20 mg PO BEDTIME (DME) Diabetic shoes with insoles See Rx Instructions .Route .MEDSUPPLY Qty: 1 0RF Rx Instructions: As directed by [facility] cetirizine 10 mg tablet 10 mg PO DAILY PRN (Reason: allergies) acarbose 25 mg tablet 25 mg PO TID Qty: 90 1RF Rx Instructions: take 3x/day before meals insulin glargine [Lantus Solostar U-100 Insulin] 100 unit/mL (3 mL) insulin pen 20 unit SUBCUT DAILY atorvastatin 40 mg tablet 40 mg PO DAILY bupropion HCl 200 mg tablet sustained-release 12 hr 400 mg PO BEDTIME metoprolol succinate 25 mg tablet extended release 24 hr 12.5 mg PO BEDTIME galantamine 8 mg tablet 8 mg PO BID Rx Instructions: TAKE ONE TABLET BY MOUTH TWICE DAILY WITH MORNING AND EVENING MEALS, WATCH FOR NAUSEA trazodone 50 mg tablet 50 mg PO BEDTIME glipizide 10 mg tablet extended release 24hr 20 mg PO DAILY albuterol sulfate 90 mcg/actuation HFA aerosol inhaler 1 puff INHALATION Q4H PRN (Reason: Shortness Of Breath) ondansetron 4 mg tablet,disintegrating 4 mg PO TID PRN (Reason: Nausea) Held aspirin 81 mg tablet,chewable 81 mg PO BEDTIME Hold Instructions: Resume on 12/20/23. Hold aspirin for 2 weeks. Recommend follow-up with PCP with labs prior to restarting. Xarelto 20 mg tablet 20 mg PO QPM Hold Instructions: Resume on 12/20/23. Hold Xarelto for a total of 2 weeks. Recommend follow-up with PCP with labs prior to restarting. Discharge Orders: Discharge Order (Routine); Ordered 12/10/23 Ordered By: Delvis Miles Other Ambulatory Orders: DME: Walker (Order) Location: None Selected Ordered By: Delvis Miles Referrals: [facility] [Outside] [facility] [place] [Outside] Louann Rodriguez MD [Primary Care Provider] - 12/15/23 11:00 am Alvino Ashby DO [Physician] - 12/15/23 1:30 pm (Next week at scheduled appointment) Discharge Diet: Advance as tolerated and Usual diet Discharge Activity: Increase activity as tolerated, Use walker/crutches as instructed and As per PT/OT instructions Patient Instructions: Anemia, Hydromorphone (By mouth), Pantoprazole (By mouth), Gastrointestinal Bleeding (GEN), GI Post Discharge Instructions w/ Anesthesia, Opioid Safety Activity Restrictions/Additional Instructions: Orthopedic discharge instructions: Iraj Dressing--Keep dressing on and dry. After 3 days you can remove some of the dressing and shower. disconnect battery pack when showering. Iraj dressing will stay on until follow up appt in 2 weeks. The battery pack for the dressing will at 5-7 days. Battery pack can be removed and discarded once batteries . Patient may weight-bear as tolerate to the operative extremity Utilize crutches/walker as needed Encourage knee range of motion Ice and elevate as needed for pain and swelling Take pain medication as prescribed Take antinausea medication as needed Use CHICHO hose as needed for swelling and DVT prophylaxis Pain medication can cause constipation. take [id number] stool softeners and or MiraLAX. Hold and resume your blood thinner per the instructions of the primary physician No baths or soaks Follow-up in the orthopedic office in 2 weeks Contact the office for any questions or concerns Discharge Attestations Time Spent in Discharge Care*: greater than 30 min Quality Metrics Clinical Quality Measures [ No reported AMI, CVA or VTE this stay] Coding Level of Care Code Acute Code for Chg Fwd Diagnoses Acute blood loss anemia D62 History of total knee arthroplasty Z96.659 Chronic anticoagulation Z79.01 Hx of aortic valve replacement Z95.2 Stenosis of prosthetic aortic valve, initial encounter T82.857A Encounter type: initial encounter
--- NOTE | 2023-12-10 11:32 | PC.SOCIAL ---
IMM Updated Updated pt on IMM. No questions voiced. Provided pt a copy. Initialed, dated, & timed copy in chart.
== END 2023-12-10 15:47 | disposition home health service (06) | DRG 378 ==
LOC: ER 20:17 → ICU 20:36 → MEDSURG 12-08 17:04
PROVIDERS: Surgery; Admitting Provider Internal Medicine; Emergency Provider Emergency Medicine; PCP Family Medicine; Visit Provider Internal Medicine
PROC: 0DJ08ZZ Inspection of Upper Intestinal Tract, Via Natural or Artificial Opening Endoscopic (ICD-10-PCS; CPT 43235; principal; 2023-12-06 11:45)
DX: K29.01 Acute gastritis with bleeding (principal); D62 Acute posthemorrhagic anemia; T82.857A Stenosis of other cardiac prosthetic devices, implants and grafts, initial encounter; I48.92 Unspecified atrial flutter; Z96.652 Presence of left artificial knee joint; E78.5 Hyperlipidemia, unspecified; E11.22 Type 2 diabetes mellitus with diabetic chronic kidney disease; I12.9 Hypertensive chronic kidney disease with stage 1 through stage 4 chronic kidney disease, or unspecified chronic kidney disease; N18.31 Chronic kidney disease, stage 3a; I48.91 Unspecified atrial fibrillation; G30.9 Alzheimer's disease, unspecified; F02.80 Dementia in other diseases classified elsewhere, unspecified severity, without behavioral disturbance, psychotic disturbance, mood disturbance, and anxiety; Z79.01 Long term (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 anticoagulants; Z95.2 Presence of prosthetic heart valve; Z79.899 Other long term (current) drug therapy; Z79.82 Long term (current) use of aspirin; Z79.4 Long term (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 insulin; Z88.8 Allergy status to other drugs, medicaments and biological substances; Z88.5 Allergy status to narcotic agent; Z79.85 Long-term (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 injectable non-insulin antidiabetic drugs; Z90.710 Acquired absence of both cervix and uterus; Z90.49 Acquired absence of other specified parts of digestive tract; Z82.49 Family history of ischemic heart disease and other diseases of the circulatory system; Z95.0 Presence of cardiac pacemaker; K29.80 Duodenitis without bleeding; Z79.02 Long term (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 antithrombotics/antiplatelets
CPT/HCPCS: 36415; 36416; 36430; 43235; 73700; 74018; 80048; 80053; 82962; 83690; 84145; 85014; 85018; 85025; 85610; 86850; 86900; 86920; 96372; 96374; 96375; 96376; 97110; 97116; 97161; 97165; 97530; 97535; 99285; J1815; J2212; J2405; J2470; J2704; J7030; P9016

== ENCOUNTER → 2023-12-14 15:26 | Outpatient (BNVA) | payer MEDICARE, SELFPAY | PROVIDERS: PCP Family Medicine; Visit Provider Student in an Organized Health Care Education/Training Program | DX: Z96.652 Presence of left artificial knee joint (principal) | CPT/HCPCS: 73560; 73565 ==

== ENCOUNTER → 2024-01-05 08:59 | Outpatient (BNVA) | payer MEDICARE, SELFPAY | PROVIDERS: PCP Family Medicine; Visit Provider Podiatrist Foot & Ankle Surgery | DX: S82.891A Other fracture of right lower leg, initial encounter for closed fracture (principal); W18.2XXA Fall in (into) shower or empty bathtub, initial encounter; D64.9 Anemia, unspecified | CPT/HCPCS: 99214 ==

== ENCOUNTER 2024-01-19 12:24 | Outpatient (CLI) | payer MEDICARE, SELFPAY ==
--- NOTE | 2024-01-19 12:30 | XR_ITS ---
WS: [id number] SCREENING DEXA SCAN [employer] CLINICAL INFORMATION: POSTMENOPAUSAL COMPARISON: 2021 FINDINGS: The L1-L4 bone mineral density measures 1.414 g/cm2. This corresponds to a T score score of 1.9 and Z score of 2.4. Left femoral neck bone mineral density measures 1.088 g/cm2. This corresponds to a T score of 0.6 and Z score of 1.2. Right femoral neck bone mineral density measures 1.037 g/cm2. This corresponds to a T score 0.2of and Z score of 0.8. Mean femoral neck bone mineral density measures 1.063 g/cm2. This corresponds to a T score of 0.4 and Z score of 1.0. XR/XR DEXA axial skeleton* 12535 IMPRESSION: Normal bone mineralization. Patient's FRAX calculated 10 year probability for major osteoporotic fracture i s 11.1% and osteoporotic hip fracture is 0.6%. Bone mineral density lumbar spine increased 7.1% Bone mineral density femoral necks increased 0.7%
== END 2024-01-19 12:25 | disposition home or self-care (01) ==
PROVIDERS: PCP Family Medicine; Visit Provider Physician Assistant
DX: Z13.820 Encounter for screening for osteoporosis (principal); Z78.0 Asymptomatic menopausal state; S82.491D Other fracture of shaft of right fibula, subsequent encounter for closed fracture with routine healing; X58.XXXA Exposure to other specified factors, initial encounter
CPT/HCPCS: 73610; 77080

== ENCOUNTER 2024-01-19 14:20 | Outpatient (CLI) | payer MEDICARE, SELFPAY | END 2024-01-19 14:21 | disposition home or self-care (01) | LOC: SPT 14:20 | PROVIDERS: PCP Family Medicine; Visit Provider Podiatrist Foot & Ankle Surgery | DX: Z46.89 Encounter for fitting and adjustment of other specified devices (principal); S82.891D Other fracture of right lower leg, subsequent encounter for closed fracture with routine healing; X58.XXXD Exposure to other specified factors, subsequent encounter | CPT/HCPCS: L1902 ==

== ENCOUNTER 2024-01-20 08:53 | Outpatient (CLI) | payer MEDICARE, SELFPAY ==
--- NOTE | 2024-01-20 09:01 | MM_ITS ---
WS: [id number] BILATERAL 3D TOMOSYNTHESIS DIGITAL DIAGNOSTIC MAMMOGRAPHY WITH CAD CLINICAL INFORMATION: ABNORMAL MAMMOGRAM Cannot feel nodules today COMPARISON: 2022 TECHNIQUE: Bilateral CC, MLO, and ML views. FINDINGS: Scattered fibroglandular densities bilaterally. Previously described tubular density in the RIGHT yessenia ast at 6:00 with associated biopsy clip appears stable. Additional biopsy clips anterior RIGHT breast . Incidental dystrophic calcifications LEFT breast appear stable. MM/MM diag BI tomosynthesis [id number] IMPRESSION: DENSITY: There are scattered areas of fibroglandular density. BI-RADS: 2 - Benign. FOLLOW UP: 1 Year Follow-up Recommend return to annual screening mammography.
== END 2024-01-20 08:54 | disposition home or self-care (01) ==
PROVIDERS: PCP Family Medicine; Visit Provider Family Medicine
DX: R92.341 Mammographic extreme density, right breast (principal); R92.1 Mammographic calcification found on diagnostic imaging of breast; R92.8 Other abnormal and inconclusive findings on diagnostic imaging of breast
CPT/HCPCS: 77062; G0279

== ENCOUNTER → 2024-01-25 12:46 | Outpatient (BNVA) | payer MEDICARE, SELFPAY | PROVIDERS: PCP Family Medicine; Visit Provider Student in an Organized Health Care Education/Training Program | DX: Z96.652 Presence of left artificial knee joint (principal) | CPT/HCPCS: 73560; 73565; 99024 ==

== ENCOUNTER 2024-01-27 13:39 | Outpatient (RCR) | payer MEDICARE, SELFPAY | END 2024-02-12 23:59 | disposition home or self-care (01) | LOC: SPT 13:39 | PROVIDERS: Visit Provider Student in an Organized Health Care Education/Training Program | DX: Z47.1 Aftercare following joint replacement surgery (principal); Z96.652 Presence of left artificial knee joint | CPT/HCPCS: 97110; 97161 ==

== ENCOUNTER 2024-02-13 06:00 | Outpatient (RCR) | payer MEDICARE, SELFPAY | END 2024-03-14 23:59 | disposition home or self-care (01) | LOC: SPT 06:00 | PROVIDERS: PCP Family Medicine; Visit Provider Student in an Organized Health Care Education/Training Program | DX: Z47.1 Aftercare following joint replacement surgery (principal) | CPT/HCPCS: 97110 ==

== ENCOUNTER → 2024-02-16 10:54 | Outpatient (BNVA) | payer MEDICARE, SELFPAY | PROVIDERS: Visit Provider Internal Medicine | DX: E11.65 Type 2 diabetes mellitus with hyperglycemia (principal); Z79.4 Long term (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 insulin; E78.5 Hyperlipidemia, unspecified; E16.0 Drug-induced hypoglycemia without coma; E11.649 Type 2 diabetes mellitus with hypoglycemia without coma | CPT/HCPCS: 99214 ==

== ENCOUNTER → 2024-02-17 15:45 | Outpatient (BNVA) | payer MEDICARE, SELFPAY | PROVIDERS: PCP Family Medicine; Visit Provider Family Medicine | DX: D50.0 Iron deficiency anemia secondary to blood loss (chronic) (principal); I48.92 Unspecified atrial flutter | CPT/HCPCS: 83550; 85025 ==

== ENCOUNTER → 2024-02-23 14:18 | Outpatient (BNVA) | payer MEDICARE, SELFPAY | PROVIDERS: PCP Family Medicine; Visit Provider Podiatrist Foot & Ankle Surgery | DX: S82.831A Other fracture of upper and lower end of right fibula, initial encounter for closed fracture (principal); E11.42 Type 2 diabetes mellitus with diabetic polyneuropathy; L60.3 Nail dystrophy; W18.2XXA Fall in (into) shower or empty bathtub, initial encounter; Z79.4 Long term (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 insulin | CPT/HCPCS: 73610; 99213 ==

== ENCOUNTER 2024-03-15 06:30 | Outpatient (RCR) | payer MEDICARE, SELFPAY | END 2024-04-14 23:59 | disposition home or self-care (01) | LOC: SPT 06:30 | PROVIDERS: PCP Family Medicine; Visit Provider Student in an Organized Health Care Education/Training Program | DX: Z47.1 Aftercare following joint replacement surgery (principal); Z96.652 Presence of left artificial knee joint | CPT/HCPCS: 97110 ==

== ENCOUNTER → 2024-03-28 13:25 | Outpatient (BNVA) | payer MEDICARE, SELFPAY | PROVIDERS: PCP Family Medicine; Visit Provider Student in an Organized Health Care Education/Training Program | DX: Z96.652 Presence of left artificial knee joint (principal) | CPT/HCPCS: 73560; 73565; 99213 ==

== ENCOUNTER 2024-05-15 10:08 | Outpatient (CLI) | payer OTHER, SELFPAY ==
[2024-05-15 11:06] LABS: Creatinine Urine, Random 99 mg/dL (28-217); Microalbum Creatinine Ratio Ur 10 mg/dL (0-20); Microalbumin Random Urine 1 ug/dL (0-20)
[2024-05-15 11:14] LABS: Alanine Aminotransferase 13 U/L (0-33); Albumin Level 4.1 g/dL (3.5-5.2); Alkaline Phosphatase 116 U/L (35-105); Anion Gap 12.7 (5-19); Aspartate Amino Transferase 18 U/L (0-32); Blood Urea Nitrogen 21 mg/dL (8-23); Calcium 9.6 mg/dL (8.5-10.5); Carbon Dioxide 27 mmol/L (22-29); Chloride 105 mmol/L (98-107); Chol HDL Ratio 2.43 mg/dL (0.0-4.40); Cholesterol 146 mg/dL (0-200); Glomerular Filtration Rate 62.3 mL/min (90-130); Glucose 139 mg/dL (65-115); HDL Cholesterol 60 mg/dL (60-100); LDL Cholesterol Calculated 75 mg/dL (50-129); LDL HDL Ratio 1.25 RATIO (0.00-3.22); Osmolality Calculated 295 mOsm/kg (285-295); Potassium 4.7 mmol/L (3.5-5.1); Sodium 140 mmol/L (136-145); Total Bilirubin 0.4 mg/dL (0.15-1.2); Total Protein 7.1 g/dL (6.6-8.7); Triglycerides 56 mg/dL (0-150)
[2024-05-15 11:17] LABS: Estmated Average Glucose 169; Hemoglobin A1C 7.5 % (4.0-6.0)
== END 2024-05-15 10:09 | disposition home or self-care (01) ==
PROVIDERS: PCP Family Medicine; Visit Provider Internal Medicine
DX: E78.5 Hyperlipidemia, unspecified (principal); Z79.4 Long term (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 insulin; E11.65 Type 2 diabetes mellitus with hyperglycemia; E16.0 Drug-induced hypoglycemia without coma
CPT/HCPCS: 36415; 80053; 80061; 82044; 83036

== ENCOUNTER 2024-06-02 10:50 | Emergency (ER) | payer MEDICARE, SELFPAY ==
[2024-06-02 10:54] VITALS: BP 181/125; PULSE 93; RESP 16; TEMP 36.5; O2SAT 98; BMI 34.0
--- NOTE | 2024-06-02 11:04 | ECG_ITS ---
[facility]24[facility] Pat Name: Rosie Delgado Department: Room: Gender: Female Metal [employer]: : 1955 Requested By: Esa Boswell Order Number: [id number] Dread MD: Ayan Lai M.D. Measurements Intervals [place] Rate: 89 P: 68 CO: 237 QRS: -78 QRSD: 162 T: 93 QT: 388 QTc: 473 Interpretive Statements ELECTRONIC VENTRICULAR PACEMAKER Compared to ECG 06/29/2023 08:34:36 Sinus rhythm no longer present Electronically Signed On 06-03-2024 07:41:38 CDT by Ayan Lai M.D. [email or web address]
--- NOTE | 2024-06-02 11:04 | CT_ITS ---
WS: [id number] CT scan of the head, 06/02/2024 Clinical Data: Symptoms of acute stroke Comparison: CT head, 04/27/2023 DLP: 1091.[address] scans at [facility] use at least one of these dose optimization techniques: automated exposure control; mA and/or kV adjustment per patient size (includes targeted exams where dose is matched to clinical indication); or iterative reconstruction. Findings: The ventricular system is mildly dilated without shift. No recent infarct or hemorrhage is seen. There are no abnormal intracerebral masses. The cerebellum and brainstem are not remarkable. Bony windows of the skull and skull base show no fractures or erosions. The mastoid air cells, internal auditory canals, sella turcica and intraorbital contents are unremarkable. There is minimal right sphenoid mucoperiosteal thickening. CT/CT head thrombolytic [id number] Impression: No change in mild cerebral atrophy.
--- NOTE | 2024-06-02 11:09 | CTR_ITS ---
PROCEDURE INFORMATION: Exam: CTA Head With Contrast, Arteriography Exam date and time: 06/02/2024 11:17 AM Age: 68 years old Clinical indication: Other: Right facial numbness, reports blurry vision right eye TECHNIQUE: Imaging protocol: Computed tomographic angiography of the head with contrast. Exam focused on the arteries. 3D rendering (Not supervised by radiologist): MIP and/or 3D reconstructed images were created by the technologist. Radiation optimization: All CT scans at this facility use at least one of these dose optimization techniques: automated exposure control; mA and/or kV adjustment per patient size (includes targeted exams where dose is matched to clinical indication); or iterative reconstruction. Contrast material: OMNI 350; Contrast volume: 100 ml; Contrast route: INTRAVENOUS (IV); COMPARISON: CT head thrombolytic [id number] 06/02/2024 11:14 AM RADIATION DOSE METRICS: Total DLP (mGy-cm): 511.75 FINDINGS: Internal carotid: Intracranial segments of bilateral internal carotid arteries are patent without flow limiting stenosis. Anterior cerebral: Proximal anterior cerebral arteries bilaterally are patent without evidence of flow-limiting stenosis. Middle cerebral: Bilateral proximal middle cerebral arteries are patent without flow-limiting stenosis or occlusion. There is grossly symmetric appearance of branch vessels within the sylvian fissures. Posterior cerebral: Bilateral proximal posterior cerebral arteries are patent without flow-limiting stenosis or occlusion. . Vertebrobasilar: Basilar artery is patent without flow-limiting stenosis. Intracranial segments of both vertebral arteries are patent without flow-limiting stenosis. Venous sinuses: Major dural venous sinuses are patent without evidence of thrombus. PROCEDURE INFORMATION: Exam: CTA Neck With Contrast Exam date and time: 06/02/2024 11:17 AM Age: 68 years old Clinical indication: Other: Right facial numbness, reports blurry vision right eye TECHNIQUE: Imaging protocol: Computed tomographic angiography of the neck with contrast. Exam focused on the cervical segments of the vasculature. 3D rendering (Not supervised by radiologist): MIP and/or 3D reconstructed images were created by the technologist. Radiation optimization: All CT scans at this facility use at least one of these dose optimization techniques: automated exposure control; mA and/or kV adjustment per patient size (includes targeted exams where dose is matched to clinical indication); or iterative reconstruction. Contrast material: OMNI 350; Contrast volume: 100 ml; Contrast route: INTRAVENOUS (IV); COMPARISON: CT head thrombolytic [id number] 06/02/2024 11:14 AM RADIATION DOSE METRICS: Total DLP (mGy-cm): 511.75 FINDINGS: Aortic arch: No significant stenosis of the great vessels at their origins from the aortic arch. Right carotid: Right common, internal, and external carotid arteries in the neck show no flow-limiting stenosis or occlusion or evidence of dissection. Right ICA is tortuous proximal to the skull base. Left carotid: Left common, internal, and external carotid arteries in the neck are patent without flow-limiting stenosis or evidence of dissection. Left vertebral: Left vertebral artery is patent without flow-limiting stenosis or dissection. Right vertebral: Right vertebral artery is patent without evidence of flow-limiting stenosis or dissection. Soft tissues: No acute abnormality of the neck soft tissues is seen. Slightly heterogeneous attenuation in the upper lung zones may represent regional air trapping. Bones: Chronic multilevel cervical degenerative disc disease is present. CT/CT angio headneck* [id number] IMPRESSION: CTA head demonstrates no intracranial large vessel occlusion or flow-limiting stenosis. IMPRESSION: CTA Neck shows no occlusion or severe stenosis of the extracranial cerebrovascular circulation. REFERENCES: NASCET CRITERIA. The degree of stenosis in the cervical segment of the internal carotid artery is based on NASCET criteria. Normal is no stenosis. Mild is less than 50% stenosis. Moderate is 50-69% stenosis. Severe is 70% to 99% stenosis. Total occlusion is no detectable patent lumen.
--- NOTE | 2024-06-02 11:09 | W.ED.NEUROSD ---
HPI - Neuro Symptoms/Deficit General: Chief Complaint: Neuro Symptoms/Deficit Stated Complaint: lip side of face numb, symptoms of stroke Time Seen by Provider: 06/02/24 11:05 History of Present Illness: 68 yo f reports she felt the right side of her mouth was a little numb starting around 10:10 am this morning. Takes lisinopril, asa, statin. Hx of pig valve. Denies hx of carotid disease, afib, cva. Patient reports no other symptoms. On specific ROS, I asked about blurry vision. She says the right eye is a little blurry . Pt able to count fingers with right eye at 10 ft. No double vision. No dizziness, trouble speaking, confusion, weakness, coordination issues, etc. Associated symptoms: Deny chest pain, headache(s), nausea, syncope, vertigo or vomiting Related Data Home Medications ?Medication ?Instructions ?Recorded ?Confirmed escitalopram oxalate 20 mg tablet 20 mg PO BEDTIME 07/29/20 06/02/24 aspirin 81 mg chewable tablet 81 mg PO BEDTIME 05/17/23 06/02/24 Held on 12/10/23. Instructions: Resume on 12/20/23. Hold aspirin for 2 weeks. Recommend follow-up with PCP with labs prior to restarting. bupropion HCl 200 mg tablet,12 hr 200 mg PO BID 05/17/23 06/02/24 sustained-release metoprolol succinate 25 mg 25 mg PO BEDTIME 05/17/23 06/02/24 tablet,extended release 24 hr atorvastatin 40 mg tablet 40 mg PO BEDTIME 06/29/23 06/02/24 cetirizine 10 mg tablet 10 mg PO DAILY PRN allergies 11/01/23 06/02/24 insulin glargine 100 unit/mL (3 20 unit SUBCUT DAILY 11/08/23 06/02/24 mL) subcutaneous pen (Lantus Solostar U-100 Insulin) galantamine 8 mg tablet 8 mg PO BID 11/26/23 06/02/24 albuterol sulfate 90 mcg/actuation 1 puff inhalation Q4H PRN 12/06/23 06/02/24 aerosol inhaler Shortness Of Breath trazodone 50 mg tablet 50 mg PO BEDTIME 12/06/23 06/02/24 acarbose 100 mg tablet 100 mg PO TID 06/02/24 06/02/24 aripiprazole 2 mg tablet 2 mg PO DAILY 06/02/24 06/02/24 insulin glargine-yfgn 100 unit/mL 100 unit SUBCUT Q7D 06/02/24 06/02/24 (3 mL) subcutaneous pen (Semglee (insulin glargine-yfgn) Pen) memantine 10 mg tablet 10 mg PO BID 06/02/24 06/02/24 Previous Rx's ?Medication ?Instructions ?Recorded Diabetic shoes with insoles #1 ea 04/06/23 diabetic shoes with 3 inserts #1 ea 05/22/24 clonidine HCl 0.1 mg tablet 0.1 mg PO Q8H PRN hypertensive 06/02/24 emergency #14 tabs clopidogrel 75 mg tablet (Plavix) 75 mg PO DAILY #21 tabs 06/02/24 Allergies Allergy/AdvReac Type Severity Reaction Status Date / Time azithromycin Allergy rash Verified 05/22/24 11:20 benzonatate (From Tessalon Allergy Unknown Verified 05/22/24 11:20 Pennie) codeine Allergy rash Verified 05/22/24 11:20 collagenase Clostridium Allergy rash Verified 05/22/24 11:20 histolyticu donepezil Allergy ADR-Nightma Verified 05/22/24 11:20 re erythromycin base Allergy Unknown Verified 05/22/24 11:20 hydrocodone (From Vicodin) Allergy rash Verified 05/22/24 11:20 morphine Allergy rash Verified 05/22/24 11:20 oxycodone (From Percocet) Allergy rash Verified 05/22/24 11:20 tramadol Allergy Unknown Verified 05/22/24 11:20 Review of Systems General: Reports: 10 or more systems reviewed and unremarkable except in HPI and below Const: Denies: fever(s), chills or body aches Eyes: Denies: change in vision ENMT: Denies: throat pain Card: Denies: chest pain, edema or syncope Resp: Denies: dyspnea or productive cough GI: Denies: abdominal pain, nausea, vomiting or diarrhea : Denies: flank pain, dysuria or urinary frequency Musc: Denies: neck pain, back pain, extremity pain or extremity swelling Skin/Breast: Denies: rash or erythema Neuro: Reports: sensory changes; Denies: headache(s), numbness in extremities, weakness in extremities, lack of coordination, difficulty walking, dizziness, vertigo, confusion, behavioral changes, Slurred speech present, difficulty communicating thoughts, seizure-like activity or involuntary movements PFS ED PFSH: Medical History Type 2 diabetes mellitus Anita Sandoval manages Chronic anticoagulation xarelto for atrial fibrillation; now off of this and on asa 81 due to GI bleed 12/06 Anemia due to GI blood loss 12/06 EGD showed gastritis Chronic kidney disease Stage 3A 11/2023 with GFR 49 Depression 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 tubular adenoma; f/u 5 yrs Hx of aortic valve replacement has had this twice; both thoracotomy History of total knee arthroplasty left Hx of hysterectomy done for bleeding; she doesn't know if has ovaries or not Hx of cholecystectomy Hx of breast biopsy bilateral; all benign Family History Father Congestive heart failure (CHF) Diabetes Myocardial infarction Mother Diabetes Sister Diabetes Family/Other Diabetes Stroke Brother Diabetes mellitus, type 2 Social History Smoking and tobacco/nicotine status: never used tobacco/nicotine Alcohol intake: never Substance/Drug Use: never Household members: other Details: lives with daughter Marital status: / Number of children: 3 Highest education level completed: Bachelor's Degree Current occupational status: retired 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 Reproductive History: Date of last menstrual period: 06/25/20 Supplemental [facility] Information: NIH stroke score NIHSS: Level Of Consciousness - 1a: 0 Level Of Consciousness Questions - 1b: Both Correct Level Of Consciousness Commands - 1c: Both Correct Best Gaze - 2: Normal Visual Herzog - 3: No Visual Loss (none detected on confrontation) Facial Palsy - 4: Normal Motor Arm Right - 5: No Drift Motor Arm Left - 5: No Drift Motor Leg Right - 6: No Drift Motor Leg Left - 6: No Drift Limb Ataxia - 7: Absent Sensory - 8: Mild To Moderate Loss (reports no difference to simultaneous touch of face in all distritubtions) Best Language - 9: No Aphasia Dysarthia - 10: Normal Extinction And Inattention - 11: 0 Score: Total Score: 1 Physical Exam Const: COMMON NORMALS: no limitations, alert and well nourished EXAM LIMITATIONS: no altered mental status HENMT: COMMON NORMALS: normocephalic, atraumatic and external ears normal HEAD & SCALP: normocephalic and atraumatic EXTERNAL EAR: Yes external ears normal MOUTH: no muffled voice Eye: COMMON NORMALS: EOMs intact bilaterally, conjunctivae normal and no scleral icterus CONJUNCTIVA: Yes conjunctivae normal Neck/C-Spine: COMMON NORMALS: no meningeal signs and no JVD GENERAL: Yes normal visual inspection and Yes trachea midline Resp: COMMON NORMALS: normal respiratory effort, No use of accessory muscles and clear to auscultation bilaterally AUSCULTATION: clear to auscultation bilaterally Cardio: COMMON NORMALS: no JVD, regular rate and regular rhythm RATE: regular rate RHYTHM: regular rhythm GI: COMMON NORMALS: Soft to palpation and non-tender PALPATION: Yes Soft to palpation and No Guarding due to palpation present (GI) Extremity: COMMON NORMALS: normal to inspection Neuro: COMMON NORMALS: moves all extremities SENSORIUM/ORIENTATION: Yes alert MENINGEAL SIGNS: Yes no meningeal signs SPEECH: speech normal OTHER: Pupils equal round and reactive to light. Patient is able to count fingers at 10 feet with only her right eye (which is the eye she says is slightly blurry). When I touch both sides of her face, she says she feels everything symmetrically. She has a subjective sense of slight numbness to the right of her mouth. Psych: COMMON NORMALS: mental status grossly normal, Normal thought process present, cooperative, normal affect and speech normal SPEECH: Yes normal speech THOUGHT PROCESS: Normal thought process present Skin: COMMON NORMALS: no rashes or lesions noted, turgor normal and no jaundice GENERAL SKIN EXAM: no rashes or lesions noted and turgor normal Course Vital Signs: Vital signs: Vital Signs Temperature 97.7 F 06/02/24 10:54 Pulse Rate 78 06/02/24 13:57 Respiratory Rate 16 06/02/24 13:57 Blood Pressure 152/87 06/02/24 13:57 Pulse Oximetry 95 06/02/24 13:57 Oxygen Delivery Me thod Room Air 06/02/24 10:54 MDM - Neuro Symptoms/Deficit Medical Decision Making Right partial face paresthesias per patient. On ROS, reported right eye blurry but able to count fingers and see movement/images in all cardinal positions on confrontation. NIH of 1 Patient may have stroke like symptoms but with nondisabling/lifethreatening deficits, she is not a good candidate for thrombolytics based on available risk/benefit profile. CT head wo: NAD CTA head/neck: no sifnificant stenosis. HTN on arrival but trended down w/o treatment. (Took lisinopril last night) Hx of valv disease and ? defect in heart--but these were repaired with open heart surgery. Neurology consulted. 1205 Dr Meza has seen and evaluated. She has done neuro exam. She recommends 21 days DAPT and d/c with neuro f/u. Patient's BP has been consistently elevated ranging from the 150s up to around 180. The diastolic has been as high as 125 when she got here but has trended down. The problem we are having is that if this is CVA, we want to allow permissive hypertension. On the other hand if this is symptomatic hypertension then we want to control the blood pressure. Patient states she did take her lisinopril last night. Since the blood pressure is now less than 185/110, I discussed with the patient and her family that at this point in time we were going to allow permissive hypertension. On the other hand, if she feels her symptoms are worsening, we could do a trial of as needed blood pressure medication. I explained that the only way to know for sure whether there was a stroke is to do an MRI of the brain. Patient states she cannot do an MRI of the brain because she is extremely claustrophobic and also because of her pacemaker. I offered her admission to the hospital but I do not know that it would change anything if we cannot do an MRI. She considered this but declined admission/MRI. Therefore, going to discharge her with clonidine 0.1 mg to use every 8 hours as needed for blood pressure greater than 185 on top or greater than 110 on bottom. I also counseled her that if her symptoms are progressive even at a blood pressure lower than this, then she should either come for reassessment or do a trial of blood pressure medication to see if she feels better with it lower. That would be an indication that this is less likely to be CVA and more likely to be a hypertensive urgency. Patient and family agreed. She also takes lisinopril 20 mg daily. This could hypothetically be increased up to 40 mg daily and 10 mg increments if needed. Patient will follow-up with PCP on Wednesday, return to the ER if having new or worsening symptoms, and follow-up with neurology in 2 to 3 weeks. Lab Data 06/02/24 11:15 06/02/24 11:[address] 06/02/24 11:04 Impression: No change in mild cerebral atrophy. Head/Neck CTA 06/02/24 11:09 IMPRESSION: CTA head demonstrates no intracranial large vessel occlusion or flow-limiting stenosis. IMPRESSION: CTA Neck shows no occlusion or severe stenosis of the extracranial cerebrovascular circulation. REFERENCES: NASCET CRITERIA. The degree of stenosis in the cervical segment of the internal carotid artery is based on NASCET criteria. Normal is no stenosis. Mild is less than 50% stenosis. Moderate is 50-69% stenosis. Severe is 70% to 99% stenosis. Total occlusion is no detectable patent lumen. Laboratory Results WBC 8.87 10^3/uL (3.29-11.43) 06/02/24 11:15 RBC 4.43 10^6/uL (3.85-5.65) 06/02/24 11:15 Hgb 14.10 g/dL (11.27-16.99) 06/02/24 11:15 Hct 43.7 % (36-47) 06/02/24 11:15 MCV 98.6 fl (85-98) H 06/02/24 11:15 MCH 31.8 pg (27-33) 06/02/24 11:15 MCHC 32.3 g/dL (30-55) 06/02/24 11:15 RDW 14.5 % (12.1-15.1) 06/02/24 11:15 Plt Count 255 10^3/cmm (157-399) 06/02/24 11:15 MPV 10.8 fL (7.4-10.4) H 06/02/24 11:15 Neut % (Auto) 46.2 % 06/02/24 11:15 Lymph % (Auto) 45.8 % 06/02/24 11:15 [place]enden % (Auto) 5.1 % 06/02/24 11:15 Eos % (Auto) 2.1 % 06/02/24 11:15 Baso % (Auto) 0.6 % 06/02/24 11:15 Neut # (Auto) 4.10 10^3/uL (1.8-7.7) 06/02/24 11:15 Lymph # (Auto) 4.1 10^3/uL (0.8-4.8) 06/02/24 11:15 Crittenden # (Auto) 0.5 10^3/uL (0.2-0.9) 06/02/24 11:15 Eos # (Auto) 0.2 10^3/uL (0.0-0.8) 06/02/24 11:15 Baso # (Auto) 0.1 10^3/uL (0.0-0.1) 06/02/24 11:15 Nucleated RBC % (auto) 0 % 06/02/24 11:15 Nucleated RBCs # 0.0 /100WBC 06/02/24 11:15 PT 12.10 SECONDS (12.1-14.9) 06/02/24 11:15 INR 0.84 (0.8-1.2) 06/02/24 11:15 APTT 25.7 SECONDS (23.9-36.7) 06/02/24 11:15 Sodium 140 mmol/L (136-145) 06/02/24 11:15 Potassium 4.8 mmol/L (3.5-5.1) 06/02/24 11:15 Chloride 103 mmol/L (98-107) 06/02/24 11:15 Carbon Dioxide 27 mmol/L (22-29) 06/02/24 11:15 Anion Gap 14.8 (5-19) 06/02/24 11:15 BUN 16 mg/dL (8-23) 06/02/24 11:15 Creatinine 0.9 mg/dL (0.5-0.9) 06/02/24 11:15 GFR Calculation 62.3 mL/min (90-130) L 06/02/24 11:15 Glucose 138 mg/dL (65-115) H 06/02/24 11:15 POC Glucose 137 mg/dL (70-110) H 06/02/24 11:07 Calculated Osmolality 293 mOsm/kg (285-295) 06/02/24 11:15 Calcium 9.4 mg/dL (8.5-10.5) 06/02/24 11:15 Total Bilirubin 0.4 mg/dL (0.15-1.2) 06/02/24 11:15 AST 19 U/L (0-32) 06/02/24 11:15 ALT 15 U/L (0-33) 06/02/24 11:15 Alkaline Phosphatase 118 U/L (35-105) H 06/02/24 11:15 Total Protein 7.2 g/dL (6.6-8.7) 06/02/24 11:15 Albumin 4.4 g/dL (3.5-5.2) 06/02/24 11:15 Globulin 2.8 g/dL (1.3-4.6) 06/02/24 11:15 Urine Color Yellow (Yellow) 06/02/24 11:42 Urine Appearance Clear (CLEAR) 06/02/24 11:42 Urine pH 7.5 (5-7) 06/02/24 11:42 Ur Specific Elbe 1.011 (1.005-1.030) 06/02/24 11:42 Urine Protein Negative (Negative) 06/02/24 11:42 Urine Glucose (UA) Negative (Normal) 06/02/24 11:42 Urine Ketones Negative (Negative) 06/02/24 11:42 Urine Blood Negative (Negative) 06/02/24 11:42 Urine Nitrate Negative (Negative) 06/02/24 11:42 Urine Bilirubin Negative (Negative) 06/02/24 11:42 Urine Urobilinogen 0.2 mg/dL (Negative) 06/02/24 11:42 Ur Leukocyte Esterase Negative (Negative) 06/02/24 11:42 Urine RBC 0-2 /hpf (0-2) 06/02/24 11:42 Urine WBC 0-5 /hpf (0-5) 06/02/24 11:42 Ur Squamous Epith Cells 0-5 /hpf (0-5) 06/02/24 11:42 Amorphous Sediment Not Reportable 06/02/24 11:42 Urine Bacteria None seen /hpf (NONE) 06/02/24 11:42 Hyaline Casts 0-4 /lpf H 06/02/24 11:42 Urine Opiates Screen Negative ng/mL (Negative) 06/02/24 11:42 Ur Barbiturates Screen Negative ng/mL (Negative) 06/02/24 11:42 Ur Phencyclidine Scrn Negative ng/mL (Negative) 06/02/24 11:42 Ur Amphetamines Screen Negative ng/mL (Negative) 06/02/24 11:42 U Benzodiazepines Scrn Negative ng/mL (Negative) 06/02/24 11:42 Urine Cocaine Screen Negative ng/mL (Negative) 06/02/24 11:42 U Marijuana (THC) Screen Negative ng/mL (Negative) 06/02/24 11:42 All radiology interpretation(s) finalized by discharge Critical Care Time Critical Care Time: Critical Care Time: Yes Total Critical Care Time: 30 Attestation: This case had a high probability of a clinically significant, sudden, or life threatening deterioration of this patient's condition which required my full and direct attention, intervention and personal management for evaluation of neurologic deficit and hypertension. Discharge Plan Discharge Patient Disposition: Home Clinical Impression: Facial paresthesia, Disturbance, visual, subjective, Accelerated hypertension Condition: Stable Prescriptions: New clopidogrel [Plavix] 75 mg tablet 75 mg PO DAILY Qty: 21 0RF clonidine HCl 0.1 mg tablet 0.1 mg PO Q8H PRN (Reason: hypertensive emergency) Qty: 14 0RF No Action escitalopram oxalate 20 mg tablet 20 mg PO BEDTIME (DME) Diabetic shoes with insoles See Rx Instructions .Route .MEDSUPPLY Qty: 1 0RF Rx Instructions: As directed by [facility] cetirizine 10 mg tablet 10 mg PO DAILY PRN (Reason: allergies) insulin glargine [Lantus Solostar U-100 Insulin] 100 unit/mL (3 mL) insulin pen 20 unit SUBCUT DAILY atorvastatin 40 mg tablet 40 mg PO BEDTIME (DME) diabetic shoes with 3 inserts See Rx Instructions .Route .MEDSUPPLY Qty: 1 0RF Rx Instructions: As directed to the dexter almaguer bupropion HCl 200 mg tablet sustained-release 12 hr 200 mg PO BID aspirin 81 mg tablet,chewable 81 mg PO BEDTIME metoprolol succinate 25 mg tablet extended release 24 hr 25 mg PO BEDTIME galantamine 8 mg tablet 8 mg PO BID Rx Instructions: TAKE ONE TABLET BY MOUTH TWICE DAILY WITH MORNING AND EVENING MEALS, WATCH FOR NAUSEA trazodone 50 mg tablet 50 mg PO BEDTIME albuterol sulfate 90 mcg/actuation HFA aerosol inhaler 1 puff INHALATION Q4H PRN (Reason: Shortness Of Breath) memantine 10 mg tablet 10 mg PO BID aripiprazole 2 mg tablet 2 mg PO DAILY insulin glargine-yfgn [Semglee(insulin glarg-yfgn)Pen] 100 unit/mL (3 mL) insulin pen 100 unit SUBCUT Q7D acarbose 100 mg tablet 100 mg PO TID Discharge Orders: Discharge ED (Routine); Ordered 06/02/24 Ordered By: Ricki Diamond Referrals: Doreen Meza MD [Physician] - 06/19/24 (Possible CVA) Carol Ann Barnes MD [Primary Care Provider] - 06/05/24 (facial paresthesia, monocular visual change, high bp) Discharge Diet: Usual diet Discharge Activity: Increase activity as tolerated Patient Instructions: Transient Ischemic Attack (ED), Hypertension (ED) Activity Restrictions/Additional Instructions: You have symptoms which could be related to stroke. You also have high blood pressure; which can also cause symptoms. Often times in the setting of an acute stroke we do not overcorrect elevated blood pressure because we want to allow perfusion to the brain. On the other hand, if this is a primary high blood pressure problem, we do not want to leave it untreated. Therefore, I asked that you take your blood pressure every 4 hours and record it. If it is elevated greater than 185 on top or 110 on the bottom, then we would like to treat your blood pressure. You would take 0.1 mg of clonidine only as needed up to 3 times per day for blood pressure greater than 185 on top or greater than 110 on bottom. Take Plavix daily. Your first dose will be on 06/03/2024. Follow-up with your primary care doctor on Wednesday. Follow-up with Dr. Meza in 2 to 3 weeks. Read the handout labeled transient ischemic attack. We have attached this document because it has helpful information about strokes and mini strokes. If you have any new or concerning symptoms, please return to the ER. Print Language: Amharic Coding Level of Care Code ED Media Relations Manager for Sj Cantu
[2024-06-02 11:10] LABS: Glucose Point of Care 137 mg/dL (70-110)
[2024-06-02] MEDS: iohexol 350 mg/mL 500 mL Btl (per mL) IV (11:18)
[2024-06-02 11:23] LABS: Basophils # 0.1 10^3/uL (0.0-0.1); Basophils % 0.6 %; Eosinophils # 0.2 10^3/uL (0.0-0.8); Eosinophils % 2.1 %; Hematocrit 43.7 % (36-47); Lymphocytes # 4.1 10^3/uL (0.8-4.8); Lymphocytes % 45.8 %; Mean Corpuscular HGB Conc 32.3 g/dL (30-55); Mean Corpuscular Hemoglobin 31.8 pg (27-33); Mean Corpuscular Volume 98.6 fl (85-98); Mean Platelet Volume 10.8 fL (7.4-10.4); Monocytes # 0.5 10^3/uL (0.2-0.9); Monocytes % 5.1 %; Neutrophils % 46.2 %; Nucleated Red Blood Cells % 0 %; Platelet Count 255 10^3/cmm (157-399); Red Blood Count 4.43 10^6/uL (3.85-5.65); Red Cell Distribution Width 14.5 % (12.1-15.1); White Blood Count 8.87 10^3/uL (3.29-11.43)
[2024-06-02 11:32] VITALS: BP 162/86; PULSE 89; RESP 16; O2SAT 98
[2024-06-02 11:37] LABS: INR 0.84 (0.8-1.2)
[2024-06-02 11:38] LABS: Partial Thromboplastin Time 25.7 SECONDS (23.9-36.7)
[2024-06-02 11:42] LABS: Alanine Aminotransferase 15 U/L (0-33); Albumin Level 4.4 g/dL (3.5-5.2); Alkaline Phosphatase 118 U/L (35-105); Anion Gap 14.8 (5-19); Aspartate Amino Transferase 19 U/L (0-32); Blood Urea Nitrogen 16 mg/dL (8-23); Calcium 9.4 mg/dL (8.5-10.5); Carbon Dioxide 27 mmol/L (22-29); Chloride 103 mmol/L (98-107); Creatinine Clr Calc Pharmacy 76.9254; Globulin 2.8 g/dL (1.3-4.6); Glomerular Filtration Rate 62.3 mL/min (90-130); Glucose 138 mg/dL (65-115); Osmolality Calculated 293 mOsm/kg (285-295); Potassium 4.8 mmol/L (3.5-5.1); Sodium 140 mmol/L (136-145); Total Bilirubin 0.4 mg/dL (0.15-1.2); Total Protein 7.2 g/dL (6.6-8.7)
[2024-06-02 12:13] LABS: Bilirubin Urine Negative (Negative); Blood Urine Negative (Negative); Glucose Urine UA Negative (Normal); Ketones Urine Negative (Negative); Leukocyte Esterase Urine Negative (Negative); Nitrate Urine Negative (Negative); Protein Urine Negative (Negative); Specific Gravity, Urine 1.011 (1.005-1.030); Urine Appearance Clear (CLEAR); Urine Color Yellow (Yellow); Urobilinogen Urine 0.2 mg/dL (Negative); pH Urine 7.5 (5-7)
[2024-06-02 12:16] LABS: Add Urine Microscopic? YES; Bacteria Urine None Seen /hpf; Hyaline Casts Urine 0-4 /lpf; RBC Urine 0-2 /hpf (0-2); Squamous Epithelial Cell Urine 0-5 /hpf (0-5); WBC Urine 0-5 /hpf (0-5)
[2024-06-02 12:19] LABS: Amphetamines Screen Urine Negative (Negative); Barbiturates Screen Urine Negative (Negative); Benzodiazepines Screen Urine Negative (Negative); Cocaine Screen Urine Negative (Negative); Opiate Screen Urine Negative (Negative); PCP Screen Urine Negative (Negative); THC Screen Urine Negative (Negative)
[2024-06-02 12:46] VITALS: BP 158/96; PULSE 79; RESP 16; O2SAT 97
[2024-06-02] MEDS: clopidogrel 300 mg Tablet PO (12:55)
[2024-06-02] MEDS: sodium chloride 0.9% 1,000 ML 999 ML IV (12:55)
[2024-06-02 13:04] VITALS: BP 179/99; PULSE 77; RESP 16; O2SAT 97
[2024-06-02] MEDS: acetaminophen 325 mg Tablet 650 MG PO (13:48)
[2024-06-02 13:57] VITALS: BP 152/87; PULSE 78; RESP 16; O2SAT 95
--- NOTE | 2024-06-02 16:31 | PM.SAN ---
Stroke Alert Activation ED Arrival Date: 06/02/24 ED Arrival Time: 10:54 Other Last Known Well Infomation: Stroke alert was called by triage because the patient presented with last known well within an hour and possible symptoms of stroke with numbness. I called and talked with the nurse who reported that on further evaluation the patient's symptoms were not significant. I was later called by Dr. Mclaughlin, who asked me to take a closer look at the patient on chance that she might have posterior cerebral artery stroke as she was complaining of blurred vision to the right although she was able to count fingers when he stood 10 feet away from her and held up fingers The patient acknowledges that she started having some numbness around the right side of her mouth around 10 AM. The numbness is somewhat better. She denies slurred speech. She denies focal weakness. She believes she is having some blurring of vision in the right eye but she has thick glasses on that side. She has Alzheimer's disease and I last saw her in June 2023. She knows that she is scheduled to see me next month. She previously was interested in being treated with Leqembi but she is on Xarelto and she has a pacemaker so she is not a candidate. Her apolipoprotein E3/E4 places her at a 3.2 odds ratio for Alzheimer's and amyloid beta 42/40 ratio of 1.135 places her at a high risk. Stroke Alert Activated by: Savanna Nguyễn Stroke Alert Activation Time: 11:01 Stroke MD @ Bedside Time: 11:02 NIH Stroke Scale Time: 11:44 NIH stroke score NIHSS: Level Of Consciousness - 1a: 0 Level Of Consciousness Questions - 1b: Both Correct Level Of Consciousness Commands - 1c: Both Correct Best Gaze - 2: Normal Visual Herzog - 3: No Visual Loss Facial Palsy - 4: Normal Motor Arm Right - 5: No Drift Motor Arm Left - 5: No Drift Motor Leg Right - 6: No Drift Motor Leg Left - 6: No Drift Limb Ataxia - 7: Absent Sensory - 8: Normal Best Language - 9: No Aphasia Dysarthia - 10: Normal Extinction And Inattention - 11: 0 Score: Total Score: 0 Stroke Alert Data/Treatment Time to CT of Head: 11:04 CT Results Time: 11:32 CT Impression: No change in diffuse cerebral atrophy Stroke Risk Factors: atrial fibrillation, hypertension and obesity tPA Contraindication: tPA Contraindication: Treatment not indcated tPA Admin Prior to Arrival: No Patient & Family Educated on: Treament Plan Other Patient & Family Education: Procedure note: She gave informed consent. The scalp was cleaned with alcohol. 155 units of Botox were administered at 31 sites, 5 units per site, using the standard FDA-approved protocol. This protocol includes 5 units administered to procerus, 5 units bilateral commodity analyst, frontalis muscle at 2 sites bilaterally, 4 injections of temporalis muscle bilaterally, 3 injections per side of occipitalis, 2 injections of paraspinous cervical muscles bilaterally, 3 injections of trapezius bilaterally. Total was 31 injections, 5 units per site for a total of 155 units. 45 units were discarded. There were no complications and the patient tolerated the procedure well. Pulse was stable. ? I plan to see the patient again in 12 weeks. A migraine diary was given and I emphasized the importance of keeping track of headaches. I took time to answer her questions. I made sure her Vyepti was ordered at 300 mg. I told her that if she can notify my office as soon as her headache starts we can try to get her on D.H.E. 45 Other Information: I could not find anything focal on exam and her CT head was negative. The emergency room physician did not reevaluate the patient until she returned from CT head and CTA and so if she had been a candidate for thrombolysis it would have been delayed. In any case, this patient has been on Xarelto for chronic atrial fibrillation and was taken off of it in November 2023 when she was admitted to the hospital with acute blood loss anemia. She has a pig valve aortic valve which does not require anticoagulation. She had AVR 07/31/2021 at [facility]. She is high risk for stroke but based on exam she did not appear to have a stroke. I would recommend Plavix and aspirin and I will see her in June as scheduled. Critical Care Time Critical Care Time: 30 - 74 mins A&P Assessment and plan (1) TIA involving vertebral artery: (2) Mild cognitive impairment with memory loss: (3) Pacemaker: (4) HTN (hypertension): Qualifiers: Hypertension type: essential hypertension Qualified Code(s): I10 - Essential (primary) hypertension PDMP PDMP Reviewed: Not Reviewed Coding Level of Care Code Acute Code for Chg Fwd Diagnoses TIA involving vertebral artery G45.0 Mild cognitive impairment with memory loss G31.84 Pacemaker Z95.0 Essential hypertension I10 Hypertension type: essential hypertension
== END 2024-06-02 13:58 | disposition home or self-care (01) ==
PROVIDERS: Family Medicine; Emergency Provider Emergency Medicine; PCP Family Medicine
DX: R20.2 Paresthesia of skin (principal); H53.10 Unspecified subjective visual disturbances; Z79.4 Long term (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 insulin; Z79.82 Long term (current) use of aspirin; Z95.0 Presence of cardiac pacemaker; E78.5 Hyperlipidemia, unspecified; E11.22 Type 2 diabetes mellitus with diabetic chronic kidney disease; I12.9 Hypertensive chronic kidney disease with stage 1 through stage 4 chronic kidney disease, or unspecified chronic kidney disease; N18.31 Chronic kidney disease, stage 3a
CPT/HCPCS: 36416; 70450; 70496; 70498; 80053; 80306; 81001; 82962; 85025; 85610; 85730; 93005; 99285; J7030; J9999

== ENCOUNTER → 2024-07-04 12:04 | Outpatient (BNVA) | payer MEDICARE, SELFPAY | PROVIDERS: PCP Family Medicine; Visit Provider Specialist | DX: G31.84 Mild cognitive impairment of uncertain or unknown etiology (principal); G30.9 Alzheimer's disease, unspecified | CPT/HCPCS: 36415; 82542; 83520; 99214 ==

== ENCOUNTER → 2024-07-10 12:56 | Outpatient (BNVA) | payer MEDICARE, SELFPAY | PROVIDERS: PCP Family Medicine; Visit Provider Internal Medicine Cardiovascular Disease | DX: T82.857A Stenosis of other cardiac prosthetic devices, implants and grafts, initial encounter (principal); I95.1 Orthostatic hypotension; I48.92 Unspecified atrial flutter; Z79.82 Long term (current) use of aspirin; Z95.2 Presence of prosthetic heart valve; Z95.0 Presence of cardiac pacemaker | CPT/HCPCS: 99214 ==

== ENCOUNTER → 2024-07-12 10:32 | Outpatient (BNVA) | payer MEDICARE, SELFPAY | PROVIDERS: PCP Family Medicine; Visit Provider Nurse Practitioner Family | DX: L81.4 Other melanin hyperpigmentation (principal); L82.1 Other seborrheic keratosis; Z08 Encounter for follow-up examination after completed treatment for malignant neoplasm; Z85.828 Personal history of other malignant neoplasm of skin; Z71.89 Other specified counseling; L57.0 Actinic keratosis; X32.XXXA Exposure to sunlight, initial encounter | CPT/HCPCS: 17000; 99203 ==

== ENCOUNTER 2024-08-16 09:33 | Outpatient (CLI) | payer MEDICARE, SELFPAY ==
[2024-08-16 10:32] LABS: Estmated Average Glucose 160; Hemoglobin A1C 7.2 % (4.0-6.0)
[2024-08-16 10:33] LABS: Alanine Aminotransferase 18 U/L (0-33); Albumin Level 4.2 g/dL (3.5-5.2); Alkaline Phosphatase 131 U/L (35-105); Anion Gap 15.1 (5-19); Aspartate Amino Transferase 19 U/L (0-32); Blood Urea Nitrogen 25 mg/dL (8-23); Calcium 9.3 mg/dL (8.5-10.5); Carbon Dioxide 27 mmol/L (22-29); Chloride 99 mmol/L (98-107); Chol HDL Ratio 2.26 mg/dL (0.0-4.40); Cholesterol 149 mg/dL (0-200); Globulin 2.9 g/dL (1.3-4.6); Glucose 138 mg/dL (65-115); HDL Cholesterol 66 mg/dL (60-100); LDL Cholesterol Calculated 69 mg/dL (50-129); LDL HDL Ratio 1.05 RATIO (0.00-3.22); Osmolality Calculated 289 mOsm/kg (285-295); Potassium 5.1 mmol/L (3.5-5.1); Sodium 136 mmol/L (136-145); Total Bilirubin 0.5 mg/dL (0.15-1.2); Total Protein 7.1 g/dL (6.6-8.7); Triglycerides 68 mg/dL (0-150)
[2024-08-16 10:40] LABS: Creatinine Urine, Random 94 mg/dL (28-217); Microalbum Creatinine Ratio Ur 11 mg/dL (0-20); Microalbumin Random Urine 1 ug/dL (0-20)
== END 2024-08-16 09:34 | disposition home or self-care (01) ==
PROVIDERS: PCP Family Medicine; Visit Provider Internal Medicine
DX: E16.0 Drug-induced hypoglycemia without coma (principal); E78.5 Hyperlipidemia, unspecified; E11.65 Type 2 diabetes mellitus with hyperglycemia; Z79.4 Long term (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 insulin
CPT/HCPCS: 80053; 80061; 82044; 83036

== ENCOUNTER → 2024-08-18 09:17 | Outpatient (BNVA) | payer MEDICARE, SELFPAY | PROVIDERS: PCP Family Medicine; Visit Provider Internal Medicine | DX: E11.65 Type 2 diabetes mellitus with hyperglycemia (principal); E16.0 Drug-induced hypoglycemia without coma; I95.9 Hypotension, unspecified; E78.5 Hyperlipidemia, unspecified | CPT/HCPCS: 99214 ==

== ENCOUNTER → 2024-08-21 09:51 | Outpatient (BNVA) | payer MEDICARE, SELFPAY | PROVIDERS: PCP Family Medicine; Visit Provider Podiatrist Foot & Ankle Surgery | DX: E11.42 Type 2 diabetes mellitus with diabetic polyneuropathy (principal); L60.3 Nail dystrophy; E11.8 Type 2 diabetes mellitus with unspecified complications; M21.41 Flat foot [pes planus] (acquired), right foot; M21.42 Flat foot [pes planus] (acquired), left foot; M20.41 Other hammer toe(s) (acquired), right foot; M20.42 Other hammer toe(s) (acquired), left foot; Z79.4 Long term (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 insulin | CPT/HCPCS: 11721 ==

== ENCOUNTER → 2024-10-30 12:51 | Outpatient (BNVA) | payer MEDICARE, SELFPAY | PROVIDERS: PCP Family Medicine; Visit Provider Nurse Practitioner Family | DX: L81.4 Other melanin hyperpigmentation (principal); L82.1 Other seborrheic keratosis; Z08 Encounter for follow-up examination after completed treatment for malignant neoplasm; Z85.828 Personal history of other malignant neoplasm of skin; L30.9 Dermatitis, unspecified | CPT/HCPCS: 11102; 99213 ==

== ENCOUNTER 2024-11-16 08:43 | Outpatient (CLI) | payer MEDICARE, SELFPAY ==
[2024-11-16 09:50] LABS: Alanine Aminotransferase 19 U/L (0-33); Albumin Level 4.2 g/dL (3.5-5.2); Alkaline Phosphatase 138 U/L (35-105); Anion Gap 15.7 (5-19); Aspartate Amino Transferase 20 U/L (0-32); Blood Urea Nitrogen 24 mg/dL (8-23); Calcium 9.4 mg/dL (8.5-10.5); Carbon Dioxide 25 mmol/L (22-29); Chloride 107 mmol/L (98-107); Cholesterol 163 mg/dL (0-200); Globulin 2.9 g/dL (1.3-4.6); Glucose 182 mg/dL (65-115); HDL Cholesterol 58 mg/dL (60-100); Osmolality Calculated 305 mOsm/kg (285-295); Potassium 4.7 mmol/L (3.5-5.1); Sodium 143 mmol/L (136-145); Total Protein 7.1 g/dL (6.6-8.7); Triglycerides 132 mg/dL (0-150)
[2024-11-16 09:55] LABS: Creatinine Urine, Random 138 mg/dL (28-217); Microalbum Creatinine Ratio Ur 7 mg/dL (0-20)
[2024-11-16 09:56] LABS: Estmated Average Glucose 163; Hemoglobin A1C 7.3 % (4.0-6.0)
== END 2024-11-16 08:44 | disposition home or self-care (01) ==
PROVIDERS: PCP Family Medicine; Visit Provider Internal Medicine
DX: I95.9 Hypotension, unspecified (principal); E16.0 Drug-induced hypoglycemia without coma; E78.5 Hyperlipidemia, unspecified; N18.9 Chronic kidney disease, unspecified
CPT/HCPCS: 36415; 80053; 80061; 82044; 83036

== ENCOUNTER → 2024-11-17 10:26 | Outpatient (BNVA) | payer MEDICARE, SELFPAY | PROVIDERS: PCP Family Medicine; Visit Provider Internal Medicine | DX: E11.65 Type 2 diabetes mellitus with hyperglycemia (principal); E78.5 Hyperlipidemia, unspecified; E16.0 Drug-induced hypoglycemia without coma; I95.9 Hypotension, unspecified; Z79.4 Long term (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 insulin; E11.9 Type 2 diabetes mellitus without complications; N18.9 Chronic kidney disease, unspecified | CPT/HCPCS: 99214 ==

== ENCOUNTER → 2024-11-21 09:59 | Outpatient (BNVA) | payer MEDICARE, SELFPAY | PROVIDERS: PCP Physician Assistant; Visit Provider Podiatrist Foot & Ankle Surgery | DX: E11.42 Type 2 diabetes mellitus with diabetic polyneuropathy (principal); L60.3 Nail dystrophy; E11.8 Type 2 diabetes mellitus with unspecified complications; M21.41 Flat foot [pes planus] (acquired), right foot; M21.42 Flat foot [pes planus] (acquired), left foot; M20.41 Other hammer toe(s) (acquired), right foot; M20.42 Other hammer toe(s) (acquired), left foot | CPT/HCPCS: 11721 ==

== ENCOUNTER → 2024-11-28 13:03 | Outpatient (BNVA) | payer MEDICARE, SELFPAY | PROVIDERS: PCP Physician Assistant; Visit Provider Student in an Organized Health Care Education/Training Program | DX: Z98.890 Other specified postprocedural states (principal); Z47.1 Aftercare following joint replacement surgery; Z96.652 Presence of left artificial knee joint | CPT/HCPCS: 73560; 73565; 99213 ==

== ENCOUNTER → 2025-02-26 10:15 | Outpatient (BNVA) | payer MEDICARE, SELFPAY | PROVIDERS: PCP Family Medicine; Visit Provider Podiatrist Foot & Ankle Surgery | DX: E11.42 Type 2 diabetes mellitus with diabetic polyneuropathy (principal); L60.3 Nail dystrophy; Z79.4 Long term (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 insulin; E11.8 Type 2 diabetes mellitus with unspecified complications | CPT/HCPCS: 11721 ==

== ENCOUNTER → 2025-03-06 08:32 | Outpatient (BNVA) | payer MEDICARE, SELFPAY | PROVIDERS: PCP Family Medicine; Visit Provider Student in an Organized Health Care Education/Training Program | DX: M25.562 Pain in left knee (principal); M76.32 Iliotibial band syndrome, left leg; Z47.1 Aftercare following joint replacement surgery; Z96.652 Presence of left artificial knee joint | CPT/HCPCS: 73560; 73565; 99213 ==

== ENCOUNTER 2025-03-09 12:46 | Emergency (ER) | payer MEDICARE, SELFPAY ==
--- NOTE | 2025-03-09 12:47 | XRR_ITS ---
PROCEDURE INFORMATION: Exam: XR Chest Exam date and time: 03/09/2025 2:38 PM Age: 69 years old Clinical indication: Pain; Chest pressure; Additional info: Cp TECHNIQUE: Imaging protocol: Radiologic exam of the chest. Views: 1 view. COMPARISON: CR XR chest 1V portable [id number] 06/14/2022 6:53 PM FINDINGS: Tubes, catheters and devices: [employer] pacemaker/defibrillator. Lungs: Unremarkable. No consolidation. Pleural spaces: Unremarkable. No pleural effusion. No pneumothorax. Heart/Mediastinum: Unremarkable. No cardiomegaly. Bones/joints: Status post median sternotomy. XR/XR chest 1V portable [id number] IMPRESSION: No acute findings.
--- NOTE | 2025-03-09 12:47 | ECG_ITS ---
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
--- OUTSIDE RECORDS SUMMARY | 2025-03-09 12:50 | XMS_ITS ---
Author Organization [facility] are Care Team Providers Care Site Safety Coordinator Name Role Phone Perez Fawad Unavailable Unavailable Lalo May Unavailable Unavailable Allergies and adverse reactions Code CodeSystem Substance Reaction Severity StartDate Concern Status 78508 RXNORM Benzonatate Unknown 12/03/[address] Clostridium Unknown 12/03/2023 activ e 2670 RXNORM Codeine Unknown 12/03/2023 active Collagenase Unknown 12/03/2023 active 5489 RXNORM HYDROcodone Unknown 12/03/2023 active 7052 RXNORM Morphine Unknown 12/03/2023 active 7804 RXNORM oxyCODONE Unknown 12/03/2023 active Care Team Name Role Address Phone Organization Denise May PCP [address] [place], [address], [place] (Office): [facility] 12/03/2023 - 12/05/2023 Fawad Todd [address] [place], [address], [facility] (Office): : [facility] 12/03/2023 - 12/05/2023 Immunizations Immunization Status Vaccine Details Vaccine Code CodeSystem Date Notes SARS-COV-2 (COVID-19) completed SARS-COV-2 (COVID-19) vaccine, mRNA, spike protein, LNP, preservative free, yahaira-sucrose, 30 mcg/0.3 mL dose Step 2 of Multi-step with next step required 309 CVX created date: 12/03/2023 administere d date: 12/21/2020 SARS-COV-2 (COVID-19) completed SARS-COV-2 (COVID-19) vaccine, mRNA, spike protein, LNP, preservative free, yahaira-sucrose, 30 mcg/0.3 mL dose Step 1 of Multi-step with next step required 309 CVX created date: 12/03/2023 administere d date: 11/13/2020 Prevnar 15 completed Pneumococcal conjugate vaccine 15-valent (PCV15), polysaccharide ARE219 conjugate, adjuvant, preservative free 215 CVX created date: 12/03/2023 administere d date: 10/13/2023 Medications Section Medication Name Status Code CodeSystem Dose Route Frequency Admin Type Sig Text Start Date End Date Indication Escitalopra m Oxalate Oral Tablet 20 MG active 99955 0 RXNORM 20 mg Oral one time a day Routin e Give 20 mg by mouth one time a day for F32.A 2023 - F32.A Insulin Glargine Subcutaneou s Solution 100 UNIT/ML active 06309 1 RXNORM 20 unit Subcut aneous one time a day Routin e Injec t 20 unit subcu taneo usly one time a day for E11.6 5 2023 - E11.65 Metoprolol Succinate ER Oral Tablet Extended Release 24 Hour 25 MG active 65151 7 RXNORM 12.5 mg Oral one time a day Routin e Give 12.5 mg by mouth one time a day for I10 2023 - I10 buPROPion HCl ER (SR) Oral Tablet Extended Release 12 Hour 200 MG active 57367 6 RXNORM 400 mg Oral one time a day Routin e Give 400 mg by mouth one time a day for F32.A 2023 - F32.A Aspirin 81 Oral Tablet Chewable active 1 table t Oral one time a day Routin e Give 1 table t by mouth one time a day for I48.9 2 2023 - I48.92 Galantamine Hydrobromid e Oral Tablet 8 MG active 00472 7 RXNORM 1 table t Oral two times a day Routin e Give 1 table t by mouth two times a day for G31.8 4 2023 - G31.84 Xarelto Oral Tablet 20 MG active 75175 88 RXNORM 1 table t Oral one time a day Routin e Give 1 table t by mouth one time a day for I48.9 2 with food 2023 - I48.92 Cetirizine HCl Oral Tablet 10 MG active 70474 78 RXNORM 10 mg Oral one time a day Routin e Give 10 mg by mouth one time a day for G31.8 4 2023 - G31.84 Memantine HCl Oral Tablet 10 MG active 77840 1 RXNORM 1 table t Oral two times a day Routin e Give 1 table t by mouth two times a day for G31.8 4 2023 - G3.84 Atorvastati n Calcium Oral Tablet 40 MG active 02663 1 RXNORM 1 table t Oral one time a day Routin e Give 1 table t by mouth one time a day for E78.5 2023 - E78.5 Acarbose Oral Tablet 25 MG active 51233 2 RXNORM 1 table t Oral three times a day Routin e Give 1 table t by mouth three times a day for E11.6 5 2023 - E11.65 Ondansetron Oral Tablet Disintegrat ing 4 MG active 44159 4 RXNORM 4 mg Oral as needed PRN Give 4 mg by mouth every 8 hours as neede d for vomit ing 2023 - vomiting traZODone HCl Oral Tablet 100 MG active 04526 3 RXNORM 1 table t Oral one time a day Routin e Give 1 table t by mouth one time a day for F32.A 2023 - F32.A Acetaminoph en Tablet 325 MG active 63128 2 RXNORM 2 table t Oral as needed PRN Give 2 table t by mouth every 4 hours as neede d for pain 2023 - pain NovoLOG FlexPen Subcutaneou s Solution Pen-injecto r 100 UNIT/ML active 26829 04 RXNORM n/a n/a Subcut aneous before meals Routin e Injec t as per slidi ng scale : if 140 - 180 = 2; 181 - 240 = 3; 241 - 300 = 4; 301 - 350 = 6; 351 - 400 = 8, subcu taneo uslacho befor e meals 2023 - - Mental Status Section Date Assessment Total Score Description 12/05/2023 CAM 0 No delirium ind icated 12/05/2023 CAM 0 No delirium ind icated Insurance Providers Coverage Status Coverage Type Relationship to Subscriber Member Identifier Subscriber Identifier Group Identifier Payer Identifier and Other information 4 Code: 51 Code System OID:2.16.840 .1.642319.3. 221.5 Code System Name: Source of Payment Typology (PHDSC) Display: Managed Care (Private) Translation: Code: HM Code System: OID:2.16.840 .1.254021.6. 255.1336 Code System Name: Insurance Type Code ([id number]) Display Name: Health Maintenance Organization (HMO) Plan Code: SELF Code System Name: HL7 RoleCode Code System OID:2.16.840. 1.383374.5.11 1 Display Name: Self [id number] Root: [id number] Payer Name: [employer] Medicare Advantage Address: [place] [address] City: [place] State: [place] Country: [place] [facility] Telecom: [phone] Problems Problem # Description Date of onset Resolved Date Code CodeSystem Concern Status 1 ANEMIA, UNSPECIFIED [address] active 2 CHRONIC KIDNEY DISEASE, UNSPECIFIED [address] active 3 DEPRESSION, UNSPECIFIED [address] active 4 ESSENTIAL (PRIMARY) HYPERTENSION [address] active 5 HYPERLIPIDEMIA, UNSPECIFIED [address] active 6 SKILLED NURSING (CURRENT) USE OF ANTICOAGULANTS [address] active 7 MILD COGNITIVE IMPAIRMENT OF UNCERTAIN OR UNKNOWN ETIOLOGY [address] active 8 PRESENCE OF CARDIAC PACEMAKER [address] active 9 PRESENCE OF LEFT ARTIFICIAL KNEE JOINT [address] active 10 PRESENCE OF PROSTHETIC HEART VALVE [address] active 11 TYPE 2 DIABETES MELLITUS WITH HYPERGLYCEMIA [address] active 12 UNILATERAL PRIMARY OSTEOARTHRITIS, LEFT KNEE [address] active 13 UNSPECIFIED ATRIAL FLUTTER [address] active Reason for Referral No Reasons for Referral Entered Social History Social History Observation Description Start Date End Date Code Code System Current Smoking Status Tobacco smoking consumption unknown 260958991 SNOMED CT Sex Assigned At Female 1955 49871-0 [facility] Gender Identity Sexual Orientation Vital Signs Code Code System Vitals Name Values and Units Timing Information 9279-1 [facility] Respiratory Rate Value=18.0 Units=/m in 12/06/2023 8462-4 [facility] Blood Pressure-Diastolic Value=41 Un its=mmHg 12/06/2023 8480-6 [facility] Blood Pressure-Systolic Value=93 Uni ts=mmHg 12/06/2023 8310-5 [facility] Body Temperature Value=98.2 Units= F 12/06/2023 8867-4 [facility] Heart rate Tqtyk=961.0 Units=/min 12/06/2023 50225-9 [facility] O2 % BldC Oximetry Value=98.0 Units= % 12/06/2023 45979-1 [facility] Pain Level Value=7.0 12/05/2023 2339-0 [facility] Blood Sugar Oljwj=431.0 Units=mg/dL 12/05/2023 81025-6 [facility] Weight Djnpq=216.0 Units=Lbs 8302-2 [facility] Height Value=69.0 Units=Inches 12/03/2023
[2025-03-09 12:51] VITALS: BP 140/75; PULSE 82; RESP 16; TEMP 36.6; O2SAT 98; BMI 36.9
--- NOTE | 2025-03-09 13:47 | ECG_ITS ---
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
[2025-03-09 14:05] LABS: Hematocrit 39.0 % (36-47); Hemoglobin 12.90 g/dL (11.27-16.99); Mean Corpuscular HGB Conc 33.1 g/dL (30-55); Mean Corpuscular Hemoglobin 32.9 pg (27-33); Mean Corpuscular Volume 99.5 fl (85-98); Nucleated Red Blood Cells % 0 %; Platelet Count 212 10^3/cmm (157-399); Red Blood Count 3.92 10^6/uL (3.85-5.65); White Blood Count 6.90 10^3/uL (3.29-11.43)
[2025-03-09 14:20] LABS: INR 0.92 (0.8-1.2); Prothrombin Time 13.00 SECONDS (12.1-14.9)
[2025-03-09 14:24] LABS: Alanine Aminotransferase 12 U/L (0-33); Albumin Level 4.0 g/dL (3.5-5.2); Alkaline Phosphatase 148 U/L (35-105); Anion Gap 15.6 (5-19); Aspartate Amino Transferase 14 U/L (0-32); Blood Urea Nitrogen 18 mg/dL (8-23); Calcium 8.8 mg/dL (8.5-10.5); Carbon Dioxide 25 mmol/L (22-29); Chloride 100 mmol/L (98-107); Globulin 2.0 g/dL (1.3-4.6); Glucose 363 mg/dL (65-115); Lipase 18 U/L (13-60); Osmolality Calculated 299 mOsm/kg (285-295); Potassium 4.6 mmol/L (3.5-5.1); Sodium 136 mmol/L (136-145); Total Protein 6.0 g/dL (6.6-8.7)
[2025-03-09 14:25] LABS: Troponin(5th) Baseline 17 ng/L (0-10)
--- NOTE | 2025-03-09 14:41 | W.ED.CHESTPA ---
HPI - Chest Pain General: Chief Complaint: Chest Pain Stated Complaint: chest pain Time Seen by Provider: 03/09/25 14:13 Source: patient Mode of arrival: ambulatory Limitations: no limitations History of Present Illness: 69-year-old female who states that she did have an episode of chest pain last night and again this morning around noon. States it was a dull aching pain but since resolved she denies any pain currently she denies any shortness of breath denies any nausea she denies any worsening improving factors. No history of coronary artery disease Related Data Home Medications ?Medication ?Instructions ?Recorded ?Confirmed escitalopram oxalate 20 mg tablet 20 mg PO BEDTIME 07/29/20 03/06/25 aspirin 81 mg chewable tablet 81 mg PO BEDTIME 05/17/23 03/06/25 Held on 12/10/23. Instructions: Resume on 12/20/23. Hold aspirin for 2 weeks. Recommend follow-up with PCP with labs prior to restarting. bupropion HCl 200 mg tablet,12 hr 200 mg PO BID 05/17/23 03/06/25 sustained-release atorvastatin 40 mg tablet 40 mg PO BEDTIME 06/29/23 03/06/25 cetirizine 10 mg tablet 10 mg PO DAILY PRN allergies 11/01/23 03/06/25 albuterol sulfate 90 mcg/actuation 1 puff inhalation Q4H PRN 12/06/23 03/06/25 aerosol inhaler Shortness Of Breath trazodone 50 mg tablet 50 mg PO BEDTIME 12/06/23 03/06/25 metoprolol succinate 25 mg 12.5 mg PO BEDTIME 07/10/24 03/06/25 tablet,extended release 24 hr oxybutynin chloride 5 mg 5 mg PO DAILY 07/10/24 03/06/25 tablet,extended release 24 hr Previous Rx's ?Medication ?Instructions ?Recorded Diabetic shoes with insoles #1 ea 04/06/23 diabetic shoes with 3 inserts #1 ea 05/22/24 lisinopril 2.5 mg tablet 2.5 mg PO DAILY #90 tabs 07/10/24 acarbose 100 mg tablet See Rx Instructions .Route 09/13/24 .COMPLEX #90 tabs memantine 10 mg tablet See Rx Instructions .Route 10/02/24 .COMPLEX #180 tabs Lantus Solostar U-100 Insulin 100 10 unit (0.1 mL) SUBCUT DAILY #15 11/17/24 unit/mL (3 mL) subcutaneous pen mL (insulin glargine) galantamine 8 mg tablet See Rx Instructions .Route 02/14/25 .COMPLEX #180 tabs diclofenac sodium 1 % topical gel 4 g topical QID #100 grams 03/06/25 (Voltaren Arthritis Pain) Allergies Allergy/AdvReac Type Severity Reaction Status Date / Time azithromycin Allergy rash Verified 03/06/25 08:43 benzonatate (From Tessalon Allergy Unknown Verified 03/06/25 08:43 Perles) codeine Allergy rash Verified 03/06/25 08:43 collagenase Clostridium Allergy rash Verified 03/06/25 08:43 histolyticu donepezil Allergy ADR-Nightma Verified 03/06/25 08:43 re erythromycin base Allergy Unknown Verified 03/06/25 08:43 hydrocodone (From Vicodin) Allergy rash Verified 03/06/25 08:43 morphine Allergy rash Verified 03/06/25 08:43 oxycodone (From Percocet) Allergy rash Verified 03/06/25 08:43 tramadol Allergy Unknown Verified 03/06/25 08:43 Review of Systems Card: Reports: chest pain [facility] ED PFSH: Medical History (Updated 03/09/25 @ 16:10 by Bhupendra Morrow MD) 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 Sandoval manages Chronic anticoagulation xarelto for atrial fibrillation; now off of this and on asa 81 due to GI bleed 12/06 Anemia due to GI blood loss 12/06 EGD showed gastritis Chronic kidney disease Stage 3A 11/2023 with GFR 49 Depression Atrial flutter on asa now; was on xarelto but had GI bleed 12/06 Pacemaker [employer] dual-chamber 08/08/2021 Mild cognitive impairment with memory loss Dyslipidemia HTN (hypertension) Surgical History History of pacemaker Hx of colonoscopy 6 tubular adenoma; f/u 5 yrs Hx of aortic valve replacement has had this twice; both thoracotomy History of total knee arthroplasty left Hx of hysterectomy done for bleeding; she doesn't know if has ovaries or not Hx of cholecystectomy Hx of breast biopsy bilateral; all benign Family History Father Congestive heart failure (CHF) Diabetes Myocardial infarction Mother Diabetes Sister Diabetes Family/Other Diabetes Stroke Brother Diabetes mellitus, type 2 Social History Smoking and tobacco/nicotine status: never used tobacco/nicotine Alcohol intake: never Substance/Drug Use: never Household members: other Details: lives with daughter Marital status: / Number of children: 3 Highest education level completed: Bachelor's Degree Current occupational status: retired 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 Patient's x-ray here interpreted by me showed no acute abnormalities her initial and repeat troponins here are negative. She has been pain-free here chest pain is atypical in nature she has no signs of acute coronary syndrome. I feel she is stable for discharge at this time I informed her she needs to follow-up with PCP in 2 to 4 days and likely get an outpatient stress test set up if she has any pain she is to return she understands and agrees to plan. EKG interpreted by me at 1301 paced rhythm heart rate [address] elevation QRS 152 QTc 437 Second EKG interpreted by me at 1449 paced rhythm heart rate [address] elevation QRS 154 QTc 436 Medical Records I reviewed the patient's medical records. Lab Data I reviewed the patient's lab results. 03/09/25 13:58 03/09/25 13:58 Radiology Impressions Chest X-Ray 03/09/25 12:47 IMPRESSION: No acute findings. Laboratory Results WBC 6.90 10^3/uL (3.29-11.43) 03/09/25 13:58 RBC 3.92 10^6/uL (3.85-5.65) 03/09/25 13:58 Hgb 12.90 g/dL (11.27-16.99) 03/09/25 13:58 Hct 39.0 % (36-47) 03/09/25 13:58 MCV 99.5 fl (85-98) H 03/09/25 13:58 MCH 32.9 pg (27-33) 03/09/25 13:58 MCHC 33.1 g/dL (30-55) 03/09/25 13:58 RDW 12.8 % (12.1-15.1) 03/09/25 13:58 Plt Count 212 10^3/cmm (157-399) 03/09/25 13:58 MPV 11.0 fL (7.4-10.4) H 03/09/25 13:58 Neut % (Auto) 54.5 % 03/09/25 13:58 Lymph % (Auto) 33.3 % 03/09/25 13:58 [place] % (Auto) 7.8 % 03/09/25 13:58 Eos % (Auto) 3.3 % 03/09/25 13:58 Baso % (Auto) 1.0 % 03/09/25 13:58 Neut # (Auto) 3.75 10^3/uL (1.8-7.7) 03/09/25 13:58 Lymph # (Auto) 2.3 10^3/uL (0.8-4.8) 03/09/25 13:58 [place] # (Auto) 0.5 10^3/uL (0.2-0.9) 03/09/25 13:58 Eos # (Auto) 0.2 10^3/uL (0.0-0.8) 03/09/25 13:58 Baso # (Auto) 0.1 10^3/uL (0.0-0.1) 03/09/25 13:58 Nucleated RBC % (auto) 0 % 03/09/25 13:58 Nucleated RBCs # 0.0 /100WBC 03/09/25 13:58 PT 13.00 SECONDS (12.1-14.9) 03/09/25 13:58 INR 0.92 (0.8-1.2) 03/09/25 13:58 Sodium 136 mmol/L (136-145) 03/09/25 13:58 Potassium 4.6 mmol/L (3.5-5.1) 03/09/25 13:58 Chloride 100 mmol/L (98-107) 03/09/25 13:58 Carbon Dioxide 25 mmol/L (22-29) 03/09/25 13:58 Anion Gap 15.6 (5-19) 03/09/25 13:58 BUN 18 mg/dL (8-23) 03/09/25 13:58 Creatinine 1.0 mg/dL (0.5-0.9) H 03/09/25 13:58 GFR Calculation 55.0 mL/min (90-130) L 03/09/25 13:58 Glucose 363 mg/dL (65-115) H 03/09/25 13:58 Calculated Osmolality 299 mOsm/kg (285-295) H 03/09/25 13:58 Calcium 8.8 mg/dL (8.5-10.5) 03/09/25 13:58 Total Bilirubin 0.3 mg/dL (0.15-1.2) 03/09/25 13:58 AST 14 U/L (0-32) 03/09/25 13:58 ALT 12 U/L (0-33) 03/09/25 13:58 Alkaline Phosphatase 148 U/L (35-105) H 03/09/25 13:58 Troponin T Baseline 17 ng/L (0-10) H 03/09/25 13:58 Troponin T 60 Minute 15.81 ng/L (0-10) H 03/09/25 15:23 Delta Troponin T -1.19 ABS# (0-10) L 03/09/25 15:23 Total Protein 6.0 g/dL (6.6-8.7) L 03/09/25 13:58 Albumin 4.0 g/dL (3.5-5.2) 03/09/25 13:58 Globulin 2.0 g/dL (1.3-4.6) 03/09/25 13:58 Lipase 18 U/L (13-60) 03/09/25 13:58 All radiology interpretation(s) finalized by discharge Discharge Plan Discharge Patient Disposition: Home Clinical Impression: Atypical chest pain Condition: Stable Prescriptions: No Action escitalopram oxalate 20 mg tablet 20 mg PO BEDTIME (DME) Diabetic shoes with insoles See Rx Instructions .Route .MEDSUPPLY Qty: 1 0RF Rx Instructions: As directed by [facility] cetirizine 10 mg tablet 10 mg PO DAILY PRN (Reason: allergies) diclofenac sodium [Voltaren Arthritis Pain] 1 % gel 4 g topical QID Qty: 100 0RF Rx Instructions: apply to single knee, ankle, foot; for foot includes sole/toes/top of foot atorvastatin 40 mg tablet 40 mg PO BEDTIME (DME) diabetic shoes with 3 inserts See Rx Instructions .Route .MEDSUPPLY Qty: 1 0RF Rx Instructions: As directed to the shojody almaguer oxybutynin chloride 5 mg tablet extended release 24hr 5 mg PO DAILY lisinopril 2.5 mg tablet 2.5 mg PO DAILY Qty: 90 3RF acarbose 100 mg tablet See Rx Instructions .ROUTE .COMPLEX Qty: 90 1RF Dose Instruction: TAKE 1 TABLET BY MOUTH THREE TIMES DAILY BEFORE MEAL(S) Rx Instructions: TAKE 1 TABLET BY MOUTH THREE TIMES DAILY BEFORE MEAL(S) memantine 10 mg tablet See Rx Instructions .ROUTE .COMPLEX Qty: 180 3RF Dose Instruction: Take 1 tablet by mouth twice daily Rx Instructions: Take 1 tablet by mouth twice daily insulin glargine [Lantus Solostar U-100 Insulin] 100 unit/mL (3 mL) insulin pen 10 unit SUBCUT DAILY Qty: 15 1RF galantamine 8 mg tablet See Rx Instructions .ROUTE .COMPLEX Qty: 180 1RF Dose Instruction: TAKE ONE TABLET BY MOUTH TWICE DAILY WITH MORNING AND EVENING MEALS, WATCH FOR NAUSEA Rx Instructions: TAKE ONE TABLET BY MOUTH TWICE DAILY WITH MORNING AND EVENING MEALS, WATCH FOR NAUSEA bupropion HCl 200 mg tablet sustained-release 12 hr 200 mg PO BID aspirin 81 mg tablet,chewable 81 mg PO BEDTIME metoprolol succinate 25 mg tablet extended release 24 hr 12.5 mg PO BEDTIME trazodone 50 mg tablet 50 mg PO BEDTIME albuterol sulfate 90 mcg/actuation HFA aerosol inhaler 1 puff INHALATION Q4H PRN (Reason: Shortness Of Breath) Discharge Orders: Discharge ED (Routine); Ordered 03/09/25 Ordered By: Bhupendra Morrow Referrals: Fawad Todd MD [Primary Care Provider, Family Practice] - 4-7 days Discharge Diet: Advance as tolerated Discharge Activity: Resume usual activity Patient Instructions: Chest Pain (ED) Print Language: Thai Coding Level of Care Code ED Advisory Application Developer for Chg Fwd Heart Score HEART Score Components History: Slightly Suspicous EKG: Normal Age: 65 or more yrs Risk Factors: 1 or 2 Risk Factors Troponin: Baseline Trop 16-45 ng/L HEART Score RESULT HEART Score: 4
[2025-03-09 15:00] VITALS: BP 127/86; PULSE 71; RESP 18; O2SAT 96
[2025-03-09 15:30] VITALS: BP 120/95; PULSE 68; O2SAT 93
[2025-03-09 16:00] VITALS: BP 118/90; PULSE 67; O2SAT 93
[2025-03-09 16:30] VITALS: BP 130/77; PULSE 66; O2SAT 95
== END 2025-03-09 16:49 | disposition home or self-care (01) ==
PROVIDERS: Emergency Provider Emergency Medicine; PCP Family Medicine
DX: R07.89 Other chest pain (principal); Z79.4 Long term (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 insulin; Z79.82 Long term (current) use of aspirin; Z95.0 Presence of cardiac pacemaker; E78.5 Hyperlipidemia, unspecified; I12.9 Hypertensive chronic kidney disease with stage 1 through stage 4 chronic kidney disease, or unspecified chronic kidney disease; E11.22 Type 2 diabetes mellitus with diabetic chronic kidney disease; N18.31 Chronic kidney disease, stage 3a
CPT/HCPCS: 36415; 71045; 80053; 83690; 84484; 85025; 85610; 93005; 99285

== ENCOUNTER → 2025-03-12 10:15 | Outpatient (BNVA) | payer MEDICARE, SELFPAY | PROVIDERS: PCP Family Medicine; Visit Provider Nurse Practitioner Family | DX: L82.1 Other seborrheic keratosis (principal); L81.4 Other melanin hyperpigmentation; Z85.828 Personal history of other malignant neoplasm of skin; L57.0 Actinic keratosis | CPT/HCPCS: 17000; 99213 ==